=== PATIENT | female | born 1985 | race Caucasian/White ===

== ENCOUNTER 2020-06-04 15:29 | Outpatient (CLI) | payer BC, SELFPAY ==
--- NOTE | ~2020-06-04 | US_ITS ---
US OB follow up DATE: 06/04/2020 16:43 INDICATION: Hypertension, gestational diabetes TECHNIQUE: Real-time imaging and Doppler analysis COMPARISON: None FINDINGS: Live parra intrauterine gestation, fetus in transverse lie, head to maternal righ t. Anterior placenta. Subjectively normal amount of amniotic fluid. Amniotic fluid index measures 18.2 cm (5th percentile A FI: 8.6 cm, 95th percentile KENDRA: 24.2 cm). heart rate 130 bpm. Biparietal diameter: 8.23 cm; 33 weeks 1 day Head circumference: 30.36 cm; 33 weeks 5 days Abdominal circumference: 29.45 cm; 33 weeks 3 days Femur length: 6.12 cm; 31 weeks 5 days Composite age by Hadlock formula is 33 weeks +/- 2 weeks 2 days with DARA of 07/23/2020, compared to by LMP. Estimated weight by Hadlock formula is 2086 +/- 313 g Estimated weight-GP: 52.2% Femur length/BPD 74.33, within normal range of 71.0-87.0 Head circumference/abdominal circumference 1.03, within normal range of 0.96 - 1.11 Femur length/abdominal circumference 20.77, within normal range of 20.00-24.00 Femur length/head circumference 20.14, within normal range of 19.90-21.50 IMPRESSION: Composite age by Hadlock formula is 33 weeks +/- 2 weeks 2 days with DARA of 07/23/2020, co mpared to 07/26/2020 by LMP. Estimated weight by Hadlock formula is 2086 +/- 313 g Amniotic fluid index: 18.2 cm, normal Transverse lie Reviewed, dictated and finalized at [facility]. Reviewed, dictated and finalized at location [facility]. DIEM RN IMPRESSION: Composite age by Hadlock formula is 33 weeks +/- 2 weeks 2 days wit h DARA of 07/23/2020, compared to 07/26/2020 by LMP. Estimated weight by Hadlock formula is 2086 +/- 313 g Amniotic fluid index: 18.2 cm, normal Transverse lie
== END 2020-06-04 15:30 | disposition home or self-care (01) ==
PROVIDERS: Visit Provider Obstetrics & Gynecology
DX: O24.419 Gestational diabetes mellitus in pregnancy, unspecified control (principal); Z3A.00 Weeks of gestation of pregnancy not specified
CPT/HCPCS: 76816

== ENCOUNTER 2020-06-20 19:08 | Outpatient (CLI) | payer BC, SELFPAY ==
--- NOTE | 2020-06-20 19:50 | PC.NURSE ---
Pt states she has had elevated blood pressures with previous pregnancies,. States noted hand swelling with intermittant high blood pressure past 2 weeks.
[2020-06-20 20:16] VITALS: BP 123/83; PULSE 70
[2020-06-20 20:19] LABS: Basophils Percent Auto 0.3 % (0.2-1.2); Eosinophils Percent Auto 0.3 % (0-4.4); Hematocrit 38.6 % (37.0-47.0); Immature Granulocyte Absolute 0.02 K/mm3 (0.00-0.031); Immature Granulocyte Percent A 0.3 % (0-0.5); Lymphocytes Absolute Auto 1.21 K/mm3 (0.9-3.2); Lymphocytes Percent Auto 20.4 % (18.3-44.2); Mean Corpuscular HGB Conc 33.7 g/dl (32-36); Mean Corpuscular Volume 92.1 fl (80-100); Mean Platelet Volume 10.8 fl (7.4-10.4); Monocytes Absolute Auto 0.6 K/mm3 (0.1-0.6); Monocytes Percent Auto 10.1 % (2.6-8.5); Neutrophils Absolute Auto 4.1 K/mm3 (1.3-6.7); Neutrophils Percent Auto 68.6 % (45.5-73.1); Platelet Count Result 195 k/mm3 (150-375); Red Blood Count 4.19 M/mm3 (4.2-5.4); Red Cell Distribution Width 13.2 % (11.5-14.5); White Blood Count 5.9 K/mm3 (4.5-10.0)
[2020-06-20 20:24] LABS: Add Urine Microscopic? YES; Appearance Urine Cloudy (Clear); Bilirubin Urine Negative (Negative); Blood Urine 1+ (Negative); Color Urine Yellow (Yellow); Glucose Urine UA Negative (Negative); Ketones Urine Negative (Negative); Leukocyte Esterase Ur Negative LEU/UL (NEGATIVE); Mucus Urine Rare /lpf; Nitrate Urine Negative (Negative); Protein Urine 2+ mg/dL (Negative); Specific Grav Ur 1.029 (1.001-1.035); Squamous Epithelial Cell Urine Moderate /hpf (Few); Transitional Epi Cells Urine Rare /hpf (None Seen); Urobilinogen Urine Negative mg/dL (<2.0); WBC Urine 0-3 /hpf (0-3)
[2020-06-20 20:31] VITALS: BP 122/80; PULSE 60
[2020-06-20 20:31] LABS: Potassium 3.1 mmol/L (3.4-5.0)
--- NOTE | 2020-06-20 20:33 | P.PNOB_ITS ---
OB - Triage/Final Diagnosis Visit Information Date of evaluation: 06/20/20 Reason for evaluation: other (gest htn) Comments/Additional reasons for admission: I have assessed the risk for this patient, Romelia San, and determined that she would benefit from ob servation care. Evaluation Laboratory results: Laboratory Tests 06/20/20 06/20/20 06/20/20 20:10 20:10 20:10 WBC 5.9 RBC 4.19 L Hgb 13.0 Hct 38.6 MCV 92.1 MCH 31.0 MCHC 33.7 RDW 13.2 Plt Count 195 MPV 10.8 H Immature Gran % (Auto) 0.3 Neut % (Auto) 68.6 Lymph % (Auto) 20.4 [place] % (Auto) 10.1 H Eos % (Auto) 0.3 Baso % (Auto) 0.3 Lymph # (Auto) 1.21 [place] # (Auto) 0.6 Eos # (Auto) 0.0 Baso # (Auto) 0.0 Abs Immat Gran (auto) 0.02 Absolute Neuts (auto) 4.1 Absolute Nucleated RBC 0.0 Nucleated RBC % 0.0 Potassium 3.1 L Urine Color Yellow Urine Appearance Cloudy H Urine pH 6.0 Ur Specific [place] 1.029 Urine Protein 2+ H Urine Glucose (UA) Negative Urine Ketones Negative Ur Blood (Man) 1+ H Urine Nitrate Negative Urine Bilirubin Negative Urine Urobilinogen Negative Ur Leukocyte Esterase Negative Urine RBC 11-20 H Urine WBC 0-3 Ur Squamous Epith Cells Moderate H Ur Transition Epith Cell Rare Urine Mucus Rare Vital signs: Vital Signs - 24 hr 06/20/20 20:16 06/20/20 20:31 Pulse Rate 70 60 Blood Pressure 123/83 122/80
[2020-06-20 20:38] LABS: Alanine Aminotransferase 12 U/L (4-35); Albumin Level 3.2 g/dL (3.5-5.1); Alkaline Phosphatase 109 U/L (38-126); Anion Gap 3 mmol/L (8-16); Aspartate Amino Transferase 20 U/L (14-36); Bilirubin,Total 0.2 mg/dL (0.2-1.3); Blood Urea Nitrogen 9 mg/dL (7-17); Calcium 8.8 mg/dL (8.4-10.2); Carbon Dioxide 25 mmol/L (22-30); Chloride 110 mmol/L (98-107); Estimated Glomerular Filt Rate > 60; Glucose 140 mg/dL (65-105); Sodium 138 mmol/L (137-145); Uric Acid 3.1 mg/dL (2.5-7.5)
[2020-06-20 20:46] VITALS: BP 131/83; PULSE 65
== END 2020-06-20 20:55 | disposition home or self-care (01) ==
LOC: ANHOBOP 19:22 → ANHOBPP 06-25 06:30
PROVIDERS: Visit Provider Obstetrics & Gynecology
DX: R03.0 Elevated blood-pressure reading, without diagnosis of hypertension (principal)
CPT/HCPCS: 36415; 59025; 80053; 81001; 84550; 85025; 87086; 87088; 99199

== ENCOUNTER 2020-07-02 12:19 | Outpatient (CLI) | payer BC, SELFPAY ==
[2020-07-02] VITALS (15 sets, daily range): BP systolic 122–151; BP diastolic 79–106; PULSE 55–85; BMI 32.4
[2020-07-02] MEDS: LABETALOL HCL 100 MG TABLET 200 MG PO (13:10)
[2020-07-02 13:11] LABS: Basophils Percent Auto 0.4 % (0.2-1.2); Eosinophils Percent Auto 0.4 % (0-4.4); Hematocrit 45.3 % (37.0-47.0); Hemoglobin 15.2 g/dL (12.0-15.0); Immature Granulocyte Absolute 0.01 K/mm3 (0.00-0.031); Immature Granulocyte Percent A 0.1 % (0-0.5); Lymphocytes Absolute Auto 1.33 K/mm3 (0.9-3.2); Lymphocytes Percent Auto 19.9 % (18.3-44.2); Mean Corpuscular HGB Conc 33.6 g/dl (32-36); Mean Corpuscular Volume 92.3 fl (80-100); Mean Platelet Volume 10.8 fl (7.4-10.4); Monocytes Absolute Auto 0.5 K/mm3 (0.1-0.6); Monocytes Percent Auto 7.9 % (2.6-8.5); Neutrophils Absolute Auto 4.8 K/mm3 (1.3-6.7); Neutrophils Percent Auto 71.3 % (45.5-73.1); Platelet Count Result 199 k/mm3 (150-375); Red Blood Count 4.91 M/mm3 (4.2-5.4); Red Cell Distribution Width 13.4 % (11.5-14.5); White Blood Count 6.7 K/mm3 (4.5-10.0)
[2020-07-02 13:23] LABS: Alanine Aminotransferase 12 U/L (4-35); Albumin Level 3.5 g/dL (3.5-5.1); Alkaline Phosphatase 154 U/L (38-126); Anion Gap 3 mmol/L (8-16); Aspartate Amino Transferase 22 U/L (14-36); Bilirubin,Total 0.2 mg/dL (0.2-1.3); Blood Urea Nitrogen 10 mg/dL (7-17); Calcium 8.1 mg/dL (8.4-10.2); Carbon Dioxide 25 mmol/L (22-30); Chloride 109 mmol/L (98-107); Estimated Glomerular Filt Rate > 60; Glucose 84 mg/dL (65-105); Potassium 3.9 mmol/L (3.4-5.0); Sodium 137 mmol/L (137-145); Uric Acid 4.2 mg/dL (2.5-7.5)
[2020-07-02 13:30] LABS: Add Urine Microscopic? YES; Appearance Urine Cloudy (Clear); Bacteria Urine Trace /hpf; Bilirubin Urine Negative (Negative); Blood Urine 2+ (Negative); Color Urine Yellow (Yellow); Glucose Urine UA Negative (Negative); Ketones Urine Trace mg/dL (Negative); Leukocyte Esterase Ur Negative LEU/UL (Negative); Mucus Urine Heavy /lpf; Nitrate Urine Negative (Negative); Protein Urine 3+ mg/dL (Negative); RBC Urine 21-50 /hpf (0-2); Specific Grav Ur 1.027 (1.001-1.035); Squamous Epithelial Cell Urine Few /hpf (Few); Urobilinogen Urine Negative mg/dL (<2.0)
[2020-07-02 13:32] LABS: Creatinine Urine 174.7 mg/dL
[2020-07-02 13:50] LABS: Total Protein Urine Random > 600 mg/dL
[2020-07-02] MEDS: BETAMETHASONE SOD PHOS/ACETATE 30 MG/5 ML VIAL 12 MG IM (14:35)
--- NOTE | 2020-07-02 15:15 | PC.NURSE ---
Dr. Bolden on unit and in to see pt. Discussed pt's BP's, lab results and proteinuria with pt. Discussed need to deliver baby sooner than planned and options of inducing tonight vs receiving 2nd dose of Celestone tomorrow and induction on Tuesday morning. Pt relays history of fast labors. SVE by is 1-2 cm / 50 % / -2 station. Decision made to have pt return tomorrow for 2nd dose of Celestone and then come in Tuesday am for induction of labor.
--- NOTE | 2020-07-02 15:37 | WPDOBADMIT ---
Obstetrics - Admit Note Admission Note: 34 y/o at 36 3/7 weeks here with elevated bp in the office. No headaches, visual field change or abdominal pain. Good movement. Irregular contractions. No vaginal bleeding. A1DM with good glycemic control. GBS unknown. BP 150s/100s. AVSS NST reactive TOCO: irregular contractions ABD soft, nontender, gravid, vertex EXT nontender Cervix 2/50/-2. Vertex. NEURO: DTR 2/4 and symmetric A: IUP at 36 3/7 weeks with gestational HTN, A1DM, now with worsening bp control and proteinuria. P: I recommended delivery soon. Have started betamethasone as well as labetalol 200 mg po bid. After a long talk today, we decided to finish the steroid course tomorrow and induce labor the following day. We reviewed risks, benefits and alternatives. We reviewed instructions and precautions. She understands and agrees with the plan.
--- NOTE | 2020-07-02 17:01 | PC.NURSE ---
Preadmission was completed prior to discharging pt.
== END 2020-07-02 17:01 | disposition home or self-care (01) ==
LOC: ANHOBOP 12:25 → ANHOBPP 12:25
PROVIDERS: Visit Provider Student in an Organized Health Care Education/Training Program
DX: O13.9 Gestational [pregnancy-induced] hypertension without significant proteinuria, unspecified trimester (principal); Z3A.00 Weeks of gestation of pregnancy not specified
CPT/HCPCS: 36415; 59025; 80053; 81001; 82570; 84156; 84550; 85025; 87086; 87088; 96372; 99199; A9270; J0702

== ENCOUNTER 2020-07-03 14:19 | Outpatient (CLI) | payer BC, SELFPAY ==
[2020-07-03] MEDS: BETAMETHASONE SOD PHOS/ACETATE 30 MG/5 ML VIAL 12 MG IM (14:34)
== END 2020-07-03 14:20 | disposition home or self-care (01) ==
LOC: ANHOBOP 14:25
PROVIDERS: PCP Obstetrics & Gynecology; Visit Provider Obstetrics & Gynecology
DX: O13.9 Gestational [pregnancy-induced] hypertension without significant proteinuria, unspecified trimester (principal); Z3A.00 Weeks of gestation of pregnancy not specified
CPT/HCPCS: 96372; J0702

== ENCOUNTER 2020-07-04 05:20 | Inpatient (IN) | payer BC, SELFPAY ==
[2020-07-04] VITALS (243 sets, daily range): BP systolic 77–168; BP diastolic 52–133; PULSE 55–290; RESP 16–20; TEMP 36.2–37.2; O2SAT 75–100; BMI 32.5
[2020-07-04 05:57] LABS: Basophils Percent Auto 0.1 % (0.2-1.2); Hematocrit 38.2 % (37.0-47.0); Hemoglobin 13.1 g/dL (12.0-15.0); Immature Granulocyte Absolute 0.09 K/mm3 (0.00-0.031); Immature Granulocyte Percent A 1.1 % (0-0.5); Lymphocytes Absolute Auto 0.87 K/mm3 (0.9-3.2); Lymphocytes Percent Auto 10.9 % (18.3-44.2); Mean Corpuscular HGB Conc 34.3 g/dl (32-36); Mean Corpuscular Hemoglobin 31.7 pg (26-34); Mean Corpuscular Volume 92.5 fl (80-100); Mean Platelet Volume 10.9 fl (7.4-10.4); Monocytes Absolute Auto 0.5 K/mm3 (0.1-0.6); Monocytes Percent Auto 6.5 % (2.6-8.5); Neutrophils Absolute Auto 6.5 K/mm3 (1.3-6.7); Neutrophils Percent Auto 81.4 % (45.5-73.1); Platelet Count Result 193 k/mm3 (150-375); Red Blood Count 4.13 M/mm3 (4.2-5.4); Red Cell Distribution Width 13.6 % (11.5-14.5)
--- NOTE | 2020-07-04 06:02 | LDADM ---
This patient, Romelia San, was admitted to Labor/Delivery/Recovery 102 on 07/04/20 at 05:20. Plans for labor, pain management and were discussed with patient. Patient/family oriented to hospital policies and general routines including ID bracelet, bed and alarms, visiting hours, pain management, procedures, bathroom and other care routines, personal items, smoking policy, room service/diet and guest tray routines, security routines, and visiting hours. Patient/Family are encouraged to report perceived risks to care and to ask questions if they do not understand what they are told or what they should do. See OBIX for further documentation.
--- NOTE | 2020-07-04 06:05 | WPDANESEPP ---
Anes - Eval Pre Procedure Procedure: labor epidural Date/Time: 07/04/20 06:05 Surgeon: qian Pre Op Diagnosis: Induction of Labor Patient Data Age: 34 Gender: F Height: Weight: Allergies Allergy/AdvReac Type Severity Reaction Status Date / Time No Known Allergies Allergy Verified 07/02/20 14:02 Home Medications Medication Instructions Recorded Confirmed Type PNV cmb#95-ferrous fumarate-FA 1 tablet PO DAILY 07/02/20 07/02/20 History [] labetalol 200 mg PO Q12H 07/02/20 07/02/20 History aspirin 81 mg PO DAILY 07/04/20 07/04/20 History Laboratory Tests 07/04/20 07/04/20 07/04/20 05:48 05:48 05:48 WBC 8.0 K/mm3 K/mm3 (4.5-10.0) RBC 4.13 M/mm3 L M/mm3 (4.2-5.4) Hgb 13.1 g/dL g/dL (12.0-15.0) Hct 38.2 % % (37.0-47.0) MCV 92.5 fl fl (80-100) MCH 31.7 pg pg (26-34) MCHC 34.3 g/dl g/dl (32-36) RDW 13.6 % % (11.5-14.5) Plt Count 193 k/mm3 k/mm3 (150-375) MPV 10.9 fl H fl (7.4-10.4) Immature Gran % (Auto) 1.1 % H % (0-0.5) Neut % (Auto) 81.4 % H % (45.5-73.1) Lymph % (Auto) 10.9 % L % (18.3-44.2) [place] % (Auto) 6.5 % % (2.6-8.5) Eos % (Auto) 0.0 % % (0-4.4) Baso % (Auto) 0.1 % L % (0.2-1.2) Lymph # (Auto) 0.87 K/mm3 L K/mm3 (0.9-3.2) [place] # (Auto) 0.5 K/mm3 K/mm3 (0.1-0.6) Eos # (Auto) 0.0 K/mm3 K/mm3 (0-0.3) Baso # (Auto) 0.0 K/mm3 K/mm3 (0.0-0.1) Abs Immat Gran (auto) 0.09 K/mm3 H K/mm3 (0.00-0.031) Absolute Neuts (auto) 6.5 K/mm3 K/mm3 (1.3-6.7) Absolute Nucleated RBC 0.0 K/mm3 K/mm3 (0.0-0.012) Nucleated RBC % 0.0 % % (0.0-0.2) Sodium Pending Potassium Pending Chloride Pending Carbon Dioxide Pending Anion Gap Pending BUN Pending Creatinine Pending Estim Creat Clear Calc Pending Estimated GFR Pending Glucose Pending Calcium Pending Total Bilirubin Pending AST Pending ALT Pending Alkaline Phosphatase Pending Total Protein Pending Albumin Pending RPR Pending Patient hx anesthesia problems: none Family hx anesthesia problems: none PMFSH Past Medical History Medical History (Updated 07/04/20 @ 06:06 by Dorcas Thornton CRNA) H/O Finch's palsy Migraines PIH ( induced hypertension) Family History Family History Father Hyperlipidemia Hypertension Mother Hypertension Anxiety and depression Early onset Alzheimer's dementia Sibling Anxiety Social History Social History Substance use: never Spiritual care concerns: No Exam Day of Procedure 07/04/20 06:05
[2020-07-04 06:13] LABS: Alanine Aminotransferase 14 U/L (4-35); Albumin Level 3.3 g/dL (3.5-5.1); Alkaline Phosphatase 125 U/L (38-126); Anion Gap 6 mmol/L (8-16); Aspartate Amino Transferase 24 U/L (14-36); Bilirubin,Total 0.1 mg/dL (0.2-1.3); Blood Urea Nitrogen 15 mg/dL (7-17); Calcium 8.8 mg/dL (8.4-10.2); Carbon Dioxide 21 mmol/L (22-30); Chloride 110 mmol/L (98-107); Estimated CRCL calculation 163 ml/min; Estimated Glomerular Filt Rate > 60; Glucose 116 mg/dL (65-105); Potassium 4.3 mmol/L (3.4-5.0); Sodium 137 mmol/L (137-145)
[2020-07-04] MEDS: LACTATED RINGERS 1,000 ML 125 ML IV CONT ×5 (06:14→20:37)
[2020-07-04] MEDS: AMPICILLIN 2 GM/NS 100 ML 2 GM/100 ML BAG IVPB (06:14)
[2020-07-04] MEDS: OXYTOCIN 30 UNITS/NS 500 ML 30 UNITS/500 ML BAG IV CONT (06:14)
[2020-07-04 06:24] LABS: Uric Acid 3.9 mg/dL (2.5-7.5)
[2020-07-04] MEDS: LABETALOL HCL 100 MG TABLET 200 MG PO (07:28)
--- NOTE | 2020-07-04 08:35 | WPDOBADMIT ---
Obstetrics - Admit Note Admission Note: record reviewed. Additions to the history and/or subsequent changes in the physical findings follow. 34 y/o at 36 6/7 weeks with gestational hypertension, worsening. She has proteinuria, but no symptoms of preeclampsia and no other lab derangements. A1DM, well-controlled. Got steroids this week. GBS unknown. Just started labetalol 200 mg po bid this week. I have advised delivery. We have reviewed risks associated with prematurity, risks and benefits associated with induction of labor versus expectant management. AVSS (bp 150/100) NST reactive TOCO: contractions irregularly ABD soft, nontender, gravid, vertex EXT nontender Cervix 3/50/-2. AROM with clear fluid. Vertex. A: IUP at 36 6/7 weeks with worsening gestational HTN, A1DM, s/p steroids. P: She is amenable to induction of labor. Watch bp, glucose. Oxytocin. Anticipate .
[2020-07-04] MEDS: SODIUM CHLORIDE 0.9% IV 300 ML 600 ML I-UTERINE (08:58)
[2020-07-04] MEDS: SODIUM CHLORIDE 0.9% IV 1,000 ML 150 ML I-UTERINE (09:40)
[2020-07-04] MEDS: AMPICILLIN 1 GM/NS 50 ML 1 GM/50 ML BAG IVPB ×2 (10:11→13:46)
[2020-07-04 11:35] LABS: Glucose Point of Care 105 (65-105)
[2020-07-04 11:35] LABS: Glucose Point of Care 97 (65-105)
[2020-07-04 12:01] LABS: Rapid Plasma Reagin Non-Reactive (NonReactive)
--- NOTE | 2020-07-04 12:35 | PM.OBPNLAB ---
Pain Control Date/time seen: 07/04/20 12:30 Comments: AVSS Comfortable with epidural. Pelvic Exam Dilation (cm): 4 Effacement (%): 80 station: -2 Contractions Contraction frequency: 3 Contraction pattern: Regular Status status: Category ll Comments: Occasional variable decelerations, responding well to amnioinfusion. Assessment and Plan Pitocin rate (mU/min): 4 Plan: continuous present management Comments: Anticipate .
--- NOTE | 2020-07-04 14:59 | P.PCNOB_ITS ---
OB - Delivery Note Procedure Delivery date: 07/04/20 Procedure: Induction of labor with Induction method: AROM and per pitocin protocol Delivery monitor: external FHT, external uterine and internal uterine Route of delivery: Laceration Description: None Quantitative Blood Loss (ml): 600 (ebl) Anesthesia type: Epidural Disposition: PACU Complications: None Narrative: 34 y/o at 36 6/7 weeks gestation with gestational HTN, A1DM, who presented to the hospital for induction of labor. Oxytocin was administered intravenously. She received ampicillin for unknown GBS status in the . Amniotomy was performed with return of clear fluid. She received an epidural for pain control. Her labor progressed and her cervix dilated completely. She had a heart rate deceleration in conjunction with moderate vaginal bleeding, so she was instructed to push. Over one contraction, she pushed with good effort and delivered the 's head to the perineum. A nuchal cord was reduced and the body delivered. The nose and mouth were bulb suctioned. After a delay, the cord was clamped and cut. The was handed off the field. Cord blood was collected. The placenta delivered spontaneously and was grossly normal in appearance. The usual 3 vessel cord was noted. The perineum was intact. The patient was taken to recovery room in stable condition. The infant went to the nursery in stable condition. Because of the rapid nature of her delivery at the time of FHR deceleration and increase in vaginal bleeding, an accurate QBL was not able to be obtained. [place] Baby Date of : 07/04/20 Time of : 14:48 Weeks of gestation at delivery: 36 Infant gender: Male Weight (pounds): 5 Weight (ounces): 10 presentation: vertex position: Left Occiput Anterior Placenta delivery description: Spontaneous and Normal Configuration cord vessel description: 3 Vessels, Nuchal Cord and Delayed Cord Clamping score one minute: 8 score five minutes: 9
[2020-07-04] MEDS: OXYTOCIN 30 UNITS/NS 500 ML 30 UNITS/500 ML BAG 125 UNITS IV CONT (15:28)
[2020-07-04] MEDS: miSOPROStol 200 MCG TABLET 1000 MCG RECTAL (15:45)
[2020-07-04 16:41] LABS: Glucose Point of Care 88 (65-105)
[2020-07-04] MEDS: CARBOPROST TROMETHAMINE 250 MCG/ML AMPUL IM (17:02)
[2020-07-04] MEDS: LOPERAMIDE HCL 2 MG CAPSULE 4 MG PO (17:03)
[2020-07-04 18:44] LABS: Hematocrit 25.3 % (37.0-47.0); Hemoglobin 8.4 g/dL (12.0-15.0); Mean Corpuscular HGB Conc 33.2 g/dl (32-36); Mean Corpuscular Hemoglobin 31.6 pg (26-34); Mean Corpuscular Volume 95.1 fl (80-100); Mean Platelet Volume 9.7 fl (7.4-10.4); Platelet Count Result 90 k/mm3 (150-375); Red Blood Count 2.66 M/mm3 (4.2-5.4); Red Cell Distribution Width 13.9 % (11.5-14.5); White Blood Count 13.2 K/mm3 (4.5-10.0)
[2020-07-04 18:52] LABS: INR 1.7; Prothrombin Time 20.6 Seconds (11.1-14.7)
[2020-07-04 18:53] LABS: Partial Thromboplastin Time 31.8 SECONDS (22.3-36.8)
--- NOTE | 2020-07-04 19:24 | PM.OBPNVD ---
OB - PN: Subj Subjective Date/time seen: 07/04/20 19:24 Called to see patient. She has had several gushes of blood. EBL now 1800mL. Has received oxytocin, Cytotec, Hemabate. Feels fine. well. BP 140/90, pulse 90. Hgb 13 initially, 8.4 now. ABD: Uterus feels firm. Bedside ultrasound by me: Uterus shows a small echogenic focus. A: PPH with possible retained placental fragment. P: Ultrasound-guided D&C OB - PN: Obj Data Labs CBC & Chem 7: 07/04/20 18:35 07/04/20 05:48 Labs: Laboratory Results - last 24 hr 07/04/20 07/04/20 07/04/20 05:48 05:48 05:48 WBC 8.0 RBC 4.13 L Hgb 13.1 Hct 38.2 MCV 92.5 MCH 31.7 MCHC 34.3 RDW 13.6 Plt Count 193 MPV 10.9 H Immature Gran % (Auto) 1.1 H Neut % (Auto) 81.4 H Lymph % (Auto) 10.9 L [place] % (Auto) 6.5 Eos % (Auto) 0.0 Baso % (Auto) 0.1 L Lymph # (Auto) 0.87 L [place] # (Auto) 0.5 Eos # (Auto) 0.0 Baso # (Auto) 0.0 Abs Immat Gran (auto) 0.09 H Absolute Neuts (auto) 6.5 Absolute Nucleated RBC 0.0 Nucleated RBC % 0.0 Sodium 137 Potassium 4.3 Chloride 110 H Carbon Dioxide 21 L Anion Gap 6 L BUN 15 D Creatinine 0.40 L Estim Creat Clear Calc 163 Estimated GFR > 60 Glucose 116 H POC Capillary Glucose Uric Acid 3.9 Calcium 8.8 Total Bilirubin 0.1 L AST 24 ALT 14 Alkaline Phosphatase 125 Total Protein 6.0 L Albumin 3.3 L RPR Blood Type Antibody Screen 07/04/20 07/04/20 07/04/20 05:48 05:48 09:23 WBC RBC Hgb Hct MCV MCH MCHC RDW Plt Count MPV Immature Gran % (Auto) Neut % (Auto) Lymph % (Auto) [place] % (Auto) Eos % (Auto) Baso % (Auto) Lymph # (Auto) [place] # (Auto) Eos # (Auto) Baso # (Auto) Abs Immat Gran (auto) Absolute Neuts (auto) Absolute Nucleated RBC Nucleated RBC % Sodium Potassium Chloride Carbon Dioxide Anion Gap BUN Creatinine Estim Creat Clear Calc Estimated GFR Glucose POC Capillary Glucose 97 Uric Acid Calcium Total Bilirubin AST ALT Alkaline Phosphatase Total Protein Albumin RPR Non-reactive Blood Type A Positive Antibody Screen Negative 07/04/20 07/04/20 07/04/20 11:29 13:23 16:23 WBC RBC Hgb 10.0 L D Hct 31.0 L MCV MCH MCHC RDW Plt Count MPV Immature Gran % (Auto) Neut % (Auto) Lymph % (Auto) [place] % (Auto) Eos % (Auto) Baso % (Auto) Lymph # (Auto) [place] # (Auto) Eos # (Auto) Baso # (Auto) Abs Immat Gran (auto) Absolute Neuts (auto) Absolute Nucleated RBC Nucleated RBC % Sodium Potassium Chloride Carbon Dioxide Anion Gap BUN Creatinine Estim Creat Clear Calc Estimated GFR Glucose POC Capillary Glucose 105 88 Uric Acid Calcium Total Bilirubin AST ALT Alkaline Phosphatase Total Protein Albumin RPR Blood Type Antibody Screen 07/04/20 18:35 WBC 13.2 H RBC 2.66 L Hgb 8.4 L Hct 25.3 L MCV 95.1 MCH 31.6 MCHC 33.2 RDW 13.9 Plt Count 90 L D MPV 9.7 Immature Gran % (Auto) Neut % (Auto) Lymph % (Auto) [place] % (Auto) Eos % (Auto) Baso % (Auto) Lymph # (Auto) [place] # (Auto) Eos # (Auto) Baso # (Auto) Abs Immat Gran (auto) Absolute Neuts (auto) Absolute Nucleated RBC Nucleated RBC % Sodium Potassium Chloride Carbon Dioxide Anion Gap BUN Creatinine Estim Creat Clear Calc Estimated GFR Glucose POC Capillary Glucose Uric Acid Calcium Total Bilirubin AST ALT Alkaline Phosphatase Total Protein Albumin RPR Blood Type Antibody Screen OB - PN A/P Time Spent With Patient Time: Total time spent is greater than 50% in coordination of care (as documented) at patient's floor/unit
[2020-07-04 19:35] LABS: Fibrinogen 60 mg/dl (215-510)
[2020-07-04 19:36] LABS: D Dimer > 20.00 ug/mL (<0.48)
--- NOTE | 2020-07-04 20:01 | PM.PROC ---
Procedure Note - Detailed Date of procedure: 07/04/20 Pre-op diagnosis: Induction of Labor hemorrhage Possible retained placental fragments Post-op diagnosis: same Procedure performed: Bedside ultrasound-guided uterine curettage. Description of procedure: Bedside ultrasound exam was performed by me. The endometrial cavity was mostly empty, although there was one focus of echogenic material suggestive of retained products. Anesthesia was consulted again. The epidural catheter was, fortunately, still in place. This was dosed and anesthesia was found to be adequate. A Willis catheter was placed. A weighted speculum was placed in the vagina posteriorly and a right angle retractor was used anteriorly. The anterior lip of the cervix was grasped with a ring forceps. Under ultrasound guidance, the banjo curette was advanced and sharp curettage was performed. Small amount of tissue was obtained, although one fragment did suggest a placental lobule. Hemostasis was excellent. Sponge, lap, needle and instrument counts were correct. I was present and scrubbed for the entire procedure. Implants: None Anesthesia: epidural Surgeon: Frantz Bolden MD Estimated blood loss (mL): 150 Drains: Yes (willis) Packing: No Pathology: yes (endometrial curettings, with a suggestion of a placental fragment) Complications: None Condition: stable Disposition: PACU Findings: Small tissue consistent with placental fragment.
[2020-07-04 20:20] LABS: Hematocrit 22.7 % (37.0-47.0); Hemoglobin 7.4 g/dL (12.0-15.0); Mean Corpuscular HGB Conc 32.6 g/dl (32-36); Mean Corpuscular Hemoglobin 31.6 pg (26-34); Mean Platelet Volume 10.2 fl (7.4-10.4); Platelet Count Result 85 k/mm3 (150-375); Red Blood Count 2.34 M/mm3 (4.2-5.4); Red Cell Distribution Width 13.8 % (11.5-14.5); White Blood Count 11.3 K/mm3 (4.5-10.0)
[2020-07-04 20:32] LABS: Anion Gap 1 mmol/L (8-16); Blood Urea Nitrogen 15 mg/dL (7-17); Calcium 6.6 mg/dL (8.4-10.2); Carbon Dioxide 24 mmol/L (22-30); Chloride 107 mmol/L (98-107); Estimated CRCL calculation 114 ml/min; Estimated Glomerular Filt Rate > 60; Glucose 105 mg/dL (65-105); Potassium 4.1 mmol/L (3.4-5.0); Sodium 132 mmol/L (137-145)
[2020-07-05] VITALS (65 sets, daily range): BP systolic 111–140; BP diastolic 65–93; PULSE 86–116; RESP 16–18; TEMP 36.6–37.2; O2SAT 94–100
[2020-07-05] MEDS: IBUPROFEN 600 MG TABLET PO ×2 (03:59→17:23)
[2020-07-05 05:28] LABS: Basophils Percent Auto 0.2 % (0.2-1.2); Hematocrit 28.3 % (37.0-47.0); Hemoglobin 9.5 g/dL (12.0-15.0); Immature Granulocyte Absolute 0.13 K/mm3 (0.00-0.031); Lymphocytes Absolute Auto 1.43 K/mm3 (0.9-3.2); Lymphocytes Percent Auto 11.4 % (18.3-44.2); Mean Corpuscular HGB Conc 33.6 g/dl (32-36); Mean Corpuscular Hemoglobin 29.5 pg (26-34); Mean Corpuscular Volume 87.9 fl (80-100); Mean Platelet Volume 9.7 fl (7.4-10.4); Monocytes Absolute Auto 1.1 K/mm3 (0.1-0.6); Monocytes Percent Auto 8.9 % (2.6-8.5); Neutrophils Absolute Auto 9.8 K/mm3 (1.3-6.7); Neutrophils Percent Auto 78.5 % (45.5-73.1); Platelet Count Result 81 k/mm3 (150-375); Red Blood Count 3.22 M/mm3 (4.2-5.4); Red Cell Distribution Width 16.2 % (11.5-14.5); White Blood Count 12.5 K/mm3 (4.5-10.0)
[2020-07-05 05:37] LABS: INR 1.2; Prothrombin Time 15.9 Seconds (11.1-14.7)
[2020-07-05 05:38] LABS: Partial Thromboplastin Time 27.7 SECONDS (22.3-36.8)
[2020-07-05 05:43] LABS: Fibrinogen 150 mg/dl (215-510)
[2020-07-05 06:10] LABS: D Dimer > 20.00 ug/mL (<0.48)
--- NOTE | 2020-07-05 08:18 | WPDANLDPN2 ---
Anes-Prog Note L&D Date/Time: 07/05/20 08:18 Comfortable throughout: labor and delivery Neuraxial method: epidural Neuro status: Neuro function grossly intact. Cardiovascular status: normal Respiratory status: normal Airway patency: baseline Mental status: baseline Post-Op hydration status: normal Vital Signs: Last Vital Signs Temp 36.9 C 07/05/20 07:27 Pulse 86 07/05/20 07:22 Resp 18 07/05/20 03:22 BP 130/83 07/05/20 07:22 Pulse Ox 99 07/05/20 03:47 Pain score (VAS): Patient resting in bed at time of assessment, appears comfortable. I/O: Intake & Output 07/04/20 07/05/20 07/05/20 23:59 07:59 15:59 Intake Total 1999 1637 Output Total 1445 1163 Balance 555 842 Post-procedural complaints: none Patient feedback: Patient satisfied with anesthetic care.
--- NOTE | 2020-07-05 08:19 | WPDANESPN ---
Anes - Prog Note Post-Op Date/Time: 07/05/20 08:19 Cardiovascular status: normal Respiratory status: normal Airway patency: baseline Mental status: baseline Post-Op hydration status: normal Vital Signs: Last Vital Signs Temp 36.9 C 07/05/20 07:27 Pulse 86 07/05/20 07:22 Resp 18 07/05/20 03:22 BP 130/83 07/05/20 07:22 Pulse Ox 99 07/05/20 03:47 Pain Score (VAS): 0/10. Patient resting in bed at time of assessment, appears comfortable. I/O: Intake & Output 07/04/20 07/05/20 07/05/20 23:59 07:59 15:59 Intake Total 1999 1637 Output Total 1445 1163 Balance 555 474 Laboratory Tests 07/05/20 05:21 07/04/20 20:00 07/04/20 07/04/20 07/04/20 05:48 05:48 09:23 WBC RBC Hgb Hct MCV MCH MCHC RDW Plt Count MPV Immature Gran % (Auto) Neut % (Auto) Lymph % (Auto) [place] % (Auto) Eos % (Auto) Baso % (Auto) Lymph # (Auto) [place] # (Auto) Eos # (Auto) Baso # (Auto) Abs Immat Gran (auto) Absolute Neuts (auto) Absolute Nucleated RBC Nucleated RBC % % Immature Plt Fraction PT INR APTT Fibrinogen D-Dimer Sodium Potassium Chloride Carbon Dioxide Anion Gap BUN Creatinine Estim Creat Clear Calc Estimated GFR Glucose POC Capillary Glucose 97 Calcium RPR Non-reactive Blood Type A Positive Antibody Screen Negative Crossmatch See Detail 07/04/20 07/04/20 07/04/20 11:29 13:23 16:23 WBC RBC Hgb 10.0 L D Hct 31.0 L MCV MCH MCHC RDW Plt Count MPV Immature Gran % (Auto) Neut % (Auto) Lymph % (Auto) [place] % (Auto) Eos % (Auto) Baso % (Auto) Lymph # (Auto) [place] # (Auto) Eos # (Auto) Baso # (Auto) Abs Immat Gran (auto) Absolute Neuts (auto) Absolute Nucleated RBC Nucleated RBC % % Immature Plt Fraction PT INR APTT Fibrinogen D-Dimer Sodium Potassium Chloride Carbon Dioxide Anion Gap BUN Creatinine Estim Creat Clear Calc Estimated GFR Glucose POC Capillary Glucose 105 88 Calcium RPR Blood Type Antibody Screen Crossmatch 07/04/20 07/04/20 07/04/20 18:35 18:35 20:00 WBC 13.2 H 11.3 H RBC 2.66 L 2.34 L Hgb 8.4 L 7.4 L Hct 25.3 L 22.7 L MCV 95.1 97.0 MCH 31.6 31.6 MCHC 33.2 32.6 RDW 13.9 13.8 Plt Count 90 L D 85 L MPV 9.7 10.2 Immature Gran % (Auto) Neut % (Auto) Lymph % (Auto) [place] % (Auto) Eos % (Auto) Baso % (Auto) Lymph # (Auto) [place] # (Auto) Eos # (Auto) Baso # (Auto) Abs Immat Gran (auto) Absolute Neuts (auto) Absolute Nucleated RBC Nucleated RBC % % Immature Plt Fraction PT 20.6 H INR 1.7 APTT 31.8 Fibrinogen 60 L D-Dimer > 20.00 H Sodium Potassium Chloride Carbon Dioxide Anion Gap BUN Creatinine Estim Creat Clear Calc Estimated GFR Glucose POC Capillary Glucose Calcium RPR Blood Type Antibody Screen Crossmatch 07/04/20 07/05/20 07/05/20 20:00 05:21 05:21 WBC 12.5 H RBC 3.22 L Hgb 9.5 L Hct 28.3 L MCV 87.9 D MCH 29.5 D MCHC 33.6 RDW 16.2 H Plt Count 81 L MPV 9.7 Immature Gran % (Auto) 1.0 H Neut % (Auto) 78.5 H Lymph % (Auto) 11.4 L [place] % (Auto) 8.9 H Eos % (Auto) 0.0 Baso % (Auto) 0.2 Lymph # (Auto) 1.43 [place] # (Auto) 1.1 H Eos # (Auto) 0.0 Baso # (Auto) 0.0 Abs Immat Gran (auto) 0.13 H Absolute Neuts (auto) 9.8 H Absolute Nucleated RBC 0.0 Nucleated RBC % 0.0 % Immature Plt Fraction 6.0 PT 15.9 H D INR 1.2 APTT 27.7 Fibrinogen 150 L D-Dimer > 20.00 H Sodium 132 L Potassium 4.1 Chloride 107 Carbon Dioxide 24 Anion Gap 1 L BUN 15 Creatinine 0.60 L Estim Creat Clear Calc 114
--- NOTE | 2020-07-05 11:23 | PM.OBPNVD ---
OB - PN: Subj Subjective Date/time seen: 07/05/20 11:23 Narrative: Feels great this morning! Pain OK. Minimal bleeding. Would like willis out. Would like circumcision for son. OB - PN: Obj Data Labs CBC & Chem 7: 07/05/20 05:21 07/04/20 20:00 Labs: Laboratory Results - last 24 hr 07/04/20 07/04/20 07/04/20 05:48 05:48 09:23 WBC RBC Hgb Hct MCV MCH MCHC RDW Plt Count MPV Immature Gran % (Auto) Neut % (Auto) Lymph % (Auto) [place] % (Auto) Eos % (Auto) Baso % (Auto) Lymph # (Auto) [place] # (Auto) Eos # (Auto) Baso # (Auto) Abs Immat Gran (auto) Absolute Neuts (auto) Absolute Nucleated RBC Nucleated RBC % % Immature Plt Fraction PT INR APTT Fibrinogen D-Dimer Sodium Potassium Chloride Carbon Dioxide Anion Gap BUN Creatinine Estim Creat Clear Calc Estimated GFR Glucose POC Capillary Glucose 97 Calcium RPR Non-reactive Blood Type A Positive Antibody Screen Negative Crossmatch See Detail 07/04/20 07/04/20 07/04/20 11:29 13:23 16:23 WBC RBC Hgb 10.0 L D Hct 31.0 L MCV MCH MCHC RDW Plt Count MPV Immature Gran % (Auto) Neut % (Auto) Lymph % (Auto) [place] % (Auto) Eos % (Auto) Baso % (Auto) Lymph # (Auto) [place] # (Auto) Eos # (Auto) Baso # (Auto) Abs Immat Gran (auto) Absolute Neuts (auto) Absolute Nucleated RBC Nucleated RBC % % Immature Plt Fraction PT INR APTT Fibrinogen D-Dimer Sodium Potassium Chloride Carbon Dioxide Anion Gap BUN Creatinine Estim Creat Clear Calc Estimated GFR Glucose POC Capillary Glucose 105 88 Calcium RPR Blood Type Antibody Screen Crossmatch 07/04/20 07/04/20 07/04/20 18:35 18:35 20:00 WBC 13.2 H 11.3 H RBC 2.66 L 2.34 L Hgb 8.4 L 7.4 L Hct 25.3 L 22.7 L MCV 95.1 97.0 MCH 31.6 31.6 MCHC 33.2 32.6 RDW 13.9 13.8 Plt Count 90 L D 85 L MPV 9.7 10.2 Immature Gran % (Auto) Neut % (Auto) Lymph % (Auto) [place] % (Auto) Eos % (Auto) Baso % (Auto) Lymph # (Auto) [place] # (Auto) Eos # (Auto) Baso # (Auto) Abs Immat Gran (auto) Absolute Neuts (auto) Absolute Nucleated RBC Nucleated RBC % % Immature Plt Fraction PT 20.6 H INR 1.7 APTT 31.8 Fibrinogen 60 L D-Dimer > 20.00 H Sodium Potassium Chloride Carbon Dioxide Anion Gap BUN Creatinine Estim Creat Clear Calc Estimated GFR Glucose POC Capillary Glucose Calcium RPR Blood Type Antibody Screen Crossmatch 07/04/20 07/05/20 07/05/20 20:00 05:21 05:21 WBC 12.5 H RBC 3.22 L Hgb 9.5 L Hct 28.3 L MCV 87.9 D MCH 29.5 D MCHC 33.6 RDW 16.2 H Plt Count 81 L MPV 9.7 Immature Gran % (Auto) 1.0 H Neut % (Auto) 78.5 H Lymph % (Auto) 11.4 L [place] % (Auto) 8.9 H Eos % (Auto) 0.0 Baso % (Auto) 0.2 Lymph # (Auto) 1.43 [place] # (Auto) 1.1 H Eos # (Auto) 0.0 Baso # (Auto) 0.0 Abs Immat Gran (auto) 0.13 H Absolute Neuts (auto) 9.8 H Absolute Nucleated RBC 0.0 Nucleated RBC % 0.0 % Immature Plt Fraction 6.0 PT 15.9 H D INR 1.2 APTT 27.7 Fibrinogen 150 L D-Dimer > 20.00 H Sodium 132 L Potassium 4.1 Chloride 107 Carbon Dioxide 24 Anion Gap 1 L BUN 15 Creatinine 0.60 L Estim Creat Clear Calc 114 Estimated GFR > 60 Glucose 105 POC Capillary Glucose Calcium 6.6 L RPR Blood Type Antibody Screen Crossmatch OB - PN A/P Plan Comments: A: PPD#1, doing well. PPH, resolved. Anemia secondary to acute blood loss, improved after transfusion of 2 units PRBC. Gestational HTN, with stable bp now on
--- NOTE | 2020-07-05 11:25 | PM.OBDSVD ---
DS: Admitting Diagnosis Admitting Diagnosis Admitting Diagnosis: IUP at 36 6/7 weeks A1DM Gestational HTN, with worsening bp control Unknown GBS status DS: Discharge Diagnosis Discharge Diagnosis (1) Gestational hypertension affecting sixth : Code(s): O13.9 - Gestational [-induced] hypertension without significant proteinuria, unspecified trimester; O09.40 - Supervision of with grand multiparity, unspecified trimester Status: Acute (2) Grand multiparity: Code(s): Z64.1 - Problems related to multiparity Status: Acute (3) delivery after induction of labor: Code(s): O60.10X0 - labor with delivery, unspecified trimester, not applicable or unspecified Status: Acute (4) hemorrhage: Code(s): O72.1 - Other immediate hemorrhage Status: Acute (5) Anemia due to blood loss, acute: Code(s): D62 - Acute posthemorrhagic anemia Status: Acute (6) Gestational diabetes mellitus (GDM) affecting sixth : Code(s): O24.419 - Gestational diabetes mellitus in , unspecified control; O09.40 - Supervision of with grand multiparity, unspecified trimester Status: Acute OB - DS: Summary OB Procedures : PIH Mgmt OB Procedures Intrapartum: Spontaneous Vag Delivery, Curettage and Retained placenta OB Procedures: : Transfusion and Antibiotics Time Spent with Patient Time attestation: Total time spent providing and/or coordinating discharge services: DS: Data Data Completed and Pending Pending studies at discharge: Pending at discharge 07/04/20 14:51 Surgical [PTH] Routine 07/04/20 20:17 Surgical [PTH] Routine Labs on day of discharge: Labs from last 24 hours 07/05/20 07/05/20 07/04/20 05:21 05:21 20:00 WBC 12.5 H RBC 3.22 L Hgb 9.5 L Hct 28.3 L MCV 87.9 D MCH 29.5 D MCHC 33.6 RDW 16.2 H Plt Count 81 L MPV 9.7 Immature Gran % (Auto) 1.0 H Neut % (Auto) 78.5 H Lymph % (Auto) 11.4 L [place] % (Auto) 8.9 H Eos % (Auto) 0.0 Baso % (Auto) 0.2 Lymph # (Auto) 1.43 [place] # (Auto) 1.1 H Eos # (Auto) 0.0 Baso # (Auto) 0.0 Abs Immat Gran (auto) 0.13 H Absolute Neuts (auto) 9.8 H Absolute Nucleated RBC 0.0 Nucleated RBC % 0.0 % Immature Plt Fraction 6.0 PT 15.9 H D INR 1.2 APTT 27.7 Fibrinogen 150 L D-Dimer > 20.00 H Sodium 132 L Potassium 4.1 Chloride 107 Carbon Dioxide 24 Anion Gap 1 L BUN 15 Creatinine 0.60 L Estim Creat Clear Calc 114 Estimated GFR > 60 Glucose 105 POC Capillary Glucose Calcium 6.6 L RPR Blood Type Antibody Screen Crossmatch 07/04/20 07/04/20 07/04/20 20:00 18:35 18:35 WBC 11.3 H 13.2 H RBC 2.34 L 2.66 L Hgb 7.4 L 8.4 L Hct 22.7 L 25.3 L MCV 97.0 95.1 MCH 31.6 31.6 MCHC 32.6 33.2 RDW 13.8 13.9 Plt Count 85 L 90 L D MPV 10.2 9.7 Immature Gran % (Auto) Neut % (Auto) Lymph % (Auto) [place] % (Auto) Eos % (Auto) Baso % (Auto) Lymph # (Auto) [place] # (Auto) Eos # (Auto) Baso # (Auto) Abs Immat Gran (auto) Absolute Neuts (auto) Absolute Nucleated RBC Nucleated RBC % % Immature Plt Fraction PT 20.6 H INR 1.7 APTT 31.8 Fibrinogen 60 L D-Dimer > 20.00 H Sodium Potassium Chloride Carbon Dioxide Anion Gap BUN Creatinine Estim Creat Clear Calc Estimated GFR Glucose POC Capillary Glucose Calcium RPR Blood Type Antibody Screen Crossmatch 07/04/20 07/04/20 07/04/20 16:23 13:23 11:29 WBC RBC Hgb 10.0 L D Hct 31.0 L MCV MCH MCHC RDW Plt Count MPV Immature Gran % (Auto) Neut % (Auto) Lymph % (Auto) [place] % (Auto) Eos % (Auto) Baso % (Auto) Lymph # (Auto) [place] # (Auto
[2020-07-05] MEDS: POLYSACCHARIDE IRON COMPLEX 150 MG CAPSULE PO (14:45)
[2020-07-05] MEDS: WITCH HAZEL 40 PADS 1 PAD TOPICAL (14:45)
[2020-07-05] MEDS: DOCUSATE SODIUM 100 MG CAPSULE PO (14:45)
[2020-07-05] MEDS: MULTIVIT/MIN/PREN/FOL AC/IRON TABLET 1 TAB PO (14:45)
[2020-07-05] MEDS: BENZOCAINE 20% AER SPR (*SP) 56 GM CAN 1 SPRAY TOPICAL (14:45)
--- NOTE | 2020-07-05 14:56 | PC.NURSE ---
Patient transferred to post room #280 per wheelchair from L&D. . Support person present. Oriented to unit, room, information board, rooming in, admission packet and security measures. Patient verbalizes understanding.
--- NOTE | 2020-07-05 20:24 | PC.NURSE ---
Pt & were escorted back to employee break room @ 191 due to code green, returned to room @ 1949 with no incident.
--- NOTE | 2020-07-06 05:06 | P.PNOB_ITS ---
OB - PN: Subj Subjective Date/time seen: 07/06/20 05:06 Narrative: Pain OK. Would like to go home. OB - PN: Obj Data Labs CBC & Chem 7: 07/05/20 05:21 07/04/20 20:00 Labs: Laboratory Results - last 24 hr 07/05/20 07/05/20 05:21 05:21 WBC 12.5 H RBC 3.22 L Hgb 9.5 L Hct 28.3 L MCV 87.9 D MCH 29.5 D MCHC 33.6 RDW 16.2 H Plt Count 81 L MPV 9.7 Immature Gran % (Auto) 1.0 H Neut % (Auto) 78.5 H Lymph % (Auto) 11.4 L [place] % (Auto) 8.9 H Eos % (Auto) 0.0 Baso % (Auto) 0.2 Lymph # (Auto) 1.43 [place] # (Auto) 1.1 H Eos # (Auto) 0.0 Baso # (Auto) 0.0 Abs Immat Gran (auto) 0.13 H Absolute Neuts (auto) 9.8 H Absolute Nucleated RBC 0.0 Nucleated RBC % 0.0 % Immature Plt Fraction 6.0 PT 15.9 H D INR 1.2 APTT 27.7 Fibrinogen 150 L D-Dimer > 20.00 H OB - PN A/P Plan Comments: A: PPD#2, doing well. P: Home to f/u bp check 1-2 days, office visit in 6 weeks. Exam Psych: Other: AVSS ABD soft, nontender, fundus firm EXT nontender
[2020-07-06 08:00] VITALS: BP 139/88; PULSE 100; RESP 15; TEMP 36.8; O2SAT 97
[2020-07-06] MEDS: POLYSACCHARIDE IRON COMPLEX 150 MG CAPSULE PO (08:14)
[2020-07-06] MEDS: DOCUSATE SODIUM 100 MG CAPSULE PO (08:14)
[2020-07-06] MEDS: MULTIVIT/MIN/PREN/FOL AC/IRON TABLET 1 TAB PO (08:14)
[2020-07-06] MEDS: IBUPROFEN 600 MG TABLET PO (08:15)
--- NOTE | 2020-07-06 09:26 | PC.NURSE ---
Notified Dr. Bolden of BP of 139/88 and pulse of 100. MD ordered to discontinue labetalol. Patient to come back on tuesday for blood pressure check at follow-up appointment.
--- NOTE | 2020-07-06 10:58 | PC.NURSE ---
Discharged patient to awaiting vehicle. All discharge instructions given and questions answers. Mother to follow-up for blood pressure check on Tuesday, July 08 per .
[2020-07-08 09:49] VITALS: BP 146/99; PULSE 85; RESP 20; TEMP 37.4; O2SAT 100
== END 2020-07-06 10:55 | disposition home or self-care (01) | DRG 797 ==
LOC: ANHLDR 07-05 11:28 → ANHOB2 07-05 14:58
PROVIDERS: Admitting Provider Obstetrics & Gynecology; Visit Provider Obstetrics & Gynecology
DX: O13.4 Gestational [pregnancy-induced] hypertension without significant proteinuria, complicating childbirth (principal); D62 Acute posthemorrhagic anemia; Z37.0 Single live birth; Z3A.36 36 weeks gestation of pregnancy; O60.14X0 Preterm labor third trimester with preterm delivery third trimester, not applicable or unspecified; O24.429 Gestational diabetes mellitus in childbirth, unspecified control; O72.2 Delayed and secondary postpartum hemorrhage; O69.81X0 Labor and delivery complicated by cord around neck, without compression, not applicable or unspecified; O36.8330 Maternal care for abnormalities of the fetal heart rate or rhythm, third trimester, not applicable or unspecified; O99.02 Anemia complicating childbirth
CPT/HCPCS: 36415; 36430; 80048; 80053; 82948; 84550; 85014; 85018; 85025; 85027; 85055; 85380; 85384; 85610; 85730; 86592; 86850; 86900; 86901; 86920; 88304; 88305; 88307; A9270; J0290; J0690; J2590; J2795; J7030; J7120; P9016

== ENCOUNTER 2024-03-30 12:57 | Emergency (ER) | payer OTHER, SELFPAY ==
--- NOTE | ~2024-03-30 | CT_ITS ---
CT of the Abdomen and Pelvis: Indication: Abdominal pain Technique: 2.5 mm axial scans were obtained through the abdomen and pelvis following intravenous adm inistration of 100 cc of Omnipaque 350. Dose reduction technique was used on this scan by utilizing a utomated exposure control and iterative reconstruction technique. The dose-length product (DLP) was 3 51.11 mGy-cm. Findings: Scans through the lung bases are unremarkable. The liver, spleen, pancreas, gallbladder, adrenals and kidneys are within normal limits. No evidence of aortic aneurysm. No lymphadenopathy. There is wall thickening of the duodenum with surrounding fluid. There is a peripherally enhancing 3. 8 x 3.7 cm fluid collection adjacent to the duodenum (axial image 69 for example),, with a tiny bubbl e of air within it which could reflect abscess, or possibly fluid-filled duodenal diverticulum. No fr ee air evident otherwise. No bowel obstruction. Images through the pelvis were performed. Urinary bladder unremarkable. No pelvic mass seen. Impression: 3.8 x 3.7 cm peripherally enhancing fluid collection with tiny bubble of internal air, adjacent to th e duodenum, which demonstrates wall thickening and surrounding fluid. Findings could reflect abscess with underlying duodenitis, or duodenal diverticulitis. Reviewed, dictated and finalized at location . INSTALLER Impression: 3.8 x 3.7 cm peripherally enhancing fluid collection with tiny bubble of university internship al air, adjacent to the duodenum, which demonstrates wall thickening and surrou nding fluid. Findings could reflect abscess with underlying duodenitis, or duod enal diverticulitis.
[2024-03-30 13:03] VITALS: BP 131/87; PULSE 115; RESP 16; TEMP 36.5; O2SAT 100
--- NOTE | 2024-03-30 13:20 | ED_ITS ---
HPI - General Adult General Chief complaint: Abdominal Pain Stated complaint: upper quadrant abd. pain w/ diarrhea x1 day Time Seen by Provider: 03/30/24 13:03 History of Present Illness HPI narrative: 38-year-old female presenting to the emergency department for evaluation for nausea vomiting diarrhea with associated upper abdominal pain. Patient states she began having symptoms on Tuesday and Tuesday with abdominal cramping and diarrhea. Patient states that the abdominal pain has worsened. Patient denies any prior history abdominal surgeries, denies any. His history is gallbladder issues. Patient has no history gastritis or stomach ulcers. Patient denies taking a lot of ibuprofen. Patient reports he does have sick contacts home. Patient reports that warm baths do provided temporary help for her symptoms. Related Data Home Medications ?Medication ?Instructions ?Recorded ?Confirmed ?Last Taken ?Type vit no.95-ferrous 1 tablet PO DAILY 07/02/20 07/02/20 07/02/20 21:00 History fumarate 28 mg-folic acid 800 mcg tablet () Allergies Allergy/AdvReac Type Severity Reaction Status Date / Time No Known Allergies Allergy Verified 03/30/24 12:59 Review of Systems 2 Review of Systems: All systems reviewed & are unremarkable except as noted in HPI and below PMFSH Past Medical History Medical History (Updated 03/30/24 @ 22:00 by Mike Solis MD) H/O Finch's palsy Migraines PIH ( induced hypertension) Family History Family History Father Hyperlipidemia Hypertension Mother Hypertension Anxiety and depression Early onset Alzheimer's dementia Sibling Anxiety Social History Social History Smoking status: Never smoker Substance use: never Spiritual care concerns: No Exam 2 Narrative: APPEARANCE: uncomfortable appearing HEAD: normocephalic, atraumatic. EYES: PERRLA/EOMI, conjunctivae clear. NOSE: Normal no drainage EARS:TMS clear with good light reflex. THROAT: Pharynx clear, no exudate. NECK: Supple. No adenopathy, no masses. RESPIRATORY: Airway patent, respirations nonlabored. Clear to auscultation bilaterally, no rales, rhonchi, wheezing. CARDIOVASCULAR: Regular rate and rhythm without murmurs rubs or gallops. ABDOMINAL: Upper abdominal tenderness to palpation MUSCULOSKELETAL: Moves all extremities. Strength/ROM intact, No edema, No calf tenderness. NEURO: Alert. Cranial nerves II through XII intact. SKIN: Warm, dry. Normal Color Course Vital Signs Vital signs: Vital Signs Temperature 97.7 F 03/30/24 13:03 Pulse Rate 115 H 03/30/24 13:03 Respiratory Rate 16 03/30/24 13:03 Blood Pressure 131/87 03/30/24 13:03 Pulse Oximetry 100 03/30/24 13:03 Oxygen Delivery Room Air 03/30/24 13:03 Temperature 97.9 F 03/30/24 17:00 Pulse Rate 106 H 03/30/24 17:00 Respiratory Rate 16 03/30/24 17:00 Blood Pressure 138/86 03/30/24 17:00 Pulse Oximetry 98 03/30/24 17:00 Oxygen Delivery Room Air 03/30/24 13:03 Medical Decision Making MDM Narrative Medical decision making narrative: 38-year-old female presents emergency department for evaluation for upper abdominal pain. Patient is afebrile but does have a leukocytosis of 11.3 and hemoglobin of 14.6. No significant acute abnormalities patient's CMP patient's lipase is within normal limits. Patient has negative influenza a B RSV and COVID. CT scan was ordered and does show a possible abscess versus associated with the duodenum possibly secondary to duodenal diverticulitis. Case was discussed with our surgeon and he felt this was the region was too complex for him to operate on and recommended a tertiary care center. Patient was started on Zosyn. Patient is feeling improved after 2 doses of IV pain medications and IV fluids. Patient and family were updated on the results of the workup and plan for transfer. They prefer to be transferred to [place]. Case was discussed with biliary team at [place] and patient was sent for transfer. Patient was accepted as an ED to ED transfer. Patient was stable at time of transfer. Prior to transfer all questions concerns were addressed patient was well- appearing. Differential Diagnosis Differential Diagnosis: Colitis, diverticulitis, gastric ulcer, pancreatitis Vital Signs Vital Signs: Vital Signs Temperature 97.7 F 03/30/24 13:03 Pulse Rate 115 H 03/30/24 13:03 Respiratory Rate 16 03/30/24 13:03 Blood Pressure 131/87 03/30/24 13:03 Pulse Oximetry 100 03/30/24 13:03 Oxygen Delivery Room Air 03/30/24 13:03 Temperature 97.9 F 03/30/24 17:00 Pulse Rate 106 H 03/30/24 17:00 Respiratory Rate 16 03/30/24 17:00 Blood Pressure 138/86 03/30/24 17:00 Pulse Oximetry 98 03/30/24 17:00 Oxygen Delivery Room Air 03/30/24 13:03 Lab Data Lab results reviewed: Yes I reviewed the patient's lab results. 03/30/24 13:19 03/30/24 13:19 Labs: Lab Results 03/30/24 Range/Units 13:19 WBC 11.3 H (4.5-10.0) K/mm3 RBC 4.86 (4.2-5.4) M/mm3 Hgb 14.6 D (12.0-15.0) g/dL Hct 43.4 (37.0-47.0) % MCV 89.3 (80-100) fl MCH 30.0 (26-34) pg MCHC 33.6 (32-36) g/dl RDW 12.6 (11.5-14.5) % Plt Count 244 D (150-375) k/mm3 MPV 9.8 (7.4-10.4) fl Immature Gran % (Auto) 0.2 (0-0.5) % Neut % (Auto) 81.9 H (45.5-73.1) % Lymph % (Auto) 10.7 L (18.3-44.2) % [place] % (Auto) 6.8 (2.6-8.5) % Eos % (Auto) 0.0 (0-4.4) % Baso % (Auto) 0.4 (0.2-1.2) % Lymph # (Auto) 1.20 (0.9-3.2) K/mm3 [place] # (Auto) 0.8 H (0.1-0.6) K/mm3 Eos # (Auto) 0.0 (0-0.3) K/mm3 Baso # (Auto) 0.0 (0.0-0.1) K/mm3 Abs Immat Gran (auto) 0.02 (0.00-0.031) K/mm3 Absolute Neuts (auto) 9.2 H (1.3-6.7) K/mm3 Absolute Nucleated RBC 0.000 (0.0-0.012) K/mm3 Nucleated RBC % 0.0 (0.0-0.2) % PT 15.0 H (11.1-14.7) Seconds INR 1.1 APTT 30.0 (22.3-36.8) Seconds Sodium 135 L (137-145) mmol/L Potassium 3.4 (3.4-5.0) mmol/L Chloride 104 (98-107) mmol/L Carbon Dioxide 26 (22-30) mmol/L Anion Gap 5 (4-12) mmol/L BUN 11 (7-17) mg/dL Creatinine 0.60 L (0.7-1.0) mg/dL Estim Creat Clear Calc 100 ml/min Estimated GFR > 60 (59 - ) Glucose 142 H (65-110) mg/dL Calcium 9.2 (8.4-10.2) mg/dL Total Bilirubin 0.5 (0.2-1.3) mg/dL AST 22 (14-36) U/L ALT 21 (6-35) U/L Alkaline Phosphatase 85 (38-126) U/L Total Protein 7.0 (6.3-8.2) g/dL Albumin 4.4 (3.5-5.1) g/dL Lipase 95 (23-300) U/L Beta HCG, Quant < 2.39 mIU/ML Influenza A (RT-PCR) Negative (Negative) Influenza B (RT-PCR) Negative (Negative) RSV (RT-PCR) Negative (Negative) SARS-CoV-2 RNA (RT-PCR) Negative (Negative) Imaging Data Radiologist's impression: Impressions Abdomen/Pelvis CT 03/30/24 14:39 Impression: 3.8 x 3.7 cm peripherally enhancing fluid collection with tiny bubble of internal air, adjacent to the duodenum, which demonstrates wall thickening and surrounding fluid. Findings could reflect abscess with underlying duodenitis, or duodenal diverticulitis. Discharge Plan Discharge Clinical Impression: Abscess of duodenum Patient Disposition: Acute Care Hospital Condition: Serious Instructions: Antibiotic Form Patient Language: [place] Prescriptions: No Action PNV cmb#95-ferrous fumarate-FA [] 28 mg iron- 800 mcg Tablet 1 tablet PO DAILY ibuprofen 600 mg tablet 600 mg PO Q6H PRN (Reason: cramps) Qty: 30 0RF ferrous sulfate 325 mg (65 mg iron) tablet 325 mg PO DAILY Qty: 30 0RF Follow-up/Referrals: UNKNOWN,DOCTOR [Primary Care Provider] -
[2024-03-30] MEDS: SODIUM CHLORIDE 0.9% IV 1,000 ML 999 ML IV CONT ×2 (13:22→15:06)
[2024-03-30] MEDS: ONDANSETRON INJ 4 MG/2 ML VIAL IV PUSH (13:22)
[2024-03-30] MEDS: HYDROmorphone HCL INJ (*CRX) 1 MG/ML SYR 0.5 MG IV PUSH ×2 (13:28→15:05)
[2024-03-30] MEDS: PANTOPRAZOLE SODIUM IV 40 MG VIAL IV PUSH (13:28)
[2024-03-30] MEDS: FAMOTIDINE 20 MG/2 ML VIAL IV PUSH (13:28)
[2024-03-30 13:33] LABS: Basophils Percent Auto 0.4 % (0.2-1.2); Hematocrit 43.4 % (37.0-47.0); Hemoglobin 14.6 g/dL (12.0-15.0); Immature Granulocyte Absolute 0.02 K/mm3 (0.00-0.031); Immature Granulocyte Percent A 0.2 % (0-0.5); Lymphocytes Percent Auto 10.7 % (18.3-44.2); Mean Corpuscular HGB Conc 33.6 g/dl (32-36); Mean Corpuscular Volume 89.3 fl (80-100); Mean Platelet Volume 9.8 fl (7.4-10.4); Monocytes Absolute Auto 0.8 K/mm3 (0.1-0.6); Monocytes Percent Auto 6.8 % (2.6-8.5); Neutrophils Absolute Auto 9.2 K/mm3 (1.3-6.7); Neutrophils Percent Auto 81.9 % (45.5-73.1); Platelet Count Result 244 k/mm3 (150-375); Red Blood Count 4.86 M/mm3 (4.2-5.4); Red Cell Distribution Width 12.6 % (11.5-14.5); White Blood Count 11.3 K/mm3 (4.5-10.0)
[2024-03-30 13:50] LABS: Alanine Aminotransferase 21 U/L (6-35); Albumin Level 4.4 g/dL (3.5-5.1); Alkaline Phosphatase 85 U/L (38-126); Anion Gap 5 mmol/L (4-12); Aspartate Amino Transferase 22 U/L (14-36); Bilirubin,Total 0.5 mg/dL (0.2-1.3); Blood Urea Nitrogen 11 mg/dL (7-17); Calcium 9.2 mg/dL (8.4-10.2); Carbon Dioxide 26 mmol/L (22-30); Chloride 104 mmol/L (98-107); Estimated CRCL calculation 100 ml/min; Estimated Glomerular Filt Rate > 60; Glucose 142 mg/dL (65-110); Lipase 95 U/L (23-300); Potassium 3.4 mmol/L (3.4-5.0); Sodium 135 mmol/L (137-145)
[2024-03-30 13:55] LABS: INR 1.1
[2024-03-30 14:00] VITALS: BP 134/77; PULSE 88; RESP 16; TEMP 36.4; O2SAT 100
[2024-03-30 14:12] LABS: Influenza A QL RT-PCR Negative (Negative); Influenza B QL RT-PCR Negative (Negative); RSV RNA, RT-PCR Negative (Negative); SARS-CoV-2 RNA PCR Negative (Negative)
[2024-03-30 14:15] LABS: Beta HCG Quantitative < 2.39 mIU/ML
[2024-03-30 14:45] VITALS: BP 126/80; PULSE 86; RESP 16; TEMP 36.6; O2SAT 98
[2024-03-30] MEDS: PIPERACILLN/TAZ 3.375GM/NS50ML 3.375 GM/50 ML BAG IVPB (15:06)
[2024-03-30 16:01] VITALS: BP 122/80; PULSE 105; RESP 16; TEMP 36.6; O2SAT 100
[2024-03-30 17:00] VITALS: BP 138/86; PULSE 106; RESP 16; TEMP 36.6; O2SAT 98
== END 2024-03-30 17:30 | disposition short-term general hospital (02) ==
PROVIDERS: Emergency Provider Emergency Medicine
DX: K63.0 Abscess of intestine (principal); Z20.822 Contact with and (suspected) exposure to COVID-19
CPT/HCPCS: 36415; 74177; 80053; 83690; 84702; 85025; 85610; 85730; 87637; 96361; 96365; 96366; 96375; 96376; 99285; J1171; J2405; J2470; J2543; J7030; Q9967

== ENCOUNTER 2024-04-14 09:36 | Emergency (ER) | payer OTHER, SELFPAY ==
[2024-04-14] VITALS (36 sets, daily range): BP systolic 98–139; BP diastolic 74–96; PULSE 77–118; RESP 12–25; TEMP 36.5; O2SAT 90–100
--- NOTE | ~2024-04-14 | CT_ITS ---
CT abdomen pelvis w con Ordering provider: Keron Yao MD History: 38 years Female with . duodenal abscess . Comparison: None. Technique: CT abdomen and pelvis with IV and without oral contrast. Automated exposure control and it erative reconstruction technique were employed. The dose-length product was 319.84 mGy-cm. 100 mL Omn ipaque 350 was given IV. Findings: VISUALIZED LOWER CHEST: Dependent Atelectatic changes. UPPER ABDOMINAL ORGANS: Liver: Normal. Gallbladder: Minimal fat stranding near to the base of the gallbladder which may indicate cholecystit is. Ultrasound evaluation advised. Spleen: Normal. Stomach/duodenum: Minimal fat stranding around the second part of the duodenum which may indicate duo denitis. No definite abscess formation seen. Pancreas: Slightly bulky pancreas is seen with no focal lesions. Adrenals: Normal. Kidneys: Tiny tiny stone seen in the left kidney lower and mid pole. Sclerotic tiny stone in the right kidney midpole. Follow-up advised. PELVIC ORGANS: The bladder is slightly underfilled with thickened wall. Minimal fat stranding seen wh ich may indicate cystitis. BOWEL AND MESENTERY: Colon: No evidence of diverticulitis. Appendix is not well demonstrated with no definite appendicitis . Small Bowel: Dilated small bowel loops is seen in the mid and lower abdomen. Peritoneum/mesentery: No free air. Significant free fluid is seen in the pelvis and right paracolic g utter.. No mesenteric lymphadenopathy. RETROPERITONEUM: Normal aorta. No retroperitoneal lymphadenopathy. MUSCULOSKELETAL: Superficial soft tissues: The superficial soft tissues are normal. Bones: Age appropriate degenerative changes of the spine. IMPRESSION: 1. Fat stranding near to the base of the gallbladder with minimal fat stranding around the second pa rt of the duodenum. Cholecystitis and duodenitis are not excluded. 2. Dilated small bowel loops which may indicate obstruction. 3. Transition is in the pelvis. Fluid seen in the pelvis and right paracolic gutter. Clinical correl ation and follow-up advised. No free air is seen to suggest perforation although cannot be excluded. 4. No definite duodenal abscess seen. Follow-up advised. 5. Bilateral kidney stones. Reviewed, dictated and finalized at location A. [facility] [employer]GANIZATIONAL IMPRESSION: 1. Fat stranding near to the base of the gallbladder with minimal fat strandin g around the second part of the duodenum. Cholecystitis and duodenitis are not excluded. 2. Dilated small bowel loops which may indicate obstruction. 3. Transition is in the pelvis. Fluid seen in the pelvis and right paracolic g utter. Clinical correlation and follow-up advised. No free air is seen to sugge st perforation although cannot be excluded. 4. No definite duodenal abscess seen. Follow-up advised. 5. Bilateral kidney stones.
[2024-04-14 14:37] LABS: BEDSIDEPREGUCG Negative (Negative)
[2024-04-14 14:42] LABS: BEDSIDEPREGUCG Negative (Negative)
--- NOTE | 2024-04-14 14:43 | ED_ITS ---
HPI - Abdominal Pain General Chief Complaint: Abdominal Pain Stated Complaint: abd pain Time Seen by Provider: 04/14/24 13:47 History of Present Illness HPI narrative: 38-year-old female with a past medical history including recently diagnosed duodenal diverticulitis versus abscess formation. She was seen at this hospital several weeks prior to transfer to a tertiary care center at [facility]. Patient underwent multiple imaging studies, MRCP, CT scans with and without contrast, and general surgery evaluation. She was treated conservatively with antibiotics and monitoring and discharged home. She had a follow-up evaluation [address] scan images and her doctor informed her that her abscess has decreased in size significantly down to 2cm. Patient was having resolution of her pain and complete her course of Augmentin. Today she presents with recurrence of her pain that is in the epigastrium and right upper quadrant and slightly radiating towards her back. She states that her primary and specialist referred her to the closest ED secondary to the weather for evaluation. Patient denies any fever chills. She states her pain comes and goes and is worse with palpation and some movement. Denies any diarrhea, nausea, vomiting, complaints. No vaginal bleeding or chance of . She completed a course of antibiotics. Denies any chest pain, shortness a breath, fever, chill. Related Data Home Medications ?Medication ?Instructions ?Recorded ?Confirmed ?Last Taken ?Type vit no.95-ferrous 1 tablet PO DAILY 07/02/20 07/02/20 07/02/20 21:00 History fumarate 28 mg-folic acid 800 mcg tablet () Allergies Allergy/AdvReac Type Severity Reaction Status Date / Time No Known Allergies Allergy Verified 04/14/24 13:52 Review of Systems 2 Review of Systems: As reviewed above in HPI [facility] Past Medical History Medical History H/O Finch's palsy Migraines PIH ( induced hypertension) Family History Family History Father Hyperlipidemia Hypertension Mother Hypertension Anxiety and depression Early onset Alzheimer's dementia Sibling Anxiety Social History Social History Smoking status: Never smoker Substance use: never Spiritual care concerns: No Exam 2 Narrative: GENERAL: [Well-appearing, well-nourished, and in no acute distress.] HEAD: [Normocephalic, atraumatic.] EYES: [PERRLA and EOMI.] ENT: Nares clear, no rhinorrhea or epistaxis. Mucous membranes moist. NECK: Supple. CHEST: [Clear to auscultation. No respiratory distress.] HEART: [Regular rate and rhythm]. No murmur heard. [Normal peripheral pulses.] ABDOMEN: [Soft, nondistended], tender to palpation in the epigastrium and right upper quadrant, no signs of peritonitis, [No rigidity or guarding] EXTREMITIES: Normal range of motion. [No edema.] SKIN: Warm, dry, no rash. NEURO: [No focal deficits]. Alert and oriented [x3.] PSYCH: [Normal mood and affect.] Course Vital Signs Vital signs: Vital Signs Temperature 36.5 C 04/14/24 09:39 Pulse Rate 118 H 04/14/24 09:39 Respiratory Rate 20 04/14/24 09:39 Blood Pressure 139/96 H 04/14/24 09:39 Pulse Oximetry 100 04/14/24 09:39 Temperature 36.5 C 04/14/24 09:39 Pulse Rate 77 04/14/24 19:02 Respiratory Rate 16 04/14/24 19:02 Blood Pressure 98/77 L 04/14/24 19:01 Pulse Oximetry 99 04/14/24 19:02 MDM - Abdominal Pain MDM Narrative Medical decision making narrative: 38-year-old female with a history of recently diagnosed duodenal diverticulitis versus duodenitis versus abdominal abscess. Patient was treated conservatively with IV antibiotics and repeat scans and MRCP imaging over at [facility]. She was discharged home several days after her treatment recently and had a follow-up CT scan 2 days ago with over the phone consultation with her general surgeon with reassuring results. She presents today with 1 day of recurring pain in her epigastric and right upper quadrant and she was instructed to proceed to the nearest emergency department for evaluation. Patient otherwise is well appearing not in any acute distress, rates her pain 5/10 in intensity right now. Vital signs in triage showed some slight tachycardia but no fever. Presently she is saturating well on room air, no tachycardia, hypoxia, tachypnea or blood pressure concerns. She has a soft nondistended but tender abdomen. Overall well-appearing with normal mucous membranes. Considerations presently is for recurrence for abscess, enlargement, perforation, less likely other intra-abdominal process such as gallbladder disease or pancreatitis. Potential appendicitis as well. Repeat CT scan at this time was obtained including with oral and IV contrast. She was given Dilaudid and fluid bolus as well as Zofran. Laboratory studies were obtained as well as urinalysis. Workup shows no leukocytosis or anemia. Unremarkable electrolytes, normal renal function panel. Largely unremarkable hepatic function panel. Negative lactic acid. test was negative. Urinalysis was contaminated with squamous cells and nondiagnostic, no urinary symptoms. CT scan with IV and p.o. contrast shows fat stranding near the duodenum consistent with her recent duodenitis and duodenal abscess. Dilated small bowel loops and a transition point in the pelvis which on my interpretation does not appear to be a a bowel obstruction but could indicate an early 1. No definitive duodenal abscess is seen consistent with resolution of her previous abscess and clinical improvement from recent hospital admission. Relayed these findings to the patient and plan of care going forward will be to consult the surgical team over at [facility] as they are from there with her and have more recent images from 2 days prior. I called and spoke to the general surgeon on-call Dr. Justin who went over the CT scan results from today as well as her previous CT scan 2 days ago. We went over patient's clinical course, exam findings and read on the CT that says potential bowel obstruction although clinically and not matching her symptoms. Patient herself is not have any distension, significant abdominal pain, bloating, diarrhea, constipation nausea or vomiting right now. The general surgeon agreed that she does not have any evidence of obstruction and most of the p.o. contrast stone the stomach. She states that there is resolution of the duodenitis and duodenal abscess with some residual fat stranding but no other acute concerns and that she can be safely followed up with in clinic on outpatient basis. I relayed this result to the patient and she was agreeable as she has upcoming appointment on Tuesday of this upcoming week. Patient will be sent home with some pain medications as needed as well as nausea control medications as needed. She was given strict return precautions including developing a fever, intractable nausea, constipation, abdominal pain or distension or any inability to tolerate p.o. intake and she should seek re-evaluation at that time. Patient verbalized understanding and she and family members felt comfortable with discharge at this time. Medical Records Attestation: I reviewed the patient's medical records. Lab Data Attestation: I reviewed the patient's lab results. 04/14/24 14:47 04/14/24 14:47 Labs: Lab Results 04/14/24 04/14/24 04/14/24 Range/Units 14:05 14:41 14:47 WBC 7.0 (4.5-10.0) K/mm3 RBC 4.81 (4.2-5.4) M/mm3 Hgb 14.1 (12.0-15.0) g/dL Hct 42.8 (37.0-47.0) % MCV 89.0 (80-100) fl MCH 29.3 (26-34) pg MCHC 32.9 (32-36) g/dl RDW 12.4 (11.5-14.5) % Plt Count 511 H D (150-375) k/mm3 MPV 9.2 (7.4-10.4) fl Immature Gran % (Auto) 0.1 (0-0.5) % Neut % (Auto) 69.9 (45.5-73.1) % Lymph % (Auto) 24.2 (18.3-44.2) % [place] % (Auto) 4.9 (2.6-8.5) % Eos % (Auto) 0.3 (0-4.4) % Baso % (Auto) 0.6 (0.2-1.2) % Lymph # (Auto) 1.69 (0.9-3.2) K/mm3 [place] # (Auto) 0.3 (0.1-0.6) K/mm3 Eos # (Auto) 0.0 (0-0.3) K/mm3 Baso # (Auto) 0.0 (0.0-0.1) K/mm3 Abs Immat Gran (auto) 0.01 (0.00-0.031) K/mm3 Absolute Neuts (auto) 4.9 (1.3-6.7) K/mm3 Absolute Nucleated RBC 0.000 (0.0-0.012) K/mm3 Nucleated RBC % 0.0 (0.0-0.2) % PT 13.8 (11.1-14.7) Seconds INR 1.0 APTT 32.6 (22.3-36.8) Seconds Sodium 136 L (137-145) mmol/L Potassium 3.7 (3.4-5.0) mmol/L Chloride 103 (98-107) mmol/L Carbon Dioxide 31 H (22-30) mmol/L Anion Gap 2 L (4-12) mmol/L BUN 9 (7-17) mg/dL Creatinine 0.50 L (0.7-1.0) mg/dL Estim Creat Clear Calc 109 ml/min Estimated GFR > 60 (59 - ) Glucose 117 H (65-110) mg/dL Lactic Acid 0.9 (0.7-2.0) mmol/L Calcium 9.2 (8.4-10.2) mg/dL Total Bilirubin 0.4 (0.2-1.3) mg/dL AST 28 (14-36) U/L ALT 63 H (6-35) U/L Alkaline Phosphatase 97 (38-126) U/L Total Protein 8.0 (6.3-8.2) g/dL Albumin 4.3 (3.5-5.1) g/dL Lipase 93 (23-300) U/L Urine Color Yellow (Yellow) Urine Appearance Turbid H (Clear) Urine pH 7.5 (5.0-9.0) Ur Specific [place] 1.025 (1.001-1.035) Urine Protein Trace (Negative) mg/dL Urine Glucose (UA) Negative (Negative) mg/dL Urine Ketones Negative (Negative) mg/dL Ur Blood (Man) Negative (Negative) Urine Nitrate Negative (Negative) Urine Bilirubin Negative (Negative) Urine Urobilinogen 0.2 (<2.0) mg/dL Add Ur Microanalysis Reviewed Leukocyte Esterase Rfl 1+ H (Negative) ITA/UL Urine RBC 11-20 H (0-2) /hpf Urine WBC 6-10 H (0-3) /hpf Ur Squamous Epith Cells Moderate (Few) /hpf Urine Bacteria None seen /hpf Urine Casts 0-2 Urine Mucus Present /lpf POC Urine HCG, Qual Negative Negative (Negative) Imaging Data Attestation: I personally reviewed and interpreted this imaging study as follows: Radiologist's impression: ITS Impressions Abdomen/Pelvis CT 04/14/24 17:42 IMPRESSION: 1. Fat stranding near to the base of the gallbladder with minimal fat stranding around the second part of the duodenum. Cholecystitis and duodenitis are not excluded. 2. Dilated small bowel loops which may indicate obstruction. 3. Transition is in the pelvis. Fluid seen in the pelvis and right paracolic gutter. Clinical correlation and follow-up advised. No free air is seen to suggest perforation although cannot be excluded. 4. No definite duodenal abscess seen. Follow-up advised. 5. Bilateral kidney stones. Discharge Plan Discharge Clinical Impression: Abdominal pain, History of abdominal abscess Patient Disposition: Home, Self-Care Condition: Stable Instructions: Antibiotic Form, Soft Diet (ED), Abdominal Pain (ED), Full Liquid Diet (DC) Additional Instructions: Please follow-up with your regular specialist appointment on Tuesday this upcoming week. Return to the ER with any new or worsening abdominal pain, intractable nausea, difficulty tolerating p.o. intake and development any fevers or worsening symptoms. We will send you home with some as needed pain medications. Patient Language: Korean Prescriptions: New dicyclomine 20 mg tablet 20 mg PO TID PRN (Reason: abdominal pain) Qty: 20 0RF oxycodone 5 mg capsule 5 mg PO Q8H PRN (Reason: pain) Qty: 10 0RF ondansetron 4 mg tablet,disintegrating 4 mg PO Q8H PRN (Reason: nausea and vomiting) Qty: 20 0RF No Action PNV cmb#95-ferrous fumarate-FA [] 28 mg iron- 800 mcg Tablet 1 tablet PO DAILY ibuprofen 600 mg tablet 600 mg PO Q6H PRN (Reason: cramps) Qty: 30 0RF ferrous sulfate 325 mg (65 mg iron) tablet 325 mg PO DAILY Qty: 30 0RF Follow-up/Referrals: PHYSICIAN,SHADE BANDER [Primary Care Provider] - Time of Disposition: 19:25
[2024-04-14 14:56] LABS: Basophils Percent Auto 0.6 % (0.2-1.2); Eosinophils Percent Auto 0.3 % (0-4.4); Hematocrit 42.8 % (37.0-47.0); Hemoglobin 14.1 g/dL (12.0-15.0); Immature Granulocyte Absolute 0.01 K/mm3 (0.00-0.031); Immature Granulocyte Percent A 0.1 % (0-0.5); Lymphocytes Absolute Auto 1.69 K/mm3 (0.9-3.2); Lymphocytes Percent Auto 24.2 % (18.3-44.2); Mean Corpuscular HGB Conc 32.9 g/dl (32-36); Mean Corpuscular Hemoglobin 29.3 pg (26-34); Mean Platelet Volume 9.2 fl (7.4-10.4); Monocytes Absolute Auto 0.3 K/mm3 (0.1-0.6); Monocytes Percent Auto 4.9 % (2.6-8.5); Neutrophils Absolute Auto 4.9 K/mm3 (1.3-6.7); Neutrophils Percent Auto 69.9 % (45.5-73.1); Platelet Count Result 511 k/mm3 (150-375); Red Blood Count 4.81 M/mm3 (4.2-5.4); Red Cell Distribution Width 12.4 % (11.5-14.5)
[2024-04-14] MEDS: ONDANSETRON INJ 4 MG/2 ML VIAL IV PUSH (14:58)
[2024-04-14] MEDS: HYDROmorphone HCL INJ (*CRX) 1 MG/ML SYR IV PUSH (14:58)
[2024-04-14] MEDS: LACTATED RINGERS 1,000 ML 999 ML IV CONT (14:58)
[2024-04-14 15:05] LABS: Add Urine Microscopic? YES; Appearance Urine Turbid (Clear); Bacteria Urine None Seen /hpf; Bilirubin Urine Negative (Negative); Blood Urine Negative (Negative); Color Urine Yellow (Yellow); Glucose Urine UA Negative (Negative); Ketones Urine Negative (Negative); Leukocyte Esterase Ur 1+ LEU/UL (Negative); Mucus Urine Present /lpf; Need Manual Microscopic Reviewed; Nitrate Urine Negative (Negative); Non Pathogenic Casts 0-2; Protein Urine Trace mg/dL (Negative); Specific Grav Ur 1.025 (1.001-1.035); Squamous Epithelial Cell Urine Moderate /hpf (Few); Urobilinogen Urine 0.2 mg/dL (<2.0); pH Urine 7.5 (5.0-9.0)
[2024-04-14 15:07] LABS: Prothrombin Time 13.8 Seconds (11.1-14.7)
[2024-04-14 15:08] LABS: Partial Thromboplastin Time 32.6 Seconds (22.3-36.8)
[2024-04-14 15:09] LABS: Lactic Acid Reflex 0.9 mmol/L (0.7-2.0)
[2024-04-14 15:11] LABS: Alanine Aminotransferase 63 U/L (6-35); Albumin Level 4.3 g/dL (3.5-5.1); Alkaline Phosphatase 97 U/L (38-126); Anion Gap 2 mmol/L (4-12); Aspartate Amino Transferase 28 U/L (14-36); Bilirubin,Total 0.4 mg/dL (0.2-1.3); Blood Urea Nitrogen 9 mg/dL (7-17); Calcium 9.2 mg/dL (8.4-10.2); Carbon Dioxide 31 mmol/L (22-30); Chloride 103 mmol/L (98-107); Estimated CRCL calculation 109 ml/min; Estimated Glomerular Filt Rate > 60; Glucose 117 mg/dL (65-110); Lipase 93 U/L (23-300); Potassium 3.7 mmol/L (3.4-5.0); Sodium 136 mmol/L (137-145)
--- OUTSIDE RECORDS SUMMARY | 2024-04-21 11:54 | XMS_ITS | Encounter Summary ---
Author Organization [facility] Health Address [address] [place] [address] Care Team Providers Care Food And Beverage Associate Name Role Phone Unavailable Primary Care Provider Unavailabl e Encounter Details Date Type Department Care Team (Latest Contact Info) Description 10/13/2018 8:44 AM CDT - 10/13/2018 11:59 PM CDT Hospital Encounter [facility] [address] [place] [address] Re Tejada MD [facility] [address] [address] Discharge Disposition: Home or Self Care Social History Tobacco Use Types Packs/Day Years Used Date Smoking Tobacco: Never Smokeless Tobacco: Never Alcohol Use Standard Drinks/Week Comments No 0 (1 standard drink = 0.6 oz pur e alcohol) Comments Yes Sex and Gender Information Value Date Recorded Sex Assigned at Not on file Gender Identity Not on file Sexual Orientation Not on file documented as of this encounter Plan of Treatment Not on file documented as of this encounter Procedures Procedure Name Priority Date/Time Associated Diagnosis Comments SONOGRAM - COMPLETE Routine 10/13/2018 8:49 AM CDT Supervision of high-risk of young multigravida (HCC) Marginal insertion of umbilical cord affecting management of mother in second trimester (HCC) Encounter for ultrasound to assess interval growth of fetus (HCC) documented in this encounter Results * SONOGRAM - COMPLETE (10/13/2018 8:49 AM CDT) Anatomical Region Laterality Modality Other 10/13/2018 8:49 AM CDT Narrative 10/13/2018 9:36 AM CDT ? [facility] ?PHONE: ??FAX: Pat. Name: ?LEON IQBAL No: ?[id number] Study Date: ?? 10/13/2018 ??8:49am , Age: ? 1985, 33 Pregnancies: ?? 5, Para 3 Height: ? 63 in Weight: ? 123 lb LMP: ?01/26/2018 GA by LMP: ?37w1d GA by Base: ?? 37w1d ?? DARA: 11/02/2018 GA by US: ? 35w6d ?? DARA: 11/11/2018 GA Selected: ??37w1d (LMP) DARA: ?11/02/2018 Referring MD: Avery Miranda MD Gamb Cutter: ??Bailee Son RDMS CPT4: ? 06273 BMI: ?21.79 Hist/Ind: ? SGA on 08/22 ?Marginal placental cord insertion MEASUREMENTS & AGE ? GROWTH EVALUATION Measurement ??GA ? Range ? Srce %for GA Ratios ----- ---- ------- BPD ??8.7 cm 35w1d (00r8v-79e9m) Hadl BPD 13% FL/BPD 0.80 (0.71 - 0.87) HC ??32.3 cm 36w3d (57d5o-18a0c) Hadl HC ??12% FL/AC ??0.22 (0.20 - 0.24) AC ??32.4 cm 36w2d (86m4s-34k6n) Hadl AC ??41% HC/AC ??1.00 (0.91 - 1.10) FL ?? 7.0 cm 35w6d (69i1u-78p7j) Hadl FL ??18% CI ? 0.74 (0.70 - 0.86) HL ?? 6.2 cm 36w0d (37x4j-53j8n) Fernie HL ??33% GA for sonogram 35w6d (30k7n-74w2m) ?? Weight Estimate: based on (BPD,HC,AC,FL) Avg ?Weight: 2839 gm (2424-3253gm) Had ? : 6lbs, 4oz ? Normal: 3049 gm (2287- 3811gm) Had ? Wt% ? 30% for 37w1d Heart Rate: 145 bpm Amniotic Fluid Index: 12.7cm (07.5-24.4) Q1: 3.1cm ??Q2: 2.7cm ??Q3: 1.7cm ??Q4: 5.3cm ?? EVAL, PLACENTA Presentation: cephalic Placenta: posterior Heart Rate: 145 bpm Amniotic Fluid Volume: normal Anatomy!Normal!Abnormal!Suboptimal!Prev. Seen!Comments Stomach ?! ?? x ??! ?! ?! ?! Kidneys ?! ?? x ??! ?! ?! ?! 3 Vessel Cord! ?? x ??! ?! ?! ?! CLINICAL SUMMARY Study Number: 5 No abnormalities were detected during today's limited review of the anatomy. IMPRESSION: ?? 1) Bledsoe gestation, 37w1d 2) The accuracy of weight estimates is highly limited at / near term but there is no evidence of abnormal growth based on today's biometry 3) The amniotic fluid volume is within normal limits NOTE: The patient was advised that ultrasound does not allow detection of all structural or chromosomal abnormalities. ?? RECOMMEND: ?? Follow up ultrasound only if / as clinically indicated Thank you for allowing us the opportunity to care for your patient. Re Tejada MD <Electronic Signature> ??10/13/2018 09:36am Re Tejada MD [facility] ORDERABLES documented in this encounter Visit Diagnoses Diagnosis Supervision of high-risk of young multigravida (HCC)- Primary Supervision of high-risk of young multigravida Marginal insertion of umbilical cord affecting management of mother in second trimester (HCC) Encounter for ultrasound to assess interval growth of fetus (HCC) Encounter for ultrasound to check growth (HCC) 37 weeks gestation of (HCC) state, incidental documented in this encounter
--- OUTSIDE RECORDS SUMMARY | 2024-04-21 11:54 | XMS_ITS ---
Author Organization [facility] Address [address] [facility] [address] [facility] [address] [place] [address] Care Team Providers Care Teller Manager Name Role Phone Gr, Brad Unavailable [phone] REASON FOR VISIT New Refill Request Medications Medication SIG (Take, Route, Fr equency, Duration) Notes Start Date End Date Status Auvelity 45-105 MG 1 tablet Orally twic e daily for 30 days 02/10/2024 Active Social History Sex Assigned At : Social History Observation Description Sex Assigned At Female Encounters Encounter Location Date Provider Diagnosis [facility] [address] [place] [address] 04/09/2024 Brad Gr Major depressive disorder, recurrent, mild F33.0 Assessments Encounter Date Diagnosis (ICD Code) Assessment Notes Treatment Notes Treatment Clinical Notes Section Notes 04/09/2024 Major depressive disorder, recurrent, mild (ICD-10 - F33.0) Plan Of Treatment Medication Medication Name Sig Start Date Stop Date Notes Auvelity 45-105 MG 1 tablet Orally twice daily for 30 days 02/10/2024 Next Appt Details Provider Name:Brad cheung, 05/14/2024 10:30:00 AM, [address], [place], [address], Progress Notes * LISHA IQBALOB:1985 (38 yo F)Acc No.[id number]:04/09/2024 Patient:?LEON IQBAL :1985???Age:38 Y???Sex:Female Address:[address] [facility], [place], [address] * Refills? Refill Auvelity Tablet Extended Release, 45-105 MG, Orally, 30, 1 tablet, twice daily, 30 days, Refills=0 Subjective: * Chief Complaints: * ???New Refill Request * Medical History:? * Surgical History:? * Hospitalization/Major Diagno stic Procedure:? * Medications:? Objective: * Vitals:? * Physical Examination:? Assessment: * Assessment: 1.?Major depressive disorder , recurrent, mild - F33.0??? Plan: * Treatment: * Procedure Codes:? * true * Date:? Generated for Hay jack/Cheo/Azul on:?04/21/2024 11:53 AM TRAFFIC RECORDER
--- OUTSIDE RECORDS SUMMARY | 2024-04-21 11:54 | XMS_ITS | Clinical Summary ---
Author Organization [facility] [employer] Address [address] [place] [address] Care Team Providers Care Pet Nutrition Specialist Name Role Phone Unavailable Primary Care Provider Unavailabl e Source Comments [facility],non-owned Affiliates and Associated Physician Practices is amultiple site organization consisting of ambulatory clinics and hospital sitesin [place], [place], [place] and [place]. This disclosure is being madepursuant to the Care Everywhere program and may not contain all information available regarding this patient. Last updated 17.[facility] [employer] Active Problems Problem Noted Date Diagnosed Date Vaginal bleeding affecting early 07/27 Assessment & Plan (07/27/2018 1:59 PM CDT): Reassuring cervical length on today's exam Subchorionic hematoma, antepartum 07/26/2018 Assessment & Plan (07/27/2018 1:59 PM CDT): Monitor for signs of labor, vaginal bleeding, secondary oligohydramnios Follow up ultrasound in 4 weeks to reassess growth Recommend serial growth every 4 weeks due to the vaginal bleeding and today's findings suggestive of an intrauterine hematoma Supervision of high-risk of jasmina rowland igravida 07/18/2018 Marginal insertion of umbili anisa cord affecting management of mother in second trimester 07/18/2018 Assessment & Plan (07/26/2018 12:06 PM CDT): Fetus with appropriate size for gestational age on today's exam. Recommendations: Serial growth every 4 weeks Resolved Problems Problem Noted Date Diagnosed Date Resolved Date Small for gestational age fe tus affecting management of mother, unspecified trimester, fetus 1 07/21/2018 07/26/2018 Marginal placenta previa 07/18/201803/2019 Poor growth, affecting management of mother, antepartum condition or complication 07/18/2018 07/18/2018 Marginal placenta previa Family History Medical History Relation Name Comments Hypertension Father CAD (Coronary Artery Disease) Maternal Grandfather Hypertension Mother Relation Name Status Comments Father Maternal Grandfather Mother Social History Tobacco Use Types Packs/Day Years Used Date Smoking Tobacco: Never Smokeless Tobacco: Never Tobacco Cessation:Counseling Given: Yes Alcohol Use Standard Drinks/Week Comments No 0 (1 standard drink = 0.6 oz pur e alcohol) Sex and Gender Information Value Date Recorded Sex Assigned at Not on file Gender Identity Not on file Sexual Orientation Not on file Last Filed Vital Signs Vital Sign Reading Time Taken Comments Blood Pressure 124/82 07/26/2018 10:28 AM CDT Pulse - - Temperature - - Respiratory Rate - - Oxygen Saturation - - Inhaled Oxygen Concentration - - Weight 90.6 kg (199 lb 12.8 oz) 019 10:28 AM CDT Height - - Body Mass Index - - Plan of Treatment Health Maintenance Due Date Last Done Comments PAP SMEAR 1985 HIV SCREENING 09/20/1999 HEPATITIS C SCREENING 09/15/2002 DTAP/TDAP/TD VACCINES (1 - Tdap) 09/20/2003 HEPATITIS B VACCINE (1 of 3 - 19+ 3-dose series) 09/20/2003 DEPRESSION SCREENING 04/11/2023 COVID-19 VACCINE (1 - 2023-2 5 season) 2023 INFLUENZA VACCINE (#1) 2023 ZOSTER VACCINE (1 of 2) 2034 HIB VACCINE Aged Out No longer eligi ble based on patient's age to complete this topic HPV VACCINE Aged Out No longer eligi ble based on patient's age to complete this topic MENINGOCOCCAL VACCINE Aged Out No aung jacqueline eligible based on patient's age to complete this topic PNEUMOCOCCAL VACCINE Aged Out No long er eligible based on patient's age to complete this topic
--- OUTSIDE RECORDS SUMMARY | 2024-04-21 11:54 | XMS_ITS | Encounter Summary ---
Author Organization [facility] Address [address] [place] [address] Care Team Providers Care Reflesher Name Role Phone Unavailable Primary Care Provider Unavailabl e Encounter Details Date Type Department Care Team (Latest Contact Info) Description 09/15/2018 10:19 AM CDT - 09/15/2018 11:59 PM CDT Hospital Encounter [facility] Maternal & Care [address] [place] [address] Re Tejada MD [address] [address] Discharge Disposition: Home or Self Care Social [...] Associated Diagnosis Comments SONOGRAM - COMPLETE Routine 09/15/2018 10:44 AM CDT Encounter for ultrasound to assess interval growth of fetus (HCC) Supervision of high-risk of young multigravida (HCC) Marginal insertion of umbilical cord affecting management of mother in second trimester (HCC) Subchorionic hematoma, antepartum, single or unspecified fetus (HCC) Vaginal bleeding affecting early (HCC) documented in this encounter Results * SONOGRAM - COMPLETE (09/15/2018 10:44 AM CDT) Anatomical Region Laterality Modality Other 09/15/2018 10:4 4 AM CDT Narrative 09/15/2018 11:33 AM CDT ? [facility] ? [facility] ?PHONE: ??FAX: Pat. Name: ?LEON IQBAL No: ?[id number] Study Date: ?? 09/15/2018 ??10:44am , Age: ? 1985, 32 Pregnancies: ?? 5, Para 3 Height: ? 63 in Weight: ? 123 lb LMP: ?01/26/2018 GA by LMP: ?33w1d GA by Base: ?? 33w1d ?? DARA: 11/02/2018 GA by US: ? 32w5d ?? DARA: 11/05/2018 GA Selected: ??33w1d (LMP) DARA: ?11/02/2018 Referring MD: Avery Miranda MD Acute Dialysis Registered Nurse: ??Tracey Valerio RDMS CPT4: ? 83630 BMI: ?21.79 Hist/Ind: ? SGA on 08/22 ?Marginal placental cord insertion MEASUREMENTS & AGE ? GROWTH EVALUATION Measurement ??GA ? Range ? Srce %for GA Ratios ----- ---- ------- BPD ??8.0 cm 32w2d (68b6p-57a9u) Hadl BPD 21% FL/BPD 0.79 (0.71 - 0.87) HC ??29.6 cm 32w5d (12m2t-03n1m) Hadl HC ??9% FL/AC ??0.22 (0.20 - 0.24) AC ??28.9 cm 32w6d (04i0p-36e9c) Hadl AC ??44% HC/AC ??1.02 (0.95 - 1.13) FL ?? 6.3 cm 32w5d (42a2w-65x7c) Hadl FL ??28% CI ? 0.75 (0.70 - 0.86) HL ?? 5.7 cm 33w2d (98e3s-96x3m) Fernie HL ??52% GA for sonogram 32w5d (01d8h-32a5o) ?? Weight Estimate: based on (BPD,HC,AC,FL) Avg ?Weight: 2048 gm (1749-2347gm) Had ? : 4lbs, 8oz ? Normal: 2184 gm (1638- 2730gm) Had ? Wt% ? 32% for 33w1d Heart Rate: 155 bpm Amniotic Fluid Index: 15.2cm (08.3-24.5) Q1: 5.5cm ??Q2: 2.8cm ??Q3: 5.4cm ??Q4: 1.5cm ?? EVAL, PLACENTA Presentation: cephalic Placenta: posterior Heart Rate: 155 bpm Amniotic Fluid Volume: normal CLINICAL SUMMARY Study Number: 4 No abnormalities were detected during today's limited review of the anatomy. IMPRESSION: ?? 1) Bledsoe gestation, 33w1d 2) Biometry is consistent with appropriate growth 3) The amniotic fluid volume is within normal limits NOTE: The patient was advised that ultrasound does not allow detection of all structural or chromosomal abnormalities. ?? RECOMMEND: ?? Follow up ultrasound in 4 weeks to reevaluate growth Thank you for allowing us the opportunity to care for your patient. Re Tejada MD <Electronic Signature> ??09/15/2018 11:33am Regina Joiner MD [facility] ORDERABLES documented in this encounter Visit Diagnoses Diagnosis Encounter for ultrasound to assess interval growth of fetus (HCC) Supervision of high-risk of young multigravida (HCC) Supervision of high-risk of young multigravida Marginal insertion of umbilical cord affecting management of mother in second trimester (HCC) Subchorionic hematoma, antepartum, single or unspecified fetus (HCC) Vaginal bleeding affecting early (HCC) 33 weeks gestation of (HCC) state, incidental documented in this encounter
--- OUTSIDE RECORDS SUMMARY | 2024-04-21 11:54 | XMS_ITS | Encounter Summary ---
Author Organization [facility] Address [address] [place] [address] Care Team Providers Care Teacher Cclc Name Role Phone Unavailable Primary Care Provider Unavailabl e Encounter Details Date Type Department Care Team (Latest Contact Info) Description 07/26/2018 9:00 AM CDT - 07/26/2018 9:04 AM CDT Hospital Encounter [facility] Maternal & Care [address] [place] [id number] Regina Joiner MD [address] [place] [address] Discharge Disposition: Home or Self Care Social [...] Associated Diagnosis Comments SONOGRAM - COMPLETE Routine 07/26/2018 10:18 AM CDT Poor growth affecting management of mother, antepartum, single or unspecified fetus (HCC) Supervision of high-risk of young multigravida (HCC) Marginal placenta previa (HCC) Marginal insertion of umbilical cord affecting management of mother in second trimester (HCC) documented in this encounter Results * SONOGRAM - COMPLETE (07/26/2018 10:18 AM CDT) Anatomical Region Laterality Modality Other 07/26/2018 10:1 8 AM CDT Narrative 07/27/2018 2:04 PM CDT ? [facility] Maternal Medicine ? [facility] Care Center ?PHONE: ??FAX: Pat. Name: ?LEON IQBAL. No: ?[id number] Study Date: ?? 07/26/2018 ??10:18am , Age: ? 1985, 32 Pregnancies: ?? 5, Para 3 Height: ? 63 in Weight: ? 123 lb LMP: ?01/26/2018 GA by LMP: ?25w6d GA by Base: ?? 25w6d ?? DARA: 11/02/2018 GA by US: ? 24w4d ?? DARA: 11/11/2018 GA Selected: ??25w6d ([facility]) DARA: ?11/02/2018 Referring MD: Avery Miranda MD Industrial Nurse: ??Tracey Valerio RDMS CPT4: ? 62132 BMI: ?21.79 Hist/Ind: ? Growth Restrication ?Marginal Placental Cord Insertion MEASUREMENTS & AGE ? GROWTH EVALUATION Measurement ??GA ? Range ? Srce %for GA Ratios ----- ---- ------- BPD ??5.9 cm 24w0d (92b8j-20n9a) Hadl BPD 2% FL/BPD 0.78 (0.71 - 0.87) HC ??22.8 cm 24w6d (61l8u-68k2i) Hadl HC ??5% FL/AC ??0.22 (0.20 - 0.24) AC ??21.0 cm 25w4d (29l0t-74s0y) Hadl AC ??32% HC/AC ??1.09 (1.01 - 1.20) FL ?? 4.6 cm 25w1d (57w2m-93w1l) Hadl FL ??16% CI ? 0.69 (0.70 - 0.86* HL ?? 4.2 cm 25w1d (05u6i-77o1q) Fernie HL ??40% GA for sonogram 24w4d (99w6o-53z1x) ?? Weight Estimate: based on (HC,AC,FL) Hadlock ?Weight: 790 gm (673-907gm) Hadloc ? : 1lbs, 11oz ? Normal: 893 gm (670- 1116gm) Hadlo ? Wt% ? 19% for 25w6d Heart Rate: 154 bpm Amniotic Fluid Index: 11.2cm (09.7-22.3) Q1: 3.2cm ??Q2: 2.3cm ??Q3: 2.8cm ??Q4: 2.9cm ?? EVAL, PLACENTA Presentation: cephalic Placenta: posterior Heart Rate: 154 bpm Amniotic Fluid Volume: normal MATERNAL ANATOMY Ovaries LxHxW (cm) There is an ovarian cyst in the posterior cul-de-sac measuring 27 x 17 x 28 mm. ??The cyst does not appear simple. ??Mural nodules cannot be excluded verses internal hemorrhage. Anatomy!Normal!Abnormal!Suboptimal!Prev. Seen!Comments Cranium ?! ?? x ??! ?! ?! ? x ?! Mdl (CSP/Thal! ?? x ??! ?! ?! ? x ?! Ventricles ?? ! ?? x ??! ?! ?! ? x ?! Choroid Plexu! ?? x ??! ?! ?! ? x ?! Cerebellum ?? ! ?! ?! ?! ? x ?! Cisterna M. ??! ?! ?! ?! ? x ?! Nuchal Fold ??! ?! ?! ?! ? x ?! Profile ?! ?? x ??! ?! ?! ? x ?! Nasal Bone ?? ! ?! ?! ?! ? x ?! Lip ?! ?? x ??! ?! ?! ? x ?! Spine ?! ?! ?! ?! ? x ?! Lungs ?! ?? x ??! ?! ?! ? x ?! 4 Chamber Hea! ?? x ??! ?! ?! ? x ?! LVOT ? ! ?! ?! ?! ? x ?! RVOT ? ! ?! ?! ?! ? x ?! 3 Vessel View! ?! ?! ?! ? x ?! Cross-over ?? ! ?! ?! ?! ? x ?! Ductal Arch ??! ?! ?! ?! ? x ?! Aortic Arch ??! ?! ?! ?! ? x ?! Caval View ?? ! ?! ?! ?! ? x ?! Situs ?! ?! ?! ?! ? x ?! Diaphragm ?! ?? x ??! ?! ?! ? x ?! Stomach ?! ?? x ??! ?! ?! ? x ?! Bowel ?! ?! ?! ?! ? x ?! Kidneys ?! ?! ?! ?! ? x ?! Bladder ?! ?? x ??! ?! ?! ? x ?! 3 Vessel Cord! ?! ?! ?! ? x ?! Cord In! ?! ?! ?! ? x ?! Upper Extremi! ?! ?! ?! ? x ?! Hands ?! ?! ?! ?! ? x ?! Lower Extreme! ?! ?! ?! ? x ?! Feet ? ! ?! ?! ?! ? x ?! External Ashlee! ?! ?! ?! ? x ?! CLINICAL SUMMARY Study Number: 2 ?? This has been complicated by less than expected growth and vaginal bleeding. ??The fetus is identified in the cephalic presentation. ??The measurements today are consistent with appropriate growth. ??The abdominal circumference is greater than the 30th percentile which is reassuring. ??The DARA is based on LMP and prior ultrasound ( confirmed ). ??The amniotic fluid index is normal. No major malformations are seen or suspected within the limitations of today's exam. The placenta is posterior. ??There is an area on the anterior aspect of the uterus that was heterogeneous on today's exam. ??The heterogeneous area does have some color flow signals and connects to the tail of the placental mass. ??The measurements for this area were 62 x 26 x 65 mm. There appears to be a sub amniotic collection noted near this area. ??A sub amniotic hematoma is suspected. IMPRESSION: Single, live, IUP 25w6d. ?? Appropriate ?? growth ?? normal amniotic fluid Completed anatomical screen without demonstrated major malformations Suspected moderate-sized sub amniotic hematoma Reassuring cervical length RECOMMEND: Follow up ultrasound in 4 weeks for growth. ?? This would benefit from serial growth every 4 weeks due to the vaginal bleeding and today's findings suggestive of an intrauterine hematoma. Thank you for the opportunity to participate in the care of your patient. Regina Joiner MD <Electronic Signature> ??07/27/2018 01:58pm R Gokul Miranda MD [facility] ORDERABLES documented in this encounter Visit Diagnoses Diagnosis Poor growth affecting management of mother, antepartum, single or unspecified fetus (HCC) Supervision of high-risk of young multigravida (HCC) Supervision of high-risk of young multigravida Marginal placenta previa (HCC) Hemorrhage from placenta previa, unspecified as to episode of care Marginal insertion of umbilical cord affecting management of mother in second trimester (HCC) documented in this encounter
--- OUTSIDE RECORDS SUMMARY | 2024-04-21 11:54 | XMS_ITS ---
Author Organization [facility] [employer] [facility] Address [address] [place] [address] Care Team Providers Care Maintenance Associate Name Role Phone Gr, Brad Unavailable [phone] REASON FOR VISIT New Refill Request Social History Sex Assigned At : Social History Observation Description Sex Assigned At Female Encounters Encounter Location Date Provider Diagnosis [facility] [address] [place] [address] 03/14/2024 Brad Gr Plan Of Treatment Next Appt Details Provider Name:Brad cheung, 05/14/2024 10:30:00 AM, [address], [place], [address], Progress Notes * LISHA IQBALOB:1985 (38 yo F)Acc No.[id number]:03/14/2024 Patient:?LEON IQBAL :1985???Age:38 Y???Sex:Female Address:[address] [place], [address] * true * Date:? 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
--- OUTSIDE RECORDS SUMMARY | 2024-04-21 11:54 | XMS_ITS | Encounter Summary ---
Author Organization [facility] Address [address] [place] [address] Care Team Providers Care Claims Sorter Name Role Phone Unavailable Primary Care Provider Unavailabl e Reason for Visit * Evaluate & Treat (Routine) - Closed Specialty Diagnoses / Procedures Referred By Aranza morin Referred To Contact Maternal Medicine Diagnoses Maternal care for known or suspected placental insufficiency, unspecified trimester, not applicable or unspecified (HCC) Placenta previa found during without hemorrhage (HCC) Procedures TX FULL ROUT OBSTE CARE,VAGINAL Vaibhav Srivastava MD [address] [place] [address] [facility] [address] [place] [address] Referral ID Status Reason Start Date Expiration Date Visits Re quested Visits Authorized [id number] Closed 06/27/2018 12/24/2018 20 20 Encounter Details Date Type Department Care Team (Latest Contact Info) Description 06/27/2018 10:30 AM CDT - 06/27/2018 11:59 PM CDT Hospital Encounter [facility] Maternal & Care [address] [place], [place] [id number] Pablo Shannon MD Discharge Disposition: Home or Self Care Social History Tobacco Use Types Packs/Day Years Used Date Smoking Tobacco: Never Assessed Comments Yes Sex and Gender Information Value Date Recorded Sex Assigned at Not on file Gender Identity Not on file Sexual Orientation Not on file documented as of this encounter Plan of Treatment Not on file documented as of this encounter Procedures Procedure Name Priority Date/Time Associated Diagnosis Comments SONOGRAM - COMPLETE Routine 06/27/2018 1 0:40 AM CDT Placenta previa, marginal (HCC) Intrauterine growth restriction affecting antepartum care of mother, single or unspecified fetus (HCC) documented in this encounter Results * SONOGRAM - COMPLETE (06/27/2018 10:40 AM CDT) Anatomical Region Laterality Modality Other 06/27/2018 10:4 0 AM CDT Narrative 06/27/2018 2:15 PM CDT ? [facility] Maternal Medicine ? Maternal & Care Center ?PHONE: ??FAX: Pat. Name: ?ROMELIA IQBAL. No: ?[id number] Study Date: ?? 06/27/2018 ??10:40am , Age: ? 1985, 32 Pregnancies: ?? 5, Para 3 Height: ? 63 in Weight: ? 123 lb LMP: ?01/26/2018 GA by LMP: ?21w5d GA by US: ? 20w5d ?? DARA: 11/09/2018 GA Selected: ??21w5d (LMP) DARA: ?11/02/2018 Referring MD: Avery Miranda MD Computer Tester: ??Bailee Son RDMS CPT4: ? 29456,16689 BMI: ?21.79 Hist/Ind: ? Growth Restrication ?Marginal Placental Cord Insertion ?Marginal Placenta Previa MEASUREMENTS & AGE ? GROWTH EVALUATION Measurement ??GA ? Range ? Srce %for GA Ratios ----- ---- ------- BPD ??4.8 cm 20w3d (73z4a-20l8n) Hadl BPD 7% FL/BPD 0.75 HC ??18.1 cm 20w4d (69o5z-05a2l) Hadl HC ??4% FL/AC ??0.23 AC ??15.2 cm 20w3d (90p5s-86a7g) Hadl AC ??10% HC/AC ??1.19 (1.05 - 1.24) FL ?? 3.5 cm 21w1d (94k1s-84i0h) Hadl FL ??24% CI ? 0.71 (0.70 - 0.86) HL ?? 3.3 cm 21w2d (34d6g-07f7d) Fernie HL ??42% Cere 2.2 cm 20w3d (58e8i-04c4c) Hill Cere18% GA for sonogram 20w5d (45u4a-86o1h) ?? Weight Estimate: based on (HL,BPD,HC,AC,FL,Cere) Avg ??Weight: 375 gm (320-429gm) Hadloc ? : 0lbs, 13oz ? Normal: 455 gm (341-568gm) Hadloc ? Wt% ? 9% for 21w5d Cervix: ??Length: 3.3 cm ??Approach: transvaginal Heart Rate: 152 bpm Amniotic Fluid Index: 05.5cm (Deepest Pocket) EVAL, PLACENTA Presentation: cephalic Umbilical Cord: 3 Vessels Placenta: right lateral Previa: no previa seen Cord Insert: marginal insertion Heart Rate: 152 bpm Amniotic Fluid Volume: normal DOPPLER Umbilical - Mid Cord S/D ??3.35(2.63 - 5.52) ? PI ?? 1.16 (0.93 - 1.55) ? Anatomy!Normal!Abnormal!Suboptimal!Prev. Seen!Comments Cranium ?! ?? x ??! ?! ?! ?! Mdl (CSP/Thal! ?? x ??! ?! ?! ?! Ventricles ?? ! ?? x ??! ?! ?! ?! Choroid Plexu! ?? x ??! ?! ?! ?! Cerebellum ?? ! ?? x ??! ?! ?! ?! Cisterna M. ??! ?? x ??! ?! ?! ?! Nuchal Fold ??! ?? x ??! ?! ?! ?! Profile ?! ?? x ??! ?! ?! ?! Nasal Bone ?? ! ?? x ??! ?! ?! ?! Lip ?! ?? x ??! ?! ?! ?! Spine ?! ?? x ??! ?! ?! ?! Lungs ?! ?? x ??! ?! ?! ?! 4 Chamber Hea! ?? x ??! ?! ?! ?! LVOT ? ! ?? x ??! ?! ?! ?! RVOT ? ! ?? x ??! ?! ?! ?! 3 Vessel View! ?? x ??! ?! ?! ?! Cross-over ?? ! ?? x ??! ?! ?! ?! Ductal Arch ??! ?? x ??! ?! ?! ?! Aortic Arch ??! ?? x ??! ?! ?! ?! Caval View ?? ! ?? x ??! ?! ?! ?! Situs ?! ?? x ??! ?! ?! ?! Diaphragm ?! ?? x ??! ?! ?! ?! Stomach ?! ?? x ??! ?! ?! ?! Bowel ?! ?? x ??! ?! ?! ?! Kidneys ?! ?? x ??! ?! ?! ?! Bladder ?! ?? x ??! ?! ?! ?! 3 Vessel Cord! ?? x ??! ?! ?! ?! Cord In! ?? x ??! ?! ?! ?! Upper Extremi! ?? x ??! ?! ?! ?! Hands ?! ?? x ??! ?! ?! ?! Lower Extreme! ?? x ??! ?! ?! ?! Feet ? ! ?? x ??! ?! ?! ?! External Ashlee! ?? x ??! ?! ?! ?!Female CLINICAL SUMMARY Study Number: 1 ?? A single fetus is seen in the cephalic presentation. ??The measurements today are consistent with appropriate growth for the DARA provided. ??The DARA selected is based on LMP and a prior ultrasound. ??The amniotic fluid volume is normal. ??The placenta is right lateral. ??No major malformations are seen. ??The patient was advised that ultrasound does not allow detection of all structural or chromosomal abnormalities. ?? IMPRESSION: Single, live, IUP at 21w5d. Less than expected growth. normal amniotic fluid. No evidence of a marginal placenta previa Marginal placental cord insert is seen Normal Doppler interrogation of the umbilical vessels RECOMMEND: ??Follow up ultrasound in 4 weeks to reassess growth. Patient was scheduled for an office visit and ultrasound on 07/26 at 9am. Thank you for allowing us the opportunity to care for your patient. Pablo Shannon MD <Electronic Signature> ??06/27/2018 02:15pm Pablo Shannon MD [facility] ORDERABLES documented in this encounter Visit Diagnoses Diagnosis Placenta previa, marginal (HCC)- Primary Hemorrhage from placenta previa, unspecified as to episode of care Intrauterine growth restriction affecting antepartum care of mother, single or unspecified fetus (HCC) Poor growth affecting management of mother in second trimester, single or unspecified fetus (HCC) Marginal insertion of umbilical cord affecting management of mother in second trimester (HCC) 21 weeks gestation of (HCC) state, incidental documented in this encounter
--- OUTSIDE RECORDS SUMMARY | 2024-04-21 11:54 | XMS_ITS | Encounter Summary ---
Author Organization [facility] Address [address] [place] [address] Care Team Providers Care Auto Mechanics Instructor Name Role Phone Unavailable Primary Care Provider Unavailabl e Reason for Visit * Reason Comments Ultrasound Consultation Encounter Details Date Type Department Care Team (Latest Contact Info) Description 07/26/2018 9:05 AM CDT - 07/26/2018 11:59 PM CDT Hospital Encounter [facility] Maternal & Care [address] [place] [address] [id number] Regina Joiner MD [address] [place] [id number] Discharge Disposition: Home or Self Care Social [...] on file documented as of this encounter Last Filed Vital Signs Vital Sign Reading Time Taken Comments Blood Pressure 124/82 07/26/2018 10:28 AM CDT Pulse - - Temperature - - Respiratory Rate - - Oxygen Saturation - - Inhaled Oxygen Concentration - - Weight 90.6 kg (199 lb 12.8 oz) 019 10:28 AM CDT Height - - Body Mass Index - - documented in this encounter Progress Notes * Becky Garcia, MACIE-BLADDER TIER - 07/26/2018 10:36 AM CDT Pt. Presents for visit and U/S r/t marginal cord insert, marginal previa and SGA. Reports she is currently on pelvic rest, had one episode of vaginal spotting approx 1.5 weeks ago, none since. Also reports ocasional rare ctx's, but denies any LOF or abdominal pain. Reports intermittent BOWLING 3 times/week for the last few weeks that goes away with tylenol/rest. Denies visual changes, RUQ pain or swelling. Pt verbalizes feeling movement. LEDY Bolivar 07/26/2018 10:39 AM documented in this encounter Consult Notes * Regina Joiner MD - 07/26/2018 11:21 AM CDT Maternal Medicine Consult Note Date of Consult: 07/26/2018 Physician Requesting Consult: Vaibhav Miranda MD Name: Leon Iqbal Age: [age] year old Race: Reason for requesting consultation: Leon Iqbal is a 32 year [id number], female at 25w6d weeks gestation by Estimated Date of Delivery: 11/02/18. I have been asked by Dr. Miranda to consult for size smaller than gestational age. HPI: Leon has been on pelvic rest due to some bleeding episodes in this . summary: LMP 01/26/2018--DARA 11/02/2018 Four day discordance with a 6 week crown rump length records not available for the subsequent first-trimester ultrasounds Level 2 anatomy screen with marginal cord insertion; no malformations demonstrated Allergies not on file Past Medical History: Diagnosis Date ??? Anemia as a child No past surgical history on file. Social History Social History ??? Marital status: Spouse name: N/A ??? Number of children: 3 ??? Years of education: N/A Occupational History ??? Not on file. Social History Main Topics ??? Smoking status: Never Smoker ??? Smokeless tobacco: Never Used ??? Alcohol use No ??? Drug use: No ??? Sexual activity: Not Currently Partners: Male Other Topics Concern ??? Not on file Social History Narrative Family History Problem Relation Age of Onset ??? Coronary Artery Disease Maternal Grandfather ??? Hypertension Father ??? Hypertension Mother Denies family history of bleeding disorder, autoimmune disorders or arthritis. OB History Para Term AB Living 6 3 3 1 3 SAB TAB Ectopic Multiple Live Births 1 3 # Outcome Date GA Lbr Juan/2nd Weight Sex Delivery Anes PTL Lv 6 Current 5 Term 2012 38w0d 2835 g (6 lb 4 oz) NILAY 4 SAB 2011 3 Term 2009 38w0d 3657 g (8 lb 1 oz) NILAY 2 Term 2007 39w0d 3402 g (7 lb 8 oz) NILAY 1 Had elevated blood pressure the end of her in 2012 but does not believe that she was diagnosed with preeclampsia. She spontaneously delivered. 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 Review of Systems: Respiratory: Negative for shortness of breath Cardiovascular: Negative for chest pain Gastrointestinal: Negative for nausea reports regular bowel movements Genital:Negative for abnormal vaginal discharge Urinary: Denies urinary incontinence Hematologic/lymphatic: Negative for current vaginal bleeding but did have an episode of bleeding within the last 2 weeks, denies hematuria Musculoskeletal:Negative for significant back pain , does report loosening of her pelvic ligaments with the wider gait and some leg stiffness and discomfort at the end of the day Neurological: Negative for frequent headaches Behavioral/Psych: Negative for poor mood Endocrine: Improved energy Integument: Denies skin changes Obstetric: movement appreciated, denies leakage of fluid, reports some Lukasz Ascencio contractions and pelvic pressure daily Exam: BP 124/82 Wt 199 lb 12.8 oz (90.6 kg) Gen: no acute distress Mental: appropriate mood, behavior and speech Neck: no thyroid enlargement Chest: clear to auscultation, bilaterally Heart: regular rate and rhythm, no murmurs Abdomen: gravid, no epigastric tenderness Trunk: no costovertebral angle tenderness Musculoskeletal: no bony point tenderness to palpation Extremities: no pedal edema; negative Cesia's sign, bilaterally Skin: No rash observed Labs: Alb/Glu/K/N/L Albumin: Negative Glucose: Negative Urine Ketones: Negative. US: (See detailed report) This has been complicated by less than expected growth and vaginal bleeding. The fetus is identified in the cephalic presentation. The measurements today areconsistent with appropriate growth. The abdominal circumference is greater than the 30th percentile which is reassuring. The DARA is based on LMP and prior ultrasound ( confirmed ). The amnioticfluid index is normal. No major malformations are seen or suspected within the limitations of today's exam. The placenta is posterior. There is an area on the anterior aspect of the uterus that was heterogeneous on today's exam. The heterogeneous area does have some color flow signals and connects to the tail of the placental mass. The measurements for this area were 62 x 26 x 65 mm. There appears to be a sub amniotic collection noted near this area. A sub amniotic hematoma is suspected. ULTRASOUND IMPRESSION: Single, live, IUP 25w6d. Appropriate growth normal amniotic fluid Completed anatomical screen without demonstrated major malformations Suspected moderate-sized sub amniotic hematoma Reassuring cervical length Impression: IUP at 25w6d Patient Active Problem List Diagnosis Date Noted ??? Supervision of high-risk of young multigravida 07/18/2018 Priority: 1. ??? Vaginal bleeding affecting early 07/27/2018 Priority: Not Prioritized ??? Subchorionic hematoma, antepartum 07/26/2018 Priority: Not Prioritized ??? Marginal insertion of umbilical cord affecting management of mother in second trimester 07/18/2018 Priority: Not Prioritized RECOMMENDATIONS: Subchorionic hematoma, antepartum Monitor for signs of labor, vaginal bleeding, secondary oligohydramnios Follow up ultrasound in 4 weeks to reassess growth Recommend serial growth every 4 weeks due to the vaginal bleeding and today's findings suggestive of an intrauterine hematoma Marginal insertion of umbilical cord affecting management of mother in second trimester Fetus with appropriate size for gestational age on today's exam. Recommendations: Serial growth every 4 weeks Vaginal bleeding affecting early Reassuring cervical length on today's exam No follow-up consultation sessions for this patient are planned at this time. Once again, we appreciate the opportunity to assist you in the care of Ms. Iqbal. If issues arise for which I can be of help please contact me directly, or contact one of my partners if I am unavailable. She will continue seeing you for care. Sincerely, Regina Joiner MD Division of Maternal- Medicine Department of Obstetrics, Gynecology, and Women's Health [facility] documented in this encounter Plan of Treatment Not on file documented as of this encounter Results * SONOGRAM - COMPLETE (07/26/2018 10:18 AM CDT) Anatomical Region Laterality Modality Other 07/26/2018 10:1 8 AM CDT Narrative 07/27/2018 2:04 PM CDT ? [facility] Maternal Medicine ? Maternal & Care Center ?PHONE: ??FAX: Pat. Name: ?LEON IQBAL. No: ?[id number] Study Date: ?? 07/26/2018 ??10:18am , Age: ? 1985, 32 Pregnancies: ?? 5, Para 3 Height: ? 63 in Weight: ? 123 lb LMP: ?01/26/2018 GA by LMP: ?25w6d GA by Base: ?? 25w6d ?? DARA: 11/02/2018 GA by US: ? 24w4d ?? DARA: 11/11/2018 GA Selected: ??25w6d (From [facility]) DARA: ?11/02/2018 Referring MD: Avery Miranda MD Electrical Appliance Repairer: ??Tracey Valerio RDMS CPT4: ? 30293 BMI: ?21.79 Hist/Ind: ? Growth Restrication ?Marginal Placental Cord Insertion MEASUREMENTS & AGE ? GROWTH EVALUATION Measurement ??GA ? Range ? Srce %for GA Ratios ----- ---- ------- BPD ??5.9 cm 24w0d (08u2g-03e5b) Hadl BPD 2% FL/BPD 0.78 (0.71 - 0.87) HC ??22.8 cm 24w6d (28y1f-53d7s) Hadl HC ??5% FL/AC ??0.22 (0.20 - 0.24) AC ??21.0 cm 25w4d (67a2d-02l0f) Hadl AC ??32% HC/AC ??1.09 (1.01 - 1.20) FL ?? 4.6 cm 25w1d (40f8i-61i5c) Hadl FL ??16% CI ? 0.69 (0.70 - 0.86* HL ?? 4.2 cm 25w1d (96j8y-80v9n) Fernie HL ??40% GA for sonogram 24w4d (22h0x-24s2m) ?? Weight Estimate: based on (HC,AC,FL) Hadlock [...] MD <Electronic Signature> ??07/27/2018 01:58pm R Gokul BENOIT ORDERABLES documented in this encounter Visit Diagnoses Diagnosis Poor growth affecting management of mother, antepartum, single or unspecified fetus (HCC) Supervision of high-risk of young multigravida (HCC) Supervision of high-risk of young multigravida Marginal placenta previa (HCC) Hemorrhage from placenta previa, unspecified as to episode of care Marginal insertion of umbilical cord affecting management of mother in second trimester (HCC) Poor growth affecting management of mother, antepartum, single or unspecified fetus (HCC)- Primary Supervision of high-risk of young multigravida (HCC) Supervision of high-risk of young multigravida Marginal placenta previa (HCC) Hemorrhage from placenta previa, unspecified as to episode of care Marginal insertion of umbilical cord affecting management of mother in second trimester (HCC) Subchorionic hematoma in second trimester, single or unspecified fetus (HCC) Vaginal bleeding in , second trimester (HCC) 25 weeks gestation of (HCC) state, incidental * Assessment & Plan Note - Regina Joiner MD - 07/26/2018 11:59 PM CDT Associated Problem(s): Vaginal bleeding affecting early (HCC) Reassuring cervical length on today's exam * Assessment & Plan Note - Regina Joiner MD - 07/26/2018 12:06 PM CDT Associated Problem(s): Marginal insertion of umbilical cord affecting management of mother in second trimester (HCC) Fetus with appropriate size for gestational age on today's exam. Recommendations: Serial growth every 4 weeks * Assessment & Plan Note - Regina Joiner MD - 07/26/2018 12:05 PM CDT Associated Problem(s): Subchorionic hematoma, antepartum (HCC) Monitor for signs of labor, vaginal bleeding, secondary oligohydramnios Follow up ultrasound in 4 weeks to reassess growth Recommend serial growth every 4 weeks due to the vaginal bleeding and today's findings suggestive of an intrauterine hematoma documented in this encounter
--- OUTSIDE RECORDS SUMMARY | 2024-04-21 11:54 | XMS_ITS | Referral Summary ---
Author Organization [facility] Address [address] [place] [address] Care Team Providers Care Tribal Judge Name Role Phone Unavailable Primary Care Provider Unavailabl e Source Comments [facility],non-owned Affiliates and Associated Physician Practices is amultiple site organization consisting of ambulatory clinics and hospital sitesin [place], [place], [place] and [place]. This disclosure is being madepursuant to the Care Everywhere program and may not contain all information available regarding this patient. Last updated 17.[facility] [employer] Active Problems Problem Noted Date Diagnosed Date [...] hematoma Supervision of high-risk of jasmina rowland igravijustina 07/18/2018 Marginal insertion of umbili anisa cord [...] or complication 07/18/2018 07/18/2018 Marginal placenta previa Social History Tobacco Use Types Packs/Day Years [...] Mass Index - - Plan of Treatment Not on file
--- OUTSIDE RECORDS SUMMARY | 2024-04-21 11:54 | XMS_ITS ---
Author Organization [facility] [employer] Address [address] [facility] [address] [place] [address] Care Team Providers Care Gas Engine Operator Name Role Phone Gr, Brad Unavailable [phone] Medications Medication SIG (Take, Route, Fr equency, Duration) Notes Start Date End Date Status Auvelity 45-105 MG 1 tablet Orally twic e daily for 30 days 02/10/2024 Active Social History Sex Assigned At : Social History Observation Description Sex Assigned At Female Encounters Encounter Location Date Provider Diagnosis [facility] [employer] [facility] [address] [place] [address] 03/16/2024 Brad Gr Major depressive disorder, recurrent, mild F33.0 Assessments Encounter Date Diagnosis (ICD Code) Assessment Notes Treatment Notes Treatment Clinical Notes Section Notes 03/16/2024 Major depressive disorder, recurrent, mild (ICD-10 - F33.0) Plan Of Treatment Medication Medication Name Sig Start Date Stop Date Notes Auvelity 45-105 MG 1 tablet Orally twice daily for 30 days 02/10/2024 Next Appt Details Provider Name:Brad cheung, 05/14/2024 10:30:00 AM, [address], [address], [place], [address], Progress Notes * LISHA IQBALOB:1985 (38 yo F)Acc No.[id number]:03/16/2024 Patient:?LEON IQBAL :1985???Age:38 Y???Sex:Female Address:[address] [place] [address], [place], [address] * Refills? Refill Auvelity Tablet Extended Release, 45-105 MG, Orally, 30, 1 tablet, twice daily, 30 days, Refills=0 Subjective: * Chief Complaints: * ??? * Medical History:? * Surgical History:? * Hospitalization/Major Diagno stic Procedure:? * Medications:? Objective: * Vitals:? * Physical Examination:? Assessment: * Assessment: 1.?Major depressive disorder , recurrent, mild - F33.0??? Plan: * Treatment: * Procedure Codes:? * true * Date:? Generated for Hay jack/Cheo/Azul on:?04/21/2024 11:53 AM CHIROPRACTOR ASSISTANT
--- OUTSIDE RECORDS SUMMARY | 2024-04-21 11:54 | XMS_ITS | Encounter Summary ---
Author Organization [facility] Address [address] [place] [address] Care Team Providers Care Diamond Setter Apprentice Name Role Phone Unavailable Primary Care Provider Unavailabl e Encounter Details Date Type Department Care Team (Latest Contact Info) Description 08/22/2018 8:53 AM CDT - 08/22/2018 11:59 PM CDT Hospital Encounter [facility] Maternal & Care [address] [place] [id number] Pablo Shannon MD Discharge Disposition: Home or [...] as of this encounter Plan of Treatment Scheduled Orders Name Type Priority Associated Diagnoses Orde r Schedule SONOGRAM - COMPLETE [facility] Routine Encounter for ultrasound to assess interval growth of fetus (HCC) Supervision of high-risk of young multigravida (HCC) Marginal insertion of umbilical cord affecting management of mother in second trimester (HCC) Subchorionic hematoma, antepartum, single or unspecified fetus (HCC) Vaginal bleeding affecting early (HCC) E-4Weeks for 3 Occurrences starting 08/15/2018 until 08/16/2019, 2 completed [facility] - [facility] Routine Encounter for ultrasound to assess interval growth of fetus (HCC) Supervision of high-risk of young multigravida (HCC) Marginal insertion of umbilical cord affecting management of mother in second trimester (HCC) Subchorionic hematoma, antepartum, single or unspecified fetus (HCC) Vaginal bleeding affecting early (HCC) 1 Occurrences starting 08/15/2018 until 08/15/2018 documented as of this encounter Procedures Procedure Name Priority Date/Time Associated Diagnosis Comments SONOGRAM - COMPLETE Routine 08/22/2018 8:59 AM CDT Encounter for ultrasound to assess [...] CDT Narrative 09/15/2018 11:33 AM CDT ? [facility] Maternal Medicine ? Maternal & Care Center ?PHONE: ??FAX: Ashlie. Name: ?LEON IQBAL No: ?[id number] Study Date: ?? 09/15/2018 ??10:44am , Age: ? 1985, 32 Pregnancies: ?? 5, Para 3 Height: ? 63 in Weight: ? 123 lb LMP: ?01/26/2018 GA by LMP: ?33w1d GA by Base: ?? 33w1d ?? DARA: 11/02/2018 GA by US: ? 32w5d ?? DARA: 11/05/2018 GA Selected: ??33w1d (LMP) DARA: ?11/02/2018 Referring MD: Avery Miranda MD Coroner Technician: ??Tracey Valerio RDMS CPT4: ? 48297 BMI: ?21.79 Hist/Ind: ? SGA on 08/22 ?Marginal placental cord insertion MEASUREMENTS & AGE ? GROWTH EVALUATION Measurement ??GA ? Range ? Srce %for GA Ratios ----- ---- ------- BPD ??8.0 cm 32w2d (97u5k-46o3g) Hadl BPD 21% FL/BPD 0.79 (0.71 - 0.87) HC ??29.6 cm 32w5d (46o6i-70z5r) Hadl HC ??9% FL/AC ??0.22 (0.20 - 0.24) AC ??28.9 cm 32w6d (27f2b-50x5d) Hadl AC ??44% HC/AC ??1.02 (0.95 - 1.13) FL ?? 6.3 cm 32w5d (13w7z-29y8p) Hadl FL ??28% CI ? 0.75 (0.70 - 0.86) HL ?? 5.7 cm 33w2d (17i3y-41z5n) Fernie HL ??52% GA for sonogram 32w5d (58n3e-47w0p) ?? Weight Estimate: based on (BPD,HC,AC,FL) Avg [...] Tejada MD <Electronic Signature> ??09/15/2018 11:33am Regina Leeann Joiner MD [facility] ORDERABLES * SONOGRAM - COMPLETE (08/22/2018 8:59 AM CDT) Anatomical Region Laterality Modality Other 08/22/2018 8:59 AM CDT Narrative 08/22/2018 12:29 PM CDT ? [facility] Maternal Medicine ? Maternal & Care Center ?PHONE: ??FAX: Pat. Name: ?LEON IQBAL. No: ?[id number] Study Date: ?? 08/22/2018 ??8:59am , Age: ? 1985, 32 Pregnancies: ?? 5, Para 3 Height: ? 63 in Weight: ? 123 lb LMP: ?01/26/2018 GA by LMP: ?29w5d GA by Base: ?? 29w5d ?? DARA: 11/02/2018 GA by US: ? 28w4d ?? DARA: 11/10/2018 GA Selected: ??29w5d (LMP) DARA: ?11/02/2018 Referring MD: Avery Miranda MD Coroner Technician: ??Bailee Son RDMS CPT4: ? 25747,53145 BMI: ?21.79 Hist/Ind: ? Growth Restrication ?Marginal Placental Cord Insertion MEASUREMENTS & AGE ? GROWTH EVALUATION Measurement ??GA ? Range ? Srce %for GA Ratios ----- ---- ------- BPD ??7.2 cm 28w6d (55g4f-14j5u) Hadl BPD 15% FL/BPD 0.75 (0.71 - 0.87) HC ??25.7 cm 27w6d (27d8o-42h4n) Hadl HC ??<01 FL/AC ??0.22 (0.20 - 0.24) AC ??24.4 cm 28w4d (03y8g-62f5p) Hadl AC ??15% HC/AC ??1.05 (0.98 - 1.17) FL ?? 5.4 cm 28w4d (42p4j-33a8u) Hadl FL ??10% CI ? 1.00 (0.70 - 0.86* HL ?? 4.9 cm 28w5d (57y3f-22w7n) Fernie HL ??33% GA for sonogram 28w4d (22x7n-03n6n) ?? Weight Estimate: based on (HL,BPD,HC,AC,FL) Avg ? Weight: 1245 gm (1064-1427gm) Had ? : 2lbs, 11oz ? Normal: 1505 gm (1129- 1882gm) Had ? Wt% ? 9% for 29w5d Heart Rate: 168 bpm Amniotic Fluid Index: 13.2cm (09.1-23.3) Q1: 2.1cm ??Q2: 3.8cm ??Q3: 3.6cm ??Q4: 3.7cm ?? Biophysical Profile: 11/16 Breathin ?? Tone: 2 ?? Movement: ??2 ?? AFV: ??2 EVAL, PLACENTA Presentation: cephalic Umbilical Cord: 3 Vessels Placenta: posterior Cord Insert: marginal insertion Heart Rate: 168 bpm Amniotic Fluid Volume: normal DOPPLER Umbilical - Mid Cord S/D ??2.73(1.98 - 4.14) ? PI ?? 0.93 (0.71 - 1.30) ? CLINICAL SUMMARY Study Number: 3 ?? A single fetus is identified in the cephalic presentation. ??The measurements today are consistent with less than expected growth compared to previous examination. ??The DARA selected is based on her LMP and prior ultrasound examination. ??The amniotic fluid volume is normal. ??The placenta is posterior. ??No major malformations are seen. ??The patient was advised that ultrasound does not allow detection of all structural or chromosomal abnormalities. ?? IMPRESSION: Single, live IUP at 29w5d. Symmetrical growth at the 9th %ile. No major malformations seen within the limits of ultrasound. Umbilical artery Doppler interrogation appears normal RECOMMEND: Follow up ultrasound for growth in 3 weeks If clinically indicated start testing in 3 weeks Thank you for allowing us the opportunity to care for your patient. Pablo Shannon MD <Electronic Signature> ??08/22/2018 12:30pm Regina Joiner MD [facility] ORDERABLES documented in this encounter Visit Diagnoses Diagnosis Encounter for ultrasound to assess interval growth of fetus (HCC)- Primary Supervision of high-risk of young multigravida (HCC) Supervision of high-risk of young multigravida Marginal insertion of umbilical cord affecting management of mother in second trimester (HCC) Subchorionic hematoma, antepartum, single or unspecified fetus (HCC) Vaginal bleeding affecting early (HCC) Poor growth affecting management of mother in third trimester, single or unspecified fetus (HCC) 29 weeks gestation of ([facility]) state, incidental Encounter for ultrasound to assess interval growth [...]
--- OUTSIDE RECORDS SUMMARY | 2024-04-21 11:54 | XMS_ITS | Patient Health Summary ---
Author Organization [facility] Address [address] [place] [address] Care Team Providers Care Real Estate Sales Manager Name Role Phone Unavailable Primary Care Provider Unavailabl e Note from [facility],non-owned Affiliates and Associated Physician Practices is amultiple site organization consisting of ambulatory clinics and hospital sitesin [place], [place], [place] and [place]. This disclosure is being madepursuant to the Care Everywhere program and may not contain all information available regarding this patient. Last updated 17.[facility] Active Problems Problem Noted Date Diagnosed Date Vaginal bleeding affecting early 07/27 Subchorionic hematoma, antepartum 07/26/2018 Supervision of high-risk of jasmina dior 07/18/2018 Marginal insertion of umbili anisa cord affecting management of mother in second trimester 07/18/2018 Resolved Problems Problem Noted Date Diagnosed Date [...] - - Body Mass Index - - Procedures * SONOGRAM - COMPLETE(Performed 10/13/2018) Performed for Supervision of high-risk of young multigravida (HCC), Marginal insertion ofumbilical cord affecting management of mother in second trimester (HCC), Encounter for ultrasound to assess interval growth of fetus (HCC) * SONOGRAM - COMPLETE(Performed 09/15/2018) Performed for Encounter for ultrasound to assess interval growth of fetus (HCC), Supervision of high-risk of young multigravida (HCC), Marginal insertion of umbilical cord affecting management of mother in second trimester (HCC), Subchorionic hematoma, antepartum, single or unspecified fetus (HCC), Vaginal bleeding affecting early (HCC) * SONOGRAM - COMPLETE(Performed 08/22/2018) Performed for Encounter for ultrasound to assess interval growth of fetus (HCC), Supervision of high-risk of young multigravida (HCC), Marginal insertion of umbilical cord affecting management of mother in second trimester (HCC), Subchorionic hematoma, antepartum, single or unspecified fetus (HCC), Vaginal bleeding affecting early (HCC) * SONOGRAM - COMPLETE(Performed 07/26/2018) Performed for Poor growth affecting management of mother, antepartum, single or unspecified fetus (HCC), Supervision of high-risk of young multigravida (HCC), Marginal placenta previa(HCC), Marginal insertion of umbilical cord affecting management of mother in second trimester (HCC) * SONOGRAM - COMPLETE(Performed 06/27/2018) Performed for Placenta previa, marginal (HCC), Intrauterine growth restriction affecting antepartumcare of mother, single or unspecified fetus (HCC) Results * SONOGRAM - COMPLETE (10/13/2018 8:49 AM CDT) Only the most recent of5 resultswithin the time period is included. Anatomical Region Laterality Modality Other 10/13/2018 8:49 AM CDT Narrative 10/13/2018 9:36 AM CDT ? [facility] ?PHONE: ??FAX: Pat. Name: ?LEON IQBAL. No: ?[id number] Study Date: ?? 10/13/2018 ??8:49am , Age: ? 1985, 33 Pregnancies: ?? 5, Para 3 Height: ? 63 in Weight: ? 123 lb LMP: ?01/26/2018 GA by LMP: ?37w1d GA by Base: ?? 37w1d ?? DARA: 11/02/2018 GA by US: ? 35w6d ?? DARA: 11/11/2018 GA Selected: ??37w1d (LMP) DARA: ?11/02/2018 Referring MD: Avery Miranda MD Field Support Specialist: ??Bailee Son RDMS CPT4: ? 76147 BMI: ?21.79 Hist/Ind: ? SGA on 08/22 ?Marginal placental cord insertion MEASUREMENTS & AGE ? GROWTH EVALUATION Measurement ??GA ? Range ? Srce %for GA Ratios ----- ---- ------- BPD ??8.7 cm 35w1d (67p0k-05v7o) Hadl BPD 13% FL/BPD 0.80 (0.71 - 0.87) HC ??32.3 cm 36w3d (36g4b-92q6x) Hadl HC ??12% FL/AC ??0.22 (0.20 - 0.24) AC ??32.4 cm 36w2d (46l2c-22e6m) Hadl AC ??41% HC/AC ??1.00 (0.91 - 1.10) FL ?? 7.0 cm 35w6d (14j9u-56h0u) Hadl FL ??18% CI ? 0.74 (0.70 - 0.86) HL ?? 6.2 cm 36w0d (59r0k-94x2s) Fernie HL ??33% GA for sonogram 35w6d (89g2k-66y4r) ?? Weight Estimate: based on (BPD,HC,AC,FL) Avg [...] <Electronic Signature> ??10/13/2018 09:36am Re Tejada MD [facility] ORDERABLES
--- OUTSIDE RECORDS SUMMARY | 2024-04-21 11:54 | XMS_ITS | Patient Health Record ---
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 Name Role Phone Brad Gr Unavailable [phone] Migration, Provider Unavailable Unavailable Allergies No Known Allergies Results Component Value Reference Range Notes TSH+FREE T4 (91588) Reviewed date:02/15/2024 03:05:50 PM Interpretation: Performing Lab:[facility] MORASsm Rehab[facility] [place] [address] Erick Wolff Notes/Report: FASTING:YES FASTING: YES TSH 0.02 Reference Range > or = 20 Years 0.40-4.50 Ranges First trimester 0.26-2.66 Second trimester 0.55-2.73 Third trimester 0.43-2.91 T4, FREE 1.8 0.8-1.8 ng/dL INSULIN (561) Reviewed date:02/15/2024 03:05:32 PM Interpretation: Performing Lab:[facility] PIERCE-Yksqft77291 [address]ena WinnaKS[address] Erick Wolff MD Notes/Report: FASTING:YES FASTING: YES INSULIN 7.4 Reference Range < or = 18.4 Risk: Optimal < or = 18.4 Moderate NA High >18.4 Adult cardiovascular event risk category cut points (optimal, moderate, high) are based on Insulin Reference Interval studies performed at [facility] in 2021. IRON AND TOTAL IRON BINDING CAPACITY (7573) Reviewed date:02/15/2024 03:05:14 PM Interpretation: Performing Lab:[facility] PIERCEAszjlr72383 [address] WinnaKS[address] Erick Wolff MD Notes/Report: FASTING:YES FASTING: YES IRON, TOTAL 178 40-190 mcg/dL IRON BINDING CAPACITY 363 250-450 mc g/dL (calc) % SATURATION 49 16-45 % (calc) TESTOSTERONE, FREE (77937) Reviewed date:02/15/2024 03:05:21 PM Interpretation: Performing Lab:Z3E, [facility]-[address] [place] [address], [address]njy[facility]javXU[address] Cameron Castanon MD,PhD Notes/Report: FASTING:YES FASTING: YES TESTOSTERONE, FREE 2.3 0.2-5.0 pg/mL MD [facility] [address] [place] [address],[address] [facility] [address] Cameron Castanon MD, PhD ESTRADIOL (4021) Reviewed date:02/15/2024 03:05:07 PM Interpretation: Performing Lab:[facility] [facility]fn[facility]ckQL[address] Erick Wolff Notes/Report: FASTING:YES FASTING: YES ESTRADIOL 144 fulvestrant (Faslodex(R)) have demonstrated significant interference in immunoassay methods for estradiol measurement. The cross reactivity could lead to falsely elevated estradiol test results leading to an inappropriate clinical assessment of estrogen status. [facility] order code [id number], Ultrasensitive LC/MS/MS demonstrates negligible cross reactivity with fulvestrant. Reference Range Follicular Phase: 19-144 Mid-Cycle: 64-357 Luteal Phase: 56-214 Postmenopausal: < or = 31 Reference range established on post-pubertal patient population. No pre-pubertal reference range established using this assay. For any patients for whom low Estradiol levels are anticipated (e.g. males, pre-pubertal children and hypogonadal/post-menopausal females), the [facility] Estradiol, Ultrasensitive, LCMSMS assay is recommended (order code [id number]). Please note: patients being treated with the drug FERRITIN (457) Reviewed date:02/15/2024 03:05:01 PM Interpretation: Performing Lab:[facility] PIERCE-Nbrsqk22033 [address] WinnOfkhlsBL[address] Erick Wolff MD Notes/Report: FASTING:YES FASTING: YES FERRITIN 57 16-154 ng/mL LIPID PANEL (REFL) (19160) Reviewed date:02/15/2024 02:59:02 PM Interpretation: Performing Lab:KS, [facility], YelecqLP[address] Erick Wolff MD Notes/Report: FASTING:YES FASTING: YES CHOLESTEROL, TOTAL 348 <200 mg/dL HDL CHOLESTEROL 80 > OR = 50 mg/dL TRIGLYCERIDES 58 <150 mg/dL LDL-CHOLESTEROL 252 LDL-C levels > or = 190 mg/dL may indicate familial hypercholesterolemia (FH). Clinical assessment and measurement of blood lipid levels should be considered for all first degree relatives of patients with an FH diagnosis. LDL Cholesterol (LDL-C) levels > or = 300 mg/dL may indicate homozygous familial hypercholesterolemia (HoFH). Untreated, these extremely high LDL-C levels can result in premature CV events and mortality. Patients should be identified early and provided appropriate interventions to reduce the cumulative LDL-C burden from . For questions about testing for familial hypercholesterolemia, please call [facility] at 1.[email or web address] [email or web address]. Steven Johnson, et al. J National Lipid Association Recommendations for Patient-Centered Management of Dyslipidemia: Part 1 Journal of Clinical Lipidology 2015;9(2), 129-169. Khai Lala. et al. (2014). Homozygous familial hypercholesterolaemia: new insights and guidance for clinicians to improve detection and clinical management. Heart Journal, 35(32), 8933-0406. Reference range: <100 Desirable range <100 mg/dL for primary prevention; <70 mg/dL for patients with CHD or diabetic patients with > or = 2 CHD risk factors. LDL-C is now calculated using the Juan F-Bishop calculation, which is a validated novel method providing better accuracy than the Friedewald equation in the estimation of LDL-C. Juan F MANSFIELD et al. BRYCE. 2013;310(19): 2475-1891 (http://education.Myntra.Faraday/faq/LQK557) CHOL/HDLC RATIO 4.4 <5.0 (calc) NON HDL CHOLESTEROL 268 <130 mg/dL (calc) Non-HDL level > or = 220 is very high and may indicate genetic familial hypercholesterolemia (FH). Clinical assessment and measurement of blood lipid levels should be considered for all first-degree relatives of patients with an FH diagnosis. For patients with diabetes plus 1 major ASCVD risk factor, treating to a non-HDL-C goal of <100 mg/dL (LDL-C of <70 mg/dL) is considered a therapeutic option. COMPREHENSIVE METABOLIC PANE Morena (74772) Reviewed date:02/15/2024 03:05:26 PM Interpretation: Performing Lab:[facility]BY [facility] [address] [address] WgdsrdnQX[address] Thuy-Lieu Thi Vo Notes/Report: FASTING:YES FASTING: YES GLUCOSE 106 65-99 mg/dL Fasting reference interval For someone without known diabetes, a glucose value between 100 and 125 mg/dL is consistent with prediabetes and should be confirmed with a follow-up test. UREA NITROGEN (BUN) 15 7-25 mg/dL CREATININE 0.56 0.50-0.97 mg/dL EGFR 119 > OR = 60 mL/min/1.73m2 BUN/CREATININE RATIO SEE NOTE: 6-22 (calc) Not Reported: BUN and Creatinine are within reference range. SODIUM 136 135-146 mmol/L POTASSIUM 4.1 3.5-5.3 mmol/L CHLORIDE 99 98-110 mmol/L CARBON DIOXIDE 28 20-32 mmol/L CALCIUM 9.2 8.6-10.2 mg/dL PROTEIN, TOTAL 7.0 6.1-8.1 g/dL ALBUMIN 4.6 3.6-5.1 g/dL GLOBULIN 2.4 1.9-3.7 g/dL (calc) ALBUMIN/GLOBULIN RATIO 1.9 1.0-2.5 (calc) BILIRUBIN, TOTAL 0.7 0.2-1.2 mg/dL ALKALINE PHOSPHATASE 49 31-125 U/L AST 17 10-30 U/L ALT 16 6-29 U/L CBC (INCLUDES DIFF/PLT) (639 9) Reviewed date:02/15/2024 03:05:37 PM Interpretation: Performing Lab:[facility] [address] [address] Reb[address] KpoatokWG[address] Thuy-Lieu Thi Vo Notes/Report: FASTING:YES FASTING: YES WHITE BLOOD CELL COUNT 3.9 3.8-10.8 Thousand/ uL RED BLOOD CELL COUNT 4.76 3.80-5.10 Million/uL HEMOGLOBIN 14.2 11.7-15.5 g/dL HEMATOCRIT 44.4 35.0-45.0 % MCV 93.3 80.0-100.0 fL MCH 29.8 27.0-33.0 pg MCHC 32.0 32.0-36.0 g/dL For adults, a slight decrease in the calculated MCHC value (in the range of 30 to 32 g/dL) is most likely not clinically significant; however, it should be interpreted with caution in correlation with other red cell parameters and the patient's clinical condition. RDW 13.0 11.0-15.0 % PLATELET COUNT 288 140-400 Thousand/uL MPV 10.1 7.5-12.5 fL ABSOLUTE NEUTROPHILS [phone] cells/uL ABSOLUTE LYMPHOCYTES 0257 017-5523 cells/uL ABSOLUTE MONOCYTES 316 200-950 cells/uL ABSOLUTE EOSINOPHILS 39 15-500 cells/uL ABSOLUTE BASOPHILS 20 0-200 cells/uL NEUTROPHILS 57.8 LYMPHOCYTES 32.6 MONOCYTES 8.1 EOSINOPHILS 1.0 BASOPHILS 0.5 HEMOGLOBIN A1c (496) Reviewed date:02/15/2024 03:05:44 PM Interpretation: Performing Lab:ABBY [facility] RehabXtfec[address] [facility] HospitalZkuajxyVO[address] [facility] Notes/Report: FASTING:YES FASTING: YES HEMOGLOBIN A1c 5.8 <5.7 % of total Hgb For someone without known diabetes, a hemoglobin A1c value between 5.7% and 6.4% is consistent with prediabetes and should be confirmed with a follow-up test. For someone with known diabetes, a value <7% indicates that their diabetes is well controlled. A1c targets should be individualized based on duration of diabetes, age, comorbid conditions, and other considerations. This assay result is consistent with an increased risk of diabetes. Currently, no consensus exists regarding use of hemoglobin A1c for diagnosis of diabetes for children. Reason For Referral No Information Medications Medication SIG (Take, Route, Frequency, Duration) Notes Start Date End Date Status Escitalopram Oxalate 10 MG 0.5 tablet Or al Once a day for 7 days 08/03/2023 Active buPROPion HCl ER (XL) 300 MG 1 tablet every morning Oral Once a day for 90 days 08/03/2023 Active Auvelity 45-105 MG 1 tablet Orally twic e daily for 30 days 02/10/2024 Active Social History Tobacco Use: Social History Observation Description Date Details (start date - stop date) Never Smoker NA - NA Sex Assigned At : Social History Observation Description Sex Assigned At Female Tobacco Control (Standard) Question Answer Notes Tobacco use: Nonsmoker Problems Problem Type SNOMED Code ICD Code Onset Dates Problem Status W/U Status Risk Notes Problem Mild recurrent major depression (60063864) Major depressive disorder, recurrent, mild (F33.0) Active confirmed Problem Generalized anxiety disorder (25375478) Generalized anxiety disorder (F41.1) Active confirmed Problem Insomnia disorder related to another mental disorder (07745860) Insomnia due to other mental disorder (F51.05) Active confirmed Vital Signs Heart Rate 112 /min 01/17/2024 Height-cm 160.02 cm 01/17/2024 Blood pressure diastolic 80 mm Hg 01/17/2024 Weight-kg 70.22 kg 01/17/2024 Height 63.00 in 01/17/2024 Blood pressure systolic 127 mm Hg 01/17/2024 Weight 154.8 lbs 01/17/2024 BMI 27.42 kg/m2 01/17/2024 Encounters Encounter Location Date Provider Diagnosis [facility] [address] [address] 07/11/2023 Provider Migration Major depressive disorder, recurrent, mild F33.0 [facility] [address] [address] 07/12/2023 Provider Migration Major depressive disorder, recurrent, mild F33.0 [facility] [address] [address] 08/03/2023 Brad Gr Other fatigue R53.83 ; Major depressive disorder, recurrent, mild F33.0 ; Generalized anxiety disorder F41.1 ; Insomnia due to other mental disorder F51.05 and Abnormal weight gain R63.5 [facility] [place] [address] [address] 01/17/2024 Brad Gr Major depressive disorder, recurrent, mild F33.0 ; Generalized anxiety disorder F41.1 ; Insomnia due to other mental disorder F51.05 ; Abnormal weight gain R63.5 and Other fatigue R53.83 [facility] [place] [id number] [facility] [address] [address] 02/10/2024 Brad Gr Major depressive disorder, recurrent, mild F33.0 ; Generalized anxiety disorder F41.1 and Insomnia due to other mental disorder F51.05 [facility], [facility] [address] [address] 06/02/[address] [facility] [facility] [address] [facility] [address] [place] [address] 07/08/2023 Provider Migration [facility], [facility] [address] [facility] [address] [place] [address] 08/27/2023 Provider Migration [facility], [facility] [address] [address] 08/28/[address] [facility], [facility] [address] [address] 03/16/2024 Brad Gr Major depressive disorder, recurrent, mild F33.0 [facility] [address] [address] 09/20/2023 Brad Gr [facility], [facility] [address] [address] 03/14/2024 Bradrama Espinozaoza Major depressive disorder, recurrent, mild F33.0 [facility], [facility] [address] [address] 03/14/2024 Brad Espinozaoza [facility], [facility] [address] [address] 04/09/2024 Brad Gr Major depressive disorder, recurrent, mild F33.0 Assessments Encounter Date Diagnosis (ICD Code) Assessment Notes Treatment Notes Treatment Clinical Notes Section Notes 07/11/2023 Major depressive disorder, recurrent, mild (ICD-10 - F33.0) 07/12/2023 Major depressive disorder, recurrent, mild (ICD-10 - F33.0) 08/03/2023 Major depressive disorder, recurrent, mild (ICD-10 - F33.0) 08/03/2023 Generalized anxiety disorder (ICD-10 - F41.1) 08/03/2023 Insomnia due to other mental disorder (ICD-10 - F51.05) 08/03/2023 Other fatigue (ICD-10 - R53.83) 08/03/2023 Abnormal weight gain (ICD-10 - R63.5) 01/17/2024 Major depressive disorder, recurrent, mild (ICD-10 - F33.0) 1. Fatigue and weight gain - Patient reports significant fatigue and weight gain, possibly related to Escitalopram 10 mg. Plan: - Order labs to rule out thyroid issues, anemia, and other potential causes. Labs to include: CBC, CMP, lipid panel, insulin level, testosterone, estradiol, ferritin, iron, and thyroid panel. - Consider tapering off Escitalopram and switching to an alternative medication if labs are unremarkable. 2. Anxiety and depression management - Patient has a history of depression and anxiety, currently on Escitalopram 10 mg and Bupropion 300 XL. Plan: - Taper off Escitalopram by reducing the dose to 5 mg for one week, then discontinue. Continue Bupropion 300 XL. - Monitor for the return of anxiety symptoms within three weeks to one month after stopping Escitalopram. - Consider adding Buspirone as an adjunct therapy if anxiety symptoms return. 3. Follow-up - Schedule a follow-up appointment to review lab results and assess the patient's response to the medication changes. 01/17/2024 Generalized anxiety disorder (ICD-10 - F41.1) 1. Fatigue and weight gain - Patient reports significant fatigue and weight gain, possibly related to Escitalopram 10 mg. Plan: - Order labs to rule out thyroid issues, anemia, and other potential causes. Labs to include: CBC, CMP, lipid panel, insulin level, testosterone, estradiol, ferritin, iron, and thyroid panel. - Consider tapering off Escitalopram and switching to an alternative medication if labs are unremarkable. 2. Anxiety and depression management - Patient has a history of depression and anxiety, currently on Escitalopram 10 mg and Bupropion 300 XL. Plan: - Taper off Escitalopram by reducing the dose to 5 mg for one week, then discontinue. Continue Bupropion 300 XL. - Monitor for the return of anxiety symptoms within three weeks to one month after stopping Escitalopram. - Consider adding Buspirone as an adjunct therapy if anxiety symptoms return. 3. Follow-up - Schedule a follow-up appointment to review lab results and assess the patient's response to the medication changes. 02/10/2024 Major depressive disorder, recurrent, mild (ICD-10 - F33.0) 1. Hyperlipidemia: - Patient reports changing her diet to include more whole grains, salads, and a better balance of nutrients after receiving high cholesterol results. Plan: - Encourage the patient to continue with a balanced diet and regular exercise. - Recheck lipid panel in 3 months to assess the effectiveness of lifestyle changes. 2. Fatigue: - Patient reports significant improvement in fatigue levels after dietary changes. Plan: - Continue to monitor fatigue levels and encourage a healthy lifestyle. 4. Anxiety and Mood: - Patient reports improvement in anxiety but still experiences some irritability and stress eating after discontinuing escitalopram. Plan: - Discuss the option of adding buspirone 5 mg twice a day or switching to Auvelity as a combination medication. - If the patient chooses Auvelity, discontinue bupropion and start Auvelity with one tablet once a day for three days, then one tablet twice a day. - Schedule a follow-up appointment in one month to assess the effectiveness of the chosen treatment. 03/14/2024 Major depressive disorder, recurrent, mild (ICD-10 - F33.0) 03/16/2024 Major depressive disorder, recurrent, mild (ICD-10 - F33.0) 04/09/2024 Major depressive disorder, recurrent, mild (ICD-10 - F33.0) 02/10/2024 Generalized anxiety disorder (ICD-10 - F41.1) 1. Hyperlipidemia: - Patient reports changing her diet to include more whole grains, salads, and a better balance of nutrients after receiving high cholesterol results. Plan: - Encourage the patient to continue with a balanced diet and regular exercise. - Recheck lipid panel in 3 months to assess the effectiveness of lifestyle changes. 2. Fatigue: - Patient reports significant improvement in fatigue levels after dietary changes. Plan: - Continue to monitor fatigue levels and encourage a healthy lifestyle. 4. Anxiety and Mood: - Patient reports improvement in anxiety but still experiences some irritability and stress eating after discontinuing escitalopram. Plan: - Discuss the option of adding buspirone 5 mg twice a day or switching to Auvelity as a combination medication. - If the patient chooses Auvelity, discontinue bupropion and start Auvelity with one tablet once a day for three days, then one tablet twice a day. - Schedule a follow-up appointment in one month to assess the effectiveness of the chosen treatment. 01/17/2024 Insomnia due to other mental disorder (ICD-10 - F51.05) 1. Fatigue and weight gain - Patient reports significant fatigue and weight gain, possibly related to Escitalopram 10 mg. Plan: - Order labs to rule out thyroid issues, anemia, and other potential causes. Labs to include: CBC, CMP, lipid panel, insulin level, testosterone, estradiol, ferritin, iron, and thyroid panel. - Consider tapering off Escitalopram and switching to an alternative medication if labs are unremarkable. 2. Anxiety and depression management - Patient has a history of depression and anxiety, currently on Escitalopram 10 mg and Bupropion 300 XL. Plan: - Taper off Escitalopram by reducing the dose to 5 mg for one week, then discontinue. Continue Bupropion 300 XL. - Monitor for the return of anxiety symptoms within three weeks to one month after stopping Escitalopram. - Consider adding Buspirone as an adjunct therapy if anxiety symptoms return. 3. Follow-up - Schedule a follow-up appointment to review lab results and assess the patient's response to the medication changes. 02/10/2024 Insomnia due to other mental disorder (ICD-10 - F51.05) 1. Hyperlipidemia: - Patient reports changing her diet to include more whole grains, salads, and a better balance of nutrients after receiving high cholesterol results. Plan: - Encourage the patient to continue with a balanced diet and regular exercise. - Recheck lipid panel in 3 months to assess the effectiveness of lifestyle changes. 2. Fatigue: - Patient reports significant improvement in fatigue levels after dietary changes. Plan: - Continue to monitor fatigue levels and encourage a healthy lifestyle. 4. Anxiety and Mood: - Patient reports improvement in anxiety but still experiences some irritability and stress eating after discontinuing escitalopram. Plan: - Discuss the option of adding buspirone 5 mg twice a day or switching to Auvelity as a combination medication. - If the patient chooses Auvelity, discontinue bupropion and start Auvelity with one tablet once a day for three days, then one tablet twice a day. - Schedule a follow-up appointment in one month to assess the effectiveness of the chosen treatment. 01/17/2024 Abnormal weight gain (ICD-10 - R63.5) 1. Fatigue and weight gain - Patient reports significant fatigue and weight gain, possibly related to Escitalopram 10 mg. Plan: - Order labs to rule out thyroid issues, anemia, and other potential causes. Labs to include: CBC, CMP, lipid panel, insulin level, testosterone, estradiol, ferritin, iron, and thyroid panel. - Consider tapering off Escitalopram and switching to an alternative medication if labs are unremarkable. 2. Anxiety and depression management - Patient has a history of depression and anxiety, currently on Escitalopram 10 mg and Bupropion 300 XL. Plan: - Taper off Escitalopram by reducing the dose to 5 mg for one week, then discontinue. Continue Bupropion 300 XL. - Monitor for the return of anxiety symptoms within three weeks to one month after stopping Escitalopram. - Consider adding Buspirone as an adjunct therapy if anxiety symptoms return. 3. Follow-up - Schedule a follow-up appointment to review lab results and assess the patient's response to the medication changes. 01/17/2024 Other fatigue (ICD-10 - R53.83) 1. Fatigue and weight gain - Patient reports significant fatigue and weight gain, possibly related to Escitalopram 10 mg. Plan: - Order labs to rule out thyroid issues, anemia, and other potential causes. Labs to include: CBC, CMP, lipid panel, insulin level, testosterone, estradiol, ferritin, iron, and thyroid panel. - Consider tapering off Escitalopram and switching to an alternative medication if labs are unremarkable. 2. Anxiety and depression management - Patient has a history of depression and anxiety, currently on Escitalopram 10 mg and Bupropion 300 XL. Plan: - Taper off Escitalopram by reducing the dose to 5 mg for one week, then discontinue. Continue Bupropion 300 XL. - Monitor for the return of anxiety symptoms within three weeks to one month after stopping Escitalopram. - Consider adding Buspirone as an adjunct therapy if anxiety symptoms return. 3. Follow-up - Schedule a follow-up appointment to review lab results and assess the patient's response to the medication changes. Plan Of Treatment Future Test Test Name Order Date Ferritin, Serum 01/17/2024 Next Appt Details Provider Name:Brad cheung, 05/14/2024 10:30:00 AM, [address], [address], [place], [address], Insurance Providers Payer Name Payer Address Payer Phone Subscriber Number Group Number Insured Name Patient Relationship to Insured Coverage Start Date Coverage End Date [facility] - [facility] [employer] [address] [place] [phone] [id number] LEON LAINEZ Self - patient is the insured Medical (General) History Medical History History ICD Code Problems: Fatigue Generalized anxiety disorder Insomnia disorder related to another men max disorder Mild recurrent major depression Unintentional weight gain Urine test negative ,
--- OUTSIDE RECORDS SUMMARY | 2024-04-21 11:55 | XMS_ITS | Encounter Summary ---
Author Organization [facility] Healthcare Address [address] [place] [address] Care Team Providers Care Hot Pipe Gauger Name Role Phone Unavailable Primary Care Provider Unavailabl e Encounter Details Date Type Department Care Team (Late st Contact Info) Description 04/14/2012 11:58 AM ASTRONOMY INSTRUCTOR - 04/14/2012 11:59 PM ASTRONOMY INSTRUCTOR Hospital Encounter [facility] Edgar Jack MD [address] [place] [address] [address] Encounter for supervision of normal in multigravida Social History Tobacco Use Types Packs/Day Years Used Date Smoking Tobacco: Never Assessed Comments Unknown Sex and Gender Information Value Date Recorded Sex Assigned at Not on file Legal Sex Female 10:51 AM ASTRONOMY INSTRUCTOR Gender Identity Not on file Sexual Orientation Not on file documented as of this encounter Plan of Treatment Not on file documented as of this encounter Procedures Procedure Name Priority Date/Time Associated Diagnosis Comments SERUM RAPID PLASMA REAGIN (RPR) Routine 04/14/2012 12:04 PM ASTRONOMY INSTRUCTOR PLASMA GLUCOSE GESTATIONAL SCREEN Routine 04/14/2012 12:04 PM ASTRONOMY INSTRUCTOR BLOOD HEMOGLOBIN, HEMATOCRIT Routine 04/14/2012 12:04 PM ASTRONOMY INSTRUCTOR SERUM HERPES SIMPLEX VIRUS 1, 2 AB, IGG Routine 04/14/2012 6:04 AM ASTRONOMY INSTRUCTOR DISCHARGE LABORATORY CUMULATIVE REPORT 04/14/2012 documented in this encounter Results * Serum rapid plasma reagin (RPR) (04/14/2012 12:04 PM ASTRONOMY INSTRUCTOR) RPR Non Reactive NonReactive HISTO RICAL RESULTS Serum 04/14/2012 12:0 4 PM ASTRONOMY INSTRUCTOR Edgar Vale MD LAB BLOOD ORDERABLES Final Result Performing Organization Address [facility] de Phone Number HISTORICAL RESULTS * Blood hemoglobin, hematocrit (04/14/2012 12:04 PM ASTRONOMY INSTRUCTOR) Pathologist [facility] Hgb 13.3 12.0 - 15.0 g/dl HISTORICAL RESULTS Hct 39.9 37.0 - 47.0 % HISTORICAL RESULTS Blood specimen (specimen) 04/14/2012 12:04 PM ASTRONOMY INSTRUCTOR Edgar Vale MD LAB BLOOD ORDERABLES Final Result Performing Organization Address [facility] de Phone Number HISTORICAL RESULTS * (ABNORMAL) Plasma glucose gestational screen (04/14/2012 12:04 PM ASTRONOMY INSTRUCTOR) Pathologist [facility] Glucose, gestational screen, pl [address](H) 80 - 140 mg/dl HISTORICAL RESULTS Plasma 04/14/2012 12:0 4 PM ASTRONOMY INSTRUCTOR Edgar Vale MD LAB BLOOD ORDERABLES Final Result Performing Organization Address [facility] de Phone Number HISTORICAL RESULTS * Serum Herpes simplex virus 1, 2 ab, IgG (04/14/2012 6:04 AM ASTRONOMY INSTRUCTOR) Pathologist [facility] HSV 1 ab, IgG Negative Negative HISTOR ICAL RESULTS HSV 2 ab, IgG Negative Negative HISTOR ICAL RESULTS HSV ab, IgM Negative Negative HISTORIC AL RESULTS Comment: The performance of this assay has not been established for use in neonates, infants or on cord blood. The value Negative was changed by IF on 04/15/2012 16:34 from: no value Serum 04/14/2012 6:04 AM ASTRONOMY INSTRUCTOR Narrative HISTORICAL RESULTS - 04/15/2012 10:34 AM ASTRONOMY INSTRUCTOR Test performed at [facility] Dept of Lab Medicine and Pathology, [address] [place] [address], [place], [address]. us Edgar Vale MD LAB BLOOD ORDERABLES Final Result HISTORICAL RESULTS * DISCHARGE LABORATORY CUMULATIVE REPORT (04/14/2012) Narrative 04/14/2012 Ordered by an unspecified provider. us Historical Provider LAB BLOOD ORDERABLES Lisy l Result documented in this encounter Visit Diagnoses Diagnosis Encounter for supervision of normal in multigravida documented in this encounter
--- OUTSIDE RECORDS SUMMARY | 2024-04-21 11:55 | XMS_ITS | Encounter Summary ---
Author Organization [facility] Healthcare Address [address] [place] [id number] Care Team Providers Care Manager Studio Name Role Phone No, Physician Primary Care Provider [phone] Reason for Visit * Reason Comments Establish Care Abdominal pain Encounter Details Date Type Department Care Team (Late st Contact Info) Description 04/13/2024 10:30 AM PROFILE MILL OPERATOR TAPE CONTROL [facility] [address] [place] [address] [address] [place] [address] Duodenal anomaly (Primary Dx) Social History Tobacco Use Types Packs/Day Years Used Date Smoking Tobacco: Never Smokeless Tobacco: Never Tobacco Cessation:Counseling Given: Not Answered Alcohol Use Standard Drinks/Week Comments No 0 (1 standard drink = 0.6 oz pur e alcohol) AUDIT-C Answer Date Recorded Q1: How often do you have a drink containing alc ohol? Monthly or less 04/13/2024 Q2: How many drinks containi ng alcohol do you have on a typical day when you are drinking? 1 or 2 04/13/2024 Q3: How often do you have si x or more drinks on one occasion? Never 04/13/2024 Hunger Vital Sign Answer Date Recorded Within the past 12 months, y ou worried that your food would run out before you got the money to buy more. Never true 04/13/19 25 Within the past 12 months, t he food you bought just didn't last and you didn't have money to get more. Never true 04/13/2024 Personal Safety Answer Date Recorded Have you ever been in or are you currently in a harmful physical or emotional relationship or is someone making you feel afraid or unsafe? Denies 03/31/2024 Comments No Sex and Gender Information Value Date Recorded Sex Assigned at Not on file Legal Sex Female 10:51 AM PROFILE MILL OPERATOR TAPE CONTROL Gender Identity Not on file Sexual Orientation Not on file documented as of this encounter Last Filed Vital Signs Vital Sign Reading Time Taken Comments Blood Pressure 127/91 04/13/2024 10:00 AM PROFILE MILL OPERATOR TAPE CONTROL Pulse 94 04/13/2024 10:00 AM PROFILE MILL OPERATOR TAPE CONTROL Temperature 36.9 ??C (98.4 ??F) 04/13/2024 10:[address] Respiratory Rate - - Oxygen Saturation 99% 04/13/2024 10:00 AM PROFILE MILL OPERATOR TAPE CONTROL Inhaled Oxygen Concentration - - Weight 67.7 kg (149 lb 4.8 oz) 04/13/2024 10:00 AM PROFILE MILL OPERATOR TAPE CONTROL Height 160 cm (5' 3 ) 04/13/2024 10:00 AM PROFILE MILL OPERATOR TAPE CONTROL Body Mass Index 26.45 04/13/2024 10:00 AM PROFILE MILL OPERATOR TAPE CONTROL documented in this encounter Patient Instructions * Patient Instructions* Dalton Santiago III, MD - 04/13/2024 10:30 AM PROFILE MILL OPERATOR TAPE CONTROL CT with improvement and feels much better, now asymptomatic and eating. Will complete her antibiotics and will follow up next week to see that when off antibiotics not having further problems, will continue her PPI for now Call if worsening and if clinic closed will go to the ED ILE MILL OPERATOR TAPE CONTROL documented in this encounter Progress Notes * Dalton Santiago III, MD - 04/13/2024 10:30 AM CST Images from the original note were not included. [facility] DATE OF SERVICE:04/13/2024 Romelia San [phone] History of Present Illness Returns for continued follow up after recent dc from being an OSH transfer ([place]) for further evaluation of possible perforated duodenum. Patient presented to OSH with h/o 2d abdominal pain preceded by a viral intestinal illness. CT c/w duodenal perforation. IV abx initiated and NGT placed in ED. MRCP to r/o anomalous anatomy consistent with perforated duodenal diverticulum. Diet advanced andtolerated well and today she feels much better overall, still tolerating a diet well no further issues. No fever or chills or other complaints. She doesn't think her depression is an issue and will continue her follow ups with her other care teams as well. Discharged with PO abx and plans for outpatient CT and GI referral at follow up pending review of imaging. Today her CT is much improved and we reviewed options that we could let her complete her antibiotics and continue to resolve and then we would see about further GI input or if after she completes her antibiotics she may call for an extension of them and work with our partners in the clinic or building performance consultant if this is necessary. She is comfortable with these plans and vocalizes good insight interms of what to watch for for pain or fever or worsening clinical status She notices that she sometimes, but not today nor for the last few days not present has some back pain and today we reviewed to watch for this as well as it may be referredpain and she will do this as well She will continue to follow up with her care teams about her other medical conditions and - is continuing her BID PPI x4w, f/u with PCP or GI for ongoing management iso perforated diverticulum - CT 04/12/24 as scheduled ---see below much improved - [facility] appt to follow CT on 04/13 or 04/16 pending scheduling availability, patient will be notified; plan to discuss CT, abx duration and GI referral - continue abx until scan completed and reviewed by [facility]S ---done today Hospital Course: Depression she feels much better and will follow up with her other providers Assessment & Plan - home regimen: auvality (non-formulary) --- 03/31 not a candidate for po intake at this time, pharmacy to verify home medication and patient can take own supply once cleared for PO intake 04/01 ok to resume to avoid withdrawal symptoms --- f/u with previously established provider for ongoing management Discharge planning issues feels much better Assessment & Plan 03/31 functionally independent at baseline, anticipate return to home without needs once medically stable; ADD tomorr vs Tuesday pending further imaging studies 04/01 barrier to discharge: MRCP, po tolerance; ADD Tuesday v Monday 04/02 barrier to discharge: PO tolerance, ADD tomorrow 04/03 Patient is medically stable for discharge Encounter for medication review------feels much better Assessment & Plan 03/31 home medications reviewed with patient and updated in ADMISSIONS tab Intra-abdominal fluid collection------feels much better Assessment & Plan 03/30 presented to OSH with abd pain, recent intestinal viral illness x2d which preceded abd pain, OSH imaging suggestive of perforated duodenal diverticulum vs duodenitis vs perforated ulcer, transferred to [facility] for further evaluation and management, arrived febrile (103.2 max) and tachycardic, IV abx initiated, NGT inserted --- CT overread: Contained perforation adjacent to the duodenum likely represents a perforated duodenal ulcer --- denies regular etoh consumption, denies regular nsaid use, denies smoking or illicit drug use, denies h/o h pylori, denies immunosuppressive diagnoses 03/31 afebrile, HDS, NGT low output, wbc 12.3, continue erta, imaging reviewed - no clear drainablewindow for IR, FL UGI study r/o leak today, if negative will obtain remove NGT and obtain MRCP to r/o anomalous anatomy given fluid collection closely abutting pancreas; abdomen diffusely tender, non-peritonitic 04/01 fever curve improving, continue IV abx, wbc 11.9 from 12.3, abd pain improved, abd soft, awaiting MRCP 04/02 AFVSS, wbc 9 from 11.9, MRCP: Unchanged 4 cm fluid and gas collection adjacent to the 2nd/3rdportions of the duodenum which can be seen in the setting of duodenal diverticulitis or contained duodenal perforation with adjacent reactive changes; continue erta, start CLD, plan to DC with PO abxand repeat CT A/P outpatient 04/03 AFVSS, labs NL, tolerated CLD yesterday, tolerated regular diet x2 meals on day of discharge with ongoing flatus, IV abx transitioned to Augmentin --- DC with BID PPI x4w, f/u with PCP or GI for ongoing management iso perforated diverticulum --- CT 04/12/24 as scheduled --- [facility] appt to follow CT on 04/13 or 04/16 pending scheduling availability, patient will be notified; plan to discuss CT, abx duration and GI referral --- continue abx until scan completed and reviewed by ACCS CULTURES 03/30 blood: NGTD ANTIBIOTICS 03/30-04/02 Erta 04/03-04/13 Augmentin * Abdominal pain------feels much better no pain no food intolerance Assessment & Plan 03/31-04/02 IV analgesia regimen while NPO/CLD 04/03 no analgesia requirements >24h --- discharged with PRN tylenol only Past Medical History Past Medical History: Diagnosis Date HX OTHER MEDICAL 2007 ; Outcome: 38 week 7 lb(s) 8 oz Male HX OTHER MEDICAL 2009 ; Outcome: 38 week 8 lb(s) 10 oz Male HX OTHER MEDICAL ; Comments: 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 She has never used smokeless tobacco. She reports that she does not currently use drugs. Patient reports consuming alcoholic drinks monthly or less, with a daily consumption of 1 or 2 drinks. Patient denies daily consumption of 6 or more alcoholic drinks at one occasion. Allergies No Known Allergies Medications Current Outpatient Medications on File Prior to Visit Medication Sig Dispense Refill amoxicillin-clavulanate (AUGMENTIN) 875-125 mg per tablet Take 1 tablet (875 mg of amoxicillin total) by mouth 2 (two) times a day for 10 days 20 tablet 0 Auvelity 45-105 mg tablet, IR & ER, biphasic 1 tablet 2 (two) times a day pantoprazole DR (PROTONIX) 40 mg EC tablet Take 1 tablet (40 mg total) by mouth 2 (two) times a day60 tablet 0 acetaminophen 500 mg capsule Take 2 capsules (1,000 mg total) by mouth 3 (three) times a day as needed for fever (Patient not taking: Reported on 04/13/2024) 30 tablet 0 Current Facility-Administered Medications on File Prior to Visit Medication Dose Route Frequency Provider Last Rate Last Admin [COMPLETED] ioversoL (OPTIRAY 350) syringe 75 mL 75 mL intravenous Once in imaging Evelin Gonzalez NP 75 mL at 04/12/24 1453 Physical Exam: Ht:160 cm (5' 3 ) Wt:67.7 kg (149 lb 4.8 oz) Body mass index is 26.45 kg/m??. BP 127/91 (BP Location: Left arm, Patient Position: Sitting) Pulse 94 Temp 36.9 ??C (98.4 ??F) (Oral) Ht 160 cm (5' 3 ) Wt 67.7 kg (149 lb 4.8 oz) LMP 03/16/2024 SpO2 99% BMI 26.45 kg/m?? Physical Exam Vitals reviewed. Constitutional: Appearance: She is normal weight. HENT: Head: Normocephalic. Nose: Nose normal. Mouth/Throat: Mouth: Mucous membranes are moist. Pharynx: Oropharynx is clear. Eyes: Conjunctiva/sclera: Conjunctivae normal. Pupils: Pupils are equal, round, and reactive to light. Cardiovascular: Rate and Rhythm: Normal rate. Pulses: Normal pulses. Pulmonary: Effort: Pulmonary effort is normal. Abdominal: General: Abdomen is flat. Bowel sounds are normal. Palpations: Abdomen is soft. Musculoskeletal: General: Normal range of motion. Cervical back: Normal range of motion. Skin: General: Skin is warm and dry. Capillary Refill: Capillary refill takes less than 2 seconds. Neurological: General: No focal deficit present. Mental Status: She is alert and oriented to person, place, and time. Mental status is at baseline. Psychiatric: Mood and Affect: Mood normal. Behavior: Behavior normal. Thought Content: Thought content normal. Judgment: Judgment normal. I have personally reviewed the latest laboratory values and imaging: Imaging review: I have independently examined the CT image(s). My findings are in agreement with radiology's Interval decrease in size and stranding of the collection within the upper abdomen adjacent to the 3rd portion of the duodenum in keeping with evolving duodenal diverticulitis. No perforation or abscess is seen at this time. She feels better and would like to see if she continues to improve off antibiotics as worried aboutbeing on them. She is comfortable watching herself for any recurrences or rebound and if this occurs is comfortable working with our building performance consultant team members Assessment and Plan: resolving duodenal inflammation that as it resolves will need further work up and follow up with GI, for now will follow up next week CT with improvement and feels much better, now asymptomatic and eating. Will complete her antibiotics and will follow up next week to see that when off antibiotics not having further problems, will continue her PPI for now Call if worsening and if clinic closed will go to the ED Follow up recommended: Return in about 4 days (around 04/17/2024), or if symptoms worsen or fail to improve any day next week. Dalton Santiago III, MD ILE MILL OPERATOR TAPE CONTROL documented in this encounter Plan of Treatment Not on file documented as of this encounter Visit Diagnoses Diagnosis Duodenal anomaly- Primary documented in this encounter Care Teams Manager Studio Relationship Specialty Start Date End Date No, Physician PCP - General 06/20/18 documented as of this encounter
--- OUTSIDE RECORDS SUMMARY | 2024-04-21 11:55 | XMS_ITS | Referral Summary ---
Author Organization [facility] Address [address] [place] [id number] Care Team Providers Care Molded Goods Spot Picker Name Role Phone No, Physician Primary Care Provider [phone] Encounters Date Type Department Care Team Description 04/13/2024 10:30 AM TURFGRASS TECHNICIAN Office [facility] [address] [facility] [address] [place] [address] Duodenal anomaly (Primary Dx) 04/12/2024 2:30 PM TURFGRASS TECHNICIAN - 04/12/2024 11:59 PM TURFGRASS TECHNICIAN Hospital Encounter [facility] [address] [place] [phone] Perforated duodenal ulcer (CMS/HCC) (HCC) Discharge Disposition: Discharge to home or self care 03/30/2024 6:29 PM TURFGRASS TECHNICIAN - 04/03/2024 3:27 PM TURFGRASS TECHNICIAN Hospital Encounter [address] [id number] Radames Quick MD Turnbull, Nguyễn Zimmerman MD PhD Abdominal pain (Primary Dx); Perforated duodenal ulcer (CMS/HCC) (HCC); Intra-abdominal fluid collection Discharge Disposition: Discharge to home or self care 03/31/2024 7:20 AM TURFGRASS TECHNICIAN - 03/31/2024 11:59 PM TURFGRASS TECHNICIAN Hospital Encounter [facility] Radiology [address] [place] [phone] Discharge Disposition: Discharge to home or self care 03/30/2024 Documentation [facility] [address] [facility] 2nd [address] [place] [address] Jacobo Hamilton MD from Last 3 Months Allergies No known active allergies Medications Auvelity 45-105 mg tablet, IR & ER, biphasic 1 tablet 2 (two) times a day 4 Active acetaminophen 500 mg capsule Take 2 capsules (1,000 mg total) by mouth 3 (three) times a day as needed for fever 30 tablet 4 Active Additional Information Patient not taking.Reported on 04/13/[address] (PROTONIX) 40 mg EC tabletIndicatio ns:Stress Ulcer Prophylaxis Take 1 tablet (40 mg total) by mouth 2 (two) times a day 60 tablet 4 05/03/19 25 Active amoxicillin-cla vulanate (AUGMENTIN) 875-125 mg per tabletIndicatio ns:Abdominal/Pe lvic Infection Take 1 tablet (875 mg of amoxicillin total) by mouth 2 (two) times a day for 10 days 20 tablet 4 04/13/19 25 Active Problems Problem Noted Date Diagnosed Date 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 Intra-abdominal fluid collection 03/31/2024 Assessment & Plan (04/03/2024 12:08 PM TURFGRASS TECHNICIAN): 03/30 presented to OSH with abd pain, recent intestinal viral illness x2d which preceded abd pain, OSH imaging suggestive of perforated duodenal diverticulum vs duodenitis vs perforated ulcer, transferred to [facility] for further evaluation and management, arrived febrile [...] continue erta, imaging reviewed - no clear drainable window for IR, FL UGI study r/o leak [...] fluid and gas collection adjacent to the 2nd/3rd portions of the duodenum which can be seen in the setting of duodenal diverticulitis or contained duodenal perforation with adjacent reactive changes; continue erta, start CLD, plan to DC with PO abx and repeat CT A/P outpatient 04/03 AFVSS, labs [...] blood: NGTD ANTIBIOTICS 03/30-04/02 Erta 04/03-04/13 Augmentin Encounter for medication review 03/31/2024 Assessment & Plan (03/31/2024 11:47 AM TURFGRASS TECHNICIAN): 03/31 home medications reviewed with patient and updated in ADMISSIONS tab Discharge planning issues 03/31/2024 Assessment & Plan (04/03/2024 11:47 AM TURFGRASS TECHNICIAN): 03/31 functionally independent at baseline, anticipate return to home without needs once medically stable; ADD tomorr vs Tuesday pending further imaging studies 04/01 barrier to discharge: MRCP, po tolerance; ADD Tuesday v Monday 04/02 barrier to discharge: PO tolerance, ADD tomorrow 04/03 Patient is medically stable for discharge Depression 03/31/2024 Assessment & Plan (04/02/2024 12:23 PM TURFGRASS TECHNICIAN): - home regimen: auvality (non-formulary) --- 03/31 not a candidate for po intake at this time, pharmacy to verify home medication and patient can take own supply once cleared for PO intake 04/01 ok to resume to avoid withdrawal symptoms --- f/u with previously established provider for ongoing management Abdominal pain 03/30/2024 Assessment & Plan (04/03/2024 11:46 AM TURFGRASS TECHNICIAN): 03/31-04/02 IV analgesia regimen while NPO/CLD 04/03 no analgesia requirements >24h --- discharged with PRN tylenol only 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 Overview (07/16/2016): HPV (human papilloma virus) infection Social History Tobacco Use Types Packs/Day Years [...] on file Legal Sex Female 10:51 AM TURFGRASS TECHNICIAN Gender Identity Not on file Sexual Orientation Not on file Last Filed Vital Signs Vital Sign Reading Time Taken Comments Blood Pressure 127/91 04/13/2024 10:00 AM TURFGRASS TECHNICIAN Pulse 94 04/13/2024 10:00 AM TURFGRASS TECHNICIAN Temperature 36.9 ??C (98.4 ??F) 04/13/2024 10:[address] Respiratory Rate 16 04/03/2024 11:40 AM TURFGRASS TECHNICIAN Oxygen Saturation 99% 04/13/2024 10:00 AM TURFGRASS TECHNICIAN Inhaled Oxygen Concentration - - Weight 67.7 kg (149 lb 4.8 oz) 04/13/2024 10:00 AM TURFGRASS TECHNICIAN Height 160 cm (5' 3 ) 04/13/2024 10:00 AM TURFGRASS TECHNICIAN Body Mass Index 26.45 04/13/2024 10:00 AM TURFGRASS TECHNICIAN Plan of Treatment Not on file Procedures Procedure Name Priority Date/Time Associated Diagnosis Comments CT ABDOMEN PELVIS W CONTRAST Schedule Routine, Read Routine (OP Routine) 04/12/2024 2:55 PM TURFGRASS TECHNICIAN Perforated duodenal ulcer (CMS/HCC) (HCC) EGFR Routine 04/02/2024 9:14 PM TURFGRASS TECHNICIAN BASIC METABOLIC PANEL Routine 04/02/2024 9:14 PM TURFGRASS TECHNICIAN CBC WITHOUT DIFFERENTIAL Routine 04/02/2024 9:14 PM TURFGRASS TECHNICIAN MAGNESIUM Routine 04/02/2024 9:14 PM TURFGRASS TECHNICIAN PHOSPHORUS Routine 04/02/2024 9:14 PM TURFGRASS TECHNICIAN EGFR Routine 04/01/2024 8:54 PM TURFGRASS TECHNICIAN BASIC METABOLIC PANEL Routine 04/01/2024 8:54 PM TURFGRASS TECHNICIAN CBC WITHOUT DIFFERENTIAL Routine 04/01/2024 8:54 PM TURFGRASS TECHNICIAN MAGNESIUM Routine 04/01/2024 8:54 PM TURFGRASS TECHNICIAN PHOSPHORUS Routine 04/01/2024 8:54 PM TURFGRASS TECHNICIAN MRI ABDOMEN MRCP W WO CONTRAST INCL 3D (C) IP Routine 04/01/2024 2:33 PM TURFGRASS TECHNICIAN EGFR Routine 03/31/2024 9:01 PM TURFGRASS TECHNICIAN BASIC METABOLIC PANEL Routine 03/31/2024 9:01 PM TURFGRASS TECHNICIAN CBC WITHOUT DIFFERENTIAL Routine 03/31/2024 9:01 PM TURFGRASS TECHNICIAN MAGNESIUM Routine 03/31/2024 9:01 PM TURFGRASS TECHNICIAN PHOSPHORUS Routine 03/31/2024 9:01 PM TURFGRASS TECHNICIAN ALBUMIN Routine 03/31/2024 9:01 PM TURFGRASS TECHNICIAN PREALBUMIN Routine 03/31/2024 9:01 PM TURFGRASS TECHNICIAN FL UPPER GI SERIES, SINGLE CONTRAST ED Urgent/IP Urgent 03/31/2024 9:37 AM TURFGRASS TECHNICIAN URINALYSIS, MICROSCOPIC ONLY STAT 03/31/2024 5:06 AM TURFGRASS TECHNICIAN URINALYSIS AND REFLEX TO MICROSCOPIC AND CULTURE STAT 03/31/2024 5:06 AM TURFGRASS TECHNICIAN LA CRITICAL CARE ILL/INJURED PATIENT INIT 30-74 MIN Routine 03/30/2024 11:00 PM TURFGRASS TECHNICIAN XR ABDOMEN AP 1 VIEW ED Urgent/IP Urgent 03/30/2024 10:[address] BODY OUTSIDE CONSULT Routine 03/30/2024 8:13 PM TURFGRASS TECHNICIAN B CHECK SAMPLE STAT 03/30/2024 7:21 PM TURFGRASS TECHNICIAN LIPASE STAT 03/30/2024 6:51 PM TURFGRASS TECHNICIAN XR CHEST 1 VIEW ED 03/30/2024 6:47 PM TURFGRASS TECHNICIAN APTT STAT 03/30/2024 6:41 PM TURFGRASS TECHNICIAN PROTIME-INR STAT 03/30/2024 6:41 PM TURFGRASS TECHNICIAN TYPE AND SCREEN STAT 03/30/2024 6:41 PM TURFGRASS TECHNICIAN BLOOD GAS, VENOUS STAT 03/30/2024 6:4 1 PM TURFGRASS TECHNICIAN BLOOD CULTURE STAT 03/30/2024 6:41 PM TURFGRASS TECHNICIAN BLOOD CULTURE STAT 03/30/2024 6:41 PM TURFGRASS TECHNICIAN POCT LACTATE - DEVICE Routine 03/30/2024 6:26 PM TURFGRASS TECHNICIAN EGFR STAT 03/30/2024 6:20 PM TURFGRASS TECHNICIAN DIFFERENTIAL AUTO STAT 03/30/2024 6:2 0 PM TURFGRASS TECHNICIAN COMPREHENSIVE METABOLIC PANEL STAT 03/30/2024 6:20 PM TURFGRASS TECHNICIAN CBC WITH AUTO DIFFERENTIAL STAT 03/30/2024 6:20 PM TURFGRASS TECHNICIAN from Last 3 Months Results * CT Abdomen Pelvis W Contrast (04/12/2024 2:55 PM TURFGRASS TECHNICIAN) Anatomical Region Laterality Modality Body N/A Computed Tomogra phy 04/12/2024 3:12 PM TURFGRASS TECHNICIAN Impressions 04/12/2024 3:26 PM TURFGRASS TECHNICIAN Interval decrease in size and stranding of the collection within the upper abdomen adjacent to the 3rd portion of the duodenum in keeping with evolving duodenal diverticulitis. ??No perforation or abscess is seen at this time. ?? Dictated by: Vinnie Bruner MD The radiology attending physician has personally reviewed this study, and had reviewed and/or edited this written report and agrees with it. Electronically signed by: Jose Carlos Hughes M.D. Narrative 04/12/2024 3:26 PM TURFGRASS TECHNICIAN EXAMINATION: ??Computed tomography of the abdomen and pelvis with intravenous contrast HISTORY: Reevaluate contained perforated diverticulum TECHNIQUE: ??Transaxial computed tomographic images of the abdomen and pelvis were obtained with intravenous contrast according to the standard protocol after the uneventful administration of 75 mL Opti-Ray 350 intravenous contrast. COMPARISON: MRI 04/01/2024, CT 03/30/2024 FINDINGS: The imaged lung bases are normal. Normal heart size. Liver is normal in shape, contour, and size. ??The gallbladder is normal. ??The spleen, adrenals, and pancreas are normal. ??Kidneys enhance symmetrically. ??No hydronephrosis. ??Urinary bladder is normal. ??Uterus is present. Redemonstrated cystic collection associated with the 3rd portion of duodenum and has decreased stranding when compared to prior, favored to represent sequela of duodenal diverticulitis. ??This collection now measures 2.8 x 2.7 cm, previously 3.8 x 3.7 cm. ??Decreased mass effect is noted on the common bile duct. ??There is no vascular compromise. ??No perforation. The remaining bowel is otherwise normal caliber. ??No bowel obstruction. ??No bowel wall thickening. No suspicious abdominopelvic lymphadenopathy. ??Patent vasculature. Accessory right hepatic artery arises from the superior mesenteric artery. No suspicious osseous lesion. ?? Procedure Note Jose Carlos Hughes MD - 04/12/2024 EXAMINATION: Computed tomography of the abdomen and pelvis with intravenous contrast HISTORY: Reevaluate contained perforated diverticulum TECHNIQUE: Transaxial computed tomographic images of the abdomen and pelvis were obtained with intravenous contrast according to the standard protocol after the uneventful administration of 75 mL Opti-Ray 350 intravenous contrast. COMPARISON: MRI 04/01/2024, CT 03/30/2024 FINDINGS: The imaged lung bases are normal. Normal heart size. Liver is normal in shape, contour, and size. The gallbladder is normal. The spleen, adrenals, and pancreas are normal. Kidneys enhance symmetrically. No hydronephrosis. Urinary bladder is normal. Uterus is present. Redemonstrated cystic collection associated with the 3rd portion of duodenum and has decreased stranding when compared to prior, favored to represent sequela of duodenal diverticulitis. This collection now measures 2.8 x 2.7 cm, previously 3.8 x 3.7 cm. Decreased mass effect is noted on the common bile duct. There is no vascular compromise. No perforation. The remaining bowel is otherwise normal caliber. No bowel obstruction. No bowel wall thickening. No suspicious abdominopelvic lymphadenopathy. Patent vasculature. Accessory right hepatic artery arises from the superior mesenteric artery. No suspicious osseous lesion. IMPRESSION: Interval decrease in size and stranding of the collection within the upper abdomen adjacent to the 3rd portion of the duodenum in keeping with evolving duodenal diverticulitis. No perforation or abscess is seen at this time. Dictated by: Vinnie Bruner MD The radiology attending physician has personally reviewed this study, and had reviewed and/or edited this written report and agrees with it. Electronically signed by: Jose Carlos Hughes M.D. us Evelin Gonzalez NP IMG CT PROCEDURES Final Re sult * eGFR (04/02/2024 9:14 PM TURFGRASS TECHNICIAN) eGFR >90 >=60 mL/min/1. 73 m2 Comment: Interpretive Data Reference Interval Normal ?>/= 90 mL/min/1.73m2 Mildly decreased* ? 60 - 89 mL/min/1.73m2 Mildly to moderately decreased ?45 - 59 mL/min/1.73m2 Moderately to severely decreased ??30 - 44 mL/min/1.73m2 Severely decreased ?15 - 29 mL/min/1.73m2 Kidney Failure ?< 15 ??mL/min/1.73m2 *Relative to young adult level Estimated glomerular filtration rate is determined by the 2020 CKD-EPI equation recommended by the National Kidney Foundation (A Unifying Approach to GFR Estimation: Recommendations of the NKF-ASK Task Force on Reassessing the Inclusion of Race in Diagnosing Kidney Disease, JASN 2020). The CKD-EPI equation should not be used for patients with unstable renal function and has not been validated in children and those over 70. Current interpretive data was last reviewed 2021. Blood 04/02/2024 9:14 PM TURFGRASS TECHNICIAN 04/02/2024 9:36 PM TURFGRASS TECHNICIAN us Radames Quick MD LAB BLOOD ORDERABLES Fin al Result Performing Organization Address [facility] de Phone Number [facility] [place] [address] * CBC without differential (04/02/2024 9:14 PM TURFGRASS TECHNICIAN) WBC 6.9 3.8 - 9.9 K/cumm Hgb 12.5 11.9 - 15.5 g/dL [facility] Hct 37.4 35.6 - 45.5 % [facility] Plt 271 150 - 400 K/cumm [facility] MPV 9.7 9.1 - 12.3 fL [facility] RBC 4.22 3.90 - 5.20 M/cumm [facility] MCV 88.6 81.3 - 96.4 fL [facility] MCH 29.6 27.1 - 33.3 pg [facility] MCHC 33.4 32.3 - 35.7 g/dL [facility] RDW CV 12.5 11.1 - 14.9 % [facility] RDW SD 40.3 35.7 - 48.1 fL [facility] NRBC abs 0.00 0.00 - 0.01 K/cumm [facility] Blood 04/02/2024 9:14 PM TURFGRASS TECHNICIAN 04/02/2024 9:37 PM TURFGRASS TECHNICIAN Radames Quick MD LAB BLOOD ORDERABLES Fin al Result Performing Organization Address [facility] de Phone Number [facility] Department [place] [address] * Phosphorus (04/02/2024 9:14 PM TURFGRASS TECHNICIAN) Pathologist [facility] Phosphorus, pl 3.3 2.3 - 4.5 mg/dL Blood 04/02/2024 9:14 PM TURFGRASS TECHNICIAN 04/02/2024 9:36 PM TURFGRASS TECHNICIAN Radames Quick MD LAB BLOOD ORDERABLES Fin al Result Performing Organization Address [facility]/State/ZIP Co de Phone Number [facility] Department [place] [address] * Magnesium (04/02/2024 9:14 PM TURFGRASS TECHNICIAN) [facility] Magnesium 2.1 1.4 - 2.5 mg/dL Blood 04/02/2024 9:14 PM TURFGRASS TECHNICIAN 04/02/2024 9:36 PM TURFGRASS TECHNICIAN Radames Quick MD LAB BLOOD ORDERABLES Fin al Result [facility] Department [place] [address] * (ABNORMAL) Basic metabolic panel (04/02/2024 9:14 PM TURFGRASS TECHNICIAN) [facility] Sodium 138 135 - 145 mmol/L Potassium, pl 3.3 3.3 - 4.9 mmol/L [facility] Chloride 103 97 - 110 mmol/L [facility] CO2 27 22 - 32 mmol/L [facility] Anion gap 8 2 - 15 mmol/L [facility] BUN 2(L) 6 - 25 mg/dL [facility] Creatinine 0.51(L) 0.60 - 1.10 mg/dL [facility] Glucose 100 70 - 199 mg/dL [facility] Comment: Interpretive Data Fasting glucose >/= 126 mg/dl is diagnostic for diabetes. ?? Fasting is defined as no caloric intake for at least 8 hours. Fasting glucose between 100 mg/dl to 125 mg/dl is diagnostic of prediabetes. In a patient with classic symptoms of hyperglycemia or hyperglycemic crisis, a random glucose >/= 200 mg/dl is diagnostic for diabetes. In the absence of unequivocal hyperglycemia, results should be confirmed by repeat testing. The classification and Diagnosis of Diabetes Diabetes Care 2021; 46: S19-S40. Current interpretive data was last revised 2022. Calcium 9.2 8.5 - 10.3 mg/dL [facility] Blood 04/02/2024 9:14 PM TURFGRASS TECHNICIAN 04/02/2024 9:36 PM TURFGRASS TECHNICIAN us Radames Quick MD LAB BLOOD ORDERABLES Fin al Result Performing Organization Address [facility] Co de Phone Number SLOANE HOFF [facility] [place] [address] * eGFR (04/01/2024 8:54 PM TURFGRASS TECHNICIAN) eGFR >90 >=60 mL/min/1. 73 m2 Comment: Interpretive Data Reference Interval Normal ?>/= 90 mL/min/1.73m2 Mildly decreased* ? 60 - 89 mL/min/1.73m2 Mildly to moderately decreased ?45 - 59 mL/min/1.73m2 Moderately to severely decreased ??30 - 44 mL/min/1.73m2 Severely decreased ?15 - 29 mL/min/1.73m2 Kidney Failure ?< 15 ??mL/min/1.73m2 *Relative to young adult level Estimated glomerular filtration rate is determined by the 2020 CKD-EPI equation recommended by the National Kidney Foundation (A Unifying Approach to GFR Estimation: Recommendations of the NKF-ASK Task Force on Reassessing the Inclusion of Race in Diagnosing Kidney Disease, JASN 2020). The CKD-EPI equation should not be used for patients with unstable renal function and has not been validated in children and those over 70. Current interpretive data was last reviewed 2021. Blood 04/01/2024 8:54 PM TURFGRASS TECHNICIAN 04/01/2024 9:52 PM TURFGRASS TECHNICIAN us Radames Quick MD LAB BLOOD ORDERABLES Fin al Result Performing Organization Address [facility] de Phone Number SLOANE Mabry [facility] Department of [employer] [place], [place] [id number] * (ABNORMAL) CBC without differential (04/01/2024 8:54 PM TURFGRASS TECHNICIAN) [facility] WBC 9.1 3.8 - 9.9 K/cumm Hgb 11.7(L) 11.9 - 15.5 g/dL [facility] Hct 35.4(L) 35.6 - 45.5 % [facility] Plt 231 150 - 400 K/cumm [facility] MPV 10.4 9.1 - 12.3 fL [facility] RBC 3.97 3.90 - 5.20 M/cumm [facility] MCV 89.2 81.3 - 96.4 fL [facility] MCH 29.5 27.1 - 33.3 pg [facility] MCHC 33.1 32.3 - 35.7 g/dL [facility] RDW CV 12.4 11.1 - 14.9 % [facility] RDW SD 40.7 35.7 - 48.1 fL [facility] NRBC abs 0.00 0.00 - 0.01 K/cumm [facility] Blood 04/01/2024 8:54 PM TURFGRASS TECHNICIAN 04/01/2024 9:50 PM TURFGRASS TECHNICIAN Radames Quick MD LAB BLOOD ORDERABLES Fin al Result Performing Organization Address [facility] Co de Phone Number [facility] of [employer] [place], [place] [id number] * (ABNORMAL) Phosphorus (04/01/2024 8:54 PM TURFGRASS TECHNICIAN) [facility] Phosphorus, pl 2.0(L) 2.3 - 4.5 mg/dL Blood 04/01/2024 8:54 PM TURFGRASS TECHNICIAN 04/01/2024 9:52 PM TURFGRASS TECHNICIAN Radames Quick MD LAB BLOOD ORDERABLES Fin al Result Performing Organization Address City/[facility]/ZIP Co de Phone Number [facility] [place] [address] * Magnesium (04/01/2024 8:54 PM TURFGRASS TECHNICIAN) Pathologist [facility] Magnesium 2.1 1.4 - 2.5 mg/dL Blood 04/01/2024 8:54 PM TURFGRASS TECHNICIAN 04/01/2024 9:52 PM TURFGRASS TECHNICIAN Radames Quick MD LAB BLOOD ORDERABLES Fin al Result [facility] Department [place] [address] * (ABNORMAL) Basic metabolic panel (04/01/2024 8:54 PM TURFGRASS TECHNICIAN) [facility] Sodium 138 135 - 145 mmol/L Potassium, pl 3.3 3.3 - 4.9 mmol/L [facility] Chloride 102 97 - 110 mmol/L [facility] CO2 26 22 - 32 mmol/L [facility] Anion gap 10 2 - 15 mmol/L [facility] BUN 4(L) 6 - 25 mg/dL [facility] Creatinine 0.52(L) 0.60 - 1.10 mg/dL [facility] Glucose 116 70 - 199 mg/dL [facility] Comment: Interpretive Data Fasting glucose >/= 126 mg/dl is diagnostic for diabetes. ?? Fasting is defined as no caloric intake for at least 8 hours. Fasting glucose between 100 mg/dl to 125 mg/dl is diagnostic of prediabetes. In a patient with classic symptoms of hyperglycemia or hyperglycemic crisis, a random glucose >/= 200 mg/dl is diagnostic for diabetes. In the absence of unequivocal hyperglycemia, results should be confirmed by repeat testing. The classification and Diagnosis of Diabetes Diabetes Care 2021; 46: S19-S40. Current interpretive data was last revised 2022. Calcium 8.5 8.5 - 10.3 mg/dL [facility] Blood 04/01/2024 8:54 PM TURFGRASS TECHNICIAN 04/01/2024 9:52 PM TURFGRASS TECHNICIAN Radames Quick MD LAB BLOOD ORDERABLES Fin al Result [facility] Department [place] [address] * MRI Abdomen MRCP W WO Contrast Incl 3D (04/01/2024 2:33 PM TURFGRASS TECHNICIAN) Anatomical Region Laterality Modality Body N/A Magnetic Resonan ce 04/02/2024 8:51 AM TURFGRASS TECHNICIAN Impressions 04/02/2024 11:34 AM TURFGRASS TECHNICIAN Unchanged 4 cm fluid and gas collection adjacent to the 2nd/3rd portions of the duodenum which can be seen in the setting of duodenal diverticulitis or contained duodenal perforation with adjacent reactive changes within the right retroperitoneum. Dictated by: Paul Carmen MD The radiology attending physician has personally reviewed this study, and had reviewed and/or edited this written report and agrees with it. Electronically signed by: Edgar Schaffer M.D. Narrative 04/02/2024 11:34 AM TURFGRASS TECHNICIAN EXAMINATION: 1. MAGNETIC RESONANCE IMAGING OF THE ABDOMEN WITH AND WITHOUT CONTRAST 2. THREE DIMENSIONAL RECONSTRUCTION OF THE BILIARY TREE AND PANCREATIC DUCT HISTORY: Abdominal collection, concern for biliary cyst TECHNIQUE: Magnetic resonance imaging of the abdomen was performed prior to and following the uneventful administration of intravenous Gadolinium contrast. The raw data was processed on the scanner by the technologist for 3 dimensional reconstructions of the intrahepatic ducts, extrahepatics ducts, and pancreatic duct. Protocol: Liver MRCP Contrast: gadoterate 13 mL COMPARISON: CT 03/30/2024 FINDINGS: Liver: No fat or iron deposition. ??No surface nodularity. Heterogeneous perfusion on arterial phase imaging is likely reactive in the setting of adjacent inflammation. - Bile ducts: Normal - Focal liver lesions: None - Vasculature: Portal and splenic veins are patent. Gallbladder: Mild wall edema without gallbladder distention is likely reactive. Pancreas: Normal Spleen: Normal Adrenals: Normal Kidneys: Normal Other Findings: There is an unchanged 4 cm gas and fluid collection with enhancement adjacent to the 2nd and 3rd portions of the duodenum with internal foci of gas. ??There is reactive stranding within the adjacent mesentery and right retroperitoneum and perinephric space. No definite communication is noted to the biliary tree. ??No abdominal lymphadenopathy. ??No suspicious osseous lesions. Procedure Note Edgar Schaffer MD PhD - 04/02/2024 EXAMINATION: 1. MAGNETIC RESONANCE IMAGING OF THE ABDOMEN WITH AND WITHOUT CONTRAST 2. THREE DIMENSIONAL RECONSTRUCTION OF THE BILIARY TREE AND PANCREATIC DUCT HISTORY: Abdominal collection, concern for biliary cyst TECHNIQUE: Magnetic resonance imaging of the abdomen was performed prior to and following the uneventful administration of intravenous Gadolinium contrast. The raw data was processed on the scanner by the technologist for 3 dimensional reconstructions of the intrahepatic ducts, extrahepatics ducts, and pancreatic duct. Protocol: Liver MRCP Contrast: gadoterate 13 mL COMPARISON: CT 03/30/2024 FINDINGS: Liver: No fat or iron deposition. No surface nodularity. Heterogeneous perfusion on arterial phase imaging is likely reactive in the setting of adjacent inflammation. - Bile ducts: Normal - Focal liver lesions: None - Vasculature: Portal and splenic veins are patent. Gallbladder: Mild wall edema without gallbladder distention is likely reactive. Pancreas: Normal Spleen: Normal Adrenals: Normal Kidneys: Normal Other Findings: There is an unchanged 4 cm gas and fluid collection with enhancement adjacent to the 2nd and 3rd portions of the duodenum with internal foci of gas. There is reactive stranding within the adjacent mesentery and right retroperitoneum and perinephric space. No definite communication is noted to the biliary tree. No abdominal lymphadenopathy. No suspicious osseous lesions. IMPRESSION: Unchanged 4 cm fluid and gas collection adjacent to the 2nd/3rd portions of the duodenum which can be seen in the setting of duodenal diverticulitis or contained duodenal perforation with adjacent reactive changes within the right retroperitoneum. Dictated by: Paul Carmen MD The radiology attending physician has personally reviewed this study, and had reviewed and/or edited this written report and agrees with it. Electronically signed by: Edgar Schaffer M.D. us Evelin Gonzalez NP IMG MRI PROCEDURES Final R esult * eGFR (03/31/2024 9:01 PM TURFGRASS TECHNICIAN) eGFR >90 >=60 mL/min/1. 73 m2 Comment: Interpretive Data Reference Interval Normal ?>/= 90 mL/min/1.73m2 Mildly decreased* ? 60 - 89 mL/min/1.73m2 Mildly to moderately decreased ?45 - 59 mL/min/1.73m2 Moderately to severely decreased ??30 - 44 mL/min/1.73m2 Severely decreased ?15 - 29 mL/min/1.73m2 Kidney Failure ?< 15 ??mL/min/1.73m2 *Relative to young adult level Estimated glomerular filtration rate is determined by the 2020 CKD-EPI equation recommended by the National Kid[employer] (A Unifying Approach to GFR Estimation: Recommendations of the NKF-ASK Task Force on Reassessing the Inclusion of Race in Diagnosing Kidney Disease, JASN 2020). The CKD-EPI equation should not be used for patients with unstable renal function and has not been validated in children and those over 70. Current interpretive data was last reviewed 2021. Blood 03/31/2024 9:01 PM TURFGRASS TECHNICIAN 03/31/2024 9:53 PM TURFGRASS TECHNICIAN us Radames Quick MD LAB BLOOD ORDERABLES Fin al Result Performing Organization Address City/State/[facility] Co de Phone Number [facility] Department [place] [address] * (ABNORMAL) CBC without differential (03/31/2024 9:01 PM TURFGRASS TECHNICIAN) WBC 11.9(H) 3.8 - 9.9 K/cumm Hgb 11.5(L) 11.9 - 15.5 g/dL [facility] Hct 35.3(L) 35.6 - 45.5 % [facility] Plt 194 150 - 400 K/cumm [facility] MPV 10.1 9.1 - 12.3 fL [facility] RBC 3.81(L) 3.90 - 5.20 M/cumm [facility] MCV 92.7 81.3 - 96.4 fL [facility] MCH 30.2 27.1 - 33.3 pg [facility] MCHC 32.6 32.3 - 35.7 g/dL [facility] RDW CV 12.6 11.1 - 14.9 % [facility] RDW SD 43.0 35.7 - 48.1 fL [facility] NRBC abs 0.00 0.00 - 0.01 K/cumm [facility] Blood 03/31/2024 9:01 PM TURFGRASS TECHNICIAN 03/31/2024 9:59 PM TURFGRASS TECHNICIAN Radames Quick MD LAB BLOOD ORDERABLES Fin al Result Performing Organization Address City/[facility] Co de Phone Number [facility] [place] [address] * (ABNORMAL) Prealbumin (03/31/2024 9:01 PM TURFGRASS TECHNICIAN) Prealbumin 8.0(L) 20.0 - 40.0 mg/dL Blood 03/31/2024 9:01 PM TURFGRASS TECHNICIAN 03/31/2024 9:55 PM TURFGRASS TECHNICIAN Evelin Gonzalez NP LAB BLOOD ORDERABLES Final Result Performing Organization Address [facility] Co de Phone Number [facility] [place] [address] * (ABNORMAL) Phosphorus (03/31/2024 9:01 PM TURFGRASS TECHNICIAN) Phosphorus, pl 2.1(L) 2.3 - 4.5 mg/dL Blood 03/31/2024 9:01 PM TURFGRASS TECHNICIAN 03/31/2024 9:53 PM TURFGRASS TECHNICIAN Radames Quick MD LAB BLOOD ORDERABLES Fin al Result Performing Organization Address City/[facility] Co de Phone Number [facility] Department [place] [address] * Magnesium (03/31/2024 9:01 PM TURFGRASS TECHNICIAN) [facility] Magnesium 1.9 1.4 - 2.5 mg/dL Blood 03/31/2024 9:01 PM TURFGRASS TECHNICIAN 03/31/2024 9:53 PM TURFGRASS TECHNICIAN Radames Quick MD LAB BLOOD ORDERABLES Fin al Result [facility] Department [place] [address] * (ABNORMAL) Albumin (03/31/2024 9:01 PM TURFGRASS TECHNICIAN) [facility] Albumin 3.0(L) 3.5 - 5.0 g/dL Blood 03/31/2024 9:01 PM TURFGRASS TECHNICIAN 03/31/2024 9:53 PM TURFGRASS TECHNICIAN Evelin Gonzalez NP LAB BLOOD ORDERABLES Final Result Performing Organization Address City/[facility] Co de Phone Number [facility] Department [place] [address] * (ABNORMAL) Basic metabolic panel (03/31/2024 9:01 PM TURFGRASS TECHNICIAN) [facility] Sodium 138 135 - 145 mmol/L Potassium, pl 3.7 3.3 - 4.9 mmol/L [facility] Chloride 105 97 - 110 mmol/L [facility] CO2 25 22 - 32 mmol/L [facility] Anion gap 8 2 - 15 mmol/L [facility] BUN 7 6 - 25 mg/dL [facility] Creatinine 0.55(L) 0.60 - 1.10 mg/dL [facility] Glucose 114 70 - 199 mg/dL [facility] Comment: Interpretive Data Fasting glucose >/= 126 mg/dl is diagnostic for diabetes. ?? Fasting is defined as no caloric intake for at least 8 hours. Fasting glucose between 100 mg/dl to 125 mg/dl is diagnostic of prediabetes. In a patient with classic symptoms of hyperglycemia or hyperglycemic crisis, a random glucose >/= 200 mg/dl is diagnostic for diabetes. In the absence of unequivocal hyperglycemia, results should be confirmed by repeat testing. The classification and Diagnosis of Diabetes Diabetes Care 2021; 46: S19-S40. Current interpretive data was last revised 2022. Calcium 8.1(L) 8.5 - 10.3 mg/dL [facility] Blood 03/31/2024 9:01 PM TURFGRASS TECHNICIAN 03/31/2024 9:53 PM TURFGRASS TECHNICIAN us Radames Quick MD LAB BLOOD ORDERABLES Fin al Result [facility] Department [place] [address] * FL Upper GI Series, Single Contrast (03/31/2024 9:37 AM TURFGRASS TECHNICIAN) Anatomical Region Laterality Modality Body N/A Radio Fluoroscop y 03/31/2024 12:4 4 PM TURFGRASS TECHNICIAN Impressions 03/31/2024 12:46 PM TURFGRASS TECHNICIAN 1. No evidence of extraluminal contrast leak on this examination. 2. Apparent cranially oriented apparent diverticulum arising from the 3rd portion of the duodenum. In correlation with recent CT, this may correspond to the questioned fluid collection. ??The adjacent inflammatory changes could represent duodenal diverticulitis. Dictated by: Kaden Crews M.D. The radiology attending physician has personally reviewed this study, and had reviewed and/or edited this written report and agrees with it. Electronically signed by: Jacob Chavez M.D. Narrative 03/31/2024 12:46 PM TURFGRASS TECHNICIAN EXAMINATION: UPPER GASTROINTESTINAL EXAMINATION HISTORY: Concern for duodenal perforation, rule out ongoing leak TECHNIQUE: After a basketball scout radiograph was obtained, the patient was given water-soluble contrast and thin barium ??through her gastric tube, and multiple fluoroscopic and conventional overhead radiographs of the stomach and duodenum were obtained. FINDINGS: On the basketball scout radiograph, gastric tube with tip in the body and side port overlying the gastroesophageal junction. ??There is elevation of the right hemidiaphragm. Contrast passes easily into the stomach, which shows a normal rugal fold pattern. ??There is no hiatal hernia. There is no evidence of extraluminal contrast leakage on this examination. ?? There is an apparent cranially oriented duodenal diverticulum arising from the 3rd portion of the duodenum which could not be fully opacified. Procedure Note Jacob Chavez MD - 03/31/2024 EXAMINATION: UPPER GASTROINTESTINAL EXAMINATION HISTORY: Concern for duodenal perforation, rule out ongoing leak TECHNIQUE: After a basketball scout radiograph was obtained, the patient was given water-soluble contrast and thin barium through her gastric tube, and multiple fluoroscopic and conventional overhead radiographs of the stomach and duodenum were obtained. FINDINGS: On the basketball scout radiograph, gastric tube with tip in the body and side port overlying the gastroesophageal junction. There is elevation of the right hemidiaphragm. Contrast passes easily into the stomach, which shows a normal rugal fold pattern. There is no hiatal hernia. There is no evidence of extraluminal contrast leakage on this examination. There is an apparent cranially oriented duodenal diverticulum arising from the 3rd portion of the duodenum which could not be fully opacified. IMPRESSION: 1. No evidence of extraluminal contrast leak on this examination. 2. Apparent cranially oriented apparent diverticulum arising from the 3rd portion of the duodenum. In correlation with recent CT, this may correspond to the questioned fluid collection. The adjacent inflammatory changes could represent duodenal diverticulitis. Dictated by: Kaden Crews M.D. The radiology attending physician has personally reviewed this study, and had reviewed and/or edited this written report and agrees with it. Electronically signed by: Jacob Chavez M.D. Evelin Gonzalez NP IM FLUOROSCOPY PROCEDURES Final Result * (ABNORMAL) Urinalysis reflex to microscopic and culture Urine (03/31/2024 5:06 AM TURFGRASS TECHNICIAN) Color, ur Yellow Yellow Clarity, ur Clear Clear [facility] Specific gravity, ur 1.034(H) 1.003 - 1.030 [facility] pH, urine 6.0 [facility] Comment: Interpretive Data ? Urine pH is affected by diet, medications, systemic acid-base disturbances, and renal tubular function. ??pH may affect urinary stone formation. ??For example, urine pH below 6.0 may help reduce the tendency for calcium phosphate stones and pH greater than 6.0 may reduce the tendency for uric acid stone formation. Source: [facility] Current Interpretive Data was last revised on 2017 Protein, ur ql 1+(A) Negative [facility] Glucose, ur ql Trace(A) Negative [facility] Ketones, ur 2+(A) Negative [facility] Bilirubin, ur Negative Negative [facility] Blood, ur 3+(A) Negative [facility] Urobilinogen, ur <2.0 <2.0 mg/dL [facility] Nitrite, ur Negative Negative [facility] Leukocyte esterase, ur Negative Negative [facility] UA reflex comment Reflex to microscopic UA will be performed. [facility] Urine 03/31/2024 5:06 AM TURFGRASS TECHNICIAN 03/31/2024 5:19 AM TURFGRASS TECHNICIAN Narrative [facility] - 03/31/2024 5:24 AM TURFGRASS TECHNICIAN If patient unable to urinate, straight cath Radames Quick MD LAB MICROBIOLOGY - GENER AL ORDERABLES Final Result [facility] Department [place] [address] * (ABNORMAL) Urinalysis, microscopic only (03/31/2024 5:06 AM TURFGRASS TECHNICIAN) WBC, ur 6-10(A) 0 - 5 /HPF RBC, ur 21-50(A) 0 - 2 /HPF [facility] Epithelial cells, squamous, ur 1-5 0 - 5 /HPF [facility] Bacteria, ur 1+(A) [facility] Yeast, ur TRACE [facility] Mucous, ur Present(A) [facility] Culture Reflex Comment Reflex conditions for urine culture (WBC >10) not met. [facility] Urine 03/31/2024 5:06 AM TURFGRASS TECHNICIAN 03/31/2024 5:18 AM TURFGRASS TECHNICIAN Radames Quick MD LAB URINE ORDERABLES Fin al Result [facility] Department [place] [address] * LA CRITICAL CARE ILL/INJURED PATIENT INIT 30-74 MIN (03/30/2024 11:00 PM TURFGRASS TECHNICIAN) Narrative Radames Quick MD - 03/30/2024 11:00 PM TURFGRASS TECHNICIAN Radames Quick MD ? 04/02/2024 ??9:50 AM Critical Care Performed by: Radames Quick MD Authorized by: Radames Quick MD ?? Critical care provider statement: As reflected in the history, physical exam, orders, notes, and/or MDM, I was personally present while the patient was critically ill and provided critical care services for 35 minutes, excluding time involved in separately billable procedures. ??Critical care was necessary to treat or prevent imminent or life-threatening deterioration of the following condition(s): ?? intra-abdominal infection ??Critical care was time spent by me providing the following: ? continuous telemetry, continuous pulse oximetry, interpretation of bedside monitors, imaging, and arterial/venous lab draws, serial bedside patient exams, serial laboratory checks and resuscitation with fluids ?? serial abdominal exams, decision regarding NPO status and gastric tube placement and interpretation of results/output ?? obtain appropriate cultures and empiric broad coverage antibiotics ?? acute pain control ?? I provided emergent necessary critical care medicine services to this patient. I ordered and reviewed test results and/or imaging studies. I spent time discussing the management of this critically ill patient with consultants and the medical staff. I spent time discussing the management and therapeutic options for this critically ill patient with the patient themselves or with the appropriate designated surrogate decision-maker. I spent time documenting in the medical record. us Radames Quick MD IN CLINIC/BEDSIDE ORDERA BLES Final Result * XR Abdomen Ap 1 Vw (03/30/2024 10:47 PM TURFGRASS TECHNICIAN) Anatomical Region Laterality Modality Body, Abdomen N/A Computed Radiogr aphy 03/30/2024 11:0 5 PM TURFGRASS TECHNICIAN Impressions 03/31/2024 10:31 AM TURFGRASS TECHNICIAN Interval placement of a gastric tube with tip projecting over the left upper quadrant in the expected position of the stomach and side port similarly projecting over the expected position of the gastric body. Dictated by: Dalton Marin MD The radiology attending physician has personally reviewed this study, and had reviewed and/or edited this written report and agrees with it. Electronically signed by: Deb Kingsley M.D. Narrative 03/31/2024 10:31 AM TURFGRASS TECHNICIAN EXAMINATION: Abdomen, one view. HISTORY: Tube check COMPARISON: Same-day chest radiograph Procedure Note Deb Kingsley MD - 03/31/2024 EXAMINATION: Abdomen, one view. HISTORY: Tube check COMPARISON: Same-day chest radiograph IMPRESSION: Interval placement of a gastric tube with tip projecting over the left upper quadrant in the expected position of the stomach and side port similarly projecting over the expected position of the gastric body. Dictated by: Dalton Marin MD The radiology attending physician has personally reviewed this study, and had reviewed and/or edited this written report and agrees with it. Electronically signed by: Deb Kingsley M.D. Jenny Avila MD IMG XR PROCEDURES Final Result * CT Body Outside Consult (03/30/2024 8:13 PM TURFGRASS TECHNICIAN) Anatomical Region Laterality Modality Body N/A Computed Tomogra phy 03/30/2024 9:03 PM TURFGRASS TECHNICIAN Impressions 03/31/2024 10:39 AM TURFGRASS TECHNICIAN Contained perforation adjacent to the duodenum likely represents a perforated duodenal ulcer. Findings discussed with Dr. Ward by Dr. Orozco at 9:03 PM. The findings, conclusions and recommendations within this report do not replace the initial findings, conclusions ??and recommendations made at the facility where the study was performed based upon the imaging and clinical condition at that time. ??Comparison with the prior report and clinical history is necessary. ??The provided images may or may not represent the [place] source data set and thus may contain changes that may lower the accuracy of this second-opinion interpretation. Dictated by: Rachell Orozco MD ??PHD The radiology attending physician has personally reviewed this study, and had reviewed and/or edited this written report and agrees with it. Electronically signed by: Deb Kingsley M.D. Narrative 03/31/2024 10:39 AM TURFGRASS TECHNICIAN EXAMINATION: RADIOLOGY CONSULTATION ON OUTSIDE IMAGING STUDY STUDY INITIALLY PERFORMED: 03/30/2024 at [facility]. TYPE OF STUDY: Multiple CT images of the abdomen and pelvis with intravenous contrast are provided at the time of this interpretation. The protocol was adequate to address the clinical question. The outside final report was not available at the time of this second opinion interpretation. TYPE OF CONSULTATION: Consult on outside imaging study with images submitted through Outside Image Sharing Service DATE OF CONSULTATION: 03/30/2024 8:36 PM HISTORY: Severe upper abdominal pain. COMPARISON: None available. FINDINGS: Examination limited by windowing that cannot be corrected on a single transaxial slice, series 3 image 68. The lung bases are clear. No pleural effusion. Heart is normal in size. No pericardial effusion. No suspicious focal hepatic lesion. No biliary ductal dilatation. Gallbladder, pancreas, adrenal glands, and spleen are normal. Kidneys enhance symmetrically without hydronephrosis or nephrolithiasis. Urinary bladder is normal. The uterus is present. No suspicious adnexal mass. There is a 3.6 x 3.5 cm fluid collection containing a locule of gas adjacent to the second portion of the duodenum, series 3 image 67, with associated periduodenal fluid and fat stranding. There is marked wall thickening and edema of the duodenum adjacent to this collection. The fluid and stranding extends to the right perinephric space. No george free intraperitoneal air. The remainder of the bowel is normal in caliber without bowel obstruction. The appendix is normal. No abdominal or pelvic lymphadenopathy. Abdominal aorta is normal in caliber. No suspicious osseous lesion. Procedure Note Deb Kingsley MD - 03/31/2024 EXAMINATION: RADIOLOGY CONSULTATION ON OUTSIDE IMAGING STUDY STUDY INITIALLY PERFORMED: 03/30/2024 at [facility]. TYPE OF STUDY: Multiple CT images of the abdomen and pelvis with intravenous contrast are provided at the time of this interpretation. The protocol was adequate to address the clinical question. The outside final report was not available at the time of this second opinion interpretation. TYPE OF CONSULTATION: Consult on outside imaging study with images submitted through Outside Image Sharing Service DATE OF CONSULTATION: 03/30/2024 8:36 PM HISTORY: Severe upper abdominal pain. COMPARISON: None available. FINDINGS: Examination limited by windowing that cannot be corrected on a single transaxial slice, series 3 image 68. The lung bases are clear. No pleural effusion. Heart is normal in size. No pericardial effusion. No suspicious focal hepatic lesion. No biliary ductal dilatation. Gallbladder, pancreas, adrenal glands, and spleen are normal. Kidneys enhance symmetrically without hydronephrosis or nephrolithiasis. Urinary bladder is normal. The uterus is present. No suspicious adnexal mass. There is a 3.6 x 3.5 cm fluid collection containing a locule of gas adjacent to the second portion of the duodenum, series 3 image 67, with associated periduodenal fluid and fat stranding. There is marked wall thickening and edema of the duodenum adjacent to this collection. The fluid and stranding extends to the right perinephric space. No george free intraperitoneal air. The remainder of the bowel is normal in caliber without bowel obstruction. The appendix is normal. No abdominal or pelvic lymphadenopathy. Abdominal aorta is normal in caliber. No suspicious osseous lesion. IMPRESSION: Contained perforation adjacent to the duodenum likely represents a perforated duodenal ulcer. Findings discussed with Dr. Ward by Dr. Orozco at 9:03 PM. The findings, conclusions and recommendations within this report do not replace the initial findings, conclusions and recommendations made at the facility where the study was performed based upon the imaging and clinical condition at that time. Comparison with the prior report and clinical history is necessary. The provided images may or may not represent the [place] source data set and thus may contain changes that may lower the accuracy of this second-opinion interpretation. Dictated by: Rachell Orozco MD PHD The radiology attending physician has personally reviewed this study, and had reviewed and/or edited this written report and agrees with it. Electronically signed by: Deb Kingsley M.D. Jenny Avila MD IMG CT PROCEDURES Final Result * Check Sample (03/30/2024 7:21 PM TURFGRASS TECHNICIAN) ABO Rh A Positive [facility] OTHER 03/30/2024 7:21 PM TURFGRASS TECHNICIAN 03/30/2024 7:29 PM TURFGRASS TECHNICIAN Radames Quick MD LAB BLOOD ORDERABLES Fin al Result Performing Organization Address City/[facility] Co de Phone Number [facility] [place] [address] [facility] * Lipase (03/30/2024 6:51 PM TURFGRASS TECHNICIAN) Lipase 32 10 - 99 Units/L Comment:Hemolyzed; result ma y be falsely decreased Blood 03/30/2024 6:51 PM TURFGRASS TECHNICIAN 03/30/2024 7:19 PM TURFGRASS TECHNICIAN Jenny Avila MD LAB BLOOD ORDERABLES Final Res ult Performing Organization Address [facility] Co de Phone Number [facility] Department [place] [address] * XR Chest 1 View (03/30/2024 6:47 PM TURFGRASS TECHNICIAN) Anatomical Region Laterality Modality Body, Chest N/A Computed Radiogr aphy 03/30/2024 7:29 PM TURFGRASS TECHNICIAN Impressions 03/30/2024 8:00 PM TURFGRASS TECHNICIAN There is no pulmonary consolidation, pleural effusion, or pneumothorax. ??The cardiomediastinal silhouette is within normal limits. Dictated by: Dion Zhang MD The radiology attending physician has personally reviewed this study, and had reviewed and/or edited this written report and agrees with it. Electronically signed by: Shannon Romo M.D. Narrative 03/30/2024 8:00 PM TURFGRASS TECHNICIAN EXAMINATION: XR CHEST 1 VIEW HISTORY: Fever COMPARISON: No prior relevant imaging is available for comparison at the time of dictation. Procedure Note Shannon Romo MD - 03/30/2024 EXAMINATION: XR CHEST 1 VIEW HISTORY: Fever COMPARISON: No prior relevant imaging is available for comparison at the time of dictation. IMPRESSION: There is no pulmonary consolidation, pleural effusion, or pneumothorax. The cardiomediastinal silhouette is within normal limits. Dictated by: Dion Zhang MD The radiology attending physician has personally reviewed this study, and had reviewed and/or edited this written report and agrees with it. Electronically signed by: Shannon Romo M.D. Ronaldo Leyva MD IMG XR PROCEDURES Final Resu lt * Blood culture Blood Peripheral (03/30/2024 6:41 PM TURFGRASS TECHNICIAN) Report Final Report: No growth Blood (Peripheral) 03/30/2024 6:41 PM TURFGRASS TECHNICIAN 03/30/2024 6:58 PM TURFGRASS TECHNICIAN Danny [facility] - 04/04/2024 7:00 AM TURFGRASS TECHNICIAN From a different site than #1. Draw Blood cultures before administration of Antibiotics Collection->Peripheral 1. ?Blood cultures are incubated for 4 days on a continuously monitored blood culture system. The first report of a negative culture is issued within 24 hours of receipt of the specimen in the laboratory. 2. ?Positive culture results are reported as soon as they are detected. 3. ?The most important factor for detection of microbes in the setting of bloodstream infection is the volume of blood submitted for culture. Failure to collect an optimal blood volume can result in false negative blood cultures. 4. ? For pediatric patients, the recommended blood volume to collect follows a weight based strategy. See the electronic test catalog for collection instructions. 5. ?For positive blood cultures, a rapid molecular test may be performed for organism identification using the winston ePlex blood culture identification panel for gram positive (BCID-GP) and gram negative (BCID-GN) organisms. This nucleic acid amplification test detects microbial DNA in positive blood culture broth. This assay has been cleared by the [place] Food and Drug Administration and its performance characteristics have been verified by the [facility] Microbiology Laboratory. For questions about this culture, contact the Microbiology Laboratory at [phone]. Interpretive data was last revised on 24. us Jenny Avila MD LAB MICROBIOLOGY - GENERAL ORD ERABLES Final Result Performing Organization Address City/[facility]/ZIP Co de Phone Number [facility] Clotilde [facility] Department [place] [address] * Blood culture Blood Peripheral (03/30/2024 6:41 PM TURFGRASS TECHNICIAN) Report Final Report: No growth Blood (Peripheral) 03/30/2024 6:41 PM TURFGRASS TECHNICIAN 03/30/2024 6:57 PM TURFGRASS TECHNICIAN Narrative [facility] - 04/04/2024 7:00 AM TURFGRASS TECHNICIAN Draw Blood cultures before administration of Antibiotics Collection->Peripheral 1. ?Blood cultures are incubated for 4 days on a continuously monitored blood culture system. The first report of a negative culture is issued within 24 hours of receipt of the specimen in the laboratory. 2. ?Positive culture results are reported as soon as they are detected. 3. ?The most important factor for detection of microbes in the setting of bloodstream infection is the volume of blood submitted for culture. Failure to collect an optimal blood volume can result in false negative blood cultures. 4. ? For pediatric patients, the recommended blood volume to collect follows a weight based strategy. See the electronic test catalog for collection instructions. 5. ?For positive blood cultures, a rapid molecular test may be performed for organism identification using the winston ePlex blood culture identification panel for gram positive (BCID-GP) and gram negative (BCID-GN) organisms. This nucleic acid amplification test detects microbial DNA in positive blood culture broth. This assay has been cleared by the [place] Food and Drug Administration and its performance characteristics have been verified by the [facility] Microbiology Laboratory. For questions about this culture, contact the Microbiology Laboratory at [phone]. Interpretive data was last revised on 24. Jenny Avila MD LAB MICROBIOLOGY - GENERAL ORD ERABLES Final Result Performing Organization Address [facility] Co de Phone Number [facility] Department [place] [address] * aPTT (03/30/2024 6:41 PM TURFGRASS TECHNICIAN) aPTT 30 28 - 38 sec Comment: Interpretive Data Heparin therapeutic range: 66.0 - 100.0 seconds. Range based on correlation with therapeutic heparin activity range of 0.3 - 0.7 Units/mL. Current interpretive data was last revised on 2023. Blood 03/30/2024 6:41 PM TURFGRASS TECHNICIAN 03/30/2024 6:58 PM TURFGRASS TECHNICIAN Jenny Avila MD LAB BLOOD ORDERABLES Final Res ult Performing Organization Address [facility] de Phone Number [facility] [place] [address] * (ABNORMAL) Protime-INR (03/30/2024 6:41 PM TURFGRASS TECHNICIAN) PT 17.8(H) 9.7 - 13.0 sec INR 1.63(H) 0.90 - 1.20 [facility] Comment: Interpretive data Oral anticoagulant therapeutic ranges: Venous thromboembolism prophylaxis or treatment: 2.0-3.0 CARDIOLOGY Standard range: 2.0-3.0 High-intensity range: 2.5-3.5 Refer to indication-specific guidelines for appropriate target ranges for prosthetic heart valve replacement. Current interpretive data was last revised on 2019. Blood 03/30/2024 6:41 PM TURFGRASS TECHNICIAN 03/30/2024 6:58 PM TURFGRASS TECHNICIAN Jenny Avila MD LAB BLOOD ORDERABLES Final Res ult Performing Organization Address [facility] Co de Phone Number [facility] [place] [address] * Type and screen (03/30/2024 6:41 PM TURFGRASS TECHNICIAN) [facility], indirect Negative ABO Rh A Positive [facility] Blood 03/30/2024 6:41 PM TURFGRASS TECHNICIAN 03/30/2024 7:00 PM TURFGRASS TECHNICIAN Narrative [facility] - 03/30/2024 8:05 PM TURFGRASS TECHNICIAN Has the patient had Daratumumab or Isatuximab in the past 6 months?->Unknown Jenny Avila MD LAB BLOOD BANK TEST ORDERABLES Final Result Performing Organization Address [facility] Co de Phone Number [facility] Department [place] [address] * Blood gas, venous (03/30/2024 6:41 PM TURFGRASS TECHNICIAN) [facility] pH, Venous 7.37 7.32 - 7.43 PCO2, Venous 44 40 - 50 mmHg [facility] PO2, Venous 31 mmHg [facility] Comment: Interpretive Data No Reference Range Established Current Interpretive Data was last revised on 2017. HCO3 Venous, Calculated 26 20 - 30 mmol/L [facility] BE, venous 0 mmol/L [facility] Comment: Interpretive Data No Reference Range Established Current Interpretive Data was last revised on 2017. Blood 03/30/2024 6:41 PM TURFGRASS TECHNICIAN 03/30/2024 6:53 PM TURFGRASS TECHNICIAN us Jenny Avila MD LAB BLOOD ORDERABLES Final Res ult Performing Organization Address [facility] Co de Phone Number [facility] Department [place] [address] * POCT lactate (03/30/2024 6:26 PM TURFGRASS TECHNICIAN) [facility] Lactate POC i-STAT 0.8 0.7 - 2.2 mmol/L Blood 03/30/2024 6:26 PM TURFGRASS TECHNICIAN 03/30/2024 6:26 PM TURFGRASS TECHNICIAN Markel Solis MD LAB POCT ORDERABLES - BEATRIZ CE Final Result Performing Organization Address [facility] Co de Phone Number [facility] Department [place] [address] * eGFR (03/30/2024 6:20 PM TURFGRASS TECHNICIAN) eGFR >90 >=60 mL/min/1. 73 m2 Comment: Interpretive Data Reference Interval Normal ?>/= 90 mL/min/1.73m2 Mildly decreased* ? 60 - 89 mL/min/1.73m2 Mildly to moderately decreased ?45 - 59 mL/min/1.73m2 Moderately to severely decreased ??30 - 44 mL/min/1.73m2 Severely decreased ?15 - 29 mL/min/1.73m2 Kidney Failure ?< 15 ??mL/min/1.73m2 *Relative to young adult level Estimated glomerular filtration rate is determined by the 2020 CKD-EPI equation recommended by the National Kidney Foundation (A Unifying Approach to GFR Estimation: Recommendations of the NKF-ASK Task Force on Reassessing the Inclusion of Race in Diagnosing Kidney Disease, JASN 2020). The CKD-EPI equation should not be used for patients with unstable renal function and has not been validated in children and those over 70. Current interpretive data was last reviewed 2021. Blood 03/30/2024 6:20 PM TURFGRASS TECHNICIAN 03/30/2024 6:46 PM TURFGRASS TECHNICIAN us Ronaldo Leyva MD LAB BLOOD ORDERABLES Final R esult [facility] Department [place] [address] * (ABNORMAL) Differential, auto (03/30/2024 6:20 PM TURFGRASS TECHNICIAN) Pathologist [facility] Neutrophil abs 11.5(H) 1.5 - 6.5 K/cumm Imm gran abs 0.0 0.0 - 0.1 K/cumm [facility] [place] Lymphocyte abs 0.3(L) 0.8 - 3.3 K/cumm [facility] Monocyte abs 0.5 0.2 - 0.8 K/cumm [facility] Eosinophil abs 0.0 0.0 - 0.5 K/cumm [facility] Basophil abs 0.0 0.0 - 0.1 K/cumm [facility] Neutrophil pct 93.9 % [facility] Comment: Interpretive Data Percent cell count reference ranges are not reported, since discordance with absolute values may lead to misinterpretation of CBC data. Current Interpretive Data was last revised on 2017. Imm gran pct 0.2 % [facility] Comment: Interpretive Data Percent cell count reference ranges are not reported, since discordance with absolute values may lead to misinterpretation of CBC data. Current Interpretive Data was last revised on 2017. Lymphocyte pct 2.1 % [facility] Comment: Interpretive Data Percent cell count reference ranges are not reported, since discordance with absolute values may lead to misinterpretation of CBC data. Current Interpretive Data was last revised on 2017. Monocyte pct 3.7 % [facility] Comment: Interpretive Data Percent cell count reference ranges are not reported, since discordance with absolute values may lead to misinterpretation of CBC data. Current Interpretive Data was last revised on 2017. Eosinophil pct 0.0 % [facility] Comment: Interpretive Data Percent cell count reference ranges are not reported, since discordance with absolute values may lead to misinterpretation of CBC data. Current Interpretive Data was last revised on 2017. Basophil pct 0.1 % [facility] Comment: Interpretive Data Percent cell count reference ranges are not reported, since discordance with absolute values may lead to misinterpretation of CBC data. Current Interpretive Data was last revised on 2017. Blood 03/30/2024 6:20 PM TURFGRASS TECHNICIAN 03/30/2024 6:47 PM TURFGRASS TECHNICIAN us Ronaldo Leyva MD LAB BLOOD ORDERABLES Final R esult [facility] Department [place] [address] * (ABNORMAL) CBC with auto differential (03/30/2024 6:20 PM TURFGRASS TECHNICIAN) [facility] WBC 12.3(H) 3.8 - 9.9 K/cumm Hgb 12.8 11.9 - 15.5 g/dL [facility] Hct 38.7 35.6 - 45.5 % [facility] Plt 226 150 - 400 K/cumm [facility] MPV 10.0 9.1 - 12.3 fL [facility] RBC 4.38 3.90 - 5.20 M/cumm [facility] MCV 88.4 81.3 - 96.4 fL [facility] MCH 29.2 27.1 - 33.3 pg [facility] MCHC 33.1 32.3 - 35.7 g/dL [facility] RDW CV 12.5 11.1 - 14.9 % [facility] RDW SD 40.8 35.7 - 48.1 fL [facility] NRBC abs 0.00 0.00 - 0.01 K/cumm [facility] Blood 03/30/2024 6:20 PM TURFGRASS TECHNICIAN 03/30/2024 6:47 PM TURFGRASS TECHNICIAN Radames Quick MD LAB BLOOD ORDERABLES Fin al Result [facility] Department [place] [address] * (ABNORMAL) Comprehensive metabolic panel (03/30/2024 6:20 PM TURFGRASS TECHNICIAN) [facility] Sodium 139 135 - 145 mmol/L Potassium, pl 3.8 3.3 - 4.9 mmol/L [facility] Chloride 105 97 - 110 mmol/L [facility] CO2 24 22 - 32 mmol/L [facility] Anion gap 10 2 - 15 mmol/L [facility] BUN 7 6 - 25 mg/dL [facility] Creatinine 0.56(L) 0.60 - 1.10 mg/dL [facility] Glucose 137 70 - 199 mg/dL [facility] Comment: Interpretive Data Fasting glucose >/= 126 mg/dl is diagnostic for diabetes. ?? Fasting is defined as no caloric intake for at least 8 hours. Fasting glucose between 100 mg/dl to 125 mg/dl is diagnostic of prediabetes. In a patient with classic symptoms of hyperglycemia or hyperglycemic crisis, a random glucose >/= 200 mg/dl is diagnostic for diabetes. In the absence of unequivocal hyperglycemia, results should be confirmed by repeat testing. The classification and Diagnosis of Diabetes Diabetes Care 2021; 46: S19-S40. Current interpretive data was last revised 2022. Calcium 7.9(L) 8.5 - 10.3 mg/dL [facility] Bilirubin, total 0.4 0.1 - 1.2 mg/dL [facility] Protein, pl 6.6 6.5 - 8.5 g/dL [facility] Albumin 3.7 3.5 - 5.0 g/dL [facility] Alk phos 73 40 - 130 Units/L [facility] ALT 15 7 - 45 Units/L [facility] AST 21 10 - 45 Units/L [facility] Blood 03/30/2024 6:20 PM TURFGRASS TECHNICIAN 03/30/2024 6:46 PM TURFGRASS TECHNICIAN us Radames Quick MD LAB BLOOD ORDERABLES Fin al Result [facility] Department [place] [address] from Last 3 Months Insurance [facility] [employer] SIGNATURE AETNA SIG [id number] [facility] [employer] SIGNATURE Advance Directives For more information, please contact: [phone] * Full Code (Latest Code Status on File) Date Activated Date Inactivated Comments 03/31/2024 12:09 AM 04/03/2024 7:32 PM Care Teams Molded Goods Spot Picker Relationship Specialty Start Date End Date No, Physician PCP - General 06/20/18
--- OUTSIDE RECORDS SUMMARY | 2024-04-21 11:55 | XMS_ITS | Encounter Summary ---
Author Organization [facility] Facility Care Team Providers Care Warehouse Laborer Name Role Phone Unavailable Primary Care Provider Unavailabl e Encounter Details Date Type Department Care Team (Late st Contact Info) Description 02/16/2012 - 02/16/2012 11:59 PM POINTING MACHINE OPERATOR Hospital Encounter [facility] Dalton Bravo MD [address] [place] [address] Encounter for anatomic survey Social History Tobacco Use Types Packs/Day Years Used Date Smoking Tobacco: Never Assessed Comments Unknown Sex and Gender Information Value Date Recorded Sex Assigned at Not on file Legal Sex Female 10:51 AM POINTING MACHINE OPERATOR Gender Identity Not on file Sexual Orientation Not on file documented as of this encounter Plan of Treatment Not on file documented as of this encounter Visit Diagnoses Diagnosis Encounter for anatomic survey documented in this encounter
--- OUTSIDE RECORDS SUMMARY | 2024-04-21 11:55 | XMS_ITS | Encounter Summary ---
Author Organization [facility] Healthcare Address [address] [place] [address] Care Team Providers Care Sixth Grade Teacher Name Role Phone No, Physician Primary Care Provider [phone] Reason for Visit * Auth/Cert (Routine) Specialty Diagnoses / Procedures Referred By Contac t Referred To Contact Diagnoses Abdominal pain Perforated duodenal ulcer (CMS/HCC) (HCC) duodenal abscess Procedures NA Referral ID Status Reason Start Date Expiration Date Visits Re quested Visits Authorized [id number] 1 1 Encounter Details Date Type Department Care Team (Latest Contact Info) Description 03/31/2024 7:20 AM COMPRESSED GAS TESTER - 03/31/2024 11:59 PM COMPRESSED GAS TESTER Hospital Encounter [facility] Radiology [address] [place] [address] Discharge Disposition: Discharge to home or self care Social History Tobacco Use Types Packs/Day Years Used Date Smoking Tobacco: Never Alcohol Use Standard Drinks/Week Comments No 0 (1 standard drink = 0.6 oz pur e alcohol) Personal Safety Answer Date Recorded Have you ever been in or are you currently in a harmful physical or emotional relationship or is someone making you feel afraid or unsafe? Denies 03/31/2024 Comments No Sex and Gender Information Value Date Recorded Sex Assigned at Not on file Legal Sex Female 10:51 AM COMPRESSED GAS TESTER Gender Identity Not on file Sexual Orientation Not on file documented as of this encounter Medications at Time of Discharge acetaminophen 500 mg capsule Take 2 capsules (1,000 mg total) by mouth 3 (three) times a day as needed for fever 30 tablet 04/03/2024 Auvelity 45-105 mg tablet, IR & ER, biphasic 1 tablet 2 (two) times a day 02/10/[address] (PROTONIX) 40 mg EC tabletIndications :Stress Ulcer Prophylaxis Take 1 tablet (40 mg total) by mouth 2 (two) times a day 60 tablet 04/03/2024 5 amoxicillin-clavu lanate (AUGMENTIN) 875-125 mg per tabletIndications :Abdominal/Pelvic Infection Take 1 tablet (875 mg of amoxicillin total) by mouth 2 (two) times a day for 10 days 20 tablet 04/03/2024 5 documented as of this encounter Discharge Disposition Disposition Code Departure Means Destination Discharge to home or self care documented in this encounter Plan of Treatment Not on file documented as of this encounter Procedures Procedure Name Priority Date/Time Associated Diagnosis Comments FL UPPER GI SERIES, SINGLE CONTRAST ED Urgent/IP Urgent 03/31/2024 9:37 AM COMPRESSED GAS TESTER documented in this encounter Results * FL Upper GI Series, Single Contrast (03/31/2024 9:37 AM COMPRESSED GAS TESTER) Anatomical Region Laterality Modality Body N/A Radio Fluoroscop y 03/31/2024 12:4 4 PM COMPRESSED GAS TESTER Impressions 03/31/2024 12:46 PM COMPRESSED GAS TESTER 1. No evidence of extraluminal contrast leak [...] and agrees with it. Electronically signed by: Jaocb Chavez M.D. Narrative 03/31/2024 12:46 PM COMPRESSED GAS TESTER EXAMINATION: UPPER GASTROINTESTINAL EXAMINATION HISTORY: Concern for duodenal perforation, rule out ongoing leak TECHNIQUE: After a marketing summer intern radiograph was obtained, the patient was given water-soluble contrast and thin barium ??through her gastric tube, and multiple fluoroscopic and conventional overhead radiographs of the stomach and duodenum were obtained. FINDINGS: On the marketing summer intern radiograph, gastric tube with tip in the [...] rule out ongoing leak TECHNIQUE: After a marketing summer intern radiograph was obtained, the patient was given water-soluble contrast and thin barium through her gastric tube, and multiple fluoroscopic and conventional overhead radiographs of the stomach and duodenum were obtained. FINDINGS: On the marketing summer intern radiograph, gastric tube with tip in the [...] by: Jacob Chavez M.D. Evelin Gonzalez NP [facility] FLUOROSCOPY PROCEDURES Final Result documented in this encounter Visit Diagnoses Not on filedocumented in this encounter Administered Medications Inactive Administered Medications - up to 3 most recent administrations Medication Order MAR Action Action Date Dose Rate Site barium sulfate (E-Z-PAQUE) 96 % (w/w) suspension 1 Bottle 1 Bottle, nasogastric tube, Once in imaging, contrast, Starting on 03/31/24 at 0913, For 1 dose, Pre-Op/Floor Contrast Given 03/31/2024 9:20 AM COMPRESSED GAS TESTER 1 Bottle diatrizoate meglumine-diatrizoate sodium (GASTROGRAFIN/-GASTROVIEW) 66-10 % solution 120 mL 120 mL, oral, Once in imaging, contrast, Starting on 03/31/24 at 0856, For 1 dose, Pre-Op/Floor Contrast Given 03/31/2024 9:00 AM COMPRESSED GAS TESTER 120 mL documented in this encounter Care Teams Sixth Grade Teacher Relationship Specialty Start Date End Date No, Physician PCP - General 06/20/18 documented as of this encounter
--- OUTSIDE RECORDS SUMMARY | 2024-04-21 11:55 | XMS_ITS | Encounter Summary ---
Author Organization [facility] Healthcare Address [address] [place] [address] Care Team Providers Care Acoustical Tile Drill Press Operator Name Role Phone No, Physician Primary Care Provider [phone] Reason for Referral * MRI/CAT/PET Scan (Routine) - Closed Specialty Diagnoses / Procedures Referred By Contac t Referred To Contact Radiology Diagnoses Perforated duodenal ulcer (CMS/HCC) (HCC) Procedures CT Abdomen Pelvis W Contrast Evelin Gonzalez NP [address] [facility] [phone] [place] [address] Phone: tel: fax: [address] [phone] Referral ID Status Reason Start Date Expiration Date Visits Re quested Visits Authorized [id number] Closed 04/05/2024 07/02/2024 1 1 D SALES MANAGER Reason for Visit * MRI/CAT/PET Scan (Routine) - Closed Specialty Diagnoses / Procedures Referred By Contac t Referred To Contact Radiology Diagnoses Perforated duodenal ulcer (CMS/HCC) (HCC) Procedures CT Abdomen Pelvis W Contrast Evelin Gonzalez NP [address] [facility] [phone] [place] [address] Phone: tel: fax: [address] [phone] Referral ID Status Reason Start Date Expiration Date Visits Re quested Visits Authorized [id number] Closed 04/05/2024 07/02/2024 1 1 Encounter Details Date Type Department Care Team (Latest Contact Info) Description 04/12/2024 2:30 PM FIELD SALES MANAGER - 04/12/2024 11:59 PM FIELD SALES MANAGER Hospital Encounter [facility] [address] [place] [address] Perforated duodenal ulcer (CMS/HCC) (HCC) Discharge Disposition: [...] on file Legal Sex Female 10:51 AM FIELD SALES MANAGER Gender Identity Not on file Sexual Orientation [...] (two) times a day 60 tablet 04/03/2024 amoxicillin-clavu lanate (AUGMENTIN) 875-125 mg per tabletIndications :Abdominal/Pelvic Infection Take 1 tablet (875 mg of amoxicillin total) by mouth 2 (two) times a day for 10 days 20 tablet 04/03/2024 documented as of this encounter Discharge Disposition Disposition Code Departure Means Destination Discharge to home or self care documented in this encounter Plan of Treatment Not on file documented as of this encounter Procedures Procedure Name Priority Date/Time Associated Diagnosis Comments CT ABDOMEN PELVIS W CONTRAST Schedule Routine, Read Routine (OP Routine) 04/12/2024 2:55 PM FIELD SALES MANAGER Perforated duodenal ulcer (CMS/HCC) (HCC) documented in this encounter Results * CT Abdomen Pelvis W Contrast (04/12/2024 2:55 PM FIELD SALES MANAGER) Anatomical Region Laterality Modality Body N/A Computed Tomogra phy 04/12/2024 3:12 PM FIELD SALES MANAGER Impressions 04/12/2024 3:26 PM FIELD SALES MANAGER Interval decrease in size and stranding of [...] Carlos Hughes M.D. Narrative 04/12/2024 3:26 PM FIELD SALES MANAGER EXAMINATION: ??Computed tomography of the abdomen and [...] Electronically signed by: Jose Carlos Hughes M.D. Evelin Gonzalez TROLLEY WORKER IMG CT PROCEDURES Final Re sult documented in this encounter Visit Diagnoses Diagnosis Perforated duodenal ulcer (CMS/HCC) (HCC) Chronic or unspecified duodenal ulcer with perforation, without mention of obstruction documented in this encounter Administered Medications Inactive Administered Medications - up to 3 most recent administrations Medication Order MAR Action Action Date Dose Rate Site ioversoL (OPTIRAY 350) syringe 75 mL 75 mL, intravenous, Once in imaging, contrast, Starting on [place] 04/12/24 at 1453, For 1 dose Contrast Given 04/12/2024 2:53 PM FIELD SALES MANAGER 75 mL documented in this encounter Orders Medications Ordered That Yuan ht Not Have Been Administered Count Last Ordered Date First Ordered Date ioversoL (OPTIRAY 350) syringe 75 mL 1 05/2024 documented in this encounter Care Teams Acoustical Tile Drill Press Operator Relationship Specialty Start Date End Date No, Physician PCP - General 06/20/18 documented as of this encounter
--- OUTSIDE RECORDS SUMMARY | 2024-04-21 11:55 | XMS_ITS | Encounter Summary ---
Author Organization [facility] Address [address] [place] [address] Phone Care Team Providers Care Finance Business Partner Name Role Phone No, Physician Primary Care Provider [phone] Encounter Details Date Type Department Care Team (Late st Contact Info) Description 03/30/2024 Documentation [facility] Gastroenterology [address] 2[address] [place] [address] Jacobo Hamilton MD [address] [place] [address] Social History Tobacco Use Types Packs/Day Years [...] on file Legal Sex Female 10:51 AM REPORTING COORDINATOR Gender Identity Not on file Sexual Orientation Not on file documented as of this encounter Progress Notes * Jacobo Hamilton MD - 03/30/2024 4:00 PM CST Brief GI Note: Accepted patient from [facility] who presented with abdominal pain found to have 3-4cm fluidcollection in the kori-duodenal space with small focus of air, unclear etiology. Normal LFTs, normal bilirubin, normal lipase. Etiology unclear. Started on Abx there. Surgery consulted at OSH who recommend transfer to higher level of care. Recommendation: - IV fluids. - Continue IV Abx - HBP surgery consult - MRI/MRCP to better evaluate this area - Biliary service consult on arrival. Possibly EGD on Tuesday Jacobo Hamilton MD Interventional GI RTING COORDINATOR documented in this encounter Plan of Treatment Not on file documented as of this encounter Visit Diagnoses Not on filedocumented in this encounter Care Teams Finance Business Partner Relationship Specialty Start Date End Date No, Physician PCP - General 06/20/18 documented as of this encounter
--- OUTSIDE RECORDS SUMMARY | 2024-04-21 11:55 | XMS_ITS | Encounter Summary ---
Author Organization [facility] Address [address] [place] [address] Care Team Providers Care Corporate Security Manager Name Role Phone Unavailable Primary Care Provider Unavailabl e Encounter Details Date Type Department Care Team (Late st Contact Info) Description 04/24/2012 9:46 AM WASTEWATER TREATMENT OPERATOR - 04/24/2012 11:59 PM WASTEWATER TREATMENT OPERATOR Hospital Encounter [facility] Edgar Jack MD [address] [place] [address] [address] Supervision of normal first Social History Tobacco Use Types Packs/Day Years Used Date Smoking Tobacco: Never Assessed Comments Unknown Sex and Gender Information Value Date Recorded Sex Assigned at Not on file Legal Sex Female 10:51 AM WASTEWATER TREATMENT OPERATOR Gender Identity Not on file Sexual Orientation Not on file documented as of this encounter Plan of Treatment Not on file documented as of this encounter Procedures Procedure Name Priority Date/Time Associated Diagnosis Comments PLASMA GLUCOSE GESTATIONAL SCREEN, 3 HOUR Routine 04/24/2012 1:22 PM WASTEWATER TREATMENT OPERATOR PLASMA GLUCOSE GESTATIONAL SCREEN, 3 HOUR Routine 04/24/2012 12:20 PM WASTEWATER TREATMENT OPERATOR PLASMA GLUCOSE GESTATIONAL SCREEN, 3 HOUR Routine 04/24/2012 11:23 AM WASTEWATER TREATMENT OPERATOR PLASMA GLUCOSE GESTATIONAL SCREEN, 3 HOUR Routine 04/24/2012 10:00 AM WASTEWATER TREATMENT OPERATOR DISCHARGE LABORATORY CUMULATIVE REPORT Routine 04/24/2012 12:00 AM WASTEWATER TREATMENT OPERATOR documented in this encounter Results * Plasma glucose gestational screen, 3 hour (04/24/2012 1:22 PM WASTEWATER TREATMENT OPERATOR) Glucose, 3 hr, pl 134 mg/dl HISTORICAL RESULTS Comment: ADULTS THE DIAGNOSIS OF GESTATIONAL DIABETES REQUIRES 2 OR MORE OF THE FOLLOWING VALUES TO BE MET OR EXCEEDED FOLLOWING A 100 GRAM ORAL LOAD GLUCOSE CHALLENGE. SERUM/PLASMA GLUCOSE FASTING ? 95 ??mg/dl 1 hour ?180 mg/dl 2 hour ?155 mg/dl 3 hour ?140 mg/dl Plasma 04/24/2012 1:22 PM WASTEWATER TREATMENT OPERATOR Result [facility] Edgar Vale MD LAB BLOOD ORDERABLES Final Result Performing Organization Address [facility] Phone Number HISTORICAL RESULTS * Plasma glucose gestational screen, 3 hour (04/24/2012 12:20 PM WASTEWATER TREATMENT OPERATOR) Glucose, 2 hr, pl 170 mg/dl HISTORICAL RESULTS Plasma 04/24/2012 12:2 0 PM WASTEWATER TREATMENT OPERATOR Result [facility] Edgar Vale MD LAB BLOOD ORDERABLES Final Result Performing Organization Address [facility] Phone Number HISTORICAL RESULTS * Plasma glucose gestational screen, 3 hour (04/24/2012 11:23 AM WASTEWATER TREATMENT OPERATOR) Glucose, 1 hr, pl 168 mg/dl HISTORICAL RESULTS Plasma 04/24/2012 11:2 3 AM WASTEWATER TREATMENT OPERATOR Edgar Vale MD LAB BLOOD ORDERABLES Final Result Performing Organization Address [facility] Phone Number HISTORICAL RESULTS * Plasma glucose gestational screen, 3 hour (04/24/2012 10:00 AM WASTEWATER TREATMENT OPERATOR) Glucose, fasting 92 70 - 110 mg/dl HISTORICAL RESULTS Plasma 04/24/2012 10:0 0 AM WASTEWATER TREATMENT OPERATOR Edgar Vale MD LAB BLOOD ORDERABLES Final Result HISTORICAL RESULTS * Discharge Laboratory Cumulative Report (04/24/2012 12:00 AM WASTEWATER TREATMENT OPERATOR) 04/24/2012 Narrative HISTORICAL RESULTS - 04/26/2012 12:23 AM WASTEWATER TREATMENT OPERATOR Patient No: [id number] ? [facility] Patient Name: LEON IQBAL ? [facility] Age: 26 YRS ?: 1985 ?Sex:F ?[address] )[phone] ?? Adm Dt: 04/24/2012 ?[place], [place] ??[address] Created: 04/26/2012 ??0023 ?? Pt. Type: R ? Discharge Dt: 04/24/2012 ? Pathologists: Graciela Trujillo MD Admit Attend : EDGAR VALE MD ?[facility] TEST[facility] ?Collection Date: ?04/24/ ? 04/24/12 ?Collection Time: ?1000 ? 1123 ? Ref Range: ?? Units: ??[70-110] ?? MG/DL ?GLUCOSE FASTING ? 92 ? MG/DL ?GLUCOSE 1 HR ?168 ?Collection Date: ?04/24/ ? 04/24/ ?Collection Time: ?1220 ? 1322 ? Ref Range: ?? Units: ? MG/DL ?GLUCOSE 2 HR ? 170 ? MG/DL ?GLUCOSE 3 HR ?134 f Footnotes and Symbols: f = Footnote GLUCOSE 3 HR (07/14/07 -- Current) ADULTS THE DIAGNOSIS OF GESTATIONAL DIABETES REQUIRES 2 OR MORE OF THE FOLLOWING VALUES TO BE MET OR EXCEEDED FOLLOWING A 100 GRAM ORAL LOAD GLUCOSE CHALLENGE. SERUM/PLASMA GLUCOSE FASTING ? 95 ??mg/dl 1 hour ?180 mg/dl 2 hour ?155 mg/dl 3 hour ?140 mg/dl ?? END OF CHART ? Page: ?? 1 us Historical Provider LAB BLOOD ORDERABLES Lisy jerome Result HISTORICAL RESULTS documented in this encounter Visit Diagnoses Diagnosis Supervision of normal first documented in this encounter
--- OUTSIDE RECORDS SUMMARY | 2024-04-21 11:55 | XMS_ITS | Encounter Summary ---
Author Organization [facility] Facility Care Team Providers Care Front Desk Auxiliary Name Role Phone Unavailable Primary Care Provider Unavailabl e Encounter Details Date Type Department Care Team (Late st Contact Info) Description 01/03/2012 - 01/03/2012 11:59 PM CDT Hospital Encounter [facility] Other specified screening; Encounter for anatomic survey Social History Tobacco Use Types Packs/Day Years Used Date Smoking Tobacco: Never Assessed Comments Unknown Sex and Gender Information Value Date Recorded Sex Assigned at Not on file 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
--- OUTSIDE RECORDS SUMMARY | 2024-04-21 11:55 | XMS_ITS | Clinical Summary ---
Author Organization [facility] Address [address] [place] [address] Care Team Providers Care Unloading Checker Name Role Phone No, Physician Primary Care Provider [phone] Allergies No known active allergies Medications Auvelity [...] 03/31/2024 Assessment & Plan (04/03/2024 12:08 PM PICKING MACHINE OPERATOR): 03/30 presented to OSH with abd pain, recent intestinal viral illness x2d which preceded abd pain, OSH imaging suggestive of perforated duodenal diverticulum vs duodenitis vs perforated ulcer, transferred to [facility] for further evaluation and management, arrived febrile [...] 03/31/2024 Assessment & Plan (03/31/2024 11:47 AM PICKING MACHINE OPERATOR): 03/31 home medications reviewed with patient and updated in ADMISSIONS tab Discharge planning issues 03/31/2024 Assessment & Plan (04/03/2024 11:47 AM PICKING MACHINE OPERATOR): 03/31 functionally independent at baseline, anticipate return to home without needs once medically stable; ADD tom vs Tuesday pending further imaging studies 04/01 barrier to discharge: MRCP, po tolerance; ADD Tuesday v Monday 04/02 barrier to discharge: PO tolerance, ADD tomorrow 04/03 Patient is medically stable for discharge Depression 03/31/2024 Assessment & Plan (04/02/2024 12:23 PM PICKING MACHINE OPERATOR): - home regimen: auvality (non-formulary) --- 03/31 not a candidate for po intake at this time, pharmacy to verify home medication and patient can take own supply once cleared for PO intake 04/01 ok to resume to avoid withdrawal symptoms --- f/u with previously established provider for ongoing management Abdominal pain 03/30/2024 Assessment & Plan (04/03/2024 11:46 AM PICKING MACHINE OPERATOR): 03/31-04/02 IV analgesia regimen while NPO/CLD 04/03 no analgesia requirements >24h --- discharged with PRN tylenol only 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 [address] [place] [phone] Perforated duodenal ulcer (CMS/HCC) (HCC) Discharge Disposition: Discharge to home or self care 03/31/2024 7:20 AM PICKING MACHINE OPERATOR - 03/31/2024 11:59 PM PICKING MACHINE OPERATOR Hospital Encounter [facility] Radiology [address] [place] [address] Discharge Disposition: Discharge to home or self care 03/30/2024 6:29 PM PICKING MACHINE OPERATOR - 04/03/2024 3:27 PM PICKING MACHINE OPERATOR Hospital Encounter [facility] [address] [place] [address] Radames Quick MD Turnbull, Isaiah Richard, MD PhD Abdominal pain (Primary Dx); Perforated duodenal ulcer (CMS/HCC) (HCC); Intra-abdominal fluid collection Discharge Disposition: Discharge to home or self care 03/30/2024 Documentation [facility] [address] 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; Outcome: Unknown sex Family History Medical History Relation Name Comments Hyperlipidemia Father hypercholeste rolemia; Hypertension Father Hypertension; Heart attack Maternal Grandfather Myocard ial infarction; Hyperlipidemia Mother hypercholeste rolemia; Heart attack Paternal Grandmother Myocard ial infarction; Relation Name Status Comments Father Maternal Grandfather Mother Paternal Grandmother Social History Tobacco Use Types Packs/Day Years [...] on file Legal Sex Female 10:51 AM PICKING MACHINE OPERATOR Gender Identity Not on file Sexual Orientation Not on file Obstetrics History Last Filed Vital Signs Vital Sign Reading Time Taken Comments Blood Pressure 127/91 04/13/2024 10:00 AM PICKING MACHINE OPERATOR Pulse 94 04/13/2024 10:00 AM PICKING MACHINE OPERATOR Temperature 36.9 ??C (98.4 ??F) 04/13/2024 10:[address] Respiratory Rate 16 04/03/2024 11:40 AM PICKING MACHINE OPERATOR Oxygen Saturation 99% 04/13/2024 10:00 AM PICKING MACHINE OPERATOR Inhaled Oxygen Concentration - - Weight 67.7 kg (149 lb 4.8 oz) 04/13/2024 10:00 AM PICKING MACHINE OPERATOR Height 160 cm (5' 3 ) 04/13/2024 10:00 AM PICKING MACHINE OPERATOR Body Mass Index 26.45 04/13/2024 10:00 AM PICKING MACHINE OPERATOR Plan of Treatment Health Maintenance Due Date Last Done Comments Cervical Cancer Screening 1984 Depression Screening 1984 Hepatitis C Screening 1984 Varicella Vaccines (1 of 2 - 13+ 2-dose series) 1997 Hepatitis B Screening 2002 Regular Well Visit/Exam 18-64 2002 DTaP/Tdap/Td Vaccine (2 - Td or Tdap) 06/12/2022 06/12/2012 Covid-19 Vaccine (4 - 2023-2 5 season) 2023 04/24/2021, 11/08/2020, 10/11/2020 Influenza Vaccine (#1) 2023 01/09/2018 HPV Vaccines Aged Out No longer eligi ble based on patient's age to complete this topic Pneumococcal vaccine <65 Aged Out No longer eligible based on patient's age to complete this topic Procedures Procedure Name Priority Date/Time Associated Diagnosis Comments CT ABDOMEN PELVIS W CONTRAST Schedule Routine, Read Routine (OP Routine) 04/12/2024 2:55 PM PICKING MACHINE OPERATOR Perforated duodenal ulcer (CMS/HCC) (HCC) EGFR Routine 04/02/2024 9:14 PM PICKING MACHINE OPERATOR BASIC METABOLIC PANEL Routine 04/02/2024 9:14 PM PICKING MACHINE OPERATOR CBC WITHOUT DIFFERENTIAL Routine 04/02/2024 9:14 PM PICKING MACHINE OPERATOR MAGNESIUM Routine 04/02/2024 9:14 PM PICKING MACHINE OPERATOR PHOSPHORUS Routine 04/02/2024 9:14 PM PICKING MACHINE OPERATOR EGFR Routine 04/01/2024 8:54 PM PICKING MACHINE OPERATOR BASIC METABOLIC PANEL Routine 04/01/2024 8:54 PM PICKING MACHINE OPERATOR CBC WITHOUT DIFFERENTIAL Routine 04/01/2024 8:54 PM PICKING MACHINE OPERATOR MAGNESIUM Routine 04/01/2024 8:54 PM PICKING MACHINE OPERATOR PHOSPHORUS Routine 04/01/2024 8:54 PM PICKING MACHINE OPERATOR MRI ABDOMEN MRCP W WO CONTRAST INCL 3D (C) IP Routine 04/01/2024 2:33 PM PICKING MACHINE OPERATOR EGFR Routine 03/31/2024 9:01 PM PICKING MACHINE OPERATOR BASIC METABOLIC PANEL Routine 03/31/2024 9:01 PM PICKING MACHINE OPERATOR CBC WITHOUT DIFFERENTIAL Routine 03/31/2024 9:01 PM PICKING MACHINE OPERATOR MAGNESIUM Routine 03/31/2024 9:01 PM PICKING MACHINE OPERATOR PHOSPHORUS Routine 03/31/2024 9:01 PM PICKING MACHINE OPERATOR ALBUMIN Routine 03/31/2024 9:01 PM PICKING MACHINE OPERATOR PREALBUMIN Routine 03/31/2024 9:01 PM PICKING MACHINE OPERATOR FL UPPER GI SERIES, SINGLE CONTRAST ED Urgent/IP Urgent 03/31/2024 9:37 AM PICKING MACHINE OPERATOR URINALYSIS, MICROSCOPIC ONLY STAT 03/31/2024 5:06 AM PICKING MACHINE OPERATOR URINALYSIS AND REFLEX TO MICROSCOPIC AND CULTURE STAT 03/31/2024 5:06 AM PICKING MACHINE OPERATOR SC CRITICAL CARE ILL/INJURED PATIENT INIT 30-74 MIN Routine 03/30/2024 11:00 PM PICKING MACHINE OPERATOR XR ABDOMEN AP 1 VIEW ED Urgent/IP Urgent 03/30/2024 10:47 [address]ING MACHINE OPERATOR CT BODY OUTSIDE CONSULT Routine 03/30/2024 8:13 PM PICKING MACHINE OPERATOR B CHECK SAMPLE STAT 03/30/2024 7:21 PM PICKING MACHINE OPERATOR LIPASE STAT 03/30/2024 6:51 PM PICKING MACHINE OPERATOR XR CHEST 1 VIEW ED 03/30/2024 6:47 PM PICKING MACHINE OPERATOR APTT STAT 03/30/2024 6:41 PM PICKING MACHINE OPERATOR PROTIME-INR STAT 03/30/2024 6:41 PM PICKING MACHINE OPERATOR TYPE AND SCREEN STAT 03/30/2024 6:41 PM PICKING MACHINE OPERATOR BLOOD GAS, VENOUS STAT 03/30/2024 6:4 1 PM PICKING MACHINE OPERATOR BLOOD CULTURE STAT 03/30/2024 6:41 PM PICKING MACHINE OPERATOR BLOOD CULTURE STAT 03/30/2024 6:41 PM PICKING MACHINE OPERATOR POCT LACTATE - DEVICE Routine 03/30/2024 6:26 PM PICKING MACHINE OPERATOR EGFR STAT 03/30/2024 6:20 PM PICKING MACHINE OPERATOR DIFFERENTIAL AUTO STAT 03/30/2024 6:2 0 PM PICKING MACHINE OPERATOR COMPREHENSIVE METABOLIC PANEL STAT 03/30/2024 6:20 PM PICKING MACHINE OPERATOR CBC WITH AUTO DIFFERENTIAL STAT 03/30/2024 6:20 PM PICKING MACHINE OPERATOR from Last 3 Months Results * CT Abdomen Pelvis W Contrast (04/12/2024 2:55 PM PICKING MACHINE OPERATOR) Anatomical Region Laterality Modality Body N/A Computed Tomogra phy 04/12/2024 3:12 PM PICKING MACHINE OPERATOR Impressions 04/12/2024 3:26 PM PICKING MACHINE OPERATOR Interval decrease in size and stranding of [...] Carlos Hughes M.D. Narrative 04/12/2024 3:26 PM PICKING MACHINE OPERATOR EXAMINATION: ??Computed tomography of the abdomen and [...] by: Jose Carlos Hughes M.D. Evelin Gonzalez DYNAMOMETER TUNER IMG CT PROCEDURES Final Re sult * eGFR (04/02/2024 9:14 PM PICKING MACHINE OPERATOR) eGFR >90 >=60 mL/min/1. 73 m2 Comment: [...] last reviewed 2021. Blood 04/02/2024 9:14 PM PICKING MACHINE OPERATOR 04/02/2024 9:36 PM PICKING MACHINE OPERATOR Radames Quick MD LAB BLOOD ORDERABLES Fin al Result [facility] [address] [facility] [place] [address] * CBC without differential (04/02/2024 9:14 PM PICKING MACHINE OPERATOR) [facility] WBC 6.9 3.8 - 9.9 K/cumm Hgb 12.5 11.9 - 15.5 g/dL [facility] Hct 37.4 35.6 - 45.5 % [facility] Plt 271 150 - 400 K/cumm [facility] MPV 9.7 9.1 - 12.3 fL [facility] RBC 4.22 3.90 - 5.20 M/cumm [facility] MCV 88.6 81.3 - 96.4 fL [facility] MCH 29.6 27.1 - 33.3 pg [facility] MCHC 33.4 32.3 - 35.7 g/dL [facility] RDW CV 12.5 11.1 - 14.9 % [facility] RDW SD 40.3 35.7 - 48.1 fL [facility] NRBC abs 0.00 0.00 - 0.01 K/cumm [facility] Blood 04/02/2024 9:14 PM PICKING MACHINE OPERATOR 04/02/2024 9:37 PM PICKING MACHINE OPERATOR Radames Quick MD LAB BLOOD ORDERABLES Fin al Result Performing Organization Address [facility] de Phone Number [facility] [place] [address] * Phosphorus (04/02/2024 9:14 PM PICKING MACHINE OPERATOR) Phosphorus, pl 3.3 2.3 - 4.5 mg/dL Blood 04/02/2024 9:14 PM PICKING MACHINE OPERATOR 04/02/2024 9:36 PM PICKING MACHINE OPERATOR Radames Quick MD LAB BLOOD ORDERABLES Fin al Result Performing Organization Address [facility] de Phone Number [facility] [place] [address] * Magnesium (04/02/2024 9:14 PM PICKING MACHINE OPERATOR) Magnesium 2.1 1.4 - 2.5 mg/dL Blood 04/02/2024 9:14 PM PICKING MACHINE OPERATOR 04/02/2024 9:36 PM PICKING MACHINE OPERATOR Radames Quick MD LAB BLOOD ORDERABLES Fin al Result Performing Organization Address City/[facility] Co de Phone Number [facility] [place] [address] * (ABNORMAL) Basic metabolic panel (04/02/2024 9:14 PM PICKING MACHINE OPERATOR) Pathologist [facility] Sodium 138 135 - 145 mmol/L Potassium, pl 3.3 3.3 - 4.9 mmol/L [facility] Chloride 103 97 - 110 mmol/L [facility] CO2 27 22 - 32 mmol/L [facility] Anion gap 8 2 - 15 mmol/L [facility] BUN 2(L) 6 - 25 mg/dL [facility] Creatinine 0.51(L) 0.60 - 1.10 mg/dL [facility] Glucose 100 70 - 199 mg/dL [facility] Comment: Interpretive Data Fasting glucose >/= 126 [...] classification and Diagnosis of Diabetes Diabetes Care 202; 46: S19-S40. Current interpretive data was last revised 2022. Calcium 9.2 8.5 - 10.3 mg/dL [facility] Blood 04/02/2024 9:14 PM PICKING MACHINE OPERATOR 04/02/2024 9:36 PM PICKING MACHINE OPERATOR us Radames Quick MD LAB BLOOD ORDERABLES Fin al Result Performing Organization Address [facility] Co de Phone Number [facility] [place] [address] * eGFR (04/01/2024 8:54 PM PICKING MACHINE OPERATOR) [facility] eGFR >90 >=60 mL/min/1. 73 m2 Comment: [...] last reviewed 2021. Blood 04/01/2024 8:54 PM PICKING MACHINE OPERATOR 04/01/2024 9:52 PM PICKING MACHINE OPERATOR Radames Quick MD LAB BLOOD ORDERABLES Fin al Result Performing Organization Address City/State/[facility] Co de Phone Number [facility] [place] [address] * (ABNORMAL) CBC without differential (04/01/2024 8:54 PM PICKING MACHINE OPERATOR) WBC 9.1 3.8 - 9.9 K/cumm Hgb 11.7(L) 11.9 - 15.5 g/dL [facility] Hct 35.4(L) 35.6 - 45.5 % [facility] Plt 231 150 - 400 K/cumm [facility] MPV 10.4 9.1 - 12.3 fL [facility] RBC 3.97 3.90 - 5.20 M/cumm [facility] MCV 89.2 81.3 - 96.4 fL [facility] MCH 29.5 27.1 - 33.3 pg [facility] MCHC 33.1 32.3 - 35.7 g/dL [facility] RDW CV 12.4 11.1 - 14.9 % [facility] RDW SD 40.7 35.7 - 48.1 fL [facility] NRBC abs 0.00 0.00 - 0.01 K/cumm [facility] Blood 04/01/2024 8:54 PM PICKING MACHINE OPERATOR 04/01/2024 9:50 PM PICKING MACHINE OPERATOR Radames Quick MD LAB BLOOD ORDERABLES Fin al Result Performing Organization Address City/[facility] Co de Phone Number [facility] [place] [address] * (ABNORMAL) Phosphorus (04/01/2024 8:54 PM PICKING MACHINE OPERATOR) Phosphorus, pl 2.0(L) 2.3 - 4.5 mg/dL Blood 04/01/2024 8:54 PM PICKING MACHINE OPERATOR 04/01/2024 9:52 PM PICKING MACHINE OPERATOR Radames Quick MD LAB BLOOD ORDERABLES Fin al Result Performing Organization Address [facility] Co de Phone Number [facility] [place] [address] * Magnesium (04/01/2024 8:54 PM PICKING MACHINE OPERATOR) Magnesium 2.1 1.4 - 2.5 mg/dL Blood 04/01/2024 8:54 PM PICKING MACHINE OPERATOR 04/01/2024 9:52 PM PICKING MACHINE OPERATOR Radames Quick MD LAB BLOOD ORDERABLES Fin al Result Performing Organization Address City/[facility] Co de Phone Number [facility] [place] [address] * (ABNORMAL) Basic metabolic panel (04/01/2024 8:54 PM PICKING MACHINE OPERATOR) Sodium 138 135 - 145 mmol/L Potassium, pl 3.3 3.3 - 4.9 mmol/L [facility] Chloride 102 97 - 110 mmol/L [facility] CO2 26 22 - 32 mmol/L [facility] Anion gap 10 2 - 15 mmol/L [facility] BUN 4(L) 6 - 25 mg/dL [facility] Creatinine 0.52(L) 0.60 - 1.10 mg/dL [facility] Glucose 116 70 - 199 mg/dL [facility] Comment: Interpretive Data Fasting glucose >/= 126 [...] 2022. Calcium 8.5 8.5 - 10.3 mg/dL [facility] Blood 04/01/2024 8:54 PM PICKING MACHINE OPERATOR 04/01/2024 9:52 PM PICKING MACHINE OPERATOR us Radames Quick MD LAB BLOOD ORDERABLES Fin al Result [facility] [place] [address] * MRI Abdomen MRCP W WO Contrast Incl 3D (04/01/2024 2:33 PM PICKING MACHINE OPERATOR) Anatomical Region Laterality Modality Body N/A Magnetic Resonan ce 04/02/2024 8:51 AM PICKING MACHINE OPERATOR Impressions 04/02/2024 11:34 AM PICKING MACHINE OPERATOR Unchanged 4 cm fluid and gas collection [...] Edgar Schaffer M.D. Narrative 04/02/2024 11:34 AM PICKING MACHINE OPERATOR EXAMINATION: 1. MAGNETIC RESONANCE IMAGING OF THE [...] it. Electronically signed by: Edgar Schaffer M.D. Evelin Gonzalez DYNAMOMETER TUNER IMG MRI PROCEDURES Final R esult * eGFR (03/31/2024 9:01 PM PICKING MACHINE OPERATOR) eGFR >90 >=60 mL/min/1. 73 m2 Comment: [...] of Race in Diagnosing Kidney Disease, JASN 202). The CKD-EPI equation should not be used for patients with unstable renal function and has not been validated in children and those over 70. Current interpretive data was last reviewed 2021. Blood 03/31/2024 9:01 PM PICKING MACHINE OPERATOR 03/31/2024 9:53 PM PICKING MACHINE OPERATOR Radames Quick MD LAB BLOOD ORDERABLES Fin al Result [facility] [place] [address] * (ABNORMAL) CBC without differential (03/31/2024 9:01 PM PICKING MACHINE OPERATOR) WBC 11.9(H) 3.8 - 9.9 K/cumm Hgb 11.5(L) 11.9 - 15.5 g/dL [facility] Hct 35.3(L) 35.6 - 45.5 % [facility] Plt 194 150 - 400 K/cumm [facility] MPV 10.1 9.1 - 12.3 fL [facility] RBC 3.81(L) 3.90 - 5.20 M/cumm [facility] MCV 92.7 81.3 - 96.4 fL [facility] MCH 30.2 27.1 - 33.3 pg [facility] MCHC 32.6 32.3 - 35.7 g/dL [facility] RDW CV 12.6 11.1 - 14.9 % [facility] RDW SD 43.0 35.7 - 48.1 fL [facility] NRBC abs 0.00 0.00 - 0.01 K/cumm [facility] Blood 03/31/2024 9:01 PM PICKING MACHINE OPERATOR 03/31/2024 9:59 PM PICKING MACHINE OPERATOR Radames Quick MD LAB BLOOD ORDERABLES Fin al Result Performing Organization Address [facility] Co de Phone Number [facility] [employer] [place], [place] [id number] * (ABNORMAL) Prealbumin (03/31/2024 9:01 PM PICKING MACHINE OPERATOR) Prealbumin 8.0(L) 20.0 - 40.0 mg/dL Blood 03/31/2024 9:01 PM PICKING MACHINE OPERATOR 03/31/2024 9:55 PM PICKING MACHINE OPERATOR Evelin Gonzalez NP LAB BLOOD ORDERABLES Final Result Performing Organization Address [facility] [place] [address] * (ABNORMAL) Phosphorus (03/31/2024 9:01 PM PICKING MACHINE OPERATOR) Phosphorus, pl 2.1(L) 2.3 - 4.5 mg/dL Blood 03/31/2024 9:01 PM PICKING MACHINE OPERATOR 03/31/2024 9:53 PM PICKING MACHINE OPERATOR Radames Quick MD LAB BLOOD ORDERABLES Fin al Result Performing Organization Address [facility] Co de Phone Number [facility] [place] [address] * Magnesium (03/31/2024 9:01 PM PICKING MACHINE OPERATOR) Magnesium 1.9 1.4 - 2.5 mg/dL Blood 03/31/2024 9:01 PM PICKING MACHINE OPERATOR 03/31/2024 9:53 PM PICKING MACHINE OPERATOR Radames Quick MD LAB BLOOD ORDERABLES Fin al Result Performing Organization Address [facility] Co de Phone Number [facility] [place], [place] [id number] * (ABNORMAL) Albumin (03/31/2024 9:01 PM PICKING MACHINE OPERATOR) Pathologist [facility] Albumin 3.0(L) 3.5 - 5.0 g/dL Blood 03/31/2024 9:01 PM PICKING MACHINE OPERATOR 03/31/2024 9:53 PM PICKING MACHINE OPERATOR us Evelin Gonzalez NP LAB BLOOD ORDERABLES Final Result [facility] [place] [address] * (ABNORMAL) Basic metabolic panel (03/31/2024 9:01 PM PICKING MACHINE OPERATOR) Pathologist [facility] Sodium 138 135 - 145 mmol/L Potassium, pl 3.7 3.3 - 4.9 mmol/L [facility] Chloride 105 97 - 110 mmol/L [facility] CO2 25 22 - 32 mmol/L [facility] Anion gap 8 2 - 15 mmol/L [facility] BUN 7 6 - 25 mg/dL [facility] Creatinine 0.55(L) 0.60 - 1.10 mg/dL [facility] Glucose 114 70 - 199 mg/dL [facility] Comment: Interpretive Data Fasting glucose >/= 126 [...] 2022. Calcium 8.1(L) 8.5 - 10.3 mg/dL [facility] Blood 03/31/2024 9:01 PM PICKING MACHINE OPERATOR 03/31/2024 9:53 PM PICKING MACHINE OPERATOR us Radames Quick MD LAB BLOOD ORDERABLES Fin al Result [facility] [place] [address] * FL Upper GI Series, Single Contrast (03/31/2024 9:37 AM PICKING MACHINE OPERATOR) Anatomical Region Laterality Modality Body N/A Radio Fluoroscop y 03/31/2024 12:4 4 PM PICKING MACHINE OPERATOR Impressions 03/31/2024 12:46 PM PICKING MACHINE OPERATOR 1. No evidence of extraluminal contrast leak [...] Jacob Chavez M.D. Narrative 03/31/2024 12:46 PM PICKING MACHINE OPERATOR EXAMINATION: UPPER GASTROINTESTINAL EXAMINATION HISTORY: Concern for duodenal perforation, rule out ongoing leak TECHNIQUE: After a drive away driver radiograph was obtained, the patient was given water-soluble contrast and thin barium ??through her gastric tube, and multiple fluoroscopic and conventional overhead radiographs of the stomach and duodenum were obtained. FINDINGS: On the drive away driver radiograph, gastric tube with tip in the [...] rule out ongoing leak TECHNIQUE: After a drive away driver radiograph was obtained, the patient was given water-soluble contrast and thin barium through her gastric tube, and multiple fluoroscopic and conventional overhead radiographs of the stomach and duodenum were obtained. FINDINGS: On the drive away driver radiograph, gastric tube with tip in the [...] by: Jacob Chavez M.D. Evelin Gonzalez NP IMG FLUOROSCOPY PROCEDURES Final Result * (ABNORMAL) Urinalysis reflex to microscopic and culture Urine (03/31/2024 5:06 AM PICKING MACHINE OPERATOR) Color, ur Yellow Yellow Clarity, ur Clear Clear [facility] Specific gravity, ur 1.034(H) 1.003 - 1.030 [facility] pH, urine 6.0 [facility] Comment: Interpretive Data ? Urine pH is affected by diet, medications, systemic acid-base disturbances, and renal tubular function. ??pH may affect urinary stone formation. ??For example, urine pH below 6.0 may help reduce the tendency for calcium phosphate stones and pH greater than 6.0 may reduce the tendency for uric acid stone formation. Source: [employer] Current Interpretive Data was last revised on 2017 Protein, ur ql 1+(A) Negative [facility] Glucose, ur ql Trace(A) Negative [facility] Ketones, ur 2+(A) Negative [facility] Bilirubin, ur Negative Negative [facility] Blood, ur 3+(A) Negative [facility] Urobilinogen, ur <2.0 <2.0 mg/dL [facility] Nitrite, ur Negative Negative [facility] Leukocyte esterase, ur Negative Negative [facility] UA reflex comment Reflex to microscopic UA will be performed. [facility] Urine 03/31/2024 5:06 AM PICKING MACHINE OPERATOR 03/31/2024 5:19 AM PICKING MACHINE OPERATOR Narrative [facility] - 03/31/2024 5:24 AM PICKING MACHINE OPERATOR If patient unable to urinate, straight cath us Radames Quick MD LAB MICROBIOLOGY - GENER AL ORDERABLES Final Result Performing Organization Address [facility] de Phone Number [facility] [place] [address] * (ABNORMAL) Urinalysis, microscopic only (03/31/2024 5:06 AM PICKING MACHINE OPERATOR) WBC, ur 6-10(A) 0 - 5 /HPF RBC, ur 21-50(A) 0 - 2 /HPF [facility] Epithelial cells, squamous, ur 1-5 0 - 5 /HPF [facility] Bacteria, ur 1+(A) [facility] Yeast, ur [facility] Mucous, ur Present(A) [facility] Culture Reflex Comment Reflex conditions for urine culture (WBC >10) not met. [facility] Urine 03/31/2024 5:06 AM PICKING MACHINE OPERATOR 03/31/2024 5:18 AM PICKING MACHINE OPERATOR us Radames Quick MD LAB URINE ORDERABLES Fin al Result Performing Organization Address [facility] Co de Phone Number [facility] [place] [address] * [place] CRITICAL CARE ILL/INJURED PATIENT INIT 30-74 MIN (03/30/2024 11:00 PM PICKING MACHINE OPERATOR) Narrative Radames Quick MD - 03/30/2024 11:00 PM PICKING MACHINE OPERATOR Radames Quick MD ? 04/02/2024 ??9:50 AM [...] Abdomen Ap 1 Vw (03/30/2024 10:47 PM PICKING MACHINE OPERATOR) Anatomical Region Laterality Modality Body, Abdomen N/A Computed Radiogr aphy 03/30/2024 11:0 5 PM PICKING MACHINE OPERATOR Impressions 03/31/2024 10:31 AM PICKING MACHINE OPERATOR Interval placement of a gastric tube with [...] Deb Kingsley M.D. Narrative 03/31/2024 10:31 AM PICKING MACHINE OPERATOR EXAMINATION: Abdomen, one view. HISTORY: Tube check [...] CT Body Outside Consult (03/30/2024 8:13 PM PICKING MACHINE OPERATOR) Anatomical Region Laterality Modality Body N/A Computed Tomogra phy 03/30/2024 9:03 PM PICKING MACHINE OPERATOR Impressions 03/31/2024 10:39 AM PICKING MACHINE OPERATOR Contained perforation adjacent to the duodenum likely [...] images may or may not represent the [place] source data set and thus may contain changes that may lower the accuracy of this second-opinion interpretation. Dictated by: Rachell Orozco MD ??PHD The radiology attending physician has personally reviewed this study, and had reviewed and/or edited this written report and agrees with it. Electronically signed by: Deb Kingsley M.D. Narrative 03/31/2024 10:39 AM PICKING MACHINE OPERATOR EXAMINATION: RADIOLOGY CONSULTATION ON OUTSIDE IMAGING STUDY STUDY INITIALLY PERFORMED: 03/30/2024 at [facility]. TYPE OF STUDY: Multiple CT images [...] IMAGING STUDY STUDY INITIALLY PERFORMED: 03/30/2024 at [facility]. TYPE OF STUDY: Multiple CT images [...] images may or may not represent the [place] source data set and thus may contain [...] Result * Check Sample (03/30/2024 7:21 PM PICKING MACHINE OPERATOR) ABO Rh A Positive [facility] OTHER 03/30/2024 7:21 PM PICKING MACHINE OPERATOR 03/30/2024 7:29 PM PICKING MACHINE OPERATOR Radames Quick MD LAB BLOOD ORDERABLES Fin al Result [facility] [place] [address] [facility] * Lipase (03/30/2024 6:51 PM PICKING MACHINE OPERATOR) Pathologist [facility] Lipase 32 10 - 99 Units/L Comment:Hemolyzed; result ma y be falsely decreased Blood 03/30/2024 6:51 PM PICKING MACHINE OPERATOR 03/30/2024 7:19 PM PICKING MACHINE OPERATOR us Jenny Avila MD LAB BLOOD ORDERABLES Final Res ult [facility] [place] [address] * XR Chest 1 View (03/30/2024 6:47 PM PICKING MACHINE OPERATOR) Anatomical Region Laterality Modality Body, Chest N/A Computed Radiogr aphy 03/30/2024 7:29 PM PICKING MACHINE OPERATOR Impressions 03/30/2024 8:00 PM PICKING MACHINE OPERATOR There is no pulmonary consolidation, pleural effusion, or pneumothorax. ??The cardiomediastinal silhouette is within normal limits. Dictated by: Dion Zhang MD The radiology attending physician has personally reviewed this study, and had reviewed and/or edited this written report and agrees with it. Electronically signed by: Shannon Romo M.D. Narrative 03/30/2024 8:00 PM PICKING MACHINE OPERATOR EXAMINATION: XR CHEST 1 VIEW HISTORY: Fever [...] Blood culture Blood Peripheral (03/30/2024 6:41 PM PICKING MACHINE OPERATOR) Report Final Report: No growth Blood (Peripheral) 03/30/2024 6:41 PM PICKING MACHINE OPERATOR 03/30/2024 6:58 PM PICKING MACHINE OPERATOR Narrative [facility] - 04/04/2024 7:00 AM PICKING MACHINE OPERATOR From a different site than #1. Draw [...] performance characteristics have been verified by the [facility] Microbiology Laboratory. For questions about this culture, contact the Microbiology Laboratory at [phone]. Interpretive data was last revised on 24. Jenny Avila MD LAB MICROBIOLOGY - GENERAL ORD ERABLES Final Result [facility] [place] [address] * Blood culture Blood Peripheral (03/30/2024 6:41 PM PICKING MACHINE OPERATOR) Report Final Report: No growth Blood (Peripheral) 03/30/2024 6:41 PM PICKING MACHINE OPERATOR 03/30/2024 6:57 PM PICKING MACHINE OPERATOR Narrative [facility] - 04/04/2024 7:00 AM PICKING MACHINE OPERATOR Draw Blood cultures before administration of Antibiotics [...] performance characteristics have been verified by the [facility] Microbiology Laboratory. For questions about this culture, contact the Microbiology Laboratory at [phone]. Interpretive data was last revised on 24. Jenny Avila MD LAB MICROBIOLOGY - GENERAL ORD ERABLES Final Result Performing Organization Address [facility] Co de Phone Number [facility] [place] [address] * aPTT (03/30/2024 6:41 PM PICKING MACHINE OPERATOR) aPTT 30 28 - 38 sec Comment: Interpretive Data Heparin therapeutic range: 66.0 - 100.0 seconds. Range based on correlation with therapeutic heparin activity range of 0.3 - 0.7 Units/mL. Current interpretive data was last revised on 2023. Blood 03/30/2024 6:41 PM PICKING MACHINE OPERATOR 03/30/2024 6:58 PM PICKING MACHINE OPERATOR Jenny Avila MD LAB BLOOD ORDERABLES Final Res ult Performing Organization Address City/[facility] Co de Phone Number [facility] [place] [address] * (ABNORMAL) Protime-INR (03/30/2024 6:41 PM PICKING MACHINE OPERATOR) Pathologist [facility] PT 17.8(H) 9.7 - 13.0 sec INR 1.63(H) 0.90 - 1.20 [facility] Comment: Interpretive data Oral anticoagulant therapeutic ranges: Venous thromboembolism prophylaxis or treatment: 2.0-3.0 CARDIOLOGY Standard range: 2.0-3.0 High-intensity range: 2.5-3.5 Refer to indication-specific guidelines for appropriate target ranges for prosthetic heart valve replacement. Current interpretive data was last revised on 2019. Blood 03/30/2024 6:41 PM PICKING MACHINE OPERATOR 03/30/2024 6:58 PM PICKING MACHINE OPERATOR Jenny Avila MD LAB BLOOD ORDERABLES Final Res ult Performing Organization Address City/[facility]/ZIP Co de Phone Number [facility] [place] [address] * Type and screen (03/30/2024 6:41 PM PICKING MACHINE OPERATOR) Pathologist [facility], indirect Negative ABO Rh A Positive [facility] Blood 03/30/2024 6:41 PM PICKING MACHINE OPERATOR 03/30/2024 7:00 PM PICKING MACHINE OPERATOR Narrative [facility] - 03/30/2024 8:05 PM PICKING MACHINE OPERATOR Has the patient had Daratumumab or Isatuximab in the past 6 months?->Unknown Jenny Avila MD LAB BLOOD BANK TEST ORDERABLES Final Result Performing Organization Address City/[facility]/ZIP Co de Phone Number [facility] [place] [address] * Blood gas, venous (03/30/2024 6:41 PM PICKING MACHINE OPERATOR) Pathologist [facility] pH, Venous 7.37 7.32 - 7.43 PCO2, Venous 44 40 - 50 mmHg [facility] PO2, Venous 31 mmHg [facility] Comment: Interpretive Data No Reference Range Established Current Interpretive Data was last revised on 2017. HCO3 Venous, Calculated 26 20 - 30 mmol/L [facility] BE, venous 0 mmol/L [facility] Comment: Interpretive Data No Reference Range Established Current Interpretive Data was last revised on 2017. Blood 03/30/2024 6:41 PM PICKING MACHINE OPERATOR 03/30/2024 6:53 PM PICKING MACHINE OPERATOR us Jenny Avila MD LAB BLOOD ORDERABLES Final Res ult Performing Organization Address City/[facility]/ZIP Co de Phone Number [facility] [place] [address] * POCT lactate (03/30/2024 6:26 PM PICKING MACHINE OPERATOR) [facility] Lactate POC i-STAT 0.8 0.7 - 2.2 mmol/L Blood 03/30/2024 6:26 PM PICKING MACHINE OPERATOR 03/30/2024 6:26 PM PICKING MACHINE OPERATOR us Markel Solis MD LAB POCT ORDERABLES - BEATRIZ CE Final Result Performing Organization Address [facility] Co de Phone Number [facility] [place] [address] * eGFR (03/30/2024 6:20 PM PICKING MACHINE OPERATOR) Pathologist [facility] eGFR >90 >=60 mL/min/1. 73 m2 Comment: [...] last reviewed 2021. Blood 03/30/2024 6:20 PM PICKING MACHINE OPERATOR 03/30/2024 6:46 PM PICKING MACHINE OPERATOR us Ronaldo Leyva MD LAB BLOOD ORDERABLES Final R esult [facility] [place] [address] * (ABNORMAL) Differential, auto (03/30/2024 6:20 PM PICKING MACHINE OPERATOR) Neutrophil abs 11.5(H) 1.5 - 6.5 K/cumm Imm gran abs 0.0 0.0 - 0.1 K/cumm [facility] Lymphocyte abs 0.3(L) 0.8 - 3.3 K/cumm [facility] Monocyte abs 0.5 0.2 - 0.8 K/cumm [facility] Eosinophil abs 0.0 0.0 - 0.5 K/cumm [facility] Basophil abs 0.0 0.0 - 0.1 K/cumm [facility] Neutrophil pct 93.9 % [facility] Comment: Interpretive Data Percent cell count reference ranges are not reported, since discordance with absolute values may lead to misinterpretation of CBC data. Current Interpretive Data was last revised on 2017. Imm gran pct 0.2 % [facility] Comment: Interpretive Data Percent cell count reference ranges are not reported, since discordance with absolute values may lead to misinterpretation of CBC data. Current Interpretive Data was last revised on 2017. Lymphocyte pct 2.1 % [facility] Comment: Interpretive Data Percent cell count reference ranges are not reported, since discordance with absolute values may lead to misinterpretation of CBC data. Current Interpretive Data was last revised on 2017. Monocyte pct 3.7 % [facility] Comment: Interpretive Data Percent cell count reference ranges are not reported, since discordance with absolute values may lead to misinterpretation of CBC data. Current Interpretive Data was last revised on 2017. Eosinophil pct 0.0 % [facility] Comment: Interpretive Data Percent cell count reference ranges are not reported, since discordance with absolute values may lead to misinterpretation of CBC data. Current Interpretive Data was last revised on 2017. Basophil pct 0.1 % [facility] Comment: Interpretive Data Percent cell count reference ranges are not reported, since discordance with absolute values may lead to misinterpretation of CBC data. Current Interpretive Data was last revised on 2017. Blood 03/30/2024 6:20 PM PICKING MACHINE OPERATOR 03/30/2024 6:47 PM PICKING MACHINE OPERATOR us Ronaldo Leyva MD LAB BLOOD ORDERABLES Final R esult [facility] [place] [address] * (ABNORMAL) CBC with auto differential (03/30/2024 6:20 PM PICKING MACHINE OPERATOR) WBC 12.3(H) 3.8 - 9.9 K/cumm Hgb 12.8 11.9 - 15.5 g/dL [facility] Hct 38.7 35.6 - 45.5 % [facility] Plt 226 150 - 400 K/cumm [facility] MPV 10.0 9.1 - 12.3 fL [facility] RBC 4.38 3.90 - 5.20 M/cumm [facility] MCV 88.4 81.3 - 96.4 fL [facility] MCH 29.2 27.1 - 33.3 pg [facility] MCHC 33.1 32.3 - 35.7 g/dL [facility] RDW CV 12.5 11.1 - 14.9 % [facility] RDW SD 40.8 35.7 - 48.1 fL [facility] NRBC abs 0.00 0.00 - 0.01 K/cumm [facility] Blood 03/30/2024 6:20 PM PICKING MACHINE OPERATOR 03/30/2024 6:47 PM PICKING MACHINE OPERATOR us Radames Quick MD LAB BLOOD ORDERABLES Fin al Result [facility] [place] [address] * (ABNORMAL) Comprehensive metabolic panel (03/30/2024 6:20 PM PICKING MACHINE OPERATOR) Sodium 139 135 - 145 mmol/L Potassium, pl 3.8 3.3 - 4.9 mmol/L [facility] Chloride 105 97 - 110 mmol/L [facility] CO2 24 22 - 32 mmol/L [facility] Anion gap 10 2 - 15 mmol/L [facility] BUN 7 6 - 25 mg/dL [facility] Creatinine 0.56(L) 0.60 - 1.10 mg/dL [facility] Glucose 137 70 - 199 mg/dL [facility] Comment: Interpretive Data Fasting glucose >/= 126 [...] 2022. Calcium 7.9(L) 8.5 - 10.3 mg/dL [facility] Bilirubin, total 0.4 0.1 - 1.2 mg/dL [facility] Protein, pl 6.6 6.5 - 8.5 g/dL [facility] Albumin 3.7 3.5 - 5.0 g/dL [facility] Alk phos 73 40 - 130 Units/L [facility] ALT 15 7 - 45 Units/L [facility] AST 21 10 - 45 Units/L [facility] Blood 03/30/2024 6:20 PM PICKING MACHINE OPERATOR 03/30/2024 6:46 PM PICKING MACHINE OPERATOR us Radames Quick MD LAB BLOOD ORDERABLES Fin al Result [facility] [place] [address] from Last 3 Months Insurance [facility] [employer] SIGNATURE [employer] SIG [id number] [facility] [employer] SIGNATURE Advance Directives For more information, please contact: [phone] * Full Code (Latest Code Status on File) Date Activated Date Inactivated Comments 03/31/2024 12:09 AM 04/03/2024 7:32 PM Care Teams Unloading Checker Relationship Specialty Start Date End Date No, Physician PCP - General 06/20/18
--- OUTSIDE RECORDS SUMMARY | 2024-04-21 11:55 | XMS_ITS | Encounter Summary ---
Author Organization 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
--- OUTSIDE RECORDS SUMMARY | 2024-04-21 11:55 | XMS_ITS | Encounter Summary ---
Author Organization [facility] Healthcare Address [address] [place] [address] Care Team Providers Care Electoral Officer Name Role Phone No, Physician Primary Care Provider [phone] Reason for Referral * MRI/CAT/PET Scan (Routine) - Closed Specialty Diagnoses / Procedures Referred By Contac t Referred To Contact Radiology Diagnoses Perforated duodenal ulcer (CMS/HCC) (HCC) Procedures CT Abdomen Pelvis W Contrast Evelin Gonzalez NP [address] [facility] [phone] [place] [address] Phone: tel: fax: [address] [phone] Referral ID Status Reason Start Date Expiration Date Visits Re quested Visits Authorized [id number] Closed 04/05/2024 07/02/2024 1 1 RAISER Reason for Visit * Reason Comments Abdominal Pain * Auth/Cert (Routine) Specialty Diagnoses / Procedures Referred By Contac t Referred To Contact Diagnoses Abdominal pain Perforated duodenal ulcer (CMS/HCC) (HCC) duodenal abscess Procedures NA Referral ID Status Reason Start Date Expiration Date Visits Re quested Visits Authorized [id number] 1 1 Encounter Details Date Type Department Care Team (Latest Contact Info) Description 03/30/2024 6:29 PM FUND RAISER - 04/03/2024 3:27 PM FUND RAISER Hospital Encounter [address] [phone] Radames Quick MD [address] [place] [address] Nguyễn Melgar MD PhD [address] [facility] [phone] [place] [address] Abdominal pain (Primary Dx); Perforated duodenal ulcer [...] on file Legal Sex Female 10:51 AM FUND RAISER Gender Identity Not on file Sexual Orientation Not on file documented as of this encounter Last Filed Vital Signs Vital Sign Reading Time Taken Comments Blood Pressure 122/71 04/03/2024 11:40 AM FUND RAISER Pulse 94 04/03/2024 11:40 AM FUND RAISER Temperature 37.1 ??C (98.8 ??F) 04/03/2024 11:[address] Respiratory Rate 16 04/03/2024 11:40 AM FUND RAISER Oxygen Saturation 100% 04/03/2024 11:40 AM FUND RAISER Inhaled Oxygen Concentration - - Weight 69.4 kg (153 lb) 04/03/2024 1:16 AM FUND RAISER Height 160 cm (5' 2.99 ) 04/03/2024 1:16 AM FUND RAISER Body Mass Index 27.11 04/03/2024 1:16 AM FUND RAISER documented in this encounter Discharge Summaries * Evelin Gonzalez NP - 04/03/2024 3:27 PM CST Images from the original note were not included. [facility] Emergency General Surgery Service Inpatient Discharge Summary This is a clinical resume for patient Romelia San for attending Nguyễn Melgar* Admission Date: 03/30/2024 Admitting Provider: Nguyễn Melgar MD PhD Discharge Date: 04/03/2024 Hospitalization: Total duration of encounter: 4 days Team: Acute Care Surgery Primary Care Provider: Nicole, Physician History of Present Illness: 38 y.o. female with h/o depression presented to ED as OSH transfer (Bob) for further evaluation of possible perforated duodenum. Patient presented to OSH with h/o 2d abdominal pain preceded by aviral intestinal illness. CT c/w duodenal perforation. IV abx initiated and NGT placed in ED. MRCP to r/o anomalous anatomy consistent with perforated duodenal diverticulum. Diet advanced and tolerated well. Discharged with PO abx and plans for outpatient CT and GI referral at follow up pending review of imaging. Discharge Diagnosis(es): Abdominal pain Secondary Discharge Diagnosis: Principal Problem: Abdominal pain Active Problems: Intra-abdominal fluid collection Encounter for medication review Discharge planning issues Depression Resolved Problems: No resolved hospital problems. Active Issues Requiring Follow Up: - f/u previously established provider for management of underlying medical conditions - DC with BID PPI x4w, f/u with PCP or GI for ongoing management iso perforated diverticulum - CT 04/12/24 as scheduled - [facility] appt to follow CT on 04/13 or 04/16 pending scheduling availability, patient will be notified; plan to discuss CT, abx duration and GI referral - continue abx until scan completed and reviewed by [facility] Hospital Course: Depression Assessment & Plan - home regimen: auvality (non-formulary) --- 03/31 not a candidate for po intake at this time, pharmacy to verify home medication and patient can take own supply once cleared for PO intake 04/01 ok to resume to avoid withdrawal symptoms --- f/u with previously established provider for ongoing management Discharge planning issues Assessment & Plan 03/31 functionally independent at baseline, anticipate return to home without needs once medically stable; ADD tom vs Tuesday pending further imaging studies 04/01 barrier to discharge: MRCP, po tolerance; ADD Tuesday v Monday 04/02 barrier to discharge: PO tolerance, ADD tomorrow 04/03 Patient is medically stable for discharge Encounter for medication review Assessment & Plan 03/31 home medications reviewed with patient and updated in ADMISSIONS tab Intra-abdominal fluid collection Assessment & Plan 03/30 presented to OSH with abd pain, recent intestinal viral illness x2d which preceded abd pain, OSH imaging suggestive of perforated duodenal diverticulum vs duodenitis vs perforated ulcer, transferred to [facility] for further evaluation and management, arrived [...] diverticulum --- CT 04/12/24 as scheduled --- [facility] appt to follow CT on 04/13 or 04/16 pending scheduling availability, patient will be notified; plan to discuss CT, abx duration and GI referral --- continue abx until scan completed and reviewed by [facility] CULTURES 03/30 blood: NGTD ANTIBIOTICS 03/30-04/02 Erta 04/03-04/13 Augmentin * Abdominal pain Assessment & Plan 03/31-04/02 IV analgesia regimen while NPO/CLD 04/03 no analgesia requirements >24h --- discharged with PRN tylenol only Operative Procedures Performed: Procedure name not found. No surgery found Discharge Physical Exam: Discharge Condition: Pulse: 94 Resp: 16 BP: 122/71 Temp: 37.1 ??C (98.8 ??F) Weight: 69.4 kg (153 lb) Physical Exam Constitutional: awake in bed, no acute distress Neuro: A&O x3, grossly non-focal CV: RRR, no edema Pulm: equal chest rise/fall, RA GI: soft, mild epigastric tenderness to deep palpation, not distended : voiding spontaneously Extremities: WWP Diet: Diet Instructions Adult Discharge Diet Diet Type: Return to previous diet Discharge Disposition: Discharge to home or self care Code Status at Discharge: Full Code Activity: Activity Instructions Discharge Activity: Stairs -You may climb stairs Discharge Activity: Walking -You may walk as tolerated. Wound Care: Able to bathe self, groom none needed Discharge Medications: Your medication list START taking these medications acetaminophen 500 mg capsule 1,000 mg, oral, 3 times daily PRN amoxicillin-clavulanate 875-125 mg per tablet 875 mg of amoxicillin, oral, 2 times daily Commonly known as: AUGMENTIN pantoprazole DR 40 mg EC tablet 40 mg, oral, 2 times daily Commonly known as: PROTONIX CONTINUE taking these medications Auvelity 45-105 mg tablet, IR & ER, biphasic 1 tablet, 2 times daily Generic drug: dextromethorphan-bupropion Discharge Instructions: Other Instructions Call provider for: For any questions or concerns related to your hospital stay please call the General Surgery office at [phone] Call provider for: increased temperature -Temperature greater than 101 degrees F Call provider for: nausea, vomiting, diarrhea -If you have persistent nausea, vomiting or diarrhea that does not stop Call provider for: redness, tenderness, or signs of infection (pain, swelling, redness, odor or green/yellow discharge around incision site) Call provider for: severe uncontrolled pain Call provider if: you feel dizzy, very tired or like you may faint Special Instructions You have a CT scheduled for 04/12/23 at 3pm at the [facility] Arrival time is 2:30pm. You must be NPO for 2 hours prior to this test. Your follow up with General Surgery will follow this imaging study but has not yet been scheduled. Someone from the General Surgery division of [facility] will call you on 04/05 to let you know what time your appointment will be. Continue to take your antibiotics until your CT scan when we can then determine based on the results,the duration of your treatment time. If you have any questions please call [phone] For Follow Up Call Center for Outpatient [facility] at [phone] Follow up Future Appointments Date Time Provider Department Center 04/12/2024 3:00 PM [facility] BCT6 [facility] N CT [facility] Main IMG All care plans discussed with rounding/operative attending: Slick Norwood MD I spent 36 minutes completing this hospital discharge, reviewing all pertinent lab and radiographicdata and providing direct patient teaching as well as coordinating follow up. Evelin Gonzalez [facility] Acute and Critical Care Surgery 04/03/24 CC: No, Physician Cosigned by Slick Norwood MD at 04/03/2024 7:36 PM FUND RAISER RAISER RAISER documented in this encounter Medications at Time of Discharge [...] 04/03/2024 5 documented as of this encounter Ordered Prescriptions Prescription Sig Dispense Quantity Refills Last Filled Start Date End Date pantoprazole DR (PROTONIX) 40 mg EC tabletIndications: Stress Ulcer Prophylaxis Take 1 tablet (40 mg total) by mouth 2 (two) times a day 60 tablet 04/03/2024 5 acetaminophen 500 mg capsule Take 2 capsules (1,000 mg total) by mouth 3 (three) times a day as needed for fever 30 tablet 04/03/2024 amoxicillin-clavul anate (AUGMENTIN) 875-125 mg per tabletIndications: Abdominal/Pelvic Infection Take 1 tablet (875 mg of amoxicillin total) by mouth 2 (two) times a day for 10 days 20 tablet 04/03/2024 5 documented in this encounter Discharge Disposition Disposition Code Departure Means Destination Comment s Discharge to home or self care documented in this encounter Progress Notes * Anais Wang RN - 04/03/2024 1:18 PM CST 04/03/24 1316 Discharge Summary Discharge Disposition Private residence Recommended Discharge Level of Care Private residence Actual Discharge Level of Care Private residence Does Actual Level of Care Match Care Team Recommendation? Yes Post Acute Care Plan Home Care Services N/A OP Services N/A DME N/A Post Acute Care Facility N/A Discharge Additional Assistance Financial assistance Other (comment) (No financial needs identified.) Does the patient need discharge transport arranged? No Post Discharge Care Provider Post Discharge Care Plan DC Summary has been faxed to next level of care provider (see Follow Up Providers) Per medical team, patient is medically stable for discharge at this time. Follow up appointment hasbeen scheduled for 04/12/24. Pt does not have a PCP at this time. Transportation will be provided by spouse. Patient and/or family are agreeable with the plan. If any further discharge needs arise, please contact the covering ed case manager. RAISER * Krystle Aleman RD - 04/02/2024 2:45 PM CST NUTRITION ASSESSMENT Nutrition Status: Patient appears adequately nourished at this time. REASON FOR ASSESSMENT: Screened at Nutrition Risk - NPO/Clear Liquid Diet Status Encounter Date: 04/02/24 2:45 PM Admission Date: 03/30/2024 LOS: 3 days HPI: Patient is a 38 y.o. female with h/o depression presented to ED as OSH transfer (Bob) for further evaluation of possible perforated duodenum. Patient presented to OSH with h/o 2d abdominal pain preceded by a viral intestinal illness. CT c/w duodenal perforation. IV abx initiated and NGT placedin ED. 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; Outcome: Unknown sex Past Surgical History: Procedure Laterality Date OTHER SURGICAL HISTORY 2007 : 10 hr labor OTHER SURGICAL HISTORY 2009 : 6 hr labor OTHER SURGICAL HISTORY : spontaneous Social History Tobacco Use Smoking status: Never Smokeless tobacco: None Substance and Sexual Activity Drug use: None Sexual activity: None Alcohol Use: Not on file MEDICATION/LAB REVIEW: Scheduled Meds: dextromethorphan-bupropion, 1 tablet, oral, BID enoxaparin, 40 mg, subcutaneous, Daily-2100 ertapenem, 1,000 mg, intravenous, Q24H REDD pantoprazole, 40 mg, intravenous, BID sodium chloride 0.9%, 0.5-20 mL, intra-catheter, Q8H REDD (ALT) Continuous Infusions: PRN Meds: acetaminophen sodium chloride 0.9% HYDROmorphone sodium chloride 0.9% Recent Labs Lab Units 04/01/24205303/31/24 2101 SODIUM mmol/L 138 138 POTASSIUM PLASMA mmol/L 3.3 3.7 CHLORIDE mmol/L 102 105 CO2 mmol/L 26 25 BUN SERUM mg/dL 4* 7 CREATININE mg/dL 0.52* 0.55* [id number] mL/min/1.73 m2 >90 >90 CALCIUM mg/dL 8.5 8.1* ALBUMIN g/dL -- 3.0* PHOSPHORUS PLASMA mg/dL 2.0* 2.1* MAGNESIUM mg/dL 2.1 1.9 Recent Labs Lab Units 04/01/24205303/31/24 2101 03/30/24 1820 GLUCOSE mg/dL 116 114 137 ALT Date Value Ref Range Status 03/30/2024 15 7 - 45 Units/L Final AST Date Value Ref Range Status 03/30/2024 21 10 - 45 Units/L Final Alk phos Date Value Ref Range Status 03/30/2024 73 40 - 130 Units/L Final Lipase Date Value Ref Range Status 03/30/2024 32 10 - 99 Units/L Final Comment: Hemolyzed; result may be falsely decreased No results found for: HGBA1C , HDL , LDLCALC , CHOL , TRIG NURSING ASSESSMENT: Last BM Date: 03/29/24 Bowel Sounds (All Quadrants): Hypoactive Emesis Assessment Emesis Color/Appearance: Green, Workman Beni Scale Score: 21 Vital Signs @FLOW(5) Temp: 36.9 ??C (98.4 ??F) Pulse: 82 Resp: 18 SpO2: 98 % Intake/Output Summary (Last 24 hours) at 04/02/2024 1445 Last data filed at 04/01/2024 1805 Gross per 24 hour Intake 0 ml Output 0 ml Net 0 ml Adult Malnutrition Scoring Tool (MST) What diet do you follow at home?: no Have You Recently Lost Weight Without Trying?: No Have you been eating poorly because of a decreased appetite?: No Malnutrition Screening Tool (MST) Score: 0 Hunger Screen - Admission Within the past 12 months the food we bought just didn't last and we didn't have money to get more.: Never true Anthropometrics Weight: 69.5 kg (153 lb 3.2 oz) Admission Weight : 69.5 kg Weight Change: 0.09 kg (0.20 lbs) IBW/kg (Calculated) : 52.2 kg Height: 160 cm (5' 3 ) Weight in (lb) to have BMI = 25: 140.8 BMI (Calculated): 27.1 Wt Readings from Last 10 Encounters: 03/31/24 69.5 kg (153 lb 3.2 oz) 07/10/14 61.7 kg (136 lb) 06/28/12 81.7 kg (180 lb 1.6 oz) 06/16/12 77.6 kg (171 lb) 05/26/12 76.2 kg (168 lb) ESTIMATED NEEDS: . Dietary Orders (From admission, onward) Start Ordered 04/02/24 1444 Oral Nutrition Supplements ([facility]) Select Supplement: Ensure Clear - Apple; Quantity (#of cans): 1 can All Meals Question Answer Comment ([facility]) Select Supplement: Ensure Clear - Apple Quantity (# of cans): 1 can 12/23/24 1443 04/02/24 0820 Adult Diet Clear Liquid Diet effective now Question: ([facility]) Diet type Answer: Clear Liquid 04/02/24 0819 Allergies: Reviewed. IMPRESSION: Pt reports good appetite and intake (3meals/d) [employer] Pt reports UBW of 150 lb Pt advanced to clear liquid diet today, agreeable to supplement Pt reports no n/v or diarrhea/constipation +BM 04/02 AAIM ([facility]) MALNUTRITION ASSESSMENT: Date of completion: 04/02 ASPEN/AND Malnutrition Screening: Patient does not meet malnutrition criteria NUTRITION FOCUSED PHYSICAL EXAM: Not clinically indicated, no concerns for malnutrition at this time. NUTRITION DIAGNOSIS: Nutrition Diagnosis 1: Predicted suboptimal energy intake Related to: Clear liquid Evidenced by: Patient interview INTERVENTION(S): Summary: Medical food supplement, Meals and snacks Advance diet as tolerated Ensure clear TID GOAL(S): Oral intake to meet 75% estimated nutritional needs by next assessment, Tolerance of medical food supplement by next assessment MONITORING/EVALUATION: Appetite, PO intake, Stool patterns, Supplement tolerance, Labs Krystle Aleman MS, RDN, LD RAISER * Evelin Gonzalez NP - 04/02/2024 12:25 PM CST Images from the original note were not included. [facility] Emergency General Surgery Service Floor Daily Progress Note Admit: 03/30/2024 6:29 PM Date: April 02, 2024 Length of Stay: 3 Attending: Nguyễn Melgar* Subjective History: 38 y.o. female with h/o depression presented to ED as OSH transfer (Bob) for further evaluation of possible perforated duodenum. Patient presented to OSH with h/o 2d abdominal pain preceded by aviral intestinal illness. CT c/w duodenal perforation. IV abx initiated and NGT placed in ED. Interval History: MRCP confirmed suspected dx, wbc NL, abd exam continues to improve, continue erta, start CLD Objective Medications: Current Facility-Administered Medications: acetaminophen (TYLENOL) tablet 1,000 mg, 1,000 mg, oral, Q6H PRN, Evelin Gonzalez NP, 1,000 mgat 04/01/24 1131 Carrier Fluids for Secondary Infusion - 0.9% Sodium Chloride, 30 mL, intravenous, PRN, Edgar Ward MD dextromethorphan-bupropion (AUVELITY) 45-105 mg IR/ER biphasic tablet 1 tablet, 1 tablet, oral, BID, Daniel Sanford MD, 1 tablet at 04/02/24 0917 enoxaparin (LOVENOX) syringe 40 mg, 40 mg, subcutaneous, Daily-2100, Edgar Ward MD, 40 mg at 04/01/24 210 ertapenem (INVanz) 1,000 mg in sterile water 10 mL (100 mg/mL) IV syringe, 1,000 mg, intravenous, Q24H REDDEd Joseph Schmandt, MD, Last Rate: 120 mL/hr at 04/02/24 0917, 1,000 mg at 04/02/24 0917 HYDROmorphone (DILAUDID) injection 0.2 mg, 0.2 mg, intravenous, Q3H PRN, Edgar Ward MD, 0.2 mg at 04/01/242099 pantoprazole (PROTONIX) 40 mg in sodium chloride 0.9% 10 mL IV Syringe, 40 mg, intravenous, BID, Evelin Gonzalez NP, 40 mg at 04/02/24 0917 sodium chloride 0.9% flush 0.5-20 mL, 0.5-20 mL, intra-catheter, Q8H REDD (ALT)Ed Joseph Schmandt, MD, 10 mL at 04/02/24 0918 sodium chloride 0.9% flush 0.5-20 mL, 0.5-20 mL, intra-catheter, PRN, Edgar Ward MD 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 No intake/output data recorded. Physical Exam: 24hr Min/Max: Temp Min: 36.7 ??C (98.1 ??F) Max: 37.2 ??C (98.9 ??F) Pulse Min: 67 Max: 82 BP Min: 118/58 Max: 125/81 Resp Min: 18 Max: 18 SpO2 Min: 97 % Max: 99 % Physical Exam Constitutional: awake in bed, no acute distress Neuro: A&O x3, grossly non-focal CV: RRR, no edema Pulm: equal chest rise/fall, RA GI: soft, mildly tender LUQ, not distended : voiding spontaneously Extremities: WWP Labs/Imaging: Recent Labs Lab Units 04/01/24205303/31/24210003/30/24 1820 WBC K/cumm 9.1 11.9* 12.3* HEMOGLOBIN g/dL 11.7* 11.5* 12.8 HEMATOCRIT % 35.4* 35.3* 38.7 PLATELETS K/cumm 231 194 226 Recent Labs Lab Units 04/01/24205303/31/24210003/30/24 1820 SODIUM mmol/L 138 138 139 POTASSIUM PLASMA mmol/L 3.3 3.7 3.8 CHLORIDE mmol/L 102 105 105 CO2 mmol/L 26 25 24 BUN SERUM mg/dL 4* 7 7 CREATININE mg/dL 0.52* 0.55* 0.56* GLUCOSE mg/dL 116 114 137 CALCIUM mg/dL 8.5 8.1* 7.9* Recent Labs Lab Units 03/30/24 1841 PROTIME (PT) sec 17.8* INR 1.63* MRI Abdomen MRCP W WO Contrast Incl 3D Result Date: 04/02/2024 Unchanged 4 cm fluid and gas collection [...] it. Electronically signed by: Edgar Schaffer M.D. I have independently reviewed and interpreted all relevant lab and radiographic data. Assessment/Plan Emergency General Surgical Assessment and Plan Depression Assessment & Plan - home regimen: auvality (non-formulary) --- 03/31 not a candidate for po intake at this time, pharmacy to verify home medication and patient can take own supply once cleared for PO intake 04/01 ok to resume to avoid withdrawal symptoms --- f/u with previously established provider for ongoing management Discharge planning issues Assessment & Plan 03/31 functionally independent at baseline, anticipate return to home without needs once medically stable; ADD tom vs Tuesday pending further imaging studies 04/01 barrier to discharge: MRCP, po tolerance; ADD Tuesday v Monday 04/02 barrier to discharge: PO tolerance, ADD tomorrow Encounter for medication review Assessment & Plan 03/31 home medications reviewed with patient and updated in ADMISSIONS tab Intra-abdominal fluid collection Assessment & Plan 03/30 presented to OSH with abd pain, recent intestinal viral illness x2d which preceded abd pain, OSH imaging suggestive of perforated duodenal diverticulum vs duodenitis vs perforated ulcer, transferred to [facility] for further evaluation and management, arrived [...] with PO abxand repeat CT A/P outpatient CULTURES 03/30 blood: NGTD ANTIBIOTICS 03/30-? Erta * Abdominal pain Assessment & Plan 03/31-04/02 IV analgesia regimen while NPO/CLD FEN: These fluid and electrolyte abnormalities are being treated, evaluated or monitored: Hypokalemia--potassium replacement Hypophosphatemia--replace and monitor Lines/Drains/Tubes: PIV DVT Prophylaxis: lovenox Diet: Adult Diet Clear Liquid Activity: as tolerated GI Prophylaxis: PPI BID Code Status: Full Code Total time spent included the following activities caring for this patient: Patient chart review, Reviewing/obtaining history, Examination and evaluation, Counseling/educating patient/family/caregiver, Ordering medications/tests/procedures, Referring & communicating with other health care manager, Documenting clinical information in the health record, Independent interpretation of results, and Care coordination 33 minutes All care plans discussed with rounding/operative attending: MD Evelin Bagley, [facility] Acute and Critical Care Surgery [phone] Cosigned by Slick Norwood MD at 04/02/2024 5:13 PM FUND RAISER RAISER RAISER * Evelin Gonzalez NP - 04/01/2024 11:58 AM CST Images from the original note were not included. [facility] Emergency General Surgery Service Floor Daily Progress Note Admit: 03/30/2024 6:29 PM Date: April 01, 2024 Length of Stay: 2 Attending: Nguyễn Melgar* Subjective History: 38 y.o. female with h/o depression presented to ED as OSH transfer (Bob) for further evaluation of possible perforated duodenum. Patient presented to OSH with h/o 2d abdominal pain preceded by aviral intestinal illness. CT c/w duodenal perforation. IV abx initiated and NGT placed in ED. Interval History: MRCP today, exam improved, wbc improving, fever curve improving Objective Medications: Current Facility-Administered Medications: acetaminophen (TYLENOL) tablet 1,000 mg, 1,000 mg, oral, Q6H PRN, Evelin Gonzalez NP, 1,000 mgat 04/01/24 1131 Carrier Fluids for Secondary Infusion - 0.9% Sodium Chloride, 30 mL, intravenous, PRN, Edgar Ward MD dextromethorphan-bupropion (AUVELITY) 45-105 mg IR/ER biphasic tablet 1 tablet, 1 tablet, oral, BID, Daniel Sanford MD dextrose 5% and sodium chloride 0.45% with potassium chloride 20 mEq/L infusion (premix), 100 mL/hr, intravenous, Continuous, Evelin Gonzalez NP, Last Rate: 100 mL/hr at 03/31/242117, 100 mL/hrat 03/31/242117 enoxaparin (LOVENOX) syringe 40 mg, 40 mg, subcutaneous, Daily-2100, Edgar Ward MD, 40 mg at 03/31/242118 ertapenem (INVanz) 1,000 mg in sterile water 10 mL (100 mg/mL) IV syringe, 1,000 mg, intravenous, Q24H REDDEd Joseph Schmandt, MD, Last Rate: 120 mL/hr at 04/01/2432, 1,000 mg at 04/01/24831 HYDROmorphone (DILAUDID) injection 0.2 mg, 0.2 mg, intravenous, Q3H PRN, Edgar Ward MD, 0.2 mg at 03/31/242118 pantoprazole (PROTONIX) 40 mg in sodium chloride 0.9% 10 mL IV Syringe, 40 mg, intravenous, BID, Evelin Gonzalez NP, 40 mg at 04/01/24 0832 sodium chloride 0.9% flush 0.5-20 mL, 0.5-20 mL, intra-catheter, Q8H REDD (ALT), Edgar Ward MD, 10 mL at 04/01/24 0832 sodium chloride 0.9% flush 0.5-20 mL, 0.5-20 mL, intra-catheter, PRN, Edgar Ward MD 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 Physical Exam: 24hr Min/Max: Temp Min: 36.6 ??C (97.9 ??F) Max: 38.7 ??C (101.6 ??F) Pulse Min: 77 Max: 107 BP Min: 98/67 Max: 125/84 Resp Min: 18 Max: 18 SpO2 Min: 99 % Max: 100 % Physical Exam Constitutional: awake in bed, no acute distress Neuro: A&O x3, grossly non-focal CV: RRR, no edema Pulm: equal chest rise/fall, RA GI: soft, mildly tender LUQ, not distended : voiding spontaneously Extremities: WWP Labs/Imaging: Recent Labs Lab Units 03/31/24 21003/30/24 1820 WBC K/cumm 11.9* 12.3* HEMOGLOBIN g/dL 11.5* 12.8 HEMATOCRIT % 35.3* 38.7 PLATELETS K/cumm 194 226 Recent Labs Lab Units 03/31/24 2101 03/30/24 1820 SODIUM mmol/L 138 139 POTASSIUM PLASMA mmol/L 3.7 3.8 CHLORIDE mmol/L 105 105 CO2 mmol/L 25 24 BUN SERUM mg/dL 7 7 CREATININE mg/dL 0.55* 0.56* GLUCOSE mg/dL 114 137 CALCIUM mg/dL 8.1* 7.9* Recent Labs Lab Units 03/30/24 1841 PROTIME (PT) sec 17.8* INR 1.63* FL Upper GI Series, Single Contrast Result Date: 03/31/2024 1. No evidence of extraluminal contrast leak [...] edited this written report and agrees with it.Electronically signed by: Jacob Chavez M.D. CT Body Outside Consult Result Date: 03/31/2024 Contained perforation adjacent to the duodenum likely [...] is necessary. The provided images may or maynot represent the [place] source data set and thus may contain changes that may lower the accuracy of this second-opinion interpretation. Dictated by: Rachell Orozco MD PHD The radiology attending jodi red has personally reviewed this study, and had reviewed and/or edited this written report and agrees with it. Electronically signed by: Deb Kingsley M.D. XR Abdomen Ap 1 Vw Result Date: 03/31/2024 Interval placement of a gastric tube with [...] it. Electronically signed by: Deb Kingsley M.D. XR Chest 1 View Result Date: 03/30/2024 There is no pulmonary consolidation, pleural effusion, or pneumothorax. The cardiomediastinal silhouette is within normal limits. Dictated by: Dion Zhang MD The radiology attending physician has personally reviewed this study, and had reviewed and/or edited this written report and agrees with it. Electronically signed by: Shannon Romo M.D. I have independently reviewed and interpreted all relevant lab and radiographic data. Assessment/Plan Emergency General Surgical Assessment and Plan Depression Assessment & Plan - home regimen: auvality (non-formulary) --- 03/31 not a candidate for po intake at this time, pharmacy to verify home medication and patient can take own supply once cleared for PO intake 04/01 ok to resume to avoid withdrawal symptoms Discharge planning issues Assessment & Plan 03/31 functionally independent at baseline, anticipate return to home without needs once medically stable; ADD tom vs Tuesday pending further imaging studies 04/01 barrier to discharge: MRCP, po tolerance; ADD Tuesday v Tuesday Encounter for medication review Assessment & Plan 03/31 home medications reviewed with patient and updated in ADMISSIONS tab Intra-abdominal fluid collection Assessment & Plan 03/30 presented to OSH with abd pain, recent intestinal viral illness x2d which preceded abd pain, OSH imaging suggestive of perforated duodenal diverticulum vs duodenitis vs perforated ulcer, transferred to [facility] for further evaluation and management, arrived [...] abd pain improved, abd soft, awaiting MRCP * Abdominal pain Assessment & Plan 03/31-04/01 IV analgesia regimen while NPO FEN: These fluid and electrolyte abnormalities are being treated, evaluated or monitored: No fluid or electrolyte disorders Lines/Drains/Tubes: PIV DVT Prophylaxis: lovenox Diet: NPO Diet Sips with meds Activity: as tolerated GI Prophylaxis: PPI Code Status: Full Code Total time spent included the following activities caring for this patient: Patient chart review, Reviewing/obtaining history, Examination and evaluation, Counseling/educating patient/family/caregiver, Ordering medications/tests/procedures, Referring & communicating with other health care manager, Documenting clinical information in the health record, Independent interpretation of results, and Care coordination 37 minutes All care plans discussed with rounding/operative attending: MD Evelin Bagley, [facility] Acute and Critical Care Surgery [phone] Cosigned by Slick Norwood MD at 04/01/2024 12:03 PM FUND RAISER RAISER RAISER * Evelin Gonzalez NP - 03/31/2024 11:58 AM CST Images from the original note were not included. [facility] Emergency General Surgery Service Floor Daily Progress Note Admit: 03/30/2024 6:29 PM Date: March 31, 2024 Length of Stay: 1 Attending: Nguyễn Melgar* Subjective History: 38 y.o. female with h/o depression presented to ED as OSH transfer (Bob) for further evaluation of possible perforated duodenum. Patient presented to OSH with h/o 2d abdominal pain preceded by aviral intestinal illness. CT c/w duodenal perforation. IV abx initiated and NGT placed in ED. Interval History: continue erta, imaging reviewed - no clear drainable window for IR, FL UGI study r/o leak today, if negative will obtain remove NGT and obtain MRCP to r/o anomalous anatomy given fluid collection closely abutting pancreas Objective Medications: Current Facility-Administered Medications: Carrier Fluids for Secondary Infusion - 0.9% Sodium Chloride, 30 mL, intravenous, PRN, Edgar Ward MD dextrose 5% and sodium chloride 0.45% with potassium chloride 20 mEq/L infusion (premix), 100 mL/hr, intravenous, Continuous, Evelin Gonzalez NP, Last Rate: 100 mL/hr at 03/31/24 0957, 100 mL/hrat 03/31/24 0957 enoxaparin (LOVENOX) syringe 40 mg, 40 mg, subcutaneous, Daily-2100, Edgar Ward MD ertapenem (INVanz) 1,000 mg in sterile water 10 mL (100 mg/mL) IV syringe, 1,000 mg, intravenous, Q24H REDD, Edgar Ward MD, Last Rate: 120 mL/hr at 03/31/24 1028, 1,000 mg at 03/31/24 1028 HYDROmorphone (DILAUDID) injection 0.2 mg, 0.2 mg, intravenous, Q3H PRN, Edgar Ward MD, 0.2 mg at 03/31/24 1029 lidocaine (GLYDO) 2 % jelly 200 mg, 10 mL, topical, Once, Jenny Avila MD NON FORMULARY (FOR INPATIENT USE), 45 mg, oral, BID, Evelin Gonzalez NP pantoprazole (PROTONIX) 40 mg in sodium chloride 0.9% 10 mL IV Syringe, 40 mg, intravenous, BID, Evelin Gonzalez NP, 40 mg at 03/31/24 1028 sodium chloride 0.9% flush 0.5-20 mL, 0.5-20 mL, intra-catheter, Q8H REDD (ALT), Edgar Ward MD, 10 mL at 03/31/24 1029 sodium chloride 0.9% flush 0.5-20 mL, 0.5-20 mL, intra-catheter, PRN, Edgar Ward MD 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 Physical Exam: 24hr Min/Max: Temp Min: 37.4 ??C (99.3 ??F) Max: 39.6 ??C (103.2 ??F) Pulse Min: 90 Max: 133 BP Min: 102/78 Max: 137/90 Resp Min: 13 Max: 24 SpO2 Min: 96 % Max: 99 % Physical Exam Constitutional: awake in bed, no acute distress Neuro: A&O x3, grossly non-focal HEENT: NGT LIWS CV: RRR, no edema Pulm: equal chest rise/fall, RA GI: soft, mildly diffusely tender, not distended : voiding spontaneously Extremities: WWP Labs/Imaging: Recent Labs Lab Units 03/30/24 1820 WBC K/cumm 12.3* HEMOGLOBIN g/dL 12.8 HEMATOCRIT % 38.7 PLATELETS K/cumm 226 Recent Labs Lab Units 03/30/24 1820 SODIUM mmol/L 139 POTASSIUM PLASMA mmol/L 3.8 CHLORIDE mmol/L 105 CO2 mmol/L 24 BUN SERUM mg/dL 7 CREATININE mg/dL 0.56* GLUCOSE mg/dL 137 CALCIUM mg/dL 7.9* Recent Labs Lab Units 03/30/24 1841 PROTIME (PT) sec 17.8* INR 1.63* CT Body Outside Consult Result Date: 03/31/2024 Contained perforation adjacent to the duodenum likely [...] is necessary. The provided images may or maynot represent the [place] source data set and thus may contain changes that may lower the accuracy of this second-opinion interpretation. Dictated by: Rachell Orozco MD PHD The radiology attending jodi red has personally reviewed this study, and had reviewed and/or edited this written report and agrees with it. Electronically signed by: Deb Kingsley M.D. XR Abdomen Ap 1 Vw Result Date: 03/31/2024 Interval placement of a gastric tube with [...] it. Electronically signed by: Deb Kingsley M.D. XR Chest 1 View Result Date: 03/30/2024 There is no pulmonary consolidation, pleural effusion, or pneumothorax. The cardiomediastinal silhouette is within normal limits. Dictated by: Dion Zhang MD The radiology attending physician has personally reviewed this study, and had reviewed and/or edited this written report and agrees with it. Electronically signed by: Shannon Romo M.D. I have independently reviewed and interpreted all relevant lab and radiographic data. Assessment/Plan Emergency General Surgical Assessment and Plan Depression Assessment & Plan - home regimen: auvality (non-formulary) --- 03/31 not a candidate for po intake at this time, pharmacy to verify home medication and patient can take own supply once cleared for PO intake Discharge planning issues Assessment & Plan 03/31 functionally independent at baseline, anticipate return to home without needs once medically stable; ADD tomorrow vs Tuesday pending further imaging studies Encounter for medication review Assessment & Plan 03/31 home medications reviewed with patient and updated in ADMISSIONS tab Intra-abdominal fluid collection Assessment & Plan 03/30 presented to OSH with abd pain, recent intestinal viral illness x2d which preceded abd pain, OSH imaging suggestive of perforated duodenal diverticulum vs duodenitis vs perforated ulcer, transferred to [facility] for further evaluation and management, arrived [...] closely abutting pancreas; abdomen diffusely tender, non-peritonitic * Abdominal pain Assessment & Plan 03/31 IV analgesia regimen while NPO FEN: These fluid and electrolyte abnormalities are being treated, evaluated or monitored: No fluid or electrolyte disorders Lines/Drains/Tubes: PIV, NGT DVT Prophylaxis: lovenox Diet: NPO Diet Activity: as tolerated GI Prophylaxis: PPI Code Status: Full Code Total time spent included the following activities caring for this patient: Patient chart review, Reviewing/obtaining history, Examination and evaluation, Counseling/educating patient/family/caregiver, Ordering medications/tests/procedures, Referring & communicating with other health care manager, Documenting clinical information in the health record, Independent interpretation of results, and Care coordination 44 minutes OSH medical records reviewed All care plans discussed with rounding/operative attending: MD Evelin Bagley, [facility] Acute and Critical Care Surgery [phone] Cosigned by Slick Norwood MD at 03/31/2024 4:42 PM FUND RAISER RAISER RAISER documented in this encounter Consult Notes * Edgar Ward MD - 03/30/2024 7:03 PM CST Images from the original note were not included. [facility] Section of Acute and Critical Care Surgery Emergency General Surgery Consultation Encounter Date: 03/30/2024 Patient Identification: Patient's Primary Care Physician: Nicole, Physician Name: Romelia San Age: 38 y.o. Sex: female Reason for Consultation: Physician requesting consult: Radames Quick MD has asked that we see Romelia San for evaluation of kori-duodenal fluid collection . Patient information was obtained from patient and past medical records. History/Exam limitations: none. Patient presented to ED by ambulance as transfer from OSH Chief Complaint Abdominal Pain History of Present Illness: Romelia San is a 38 y.o. female with no pertinent past medical history who presents with several days of abdominal pain. Patient states 3 days ago she developed diarrhea which she attributed torecent illnesses from her kids. The diarrhea resolved the following day and she subsequently developed severe abdominal pain yesterday. Pain is worst in the right upper quadrant. She denies any jaundice, nausea or vomiting, fever or chills at home. Her last bowel movement was earlier today and was reportedly normal. Denies any blood in her stool. Denies any chest pain, shortness of breath. She has not eaten any significant amount since symptoms began. Presented to OSH earlier today where labs demonstrated WBC 11.3. LFTs, lipase WNL. CT imaging concerning for 3.8x 3.7 cm fluid collection with internal air adjacent to the duodenum. She was started on antibiotics and was transferred for further evaluation. In [facility] ED, patient febrile to 103.2, tachycardic to 130s. Labs notable for WBC 12.3, normal LFTs. Radiology consult read concerning for contained perforated duodenal ulcer with contained fluid collection. 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; Outcome: Unknown sex Surgical History: Past Surgical History: Procedure Laterality Date OTHER SURGICAL HISTORY 2007 : 10 hr labor OTHER SURGICAL HISTORY 2009 : 6 hr labor OTHER SURGICAL HISTORY : spontaneous Current Medications: Current Facility-Administered Medications Medication Dose Route Frequency Provider Last Rate Last Admin HYDROmorphone (DILAUDID) injection 1 mg 1 mg intravenous Q2H PRN Jenny Avila MD 1 mg at 03/30/242114 ondansetron (ZOFRAN) injection 4 mg 4 mg intravenous Q4H PRN Jenny Avila MD 4 mg at 03/30/241912 piperacillin-tazobactam (ZOSYN) 3.375 gram/65 mL in sodium chloride 0.9% (premix) 3.375 g 3.375 g intravenous Q6H REDD Jenny vAila MD Stopped at 03/30/240 Current Outpatient Medications Medication Sig Dispense Refill Auvelity 45-105 mg tablet, IR & ER, biphasic 1 tablet 2 (two) times a day Allergies: No Known Allergies Family History: Family History Problem Relation Age of Onset Hyperlipidemia Father hypercholesterolemia; Hyperlipidemia Mother hypercholesterolemia; Heart attack Maternal Grandfather Myocardial infarction; Heart attack Paternal Grandmother Myocardial infarction; Hypertension Father Hypertension; Social History: reports that she has never smoked. She does not have any smokeless tobacco history on file. No alcohol history on file. Physical Examination: Ht:160 cm (5' 3 ) Wt:69.4 kg (153 lb) Body mass index is 27.1 kg/m??. BP 120/75 Pulse 97 Temp 37.6 ??C (99.7 ??F) Resp 16 Ht 160 cm (5' 3 ) Wt 69.4 kg (153 lb) LMP 03/16/2024 SpO2 97% BMI 27.10 kg/m?? Physical Exam General: alert, voice strong, clear speech, able to reposition self HEENT: moist mocosa, EOM intact, pupils equally round and reactive to light CV: normal rhythm, normal rate Pulmonary: unlabored breathing, symmetric chest rise Abdominal: soft, nondistended, significant tenderness to right upper quadrant Psychiatric: normal mood/affect Neurologic: alert and oriented x3, grossly moving all extremities without focal motor deficits, muscle tone appears symmetric Ext: pink and warm, lower extremity edema Skin: dry, no cyanosis, no rashes or cutaneous lesions, no ulcers or trophic skin change Labs, Radiology and Diagnostic Review: Laboratory review: Lab results in the last 24 hours: Recent Results (from the past 24 hours) CBC with auto differential Collection Time: 03/30/24 6:20 PM Result Value Ref Range WBC 12.3 (H) 3.8 - 9.9 K/cumm Hgb 12.8 11.9 - 15.5 g/dL Hct 38.7 35.6 - 45.5 % Plt 226 150 - 400 K/cumm MPV 10.0 9.1 - 12.3 fL RBC 4.38 3.90 - 5.20 M/cumm MCV 88.4 81.3 - 96.4 fL MCH 29.2 27.1 - 33.3 pg MCHC 33.1 32.3 - 35.7 g/dL RDW CV 12.5 11.1 - 14.9 % RDW SD 40.8 35.7 - 48.1 fL NRBC abs 0.00 0.00 - 0.01 K/cumm Comprehensive metabolic panel Collection Time: 03/30/24 6:20 PM Result Value Ref Range Sodium 139 135 - 145 mmol/L Potassium, pl 3.8 3.3 - 4.9 mmol/L Chloride 105 97 - 110 mmol/L CO2 24 22 - 32 mmol/L Anion gap 10 2 - 15 mmol/L BUN 7 6 - 25 mg/dL Creatinine 0.56 (L) 0.60 - 1.10 mg/dL Glucose 137 70 - 199 mg/dL Calcium 7.9 (L) 8.5 - 10.3 mg/dL Bilirubin, total 0.4 0.1 - 1.2 mg/dL Protein, pl 6.6 6.5 - 8.5 g/dL Albumin 3.7 3.5 - 5.0 g/dL Alk phos 73 40 - 130 Units/L ALT 15 7 - 45 Units/L AST 21 10 - 45 Units/L Differential, auto Collection Time: 03/30/24 6:20 PM Result Value Ref Range Neutrophil abs 11.5 (H) 1.5 - 6.5 K/cumm Imm gran abs 0.0 0.0 - 0.1 K/cumm Lymphocyte abs 0.3 (L) 0.8 - 3.3 K/cumm Monocyte abs 0.5 0.2 - 0.8 K/cumm Eosinophil abs 0.0 0.0 - 0.5 K/cumm Basophil abs 0.0 0.0 - 0.1 K/cumm Neutrophil pct 93.9 % Imm gran pct 0.2 % Lymphocyte pct 2.1 % Monocyte pct 3.7 % Eosinophil pct 0.0 % Basophil pct 0.1 % eGFR Collection Time: 03/30/24 6:20 PM Result Value Ref Range eGFR >90 >=60 mL/min/1.73 m2 POCT lactate Collection Time: 03/30/24 6:26 PM Result Value Ref Range Lactate POC i-STAT 0.8 0.7 - 2.2 mmol/L Blood gas, venous Collection Time: 03/30/24 6:41 PM Result Value Ref Range pH, Venous 7.37 7.32 - 7.43 PCO2, Venous 44 40 - 50 mmHg PO2, Venous 31 mmHg HCO3 Venous, Calculated 26 20 - 30 mmol/L BE, venous 0 mmol/L Type and screen Collection Time: 03/30/24 6:41 PM Result Value Ref Range [facility], indirect Negative ABO Rh A Positive Protime-INR Collection Time: 03/30/24 6:41 PM Result Value Ref Range PT 17.8 (H) 9.7 - 13.0 sec INR 1.63 (H) 0.90 - 1.20 aPTT Collection Time: 03/30/24 6:41 PM Result Value Ref Range aPTT 30 28 - 38 sec Lipase Collection Time: 03/30/24 6:51 PM Result Value Ref Range Lipase 32 10 - 99 Units/L Check Sample Collection Time: 03/30/24 7:21 PM Result Value Ref Range ABO Rh A Positive Imaging review: I have reviewed the result(s) CT Body Outside Consult Result Date: 03/30/2024 Narrative: EXAMINATION: RADIOLOGY CONSULTATION ON OUTSIDE IMAGING STUDY STUDY INITIALLY PERFORMED: 03/30/2024 at [facility]. TYPE OF STUDY: Multiple CT images of the abdomen and pelvis with intravenous contrast are provided at the time of this interpretation. The protocol was adequate to address the clinical question. The outside final report was not available at the time of this second opinion interpretation. TYPE OF CONSULTATION: Consult on outside imaging study with images submittedthrough Outside Image Sharing Service DATE OF CONSULTATION: 03/30/2024 8:36 PM HISTORY: Severe upper abdominal pain. COMPARISON: None available. FINDINGS: The lung bases are clear. No pleural effusion. Heart is normal in size. No pericardial effusion. No suspicious focal hepatic lesion. No biliary ductal dilatation. Gallbladder, pancreas, adrenal glands, and spleen are normal. Kidneys enhance symmetrically without hydronephrosis or nephrolithiasis. Urinary bladder is normal. The uterus is present. No suspicious adnexal mass. There is a 3.6 x 3.5 cm fluid and gas collection arising from the 2nd portion of the duodenum, series 3 image 67, with associated periduodenal fat stranding. There is marked wall thickening and edema of the duodenum adjacent to this collection. No george free intraperitoneal air. The remainder of the bowel is normal in caliber without bowel obstruction. The appendix is normal. No abdominal or pelvic lymphadenopathy. Abdominal aorta is normal in caliber. No suspicious osseous lesion. Impression: Contained perforated duodenal ulcer. Findings discussed with Dr. [...] images may or may not represent the [place] source data set andthus may contain changes that may lower the accuracy of this second-opinion interpretation. Dictated by: Rachell Orozco MD PHD XR Chest 1 View Result Date: 03/30/2024 Narrative: EXAMINATION: XR CHEST 1 VIEW HISTORY: Fever COMPARISON: No prior relevant imaging is available for comparison at the time of dictation. Impression: There is no pulmonary consolidation, pleural effusion, or pneumothorax. The cardiomediastinal silhouette is within normal limits. Dictated by: Dion Zhang MD The radiology attending physician has personally reviewed this study, and had reviewed and/or edited this written report and agrees with it. Electronically signed by: Shannon Romo M.D. Assessment and Plan: Patient Active Problem List Diagnosis Human papilloma virus (HPV) infection Abdominal pain Romelia San is a 38 y.o. female with no pertinent past medical history who presents with several days of abdominal pain, imaging concerning for perforated duodenal ulcer with contained fluid collection. No new Assessment & Plan notes have been filed under this hospital service since the last note was generated. Service: General Surgery Plan: - admit to EGS - NPO, mIVF - please place NGT for bowel rest - IV ertapenem - IV PPI - consider interventional radiology and GI consults in AM for possible drainage, upper endoscopy Discussed with attending: Nguyễn Melgar MD, PhD at 21:30 (time). Edgar Ward MD Cosigned by Nguyễn Melgar MD PhD at 03/31/2024 3:25 AM FUND RAISER RAISER RAISER RAISER Associated attestation - Nguyễn Melgar MD PhD - 03/31/2024 3:25 AM FUND RAISER I have seen and examined the patient on 03/30/2024. I agree with the findings and plan of care as documented in the resident's/fellow's note. and as discussed with the resident/fellow.. documented in this encounter Nursing Notes * Inga Camarena RN - 04/03/2024 3:08 PM CST Patient's IV was removed. Patient was discharged and AVS was reviewed with patient. Patient was [facility] picked up by . RAISER documented in this encounter ED Notes * Re Hylton RN - 03/30/2024 10:48 PM CST Bed: ED4-08 Expected date: 03/30/24 Expected time: 10:04 PM Means of arrival: Comments: TCC 3 right Re Hylton RN 03/30/24 2248 RAISER * Jenny Avila MD - 03/30/2024 6:37 PM CST Portions of the record may have been created with voice recognition software. Occasional wrong-wordor ???[id number]??? substitutions may have occurred due to the inherent limitations of voice recognition software. Read the chart carefully and recognize, using context, where substitutions have occurred. HPI Chief Complaint Patient presents with ??? 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 Went to [facility] where her CT showed collectionof fluid with free air, abscess, duodenitis vs abscess. (Disc sent with patient) Patient coming forGI consult. Denies N/V/D. Additional history provided by: Not applicable Prior external notes reviewed: OSH imaging Socioeconomic considerations: N/A Romelia San is a 38 y.o. female with noncontributory PMH presenting as OSH transfer for intraabdominal abscess in the setting of 2 days of abdominal pain and diarrhea. Patient reports that she 1st noticed diarrhea 2 days ago, and then began to notice escalating abdominal pain. She went to OSH, and they obtained a CT scan that revealed a possible abscess. She received vancomycin, Zosyn, and was transferred to [facility] ED for surgical evaluation. Reports nausea and moderate pain at this time. ROS performed and negative except as documented above in HPI. Patient is not on any long-term medications. Past Medical History: Diagnosis Date ??? HX OTHER MEDICAL 2007 ; Outcome: 38 week 7 lb(s) 8 oz Male ??? HX OTHER MEDICAL 2009 ; Outcome: 38 week 8 lb(s) 10 oz Male ??? 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 OTHER SURGICAL HISTORY 2007 : 10 hr labor ??? OTHER SURGICAL HISTORY 2009 : 6 hr labor ??? OTHER SURGICAL HISTORY : spontaneous Family History Problem Relation Age of Onset ??? Hyperlipidemia Father hypercholesterolemia; ??? Hyperlipidemia Mother hypercholesterolemia; ??? Heart attack Maternal Grandfather Myocardial infarction; ??? Heart attack Paternal Grandmother Myocardial infarction; ??? Hypertension Father Hypertension; Social History Social History Narrative ??? Not on file OBJECTIVE: BP 108/85 Pulse 121 Temp 37.5 ??C (99.5 ??F) Resp 18 Ht 160 cm (5' 3 ) Wt 69.4 kg (153 lb) LMP 03/16/2024 SpO2 96% BMI 27.10 kg/m?? Physical Exam: General: Patient is moderately ill appearing. Neuro: Moving all four extremities without difficulty. HEENT: Atraumatic. No nasal deformity. Optho: No scleral icterus. Neck/Back: Normal inspection and range of motion. Pulm: No respiratory distress. Clear to auscultation bilaterally Cardiac: Tachycardic rate, regular rhythm Abdomen: Non-distended abdomen. Tenderness to palpation in the left upper quadrant. Ext: Warm and well perfused. Skin: No rash on exposed skin. Psych: Mood is euthymic. MDM Summary: Romelia San is a 38 y.o. female with noncontributory PMH presenting as OSH transfer for intraabdominal abscess in the setting of 2 days of abdominal pain and diarrhea. Patient was ill-appearing, but with stable vitals. Patient was placed in ED room, IV was established and patient was placed on a monitor. Ddx: Patient here with known intra-abdominal abscess, differential is broad however includes bowel perforation, duodenitis. Other intra-abdominal pathologies excluded by OSH imaging. Will additionally evaluate for other causes of fever including viral syndrome, pneumonia, urinary tract infection and bacteremia. Plan: In consideration of the above differential diagnosis, the following orders were placed while the patient was in the Emergency Department. See ED course for pertinent results and imaging interpretation. Orders Placed This Encounter Procedures ??? Urinalysis reflex to microscopic and culture Urine ??? Blood culture Blood Peripheral ??? Blood culture Blood Peripheral ??? XR Chest 1 View ??? CT Body Outside Consult ??? CT Body Outside Consult ??? XR Abdomen Ap 1 Vw ??? CBC with auto differential ??? Comprehensive metabolic panel ??? Blood gas, venous ??? Type and screen ??? Protime-INR ??? aPTT ??? Lipase ??? Differential, auto ??? Check Sample ??? eGFR ? ? Notify Provider (if patient's SBP < 90 or MAP < 65) ??? DO NOT UNCHECK - ED fiber optics technician Standing Order: Suspected Infection ??? POCT hCG, urine ??? Saline lock IV ??? Admit to inpatient - anticipate 2 or more midnights OR Medicare inpatient only procedure The patient received the following medications: Medications ondansetron (ZOFRAN) injection 4 mg (4 mg intravenous Given 03/30/241912) lidocaine (GLYDO) 2 % jelly 200 mg (200 mg topical Not Given 03/30/242221) acetaminophen (TYLENOL) tablet 1,000 mg (1,000 mg oral Given 03/30/241845) lidocaine (GLYDO) 2 % jelly 200 mg (200 mg oral Given 03/30/242153) LORazepam (ATIVAN) 1 mg in sterile water (further dilution required) injection (1 mg intravenous Given 03/30/242220) Disposition: Patient requires admission for IV antibiotics and consideration of OR washout. Medical Decision Making Amount and/or Complexity of Data Reviewed Labs: ordered. Radiology: ordered. Risk OTC drugs. Prescription drug management. Decision regarding hospitalization. ED Diagnosis: 1. Abdominal pain 2. Perforated duodenal ulcer ([facility]/HCC) (HCC) ED Course as of 03/30/246 Time: 03/30 1849 Comment: Spoke to general surgery, they will evaluate the patient and provide recommendations. By: Jenny Avila MD Time: 03/30 1933 Comment: Sepsis Fluid Exception Patient received fluids OSH By: Jenny Avila MD Time: 03/30 2145 Comment: Discussed the patient's clinical status and CT scan with General surgery, they plan to admit her, they are requesting and G-tube placement and NPO at this time. By: Jenny Avila MD Time: 03/30 2248 Comment: Assumed care at 23:00 38 yo F presents from OSH due to perforated duodenal ulcer, + abscess general surgery has seen and taking the patient - admit general surgery - Ax By: Joanna Pruitt MD Time: 03/30 4968 Comment: TRANSITION OF CARE: I, Isabela Villafana MD, am taking signout from the offgoing ED team. I have reviewed all pertinent vital signs, allergies, and history available in the chart and we have discussed the patient's condition extensively. Summary: 38 y.o. female presenting with abd pain, perf duodenal ulcer txfr. Presumptive diagnosis is perf ulcer and developing abscess, and dispo plan is admit surgery. NPO w/ NG tube. In ED, got abx, fluids, seen by surgery and being admitted. Pending: admit By: Isabela Villafana MD 1. Abdominal pain 2. Perforated duodenal ulcer (CMS/HCC) (HCC) Jenny Avila MD Resident 03/30/24 3870 Cosigned by Radames Quick MD at 04/02/2024 9:49 AM FUND RAISER RAISER RAISER Associated attestation - Radames Quick MD - 04/02/2024 9:49 AM FUND RAISER I have seen and examined the patient on 03/30/2024. I agree with the findings and plan of care as documented in the resident's note. * Eliane Tobias RN - 03/30/2024 6:29 PM CST Bed: [facility] Expected date: Expected time: Means of arrival: Comments: Triage - Eliane Acharya RN 03/30/24 6169 RAISER * Eliane Tobias RN - 03/30/2024 6:05 PM CST 4 days ago had diarrhea then 2 days ago developed severe upper abdominal pain, poor appetite, and increased pain with eating. Went to [facility] where her CT showed collection of fluid with free air, abscess, duodenitis vs abscess. (Disc sent with patient) Patient coming for GI consult. Denies N/V/D. RAISER documented in this encounter Miscellaneous Notes * Plan of Care - Inga Camarena RN - 04/03/2024 10:25 AM CST Problem: Lack of Knowledge Goal: Ability to develop a pain control plan will improve Outcome: Progressing Problem: Medication Goal: Satisfaction with pain management medication regimen will improve Outcome: Progressing Problem: Sensory Goal: Ability to identify factors that increase pain levels will improve while working to decrease the patient's pain levels Outcome: Progressing Problem: Coping Goal: Ability to cope will improve Outcome: Progressing Problem: Health Behavior Goal: Identification of resources available to assist in meeting health care needs will improve Outcome: Progressing Problem: Discharge Planning Goal: Understanding discharge needs will improve Outcome: Progressing Goals: Clinical Goals for the Shift: Pain control Summary: RAISER * Plan of Darrick - Monica Maravilla RN - 04/03/2024 5:53 AM CST Problem: Lack of Knowledge Goal: Ability to develop a pain control plan will improve Outcome: Progressing Problem: Medication Goal: Satisfaction with pain management medication regimen will improve Outcome: Progressing Problem: Sensory Goal: Ability to identify factors that increase pain levels will improve while working to decrease the patient's pain levels Outcome: Progressing Problem: Coping Goal: Ability to cope will improve Outcome: Progressing Problem: Health Behavior Goal: Identification of resources available to assist in meeting health care needs will improve Outcome: Progressing Problem: Discharge Planning Goal: Understanding discharge needs will improve Outcome: Progressing Goals: Clinical Goals for the Shift: Pain control Summary: Pain was minimal at most and controlled with minimal medication. Vitals stable, pt walks well on own, prepare for discharge RAISER * Mona of Darrick - Inga Camarena RN - 04/02/2024 12:06 PM CST Problem: Lack of Knowledge Goal: Ability to develop a pain control plan will improve Outcome: Progressing Problem: Medication Goal: Satisfaction with pain management medication regimen will improve Outcome: Progressing Problem: Sensory Goal: Ability to identify factors that increase pain levels will improve while working to decrease the patient's pain levels Outcome: Progressing Problem: Coping Goal: Ability to cope will improve Outcome: Progressing Problem: Health Behavior Goal: Identification of resources available to assist in meeting health care needs will improve Outcome: Progressing Problem: Discharge Planning Goal: Understanding discharge needs will improve Outcome: Progressing Goals: Clinical Goals for the Shift: Pain control Summary: RAISER * Plan of Care - Lucero Agudelo RADHA - 04/01/2024 6:08 PM CST End of Shift Summary [id number] Assessment: No changes to neurological/neurovascular assessments. VS: Stable and on room air. No fevers noted this shift. Pain Control: Pain has improved today. Less use of Dilaudid. Last dose @ 1534 Activity: Independent. Appetite: NPO. Urinary Output: Voiding adequately. Elimination: Last BM: 04/01 Plan: MRI completed today. Results pending. Goals: Clinical Goals for the Shift: Pain control Summary: Problem: Lack of Knowledge Goal: Ability to develop a pain control plan will improve Outcome: Progressing Problem: Medication Goal: Satisfaction with pain management medication regimen will improve Outcome: Progressing Problem: Sensory Goal: Ability to identify factors that increase pain levels will improve while working to decrease the patient's pain levels Outcome: Progressing Problem: Coping Goal: Ability to cope will improve Outcome: Progressing Problem: Health Behavior Goal: Identification of resources available to assist in meeting health care needs will improve Outcome: Progressing Problem: Discharge Planning Goal: Understanding discharge needs will improve Outcome: Progressing RAISER * Initial Assessments - Madelyn Wilson RN - 04/01/2024 2:16 PM CST MELISA Initial Assessment Interview Note Information Obtained From: Patient (04/01/241413) Admission Source: OSH Impression: 38 yr old F present with diarrhea and abdominal pain. Plan Includes: Return home with family when medically ready Primary Source of Transportation: Does the patient need discharge transport arranged?: No (04/01/24 141) Health Insurance Coverage: [employer] Prescription Coverage: Yes Pharmacy: No Pharmacies Listed Primary Care Provider: No, Physician Prior to Admission: Functional Status: Independent with ADLs Primary Caregiver: Self Support System: Spouse/Significant Other Home Care Services: No Outpatient Services: No Living Arrangements: Spouse/significant other Type of Residence: Private residence Steps in home?: Yes, Outside of home, Yes, Inside home Number of steps outside: 14 steps Medication management: Independent (04/01/241413) SDOH: Transportation: Financial Resource: Housing: Utilities: Social Connections: Food Insecurity: Alcohol Use: PHQ Screening Potential discharge needs include: OP Services: Dialysis: Behavioral Health Services: Anticipated Level of Care: Anticipated discharge level of care: Private residence Pt/Family agrees with Anticipated Level of Care: Yes (04/01/24 141) Patient expects to be Discharged to: Private residence, (04/01/24 1414) Additional Information: Patient lives in 2 story home with spouse and children.patient's bedroom francois main level. [employer] patient was independent with ADL's and denies use of assistive devices. Patient has no PCP at this time. Spouse will transport upon discharge. Patient's Identified Problem/Goal Problem: Ensure acute medical needs are met and that patient has a safe discharge plan. Goal: Secure a discharge plan that patient/family are agreeable with and ensure patient has continuum of care. Case management will follow for discharge planning and send referrals as needed. Goals include: To assure continuity of care, To maximize coping skills, To assure patient is in a safe environment and To assure access to community resources. Plan includes: 1. Collaboration with Patient, Provider, Direct Care Nurse, Headend Technician, and other members of theHealth Care Team to assure needed interventions completed. 2. Return patient to optimal level of self-care post discharge. 3. Monitoring Coordinator will follow for Discharge Planning - interventions as needed 4. Anticipated level of care at discharge 5. Planned Discharge Disposition Madelyn Wilson RN RAISER * Plan of Care - Lucero Agudelo RN - 03/31/2024 5:17 PM CST End of Shift Summary [id number] Assessment: No changes to neurological/neurovascular assessments. VS: Fever x2, otherwise stable. Tylenol prn last @ 1700. Pain Control: Pain managed by prn dilaudid. Last dose @ 1556. Activity: Independent. Appetite: NPO - sips with meds. Urinary Output: Adequate. Elimination: Last BM: 03/30. Drains: NG removed by EGS team around 1300. Plan: Fluid collection not able to be drained by IR d/t location. Upper GI Series negative for leak. MRI/MRCP ordered- questionnaire submitted. Goals: Pain control, Tests Summary: Problem: Lack of Knowledge Goal: Ability to develop a pain control plan will improve Outcome: Progressing Problem: Medication Goal: Satisfaction with pain management medication regimen will improve Outcome: Progressing Problem: Sensory Goal: Ability to identify factors that increase pain levels will improve while working to decrease the patient's pain levels Outcome: Progressing Problem: Coping Goal: Ability to cope will improve Outcome: Progressing Problem: Health Behavior Goal: Identification of resources available to assist in meeting health care needs will improve Outcome: Progressing Problem: Discharge Planning Goal: Understanding discharge needs will improve Outcome: Progressing RAISER RAISER * Assessment & Plan Note - Evelin Gonzalez NP - 03/31/2024 11:57 AM FUND RAISER Associated Problem(s): Intra-abdominal fluid collection 03/30 presented to OSH with abd pain, recent intestinal viral illness x2d which preceded abd pain, OSH imaging suggestive of perforated duodenal diverticulum vs duodenitis vs perforated ulcer, transferred to [facility] for further evaluation and management, arrived [...] --- CT 04/12/24 as scheduled --- [facility] appt to follow CT on 04/13 or 04/16 pending scheduling availability, patient will be notified; plan to discuss CT, abx duration and GI referral --- continue abx until scan completed and reviewed by [facility] CULTURES 03/30 blood: NGTD ANTIBIOTICS 03/30-04/02 Erta 04/03-04/13 Augmentin RAISER RAISER RAISER RAISER RAISER * Assessment & Plan Note - Evelin Gonzalez NP - 03/31/2024 11:48 AM FUND RAISER Associated Problem(s): Depression - home regimen: auvality (non-formulary) --- 03/31 not a candidate for po intake at this time, pharmacy to verify home medication and patient can take own supply once cleared for PO intake 04/01 ok to resume to avoid withdrawal symptoms --- f/u with previously established provider for ongoing management RAISER RAISER RAISER * Assessment & Plan Note - Evelin Gonzalez NP - 03/31/2024 11:47 AM FUND RAISER Associated Problem(s): Discharge planning issues 03/31 functionally independent at baseline, anticipate return to home without needs once medically stable; ADD tom vs Tuesday pending further imaging studies 04/01 barrier to discharge: MRCP, po tolerance; ADD Tuesday v Monday 04/02 barrier to discharge: PO tolerance, ADD tomorrow 04/03 Patient is medically stable for discharge RAISER RAISER RAISER RAISER * Assessment & Plan Note - Evelin Gonzalez NP - 03/31/2024 11:47 AM FUND RAISER Associated Problem(s): Encounter for medication review 03/31 home medications reviewed with patient and updated in ADMISSIONS tab RAISER * Assessment & Plan Note - Evelin Gonzalez NP - 03/31/2024 11:18 AM FUND RAISER Associated Problem(s): Abdominal pain 03/31-04/02 IV analgesia regimen while NPO/CLD 04/03 no analgesia requirements >24h --- discharged with PRN tylenol only RAISER RAISER RAISER RAISER * Significant Event - Mar Tejeda MD - 03/31/2024 3:00 AM FUND RAISER Trauma Surgery ED to Floor Accept Note Admit: 03/30/2024 6:29 PM Date: March 31, 2024 Length of Stay: 1 Attending: Nguyễn Melgar* POD:* No surgery found * Subjective History: Ms. Romelia Lawson a 38 y.o.y female with a PMHx of 38 y.o. female with no pertinent past medical history who presents with several days of abdominal pain, imaging concerning for perforated duodenal ulcer. Edited by: Edgar Ward MD at 03/30/2024 1886 They are transferring from ED to Floor. They have had no acute events since their arrival to the hospital. The patient is Hemodynamically stable and Afebrile. Patient is resting comfortably, and their painis well controlled with IV pain meds They deny nausea, endorse emesis, deny chest pain, deny shortness of breath. The patient reports one episode of small volume emesis around 1528-4819. At that time NGT was not functioning well. After that nursing was able to troubleshoot and it was working well at time of check. Objective Vitals: Vitals: 03/31/24 0415 BP: 111/72 Pulse: 90 Resp: 18 Temp: 37.4 ??C (99.3 ??F) SpO2: 99% Gen: A&OX3, no acute distress Pulm: non-labored breathing with symmetrical chest wall expansion CV: well-perfused extremities Abdominal: tender in epigastric and RUQ; soft, non tender, non peritonitic. NGT in place to LIWS, functioning well : voiding Lab/Radiology/Diagnostic Review: Na 139 Cl 105 BUN 7 K 3.8 CO2 24 Cr 0.56 Mg -, G ALLY-Cr: - AST 21 ALT 15 Alk Phos 73 Ca 7.9 TP - Alb 3.7 Total Bili: 0.4 Direct Bili: - \ Hgb 12.8 / WBC 12.3 -------- Plt 226 / MCV 88.4 \ INR 1.63 XR Abdomen Ap 1 Vw Result Date: 03/30/2024 Interval placement of a gastric tube with tip projecting over the left upper quadrant in the expected position of the stomach and side port similarly projecting over the expected position of the gastric body. Dictated by: Dalton Marin MD CT Body Outside Consult Result Date: 03/30/2024 Contained perforated duodenal ulcer. Findings discussed with Dr. [...] images may or may not represent the [place] source data set and thus may contain changes that may lower the accuracy of this second-opinion interpretation. Dictated by: Rachell Mehta MD PHD XR Chest 1 View Result Date: 03/30/2024 There is no pulmonary consolidation, pleural effusion, or pneumothorax. The cardiomediastinal silhouette is within normal limits. Dictated by: Dion Zhang MD The radiology attending physician has personally reviewed this study, and had reviewed and/or edited this written report and agrees with it. Electronically signed by: Shannon Romo M.D. Assessment Ms. Romelia Lawson a 38 y.o.y female with a PMHx of 38 y.o. female with no pertinent past medical history who presents with several days of abdominal pain, imaging concerning for perforated duodenal ulcer. Edited by: Edgar Ward MD at 03/30/2024 4587 Plan Neuro: IV pain meds CV: Patient is hemodynamically stable Pulm: Incentive Spirometer GI: NPO, NGT IV PPI : voiding without difficulty ID: [id number] Activity: as tolerated VTE prophylaxis: lovenicolex Mar Tejeda MD, MS General Surgery PGY-1 Please call the service phone number for questions about this patient's care RAISER * Plan of Care - Leonor Norman RN - 03/31/2024 2:18 AM CST Goals: Vss, tolerate NG placement, sleep hygiene, safety and comfort, control N/V and pain Summary: Able to control n/v with prn Zofran and lower pain with prn dilaudid. NG tube has adequateoutput and pt is tolerating low intermittent suction well. RAISER * ED Procedure Note - Radames Quick MD - 03/30/2024 11:00 PM FUND RAISER Associated Order(s): Critical Care Procedure Critical Care Performed by: Radames Quick MD Authorized by: Radames Quick MD Critical care provider statement: As reflected in the history, physical exam, orders, notes, and/or MDM, I was personally present while the patient was critically ill and provided critical care services for 35 minutes, excluding timeinvolved in separately billable procedures. Critical care was necessary to treat or prevent imminent or life- threatening deterioration of the following condition(s): intra-abdominal infection Critical care was time spent by me providing the following: continuous telemetry, continuous pulse oximetry, interpretation of bedside monitors, imaging, and arterial/venous lab draws, serial bedside patient exams, serial laboratory checks and resuscitation with fluids serial abdominal exams, decision regarding NPO status and gastric tube placement and interpretationof results/output obtain appropriate cultures and empiric broad coverage antibiotics acute pain control I provided emergent necessary critical care medicine [...] spent time documenting in the medical record. Radames Quick MD 04/02/24 0950 RAISER * ED Pre-Arrival Note - Peyton Redd RN - 03/30/2024 4:17 PM FUND RAISER Pre-Arrival Note Transfer pt from [facility], accepted by Dr Hamilton (GI), ct shows collection of fluid with free air, abscess, duodenitis vs abscess, coming by ambulance, report called to Dr Alejandro Redd, RN RAISER documented in this encounter Plan of Treatment Not on file documented as of this encounter Procedures Procedure Name Priority Date/Time Associated Diagnosis Comments EGFR Routine 04/02/2024 9:14 PM FUND RAISER CBC WITHOUT DIFFERENTIAL Routine 04/02/2024 9:14 PM FUND RAISER PHOSPHORUS Routine 04/02/2024 9:14 PM FUND RAISER MAGNESIUM Routine 04/02/2024 9:14 PM FUND RAISER BASIC METABOLIC PANEL Routine 04/02/2024 9:14 PM FUND RAISER EGFR Routine 04/01/2024 8:54 PM FUND RAISER CBC WITHOUT DIFFERENTIAL Routine 04/01/2024 8:54 PM FUND RAISER PHOSPHORUS Routine 04/01/2024 8:54 PM FUND RAISER MAGNESIUM Routine 04/01/2024 8:54 PM FUND RAISER BASIC METABOLIC PANEL Routine 04/01/2024 8:54 PM FUND RAISER MRI ABDOMEN MRCP W WO CONTRAST INCL 3D (C) IP Routine 04/01/2024 2:33 PM FUND RAISER EGFR Routine 03/31/2024 9:01 PM FUND RAISER CBC WITHOUT DIFFERENTIAL Routine 03/31/2024 9:01 PM FUND RAISER PREALBUMIN Routine 03/31/2024 9:01 PM FUND RAISER PHOSPHORUS Routine 03/31/2024 9:01 PM FUND RAISER MAGNESIUM Routine 03/31/2024 9:01 PM FUND RAISER ALBUMIN Routine 03/31/2024 9:01 PM FUND RAISER BASIC METABOLIC PANEL Routine 03/31/2024 9:01 PM FUND RAISER FL UPPER GI SERIES, SINGLE CONTRAST ED Urgent/IP Urgent 03/31/2024 9:37 AM FUND RAISER URINALYSIS AND REFLEX TO MICROSCOPIC AND CULTURE STAT 03/31/2024 5:06 AM FUND RAISER URINALYSIS, MICROSCOPIC ONLY STAT 03/31/2024 5:06 AM FUND RAISER NH CRITICAL CARE ILL/INJURED PATIENT INIT 30-74 MIN Routine 03/30/2024 11:00 PM FUND RAISER XR ABDOMEN AP 1 VIEW ED Urgent/IP Urgent 03/30/2024 10:[address] BODY OUTSIDE CONSULT Routine 03/30/2024 8:13 PM FUND RAISER B CHECK SAMPLE STAT 03/30/2024 7:21 PM FUND RAISER LIPASE STAT 03/30/2024 6:51 PM FUND RAISER XR CHEST 1 VIEW ED 03/30/2024 6:47 PM FUND RAISER BLOOD CULTURE STAT 03/30/2024 6:41 PM FUND RAISER BLOOD CULTURE STAT 03/30/2024 6:41 PM FUND RAISER APTT STAT 03/30/2024 6:41 PM FUND RAISER PROTIME-INR STAT 03/30/2024 6:41 PM FUND RAISER TYPE AND SCREEN STAT 03/30/2024 6:41 PM FUND RAISER BLOOD GAS, VENOUS STAT 03/30/2024 6:4 1 PM FUND RAISER POCT LACTATE - DEVICE Routine 03/30/2024 6:26 PM FUND RAISER EGFR STAT 03/30/2024 6:20 PM FUND RAISER DIFFERENTIAL AUTO STAT 03/30/2024 6:2 0 PM FUND RAISER CBC WITH AUTO DIFFERENTIAL STAT 03/30/2024 6:20 PM FUND RAISER COMPREHENSIVE METABOLIC PANEL STAT 03/30/2024 6:20 PM FUND RAISER documented in this encounter Results * CT Abdomen Pelvis W Contrast (04/12/2024 2:55 PM FUND RAISER) Anatomical Region Laterality Modality Body N/A Computed Tomogra phy 04/12/2024 3:12 PM FUND RAISER Impressions 04/12/2024 3:26 PM FUND RAISER Interval decrease in size and stranding of [...] Carlos Hughes M.D. Narrative 04/12/2024 3:26 PM FUND RAISER EXAMINATION: ??Computed tomography of the abdomen and [...] by: Jose Carlos Hughes M.D. us Evelin Chiarajonatan Gonzalez TRAINMAN IMG CT PROCEDURES Final Re sult * eGFR (04/02/2024 9:14 PM FUND RAISER) eGFR >90 >=60 mL/min/1. 73 m2 Comment: [...] last reviewed 2021. Blood 04/02/2024 9:14 PM FUND RAISER 04/02/2024 9:36 PM FUND RAISER us Radames Quick MD LAB BLOOD ORDERABLES Fin al Result [facility] Department [place] [address] * (ABNORMAL) Basic metabolic panel (04/02/2024 9:14 PM FUND RAISER) Sodium 138 135 - 145 mmol/L Potassium, pl 3.3 3.3 - 4.9 mmol/L [facility] Chloride 103 97 - 110 mmol/L [facility] CO2 27 22 - 32 mmol/L [facility] [facility] Anion gap 8 2 - 15 mmol/L [facility] BUN 2(L) 6 - 25 mg/dL [facility] Creatinine 0.51(L) 0.60 - 1.10 mg/dL [facility] Glucose 100 70 - 199 mg/dL [facility] Comment: Interpretive Data Fasting glucose >/= 126 [...] 2022. Calcium 9.2 8.5 - 10.3 mg/dL [facility] Blood 04/02/2024 9:14 PM FUND RAISER 04/02/2024 9:36 PM FUND RAISER Radames Quick MD LAB BLOOD ORDERABLES Fin al Result [facility] Department [place] [address] * CBC without differential (04/02/2024 9:14 PM FUND RAISER) Pathologist [facility] [place] WBC 6.9 3.8 - 9.9 K/cumm Hgb 12.5 11.9 - 15.5 g/dL [facility] Hct 37.4 35.6 - 45.5 % [facility] Plt 271 150 - 400 K/cumm [facility] MPV 9.7 9.1 - 12.3 fL [facility] RBC 4.22 3.90 - 5.20 M/cumm [facility] MCV 88.6 81.3 - 96.4 fL [facility] MCH 29.6 27.1 - 33.3 pg [facility] MCHC 33.4 32.3 - 35.7 g/dL [facility] RDW CV 12.5 11.1 - 14.9 % [facility] RDW SD 40.3 35.7 - 48.1 fL [facility] NRBC abs 0.00 0.00 - 0.01 K/cumm [facility] Blood 04/02/2024 9:14 PM FUND RAISER 04/02/2024 9:37 PM FUND RAISER Radames Quick MD LAB BLOOD ORDERABLES Fin al Result Performing Organization Address City/[facility]/ZIP Co de Phone Number [facility] [place] [address] * Magnesium (04/02/2024 9:14 PM FUND RAISER) [facility] Magnesium 2.1 1.4 - 2.5 mg/dL Blood 04/02/2024 9:14 PM FUND RAISER 04/02/2024 9:36 PM FUND RAISER Radames Quick MD LAB BLOOD ORDERABLES Fin al Result Performing Organization Address [facility] Co de Phone Number [facility] [place] [address] * Phosphorus (04/02/2024 9:14 PM FUND RAISER) [facility] Phosphorus, pl 3.3 2.3 - 4.5 mg/dL Blood 04/02/2024 9:14 PM FUND RAISER 04/02/2024 9:36 PM FUND RAISER Radames Quick MD LAB BLOOD ORDERABLES Fin al Result Performing Organization Address [facility] Co de Phone Number [facility] [place] [address] * eGFR (04/01/2024 8:54 PM FUND RAISER) [facility] eGFR >90 >=60 mL/min/1. 73 m2 Comment: [...] last reviewed 2021. Blood 04/01/2024 8:54 PM FUND RAISER 04/01/2024 9:52 PM FUND RAISER Radames Quick MD LAB BLOOD ORDERABLES [facility] al Result [facility] Department [place] [address] * (ABNORMAL) Basic metabolic panel (04/01/2024 8:54 PM FUND RAISER) [facility] Sodium 138 135 - 145 mmol/L Potassium, pl 3.3 3.3 - 4.9 mmol/L [facility] Chloride 102 97 - 110 mmol/L [facility] CO2 26 22 - 32 mmol/L [facility] Anion gap 10 2 - 15 mmol/L [facility] BUN 4(L) 6 - 25 mg/dL [facility] Creatinine 0.52(L) 0.60 - 1.10 mg/dL [facility] Glucose 116 70 - 199 mg/dL [facility] Comment: Interpretive Data Fasting glucose >/= 126 [...] 2022. Calcium 8.5 8.5 - 10.3 mg/dL [facility] Blood 04/01/2024 8:54 PM FUND RAISER 04/01/2024 9:52 PM FUND RAISER Radames Quick MD LAB BLOOD ORDERABLES Fin al Result [facility] Department [place] [address] * (ABNORMAL) CBC without differential (04/01/2024 8:54 PM FUND RAISER) WBC 9.1 3.8 - 9.9 K/cumm Hgb 11.7(L) 11.9 - 15.5 g/dL [facility] Hct 35.4(L) 35.6 - 45.5 % [facility] Plt 231 150 - 400 K/cumm [facility] MPV 10.4 9.1 - 12.3 fL [facility] RBC 3.97 3.90 - 5.20 M/cumm [facility] MCV 89.2 81.3 - 96.4 fL [facility] MCH 29.5 27.1 - 33.3 pg [facility] MCHC 33.1 32.3 - 35.7 g/dL [facility] RDW CV 12.4 11.1 - 14.9 % [facility] RDW SD 40.7 35.7 - 48.1 fL [facility] NRBC abs 0.00 0.00 - 0.01 K/cumm [facility] Blood 04/01/2024 8:54 PM FUND RAISER 04/01/2024 9:50 PM FUND RAISER Radames Quick MD LAB BLOOD ORDERABLES Fin al Result Performing Organization Address [facility] de Phone Number [facility] [place] [address] * Magnesium (04/01/2024 8:54 PM FUND RAISER) Magnesium 2.1 1.4 - 2.5 mg/dL Blood 04/01/2024 8:54 PM FUND RAISER 04/01/2024 9:52 PM FUND RAISER Radames Quick MD LAB BLOOD ORDERABLES Fin al Result Performing Organization Address [facility] de Phone Number [facility] [place] [address] * (ABNORMAL) Phosphorus (04/01/2024 8:54 PM FUND RAISER) Phosphorus, pl 2.0(L) 2.3 - 4.5 mg/dL Blood 04/01/2024 8:54 PM FUND RAISER 04/01/2024 9:52 PM FUND RAISER Radames Quick MD LAB BLOOD ORDERABLES Fin al Result Performing Organization Address [facility] de Phone Number [facility] [place] [address] * MRI Abdomen MRCP W WO Contrast Incl 3D (04/01/2024 2:33 PM FUND RAISER) Anatomical Region Laterality Modality Body N/A Magnetic Resonan ce 04/02/2024 8:51 AM FUND RAISER Impressions 04/02/2024 11:34 AM FUND RAISER Unchanged 4 cm fluid and gas collection [...] Edgar Schaffer M.D. Narrative 04/02/2024 11:34 AM FUND RAISER EXAMINATION: 1. MAGNETIC RESONANCE IMAGING OF THE [...] signed by: Edgar Schaffer M.D. Evelin Gonzalez TRAINMAN IM MRI PROCEDURES Final R esult * eGFR (03/31/2024 9:01 PM FUND RAISER) eGFR >90 >=60 mL/min/1. 73 m2 Comment: [...] last reviewed 2021. Blood 03/31/2024 9:01 PM FUND RAISER 03/31/2024 9:53 PM FUND RAISER us Radames Quick MD LAB BLOOD ORDERABLES Fin al Result [facility] Department [place] [address] * (ABNORMAL) Basic metabolic panel (03/31/2024 9:01 PM FUND RAISER) Sodium 138 135 - 145 mmol/L Potassium, pl 3.7 3.3 - 4.9 mmol/L [facility] Chloride 105 97 - 110 mmol/L [facility] CO2 25 22 - 32 mmol/L [facility] Anion gap 8 2 - 15 mmol/L [facility] BUN 7 6 - 25 mg/dL [facility] Creatinine 0.55(L) 0.60 - 1.10 mg/dL [facility] Glucose 114 70 - 199 mg/dL [facility] Comment: Interpretive Data Fasting glucose >/= 126 [...] classification and Diagnosis of Diabetes Diabetes Care 2022; 46: [id number]. Current interpretive data was last revised 2022. Calcium 8.1(L) 8.5 - 10.3 mg/dL [facility] Blood 03/31/2024 9:01 PM FUND RAISER 03/31/2024 9:53 PM FUND RAISER Radames Quick MD LAB BLOOD ORDERABLES Fin al Result Performing Organization Address [facility] Co de Phone Number [facility] [place] [address] * (ABNORMAL) CBC without differential (03/31/2024 9:01 PM FUND RAISER) Pathologist [facility] [place] WBC 11.9(H) 3.8 - 9.9 K/cumm Hgb 11.5(L) 11.9 - 15.5 g/dL [facility] Hct 35.3(L) 35.6 - 45.5 % [facility] Plt 194 150 - 400 K/cumm [facility] MPV 10.1 9.1 - 12.3 fL [facility] RBC 3.81(L) 3.90 - 5.20 M/cumm [facility] MCV 92.7 81.3 - 96.4 fL [facility] MCH 30.2 27.1 - 33.3 pg [facility] MCHC 32.6 32.3 - 35.7 g/dL [facility] RDW CV 12.6 11.1 - 14.9 % [facility] RDW SD 43.0 35.7 - 48.1 fL [facility] NRBC abs 0.00 0.00 - 0.01 K/cumm [facility] Blood 03/31/2024 9:01 PM FUND RAISER 03/31/2024 9:59 PM FUND RAISER Radames Quick MD LAB BLOOD ORDERABLES Fin al Result Performing Organization Address [facility]/ZIP Co de Phone Number [facility] [place] [address] * Magnesium (03/31/2024 9:01 PM FUND RAISER) Magnesium 1.9 1.4 - 2.5 mg/dL Blood 03/31/2024 9:01 PM FUND RAISER 03/31/2024 9:53 PM FUND RAISER Radames Quick MD LAB BLOOD ORDERABLES Fin al Result Performing Organization Address City/[facility]/ZIP Co de Phone Number [facility] [place] [address] * (ABNORMAL) Phosphorus (03/31/2024 9:01 PM FUND RAISER) Phosphorus, pl 2.1(L) 2.3 - 4.5 mg/dL Blood 03/31/2024 9:01 PM FUND RAISER 03/31/2024 9:53 PM FUND RAISER Radames Quick MD LAB BLOOD ORDERABLES Fin al Result Performing Organization Address [facility] Co de Phone Number [facility] [place] [address] * (ABNORMAL) Albumin (03/31/2024 9:01 PM FUND RAISER) Albumin 3.0(L) 3.5 - 5.0 g/dL Blood 03/31/2024 9:01 PM FUND RAISER 03/31/2024 9:53 PM FUND RAISER us Evelin Gonzalez NP LAB BLOOD ORDERABLES Final Result Performing Organization Address [facility] Co de Phone Number [facility] [place], [place] [id number] * (ABNORMAL) Prealbumin (03/31/2024 9:01 PM FUND RAISER) Prealbumin 8.0(L) 20.0 - 40.0 mg/dL Blood 03/31/2024 9:01 PM FUND RAISER 03/31/2024 9:55 PM FUND RAISER us Evelin Gonzalez NP LAB BLOOD ORDERABLES Final Result [facility] Department [place] [address] * FL Upper GI Series, Single Contrast (03/31/2024 9:37 AM FUND RAISER) Anatomical Region Laterality Modality Body N/A Radio Fluoroscop y 03/31/2024 12:4 4 PM FUND RAISER Impressions 03/31/2024 12:46 PM FUND RAISER 1. No evidence of extraluminal contrast leak [...] Jacob Chavez M.D. Narrative 03/31/2024 12:46 PM FUND RAISER EXAMINATION: UPPER GASTROINTESTINAL EXAMINATION HISTORY: Concern for duodenal perforation, rule out ongoing leak TECHNIQUE: After a ovens supervisor radiograph was obtained, the patient was given water-soluble contrast and thin barium ??through her gastric tube, and multiple fluoroscopic and conventional overhead radiographs of the stomach and duodenum were obtained. FINDINGS: On the ovens supervisor radiograph, gastric tube with tip in the [...] rule out ongoing leak TECHNIQUE: After a ovens supervisor radiograph was obtained, the patient was given water-soluble contrast and thin barium through her gastric tube, and multiple fluoroscopic and conventional overhead radiographs of the stomach and duodenum were obtained. FINDINGS: On the ovens supervisor radiograph, gastric tube with tip in the [...] IMG FLUOROSCOPY PROCEDURES Final Result * (ABNORMAL) Urinalysis, microscopic only (03/31/2024 5:06 AM FUND RAISER) WBC, ur 6-10(A) 0 - 5 /HPF RBC, ur 21-50(A) 0 - 2 /HPF [facility] Epithelial cells, squamous, ur 1-5 0 - 5 /HPF [facility] Bacteria, ur 1+(A) [facility] Yeast, ur TRACE [facility] Mucous, ur Present(A) [facility] Culture Reflex Comment Reflex conditions for urine culture (WBC >10) not met. [facility] Urine 03/31/2024 5:06 AM FUND RAISER 03/31/2024 5:18 AM FUND RAISER Radames Quick MD LAB URINE ORDERABLES Fin al Result Performing Organization Address City/State/[facility] Co de Phone Number [facility] Department [place] [address] * (ABNORMAL) Urinalysis reflex to microscopic and culture Urine (03/31/2024 5:06 AM FUND RAISER) Color, ur Yellow Yellow Clarity, ur Clear Clear [facility] Specific gravity, ur 1.034(H) 1.003 - 1.030 [facility] pH, urine 6.0 [facility] Comment: Interpretive Data ? Urine pH is affected by diet, medications, systemic acid-base disturbances, and renal tubular function. ??pH may affect urinary stone formation. ??For example, urine pH below 6.0 may help reduce the tendency for calcium phosphate stones and pH greater than 6.0 may reduce the tendency for uric acid stone formation. Source: [facility] Current Interpretive Data was last revised on 2017 Protein, ur ql 1+(A) Negative [facility] Glucose, ur ql Trace(A) Negative [facility] Ketones, ur 2+(A) Negative [facility] Bilirubin, ur Negative Negative [facility] Blood, ur 3+(A) Negative [facility] Urobilinogen, ur <2.0 <2.0 mg/dL [facility] Nitrite, ur Negative Negative [facility] Leukocyte esterase, ur Negative Negative [facility] UA reflex comment Reflex to microscopic UA will be performed. [facility] Urine 03/31/2024 5:06 AM FUND RAISER 03/31/2024 5:19 AM FUND RAISER Narrative [facility] - 03/31/2024 5:24 AM FUND RAISER If patient unable to urinate, straight cath us Radames Quick MD LAB MICROBIOLOGY - GENER AL ORDERABLES Final Result Performing Organization Address City/[facility] Co de Phone Number [facility] Department [place] [address] * [place] CRITICAL CARE ILL/INJURED PATIENT INIT 30-74 MIN (03/30/2024 11:00 PM FUND RAISER) Narrative Radames Quick MD - 03/30/2024 11:00 PM FUND RAISER Radames Quick MD ? 04/02/2024 ??9:50 AM [...] spent time documenting in the medical record. Radames Quick MD IN CLINIC/BEDSIDE ORDERA BLES Final Result * XR Abdomen Ap 1 Vw (03/30/2024 10:47 PM FUND RAISER) Anatomical Region Laterality Modality Body, Abdomen N/A Computed Radiogr aphy 03/30/2024 11:0 5 PM FUND RAISER Impressions 03/31/2024 10:31 AM FUND RAISER Interval placement of a gastric tube with [...] Deb Kingsley M.D. Narrative 03/31/2024 10:31 AM FUND RAISER EXAMINATION: Abdomen, one view. HISTORY: Tube check [...] CT Body Outside Consult (03/30/2024 8:13 PM FUND RAISER) Anatomical Region Laterality Modality Body N/A Computed Tomogra phy 03/30/2024 9:03 PM FUND RAISER Impressions 03/31/2024 10:39 AM FUND RAISER Contained perforation adjacent to the duodenum likely [...] images may or may not represent the [place] source data set and thus may contain changes that may lower the accuracy of this second-opinion interpretation. Dictated by: Racehll Orozco MD ??PHD The radiology attending physician has personally reviewed this study, and had reviewed and/or edited this written report and agrees with it. Electronically signed by: Deb Kingsley M.D. Narrative 03/31/2024 10:39 AM FUND RAISER EXAMINATION: RADIOLOGY CONSULTATION ON OUTSIDE IMAGING STUDY STUDY INITIALLY PERFORMED: 03/30/2024 at [facility]. TYPE OF STUDY: Multiple CT images of [...] IMAGING STUDY STUDY INITIALLY PERFORMED: 03/30/2024 at [facility]. TYPE OF STUDY: Multiple CT images of [...] images may or may not represent the [place] source data set and thus may contain [...] Result * Check Sample (03/30/2024 7:21 PM FUND RAISER) ABO Rh A Positive [facility] OTHER 03/30/2024 7:21 PM FUND RAISER 03/30/2024 7:29 PM FUND RAISER Radames Quick MD LAB BLOOD ORDERABLES Fin al Result [facility] Department [place] [address] [facility] * Lipase (03/30/2024 6:51 PM FUND RAISER) Lipase 32 10 - 99 Units/L Comment:Hemolyzed; result ma y be falsely decreased Blood 03/30/2024 6:51 PM FUND RAISER 03/30/2024 7:19 PM FUND RAISER Jenny Avila MD LAB BLOOD ORDERABLES Final Res ult [facility] Department [place] [address] * XR Chest 1 View (03/30/2024 6:47 PM FUND RAISER) Anatomical Region Laterality Modality Body, Chest N/A Computed Radiogr aphy 03/30/2024 7:29 PM FUND RAISER Impressions 03/30/2024 8:00 PM FUND RAISER There is no pulmonary consolidation, pleural effusion, or pneumothorax. ??The cardiomediastinal silhouette is within normal limits. Dictated by: Dion Zhang MD The radiology attending physician has personally reviewed this study, and had reviewed and/or edited this written report and agrees with it. Electronically signed by: Shannon Romo M.D. Narrative 03/30/2024 8:00 PM FUND RAISER EXAMINATION: XR CHEST 1 VIEW HISTORY: Fever [...] IMG XR PROCEDURES Final Resu lt * aPTT (03/30/2024 6:41 PM FUND RAISER) aPTT 30 28 - 38 sec Comment: Interpretive Data Heparin therapeutic range: 66.0 - 100.0 seconds. Range based on correlation with therapeutic heparin activity range of 0.3 - 0.7 Units/mL. Current interpretive data was last revised on 2023. Blood 03/30/2024 6:41 PM FUND RAISER 03/30/2024 6:58 PM FUND RAISER Jenny Avila MD LAB BLOOD ORDERABLES Final Res ult Performing Organization Address [facility] Co de Phone Number [facility] [place] [address] * (ABNORMAL) Protime-INR (03/30/2024 6:41 PM FUND RAISER) PT 17.8(H) 9.7 - 13.0 sec INR 1.63(H) 0.90 - 1.20 [facility] Comment: Interpretive data Oral anticoagulant therapeutic ranges: Venous thromboembolism prophylaxis or treatment: 2.0-3.0 CARDIOLOGY Standard range: 2.0-3.0 High-intensity range: 2.5-3.5 Refer to indication-specific guidelines for appropriate target ranges for prosthetic heart valve replacement. Current interpretive data was last revised on 2019. Blood 03/30/2024 6:41 PM FUND RAISER 03/30/2024 6:58 PM FUND RAISER Jenny Avila MD LAB BLOOD ORDERABLES Final Res ult Performing Organization Address [facility] Co de Phone Number [facility] [place] [address] * Type and screen (03/30/2024 6:41 PM FUND RAISER) [facility], indirect Negative ABO Rh A Positive [facility] Blood 03/30/2024 6:41 PM FUND RAISER 03/30/2024 7:00 PM FUND RAISER Narrative [facility] - 03/30/2024 8:05 PM FUND RAISER Has the patient had Daratumumab or Isatuximab in the past 6 months?->Unknown Jenny Avila MD LAB BLOOD BANK TEST ORDERABLES Final Result [facility] Department [place] [address] * Blood culture Blood Peripheral (03/30/2024 6:41 PM FUND RAISER) Report Final Report: No growth Blood (Peripheral) 03/30/2024 6:41 PM FUND RAISER 03/30/2024 6:58 PM FUND RAISER Narrative [facility] - 04/04/2024 7:00 AM FUND RAISER From a different site than #1. Draw [...] performance characteristics have been verified by the [facility]. For questions about this culture, contact the Microbiology Laboratory at [phone]. Interpretive data was last revised on 24. Jenny Avila MD LAB MICROBIOLOGY - GENERAL ORD ERABLES Final Result Performing Organization Address City/[facility]/ZIP Co de Phone Number [facility] Cl[facility] Department [place] [address] * Blood culture Blood Peripheral (03/30/2024 6:41 PM FUND RAISER) Report Final Report: No growth Blood (Peripheral) 03/30/2024 6:41 PM FUND RAISER 03/30/2024 6:57 PM FUND RAISER Narrative [facility] - 04/04/2024 7:00 AM FUND RAISER Draw Blood cultures before administration of Antibiotics [...] performance characteristics have been verified by the [facility]. For questions about this culture, contact the Microbiology Laboratory at [phone]. Interpretive data was last revised on 24. Jenny Avila MD LAB MICROBIOLOGY - GENERAL ORD ERABLES Final Result Performing Organization Address [facility]/ZIP Co de Phone Number [facility] Cl[facility] Department [place] [address] * Blood gas, venous (03/30/2024 6:41 PM FUND RAISER) [facility] pH, Venous 7.37 7.32 - 7.43 PCO2, Venous 44 40 - 50 mmHg [facility] PO2, Venous 31 mmHg [facility] Comment: Interpretive Data No Reference Range Established Current Interpretive Data was last revised on 2017. HCO3 Venous, Calculated 26 20 - 30 mmol/L [facility] BE, venous 0 mmol/L [facility] Comment: Interpretive Data No Reference Range Established Current Interpretive Data was last revised on 2017. Blood 03/30/2024 6:41 PM FUND RAISER 03/30/2024 6:53 PM FUND RAISER us Jenny Avila MD LAB BLOOD ORDERABLES Final Res ult Performing Organization Address [facility] Co de Phone Number [facility] [place] [address] * POCT lactate (03/30/2024 6:26 PM FUND RAISER) [facility] Lactate POC i-STAT 0.8 0.7 - 2.2 mmol/L Blood 03/30/2024 6:26 PM FUND RAISER 03/30/2024 6:26 PM FUND RAISER us Markel Solis MD LAB POCT ORDERABLES - BEATRIZ CE Final Result Performing Organization Address [facility] de Phone Number [facility] [place] [address] * eGFR (03/30/2024 6:20 PM FUND RAISER) [facility] eGFR >90 >=60 mL/min/1. 73 m2 Comment: [...] last reviewed 2021. Blood 03/30/2024 6:20 PM FUND RAISER 03/30/2024 6:46 PM FUND RAISER us Ronaldo Leyva MD LAB BLOOD ORDERABLES Final R esult [facility] Department [place] [address] * (ABNORMAL) Differential, auto (03/30/2024 6:20 PM FUND RAISER) Neutrophil abs 11.5(H) 1.5 - 6.5 K/cumm Imm gran abs 0.0 0.0 - 0.1 K/cumm [facility] Lymphocyte abs 0.3(L) 0.8 - 3.3 K/cumm [facility] Monocyte abs 0.5 0.2 - 0.8 K/cumm [facility] Eosinophil abs 0.0 0.0 - 0.5 K/cumm [facility] Basophil abs 0.0 0.0 - 0.1 K/cumm [facility] Neutrophil pct 93.9 % [facility] Comment: Interpretive Data Percent cell count reference ranges are not reported, since discordance with absolute values may lead to misinterpretation of CBC data. Current Interpretive Data was last revised on 2017. Imm gran pct 0.2 % [facility] Comment: Interpretive Data Percent cell count reference ranges are not reported, since discordance with absolute values may lead to misinterpretation of CBC data. Current Interpretive Data was last revised on 2017. Lymphocyte pct 2.1 % [facility] Comment: Interpretive Data Percent cell count reference ranges are not reported, since discordance with absolute values may lead to misinterpretation of CBC data. Current Interpretive Data was last revised on 2017. Monocyte pct 3.7 % [facility] Comment: Interpretive Data Percent cell count reference ranges are not reported, since discordance with absolute values may lead to misinterpretation of CBC data. Current Interpretive Data was last revised on 2017. Eosinophil pct 0.0 % [facility] Comment: Interpretive Data Percent cell count reference ranges are not reported, since discordance with absolute values may lead to misinterpretation of CBC data. Current Interpretive Data was last revised on 2017. Basophil pct 0.1 % [facility] Comment: Interpretive Data Percent cell count reference ranges are not reported, since discordance with absolute values may lead to misinterpretation of CBC data. Current Interpretive Data was last revised on 2017. Blood 03/30/2024 6:20 PM [facility] 03/30/2024 6:47 PM [facility] us Ronaldo Leyva MD LAB BLOOD ORDERABLES Final R esult [facility] Department [place] [address] * (ABNORMAL) Comprehensive metabolic panel (03/30/2024 6:20 PM [facility]) Sodium 139 135 - 145 mmol/L Potassium, pl 3.8 3.3 - 4.9 mmol/L [facility] Chloride 105 97 - 110 mmol/L [facility] CO2 24 22 - 32 mmol/L [facility] Anion gap 10 2 - 15 mmol/L [facility] BUN 7 6 - 25 mg/dL [facility] Creatinine 0.56(L) 0.60 - 1.10 mg/dL [facility] Glucose 137 70 - 199 mg/dL [facility] Comment: Interpretive Data Fasting glucose >/= 126 [...] 2022. Calcium 7.9(L) 8.5 - 10.3 mg/dL [facility] Bilirubin, total 0.4 0.1 - 1.2 mg/dL [facility] Protein, pl 6.6 6.5 - 8.5 g/dL [facility] Albumin 3.7 3.5 - 5.0 g/dL [facility] Alk phos 73 40 - 130 Units/L [facility] ALT 15 7 - 45 Units/L [facility] AST 21 10 - 45 Units/L [facility] Blood 03/30/2024 6:20 PM [facility] 03/30/2024 6:46 PM [facility]ER Radames Quick MD LAB BLOOD ORDERABLES Fin al Result [facility] Department [place] [address] * (ABNORMAL) CBC with auto differential (03/30/2024 6:20 PM [facility]) WBC 12.3(H) 3.8 - 9.9 K/cumm Hgb 12.8 11.9 - 15.5 g/dL [facility] Hct 38.7 35.6 - 45.5 % [facility] Plt 226 150 - 400 K/cumm [facility] MPV 10.0 9.1 - 12.3 fL [facility] RBC 4.38 3.90 - 5.20 M/cumm [facility] MCV 88.4 81.3 - 96.4 fL [facility] MCH 29.2 27.1 - 33.3 pg [facility] MCHC 33.1 32.3 - 35.7 g/dL [facility] RDW CV 12.5 11.1 - 14.9 % [facility] RDW SD 40.8 35.7 - 48.1 fL [facility] NRBC abs 0.00 0.00 - 0.01 K/cumm [facility] Blood 03/30/2024 6:20 PM [facility] 03/30/2024 6:47 PM [facility]ER Radames Quick MD LAB BLOOD ORDERABLES Fin al Result Performing Organization Address City/State/[facility] Co de Phone Number [facility] Department [place] [address] documented in this encounter Visit Diagnoses Diagnosis Abdominal pain- Primary Abdominal pain, unspecified site Abdominal pain Abdominal pain, unspecified site Perforated duodenal ulcer (CMS/HCC) (HCC) Chronic or unspecified duodenal ulcer with perforation, without mention of obstruction Intra-abdominal fluid collection Other ascites Intra-abdominal fluid collection Other ascites Encounter for medication review Discharge planning issues Depression Depressive disorder, not elsewhere classified Perforated duodenal ulcer (CMS/HCC) (HCC) Chronic or unspecified duodenal ulcer with perforation, without mention of obstruction documented in this encounter Admitting Diagnoses Diagnosis Abdominal pain Abdominal pain, unspecified site documented in this encounter Administered Medications Inactive Administered Medications - up to 3 most recent administrations Medication Order MAR Action Action Date Dose Rate Site acetaminophen (TYLENOL) tablet 1,000 mg 1,000 mg, oral, Once, On Tue03/30/24 at 1839, For 1 dose Given 03/30/2024 6:46 PM [facility] 1,000 mg acetaminophen (TYLENOL) tablet 1,000 mg 1,000 mg, oral, Every 6 hours PRN, fever, Starting on 03/31/24 at 1532 Given 04/01/2024 11:31 AM [facility] 1,000 mg Given 04/01/2024 2:47 AM [facility]ER 1,000 mg Given 03/31/2024 5:00 PM [facility]ER 1,000 mg amoxicillin-clavulanate (AUGMENTIN) 875-125 mg per tablet 875 mg of amoxicillin 875 mg of amoxicillin, oral, 2 times daily, First dose on Tue04/03/24 at 0900, Indications: Abdominal/Pelvic InfectionIndications:Abdominal/ Pelvic Infection Given 04/03/2024 8:51 AM [facility]ER 875 mg of amoxicillin Carrier Fluids for Secondary Infusion - 0.9% Sodium Chloride 30 mL, intravenous, As needed, For priming tubing and/or flushing, Starting on Tue03/31/24 at 0009, 0-250 ml/hr to flush line after IV infusions when no maintenance IV ordered. Infuse 30mL at the same rate as the secondary infusion. Run as primary IV, not intended for KVO. dextromethorphan-bupropion (AUVELITY) 45-105 mg IR/ER biphasic tablet 1 tablet 1 tablet, oral, 2 times daily, First dose on Tue04/01/24 at 0900 Given 04/03/2024 8:51 AM [facility] 1 tablet Given 04/02/2024 10:32 PM FUND RAISER 1 tablet Given 04/02/2024 9:17 AM [facility]ER 1 tablet dextrose 5% and sodium chloride 0.45% with potassium chloride 20 mEq/L infusion (premix) 100 mL/hr, intravenous, Continuous, Starting on Tue03/31/24 at 0700 New Bag 04/02/2024 1:19 AM [facility]ER 100 mL/hr 100 mL/hr New Bag 04/01/2024 12:48 PM [facility]ER 100 mL/hr 100 mL/hr New Bag 03/31/2024 9:18 PM [facility]ER 100 mL/hr 100 mL/hr enoxaparin (LOVENOX) syringe 40 mg 40 mg, subcutaneous, Daily (for enoxaparin), First dose on Tue03/31/24 at 2100, Indications: Deep Vein Thrombosis PreventionIndications:Deep Vein Thrombosis Prevention Given 04/02/2024 9:30 PM [facility]ER 40 mg Left Upper Arm Given 04/01/2024 9:01 PM [facility]ER 40 mg Le ft Lower Abdomen Given 03/31/2024 9:19 PM [facility]ER 40 mg Le ft Lower Abdomen ertapenem (INVanz) 1,000 mg in sterile water 10 mL (100 mg/mL) IV syringe 1,000 mg, intravenous, at 120 mL/hr, Administer over 5 Minutes, Every 24 hours scheduled, First dose on 03/31/24 at 0900, For IV Push administration: add 10 mL of sterile water for injection or NS to 1g vial to achieve a final concentration of 100 mg/mL. Do NOT mix with dextrose or other medications., Indications: Abdominal/Pelvic InfectionIndications:Abdominal/Pe lvic Infection New Bag 04/02/2024 9:17 AM [facility]ER 1,000 mg 120 mL/hr New Bag 04/01/2024 8:32 AM [facility]ER 1,000 mg 120 mL/hr New Bag 03/31/2024 10:28 AM [facility]ER 1,000 mg 120 mL/hr gadoterate meglumine injection 13 mL 13 mL, intravenous, Once in imaging, contrast, Starting on Tue04/01/24 at 1406, For 1 dose Contrast Given 04/01/2024 2:09 PM [facility]ER 13 mL HYDROmorphone (DILAUDID) injection 0.2 mg 0.2 mg, intravenous, Administer over 2 Minutes, Every 3 hours PRN, 1st line for pain, Starting on 03/31/24 at 0009, May repeat in 30 minutes if pain is uncontrolled or increasing. Max 2 doses within 1 dosing interval., Indications: PainIndications:Pain Given 04/01/2024 9:00 PM [facility] 0.2 mg Given 04/01/2024 3:34 PM [facility]ER 0.2 mg Given 03/31/2024 9:19 PM [facility] RA[facility]ER 0.2 mg HYDROmorphone (DILAUDID) injection 1 mg 1 mg, intravenous, Administer over 2 Minutes, Every 2 hours PRN, 1st line for pain, Starting on Tue03/30/24 at 1847 Given 03/30/2024 9:15 PM [facility] 1 mg Given 03/30/2024 7:14 PM [facility]ER 1 mg lidocaine (GLYDO) 2 % jelly 200 mg 200 mg (10 mL), oral, Once, On Tue03/30/24 at 2152, For 1 dose Given 03/30/2024 9:54 PM [facility] 200 mg LORazepam (ATIVAN) 1 mg in sterile water (further dilution required) injection 1 mg, intravenous, Once, On Tue03/30/24 at 2217, For 1 dose, Withdraw ordered dose amount then dilute with equal volume of sterile water for injection. Administer total volume to patient. Do not exceed a rate of 2 mg/minute. Given 03/30/2024 10:21 PM [facility] 1 mg magnesium sulfate 2 g/50 mL in water (premix) 2 g 2 g, intravenous, at 50 mL/hr, Administer over 60 Minutes, Once, On 04/01/24 at 0330, For 1 dose New Bag 04/01/2024 3:38 AM [facility] 2 g 50 mL/hr NON FORMULARY (FOR INPATIENT USE) 45 mg, oral, 2 times daily, First dose on 03/31/24 at 1215, Drug Name: auvelity 45-105mg dextromethorfan/buproprion combo pill for MDD, Form: tablet, Length of Therapy: Indefinite, How soon needed? (normally 72 hrs needed to procure): 24-48 hrs, Reason for Non-Formulary: per patient request Given 03/31/2024 9:21 PM [facility] 45 mg ondansetron (ZOFRAN) injection 4 mg 4 mg, intravenous, Administer over 2 Minutes, Every 4 hours PRN, nausea, vomiting, Starting on Tue03/30/24 at 1910 Given 03/31/2024 4:32 AM [facility] 4 mg Given 03/31/2024 12:34 AM [facility]ER 4 mg Given 03/30/2024 7:13 PM [facility]ER 4 mg ondansetron (ZOFRAN) injection 4 mg 4 mg, intravenous, Administer over 2 Minutes, Once, On 03/31/24 at 1115, For 1 dose Given 03/31/2024 10:58 AM [facility] 4 mg ondansetron (ZOFRAN) injection 4 mg 4 mg, intravenous, Administer over 2 Minutes, Once, On 04/01/24 at 0330, For 1 dose Given 04/01/2024 2:50 AM [facility]ER 4 mg ondansetron (ZOFRAN) injection 4 mg 4 mg, intravenous, Administer over 2 Minutes, Once, On 04/01/24 at 0915, For 1 dose Given 04/01/2024 8:59 AM [facility]ER 4 mg ondansetron (ZOFRAN) injection 4 mg 4 mg, intravenous, Administer over 2 Minutes, Once, On 04/01/24 at 1600, For 1 dose Given 04/01/2024 3:34 PM [facility]ER 4 mg ondansetron (ZOFRAN) injection 4 mg 4 mg, intravenous, Administer over 2 Minutes, Once, On Tue04/01/24 at 2130, For 1 dose Given 04/01/2024 9:00 PM [facility] 4 mg pantoprazole (PROTONIX) 40 mg in sodium chloride 0.9% 10 mL IV Syringe 40 mg, intravenous, at 300 mL/hr, Administer over 2 Minutes, 2 times daily, First dose (after last modification) on Tue03/31/24 at 0900, For IV administration, reconstitute 40 mg vial with 10 mL sodium chloride 0.9% for injection for a final concentration of 4 mg/mL, Indications: Stress Ulcer ProphylaxisIndications:Stress Ulcer Prophylaxis Given 04/02/2024 10:32 PM [facility] 40 mg 300 mL/hr Given 04/02/2024 9:17 AM [facility]ER 40 mg 300 mL/hr Given 04/01/2024 9:01 PM [facility]D [facility]ER 40 mg 300 mL/hr pantoprazole DR (PROTONIX) extended release tablet 40 mg 40 mg, oral, 2 times daily, First dose on Tue04/03/24 at 0900, Do not crush, chew, cut, dissolve, open or otherwise manipulate tablet/capsule., Indications: Stress Ulcer ProphylaxisIndications:Stress Ulcer Prophylaxis Given 04/03/2024 8:51 AM [facility] 40 mg piperacillin-tazobactam (ZOSYN) 3.375 gram/65 mL in sodium chloride 0.9% (premix) 3.375 g 3.375 g, intravenous, at 130 mL/hr, Administer over 30 Minutes, Every 6 hours scheduled, First dose on Tue03/30/24 at 1842, Indications: SepsisIndications:Sepsis New Bag 03/30/2024 6:50 PM [facility]ER 3.375 g 130 mL /hr potassium chloride ER (KLOR-CON) extended release tablet 40 mEq 40 mEq, oral, Once, On Tue04/02/24 at 2315, For 1 dose, Tablets should not be crushed, chewed, dissolved, or otherwise manipulated. Capsules may be opened and sprinkled on a spoonful of applesauce or pudding, but the contents of the capsule should not be crushed or chewed. Given 04/02/2024 10:38 PM [facility]ER 40 mEq potassium phosphates 20 mmol in sodium chloride 0.9% 500 mL IVPB 20 mmol, intravenous, at 84.4 mL/hr, Administer over 6 Hours, Once, On 04/01/24 at 0330, For 1 dose, For PERIPHERAL line administration Each 1 mmol of phosphorus ordered contains ~1.5 mEq of potassium. New Bag 04/01/2024 4:54 AM [facility]ER 20 mmol 84.4 mL/hr potassium phosphates 30 mmol in sodium chloride 0.9% 500 mL IVPB 30 mmol, intravenous, at 85 mL/hr, Administer over 6 Hours, Once, On 04/02/24 at 0600, For 1 dose, For PERIPHERAL line administration Each 1 mmol of phosphorus ordered contains ~1.5 mEq of potassium. New Bag 04/02/2024 5:26 AM [facility]ER 30 mmol 85 mL/hr simethicone (MYLICON) chewable tablet 80 mg 80 mg, oral, Once, On Tu04/03/24 at 0115, For 1 dose Given 04/03/2024 12:48 AM [facility]ER 80 mg sodium chloride 0.9% flush 0.5-20 mL 0.5-20 mL, intra-catheter, Every 8 hours scheduled (alternate), First dose on 03/31/24 at 0045, Flush volume based on line type and size. Given 04/03/2024 8:51 AM [facility]ER 10 mL Given 04/02/2024 10:36 PM FUND RA[facility]ER 10 mL Given 04/02/2024 5:36 PM FUND RAISER 10 mL sodium chloride 0.9% flush 0.5-20 mL 0.5-20 mL, intra-catheter, As needed, line care, Starting on 03/31/24 at 0009, Flush volume based on line type and size. Flush before and after each use. sodium chloride 0.9% infusion 100 mL/hr, intravenous, Continuous, Starting on 03/31/24 at 0045 New Bag 03/31/2024 12:34 AM [facility]ER 100 mL/hr 100 mL/hr documented in this encounter Historical Medications * This list may reflect changes made after this encounter. Auvelity 45-105 mg tablet, IR & ER, biphasic 1 tablet 2 (two) times a day 02/10/2024 added in this encounter Active and Recently Administered Medications Times are shown in [facility]. Scheduled Medication Order 04/01/2024 04/02/2024 04/03/2024 amoxicillin-clavulanate (AUGMENTIN) 875-125 mg per tablet 875 mg of amoxicillin 875 mg of amoxicillin, oral, 2 times daily, First dose on Tue04/03/24 at 0900, Indications: Abdominal/Pelvic Infection 0851 (Given - Provider: Inga Camarena RN) dextromethorphan-bupropio n (AUVELITY) 45-105 mg IR/ER biphasic tablet 1 tablet 1 tablet, oral, 2 times daily, First dose on Tue04/01/24 at 0900 0838 (Not Given - Provider: Lucero Agudelo RN - Reason: Patient/family refused)2058 (Given - Provider: Leonor Norman RN) 09 (Given - Provider: Inga Camarena RN)2231 (Given - Provider: Monica Maravilla RN) 0851 (Given - Provider: Inga Camarena RN) enoxaparin (LOVENOX) syringe 40 mg 40 mg, subcutaneous, Daily (for enoxaparin), First dose on 03/31/24 at 2100, Indications: Deep Vein Thrombosis Prevention 2100 (Given - Provider: Leonor Norman RN) 2129 (Given - Provider: Monica Maravilla, RADHA) ertapenem (INVanz) 1,000 mg in sterile water 10 mL (100 mg/mL) IV syringe (CANCELED) 1,000 mg, intravenous, at 120 mL/hr, Administer over 5 Minutes, Every 24 hours scheduled, First dose on 03/31/24 at 0900, For IV Push administration: add 10 mL of sterile water for injection or NS to 1g vial to achieve a final concentration of 100 mg/mL. Do NOT mix with dextrose or other medications., Indications: Abdominal/Pelvic Infection 0832 (New Bag - Provider: Lucero Agudelo RN) 0917 (New Bag - Provider: Inga Camarena RN) magnesium sulfate 2 g/50 mL in water (premix) 2 g (COMPLETED) 2 g, intravenous, at 50 mL/hr, Administer over 60 Minutes, Once, On 04/01/24 at 0330, For 1 dose 0338 (New Bag - Provider: Leonor Norman RN) ondansetron (ZOFRAN) injection 4 mg (COMPLETED) 4 mg, intravenous, Administer over 2 Minutes, Once, On 04/01/24 at 0330, For 1 dose 0250 (Given - Provider: Leonor Norman RN) ondansetron (ZOFRAN) injection 4 mg (COMPLETED) 4 mg, intravenous, Administer over 2 Minutes, Once, On 04/01/24 at 0915, For 1 dose 0859 (Given - Provider: Lucero Agudelo RN) ondansetron (ZOFRAN) injection 4 mg (COMPLETED) 4 mg, intravenous, Administer over 2 Minutes, Once, On 04/01/24 at 1600, For 1 dose 1534 (Given - Provider: Lucero Agudelo RN) ondansetron (ZOFRAN) injection 4 mg (COMPLETED) 4 mg, intravenous, Administer over 2 Minutes, Once, On 04/01/24 at 2130, For 1 dose 2100 (Given - Provider: Leonor Norman RN) pantoprazole (PROTONIX) 40 mg in sodium chloride 0.9% 10 mL IV Syringe (CANCELED) 40 mg, intravenous, at 300 mL/hr, Administer over 2 Minutes, 2 times daily, First dose (after last modification) on Tue03/31/24 at 0900, For IV administration, reconstitute 40 mg vial with 10 mL sodium chloride 0.9% for injection for a final concentration of 4 mg/mL, Indications: Stress Ulcer Prophylaxis 0832 (Given - Provider: Lucero Agudelo RN)2101 (Given - Provider: Leonor Norman RN) 0917 (Given - Provider: Inga Camarena RN)2232 (Given - Provider: Monica Maravilla RN) pantoprazole DR (PROTONIX) extended release tablet 40 mg 40 mg, oral, 2 times daily, First dose on Tue04/03/24 at 0900, Do not crush, chew, cut, dissolve, open or otherwise manipulate tablet/capsule., Indications: Stress Ulcer Prophylaxis 0851 (Given - Provider: Inga Camarena RN) potassium chloride ER (KLOR-CON) extended release tablet 40 mEq (COMPLETED) 40 mEq, oral, Once, On Tue04/02/24 at 2315, For 1 dose, Tablets should not be crushed, chewed, dissolved, or otherwise manipulated. Capsules may be opened and sprinkled on a spoonful of applesauce or pudding, but the contents of the capsule should not be crushed or chewed. 2238 (Given - Provider: Monica Maravilla RN) potassium phosphates 20 mmol in sodium chloride 0.9% 500 mL IVPB (COMPLETED) 20 mmol, intravenous, at 84.4 mL/hr, Administer over 6 Hours, Once, On Tue04/01/24 at 0330, For 1 dose, For PERIPHERAL line administration Each 1 mmol of phosphorus ordered contains ~1.5 mEq of potassium. 0454 (New Bag - Provider: Leonor Norman RN) potassium phosphates 30 mmol in sodium chloride 0.9% 500 mL IVPB (COMPLETED) 30 mmol, intravenous, at 85 mL/hr, Administer over 6 Hours, Once, On Tue04/02/24 at 0600, For 1 dose, For PERIPHERAL line administration Each 1 mmol of phosphorus ordered contains ~1.5 mEq of potassium. 0526 (New Bag - Provider: Leonor Norman RN) simethicone (MYLICON) chewable tablet 80 mg (COMPLETED) 80 mg, oral, Once, On Tue04/03/24 at 0115, For 1 dose 0048 (Given - Provider: Monica Maravilla RN) sodium chloride 0.9% flush 0.5-20 mL 0.5-20 mL, intra-catheter, Every 8 hours scheduled (alternate), First dose on Tue03/31/24 at 0045, Flush volume based on line type and size. 0832 (Given - Provider: Lucero Agudelo RN)1553 (Given - Provider: Lucero Agudelo RN) 0008 (Not Given - Provider: Leonor Norman RN - Reason: IV Infusing)0918 (Given - Provider: Inga Camarena RN)1736 (Given - Provider: Inga Camarena RN)2236 (Given - Provider: Monica Maravilla RN) 0851 (Given - Provider: Inga Camarena RN) Continuous Medication Order 04/01/2024 04/02/2024 04/03/2024 dextrose 5% and sodium chloride 0.45% with potassium chloride 20 mEq/L infusion (premix) (CANCELED) 100 mL/hr, intravenous, Continuous, Starting on 03/31/24 at 0700 1248 (New Bag - Provider: Lucero Agudelo RN) 0119 (New Bag - Provider: Leonor Norman RN)0831 (Stopped - Provider: Inga Camarena RN) PRN Medication Order 04/01/2024 04/02/2024 04/03/2024 acetaminophen (TYLENOL) tablet 1,000 mg 1,000 mg, oral, Every 6 hours PRN, fever, Starting on 03/31/24 at 1532 0247 (Given - Provider: Leonor Norman RN)1131 (Given - Provider: Lucero Agudelo RN) Carrier Fluids for Secondary Infusion - 0.9% Sodium Chloride 30 mL, intravenous, As needed, For priming tubing and/or flushing, Starting on 03/31/24 at 0009, 0-250 ml/hr to flush line after IV infusions when no maintenance IV ordered. Infuse 30mL at the same rate as the secondary infusion. Run as primary IV, not intended for KVO. gadoterate meglumine injection 13 mL (COMPLETED) 13 mL, intravenous, Once in imaging, contrast, Starting on 04/01/24 at 1406, For 1 dose 1409 (Contrast Given - Provider: Ne Gary, RT) HYDROmorphone (DILAUDID) injection 0.2 mg 0.2 mg, intravenous, Administer over 2 Minutes, Every 3 hours PRN, 1st line for pain, Starting on 03/31/24 at 0009, May repeat in 30 minutes if pain is uncontrolled or increasing. Max 2 doses within 1 dosing interval., Indications: Pain 1534 (Given - Provider: Lucero Agudelo RN)2100 (Given - Provider: Leonor Piedad Pfalzgraf, RN) sodium chloride 0.9% flush 0.5-20 mL 0.5-20 mL, intra-catheter, As needed, line care, Starting on 03/31/24 at 0009, Flush volume based on line type and size. Flush before and after each use. documented in this encounter Orders Medications Ordered That Yuan ht Not Have Been Administered Count Last Ordered Date First Ordered Date Carrier Fluids for Secondary Infusion - 0.9% Sodium Chloride 1 03/31/2024 pantoprazole (PROTONIX) 40 m g in sodium chloride 0.9% 10 mL IV Syringe 1 03/31/2024 sodium chloride 0.9% flush 0.5-20 mL 1 03/12 lidocaine (GLYDO) 2 % jelly 200 mg 1 2023 Lab Orders Without Results Count Last Ordered D ate First Ordered Date POCT LACTATE - DEVICE 1 03/30/2024 Diet Count Last Ordered Date First Orde red Date ADULT DISCHARGE DIET 1 04/03/2024 Nursing Count Last Ordered Date First Orde red Date DISCHARGE ACTIVITY 2 04/03/2024 DISCHARGE CALL PROVIDER 6 04/03/2024 DISCHARGE INSTRUCTIONS 1 04/03/2024 WEIGH PATIENT 1 03/31/2024 CHECK WITH MD 1 03/30/2024 IV Count Last Ordered Date First Orde red Date SALINE LOCK IV 1 03/30/2024 Admission Count Last Ordered Date First Orde red Date ADMIT TO INPATIENT 1 03/30/2024 Discharge Count Last Ordered Date First Orde red Date DISCHARGE PATIENT 1 04/03/2024 documented in this encounter Care Teams Electoral Officer Relationship Specialty Start Date End Date No, Physician PCP - General 06/20/18 documented as of this encounter
== END 2024-04-14 19:35 | disposition home or self-care (01) ==
PROVIDERS: Emergency Provider Student in an Organized Health Care Education/Training Program
DX: R10.11 Right upper quadrant pain (principal); R93.3 Abnormal findings on diagnostic imaging of other parts of digestive tract; N20.0 Calculus of kidney
CPT/HCPCS: 36415; 74177; 80053; 81001; 81025; 83605; 83690; 85025; 85610; 85730; 87086; 96361; 96374; 96375; 99284; J1171; J2405; J7120; Q9967